=== PATIENT | female | born 1945 | race Caucasian/White ===

== ENCOUNTER 2019-04-29 14:04 | Outpatient (CLI) | payer MEDICARE, SELFPAY ==
--- NOTE | ~2019-04-29 | DEXA_ITS ---
Bone Density Report Name: Margaret Funez Age: 74 Sex: Female Ethnicity: White Date of : 1945 Indication: osteopenia; height loss; Referring Provider: Ne Perez Study: Bone densitometry was performed. Exam Date: April 29, 2019 Accession number: [id number] Bone Density: Region BMD T-score Z-score Classification AP Spine (L1, L2, L3) 0.832 -1.7 0.6 Osteopenia Femoral Neck (Left) 0.618 -2.1 -0.1 Osteopenia Total Hip (Left) 0.864 -0.6 1.0 Normal Total Hip Bilateral Avg 0.821 -1.0 0.7 Osteopenia Femoral Neck (Right) 0.673 -1.6 0.4 Osteopenia Total Hip (Right) 0.777 -1.4 0.3 Osteopenia World Health Organization criteria for BMD impression classify patients as: Normal (T-score at or above -1.0), Osteopenia (T-score between -1.0 and -2.5), or Osteoporosis (T-score at or below -2.5). 10-year Fracture Risk(1): Major Osteoporotic Fracture 13% Hip Fracture 2.9% Reported Risk Factors: [place] (), Neck BMD=0.618, BMI=28.6 (1) FRAX(R) Version 3.08. Fracture probability calculated for an untreated patient. Fracture probability may be lower if the patient has received treatment. Previous Exams: Region Exam Age BMD T-score BMD Change BMD Change Date g/cm2 vs Baseline vs Previous AP Spine(L1, L2, L3) 04/29/2019 74 0.832 -1.7 -0.162(-16.3%) -0.027(-3.1%)* 12/10/2015 70 0.859 -1.4 -0.135(-13.6%) -0.135(-13.6%) 10/12/2007 62 0.995 -0.2 Total Hip(Left) 04/29/2019 74 0.864 -0.6 -0.094(-9.8%)# -0.011(-1.2%) 12/10/2015 70 0.875 -0.5 -0.083(-8.6%)# -0.083(-8.6%)# 10/12/2007 62 0.958 0.1 Total Hip(Right) 04/29/2019 74 0.777 -1.4 -0.126(-14.0%) -0.057(-6.9%)* 12/10/2015 70 0.834 -0.9 -0.069(-7.6%)# -0.069(-7.6%)# 10/12/2007 62 0.903 -0.3 *Denotes significance at 95% confidence level, LSC for AP Spine = 0.022 g/cm2, LSC for Total Hip = 0.027 g/cm2 Clinical Information Provided by Patient: Patient maximum height was 62 Menopause Age: 51 No regular weight bearing exercise Drinks caffeinated beverages Onset of menses at age 11 Number of children 2 Impression: The patient has low bone mass, based on the Left Femoral Neck T-score. The patient has an estimated ten-year risk of hip fracture of 2.9% and an estimated ten-year risk of major fracture of 13%, based on the WHO FRAX algorithm. The BMD for the AP Spine(L1, L2, L3) decreased, changing by -3.1% since the last DXA exam. The BMD for the T
--- NOTE | ~2019-04-29 | MM_ITS ---
EXAMINATION: MM screening [facility] BI w thomas HISTORY: Screening mammogram TECHNIQUE: Craniocaudal and mediolateral oblique 3-D tomosynthesis images were obtained and synthetic 2-D images were generated. CAD analysis was submitted and interpreted. COMPARISON: 04/09/2018 diagnostic left digital mammogram and limited left breast ultrasound 03/15/2018 bilateral digital screening mammogram 02/17/2016 bilateral digital mammograms from [facility] Scattered bilateral benign calcifications. BREAST PARENCHYMAL COMPOSITION: The breasts are heterogeneously dense, which may obscure small masses . FINDINGS: Biopsy marker is noted on the left; history of prior benign left breast biopsy in 2019. The re is no evidence of suspicious mass, calcification, or architectural distortion to suggest malignanc y in either breast. There has been no suspicious interval change. IMPRESSION: 1. No mammographic evidence of malignancy. 2. Recommend routine screening mammography in one year. BI-RADS Category 2: Benign finding(s). Reviewed, dictated and finalized at location A. 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
== END 2019-04-29 14:05 | disposition home or self-care (01) ==
PROVIDERS: PCP Internal Medicine; Visit Provider Student in an Organized Health Care Education/Training Program
DX: Z12.31 Encounter for screening mammogram for malignant neoplasm of breast (principal); Z78.0 Asymptomatic menopausal state; M85.89 Other specified disorders of bone density and structure, multiple sites
CPT/HCPCS: 77063; 77067; 77080

== ENCOUNTER 2020-03-31 08:43 | Outpatient (CLI) | payer MEDICARE, SELFPAY ==
--- NOTE | 2020-03-31 08:57 | ECHO_ITS ---
Patient Info Name: Margaret Funez Age: 75 years : 1945 Gender: Female Ht: 61 in Wt: 147 lbs BSA: 1.71 m2 HR: 95 bpm BP: 144 / 87 mmHg Technical Quality: Fair Exam Date: 03/31/2020 9:19 AM Exam Location: [facility] Patient Status: Outpatient Admit Date: 03/31/2020 Staff Ordering Physician: Chuy High MD Warehouse General Laborer: Bea Nieves RDCS Attending Provider: Chuy High MD Referring Physician: Anila HANSON; Exam Type: CA echo doppler color flow Study Info Indications - abn ekg Complete two-dimentional, color flow and Doppler transthoracic echocardiogram is performed with agitated saline and with contrast to opacify the left ventricle and to improve the delineation of the left ventricle endocardial borders. Summary 1. Left ventricular chamber dimension is normal. 2. Left ventricular systolic function is normal, estimated at 60-65%. 3. The left ventricular diastolic function is grade I diastolic dysfunction. 4. E/e' 7 is not elevated. 5. No pulmonary hypertension, estimated pulmonary arterial systolic pressure is 26 mmHg. Left Ventricle E/e' 7 is not elevated. Left ventricular chamber dimension is normal. Left ventricular systolic function is normal, estimated at 60-65%. The left ventricular diastolic function is grade I diastolic dysfunction. Right Ventricle Right ventricular chamber dimension is normal. Right ventricular systolic function is normal. Left Atria Left atrial chamber dimension is normal. Right Atria Right atrial chamber dimension is normal. Aortic Valve The aortic valve is trileaflet. There is no aortic valve stenosis. There is no aortic valve regurgitation. Pulmonic Valve There is no pulmonic regurgitation. Mitral Valve There is no mitral valve stenosis. There is no mitral valve regurgitation. Tricuspid Valve There is no tricuspid valve regurgitation. No pulmonary hypertension, estimated pulmonary arterial systolic pressure is 26 mmHg. Pericardium/Pleural There is no pericardial effusion. Inferior Vena Cava Normal inferior vena cava with >50% collapse upon inspiration consistent with normal right atrial pressure, 5 mmHg. Aorta The aortic root size at the sinus of Valsalva is normal. Left Ventricular Outflow Tract Name Value Normal LVOT 2D LVOT Diameter 2.0 cm LVOT Doppler LVOT Peak Gradient 4 mmHg LVOT Mean Gradient 2 mmHg LVOT VTI 22 cm LVOT VTI/AV VTI Ratio 1.0 LVOT Stroke Volume 65 ml LVOT CO 12.1 l/min LVOT CI 7.0 l/min/m2 Pulmonic Valve Name Value Normal PV Doppler PV Peak Gradient 3 mmHg Mitral Valve
== END 2020-03-31 08:44 | disposition home or self-care (01) ==
PROVIDERS: PCP Internal Medicine; Visit Provider Internal Medicine
DX: R94.31 Abnormal electrocardiogram [ECG] [EKG] (principal)
CPT/HCPCS: 93306

== ENCOUNTER 2020-05-06 10:29 | Outpatient (CLI) | payer MEDICARE, SELFPAY ==
--- NOTE | ~2020-05-06 | MM_ITS ---
EXAMINATION: MM screening yung BI w thomas HISTORY: Screening mammogram TECHNIQUE: Craniocaudal and mediolateral oblique 3-D tomosynthesis images were obtained and synthetic 2-D images were generated. CAD analysis was submitted and interpreted. COMPARISON: 04/29/2019 bilateral digital screening mammogram 04/09/2018 diagnostic left digital mammogram and limited left breast ultrasound 03/15/2018 bilateral digital screening mammogram BREAST PARENCHYMAL COMPOSITION: The breasts are heterogeneously dense, which may obscure small masses . FINDINGS: There is a biopsy in the lower mid left breast. History of prior benign breast biopsy. Scattered bilateral benign calcifications. There is no evidence of suspicious mass, calcification, or architectural distortion to suggest malignancy in either breast. There has been no suspicious interv al change. IMPRESSION: 1. No mammographic evidence of malignancy. 2. Recommend routine screening mammography in one year. BI-RADS Category 2: Benign finding(s). Reviewed, dictated and finalized at location A. 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
== END 2020-05-06 10:30 | disposition home or self-care (01) ==
PROVIDERS: PCP Internal Medicine; Visit Provider Student in an Organized Health Care Education/Training Program
DX: Z12.31 Encounter for screening mammogram for malignant neoplasm of breast (principal)
CPT/HCPCS: 77063; 77067

== ENCOUNTER 2020-09-26 10:46 | Emergency (ER) | payer MEDICARE, SELFPAY ==
[2020-09-26 10:55] VITALS: BP 123/73; PULSE 84; RESP 18; TEMP 36.1; O2SAT 98
--- NOTE | 2020-09-26 11:39 | ED.GENADULT ---
HPI - General Adult General Chief complaint: Skin/Abscess/Foreign Body Stated complaint: INSECT BITE Source: patient Mode of arrival: ambulatory Limitations: no limitations History of Present Illness HPI narrative: 75 y/o female. PMHx includes HTN, HLD, DM II. Presents to [facility] clinic today with acute complaints of insect bite located to inner LT forearm. Pt reports to have been working outside, when she felt a sting to her forearm. She was able to visualize a wasp as the culprit. Incident had initially occurred 3 days ago, but she has had worsening redness, irritation, and pain to site. No fever, chills. No joint pain or myalgia. No dyspnea or wheezing. No additional areas of integumentary involvement. Pt is w/o additional acute c/o illness upon exam. Related Data Home Medications Medication Instructions Recorded Confirmed empagliflozin 10 mg tablet 10 mg PO DAILY 01/07/19 06/25/20 sitagliptin 100 mg tablet 100 mg PO DAILY 01/07/19 06/25/20 vitamin B complex 1 tablet PO DAILY 01/07/19 06/25/20 omega-3 fatty acids 1,000 mg 1,000 mg PO DAILY 04/04/19 06/25/20 capsule calcium carbonate 600 mg(1,500 1 tablet PO DAILY 05/07/19 06/25/20 mg)-vitamin D3 800 unit chewable tablet cholecalciferol (vitamin D3) 25 1,000 unit PO DAILY 05/07/19 06/25/20 mcg (1,000 unit) capsule ascorbate calcium (vitamin C) 500 500 mg PO DAILY 02/12/20 06/25/20 mg tablet Fiber-Caps (ca polycarbophil) 09/26/20 Immune Support Complex 09/26/20 Tri Ease Seasonal Soft Gels DAILY 09/26/20 biotin 09/26/20 Allergies Allergy/AdvReac Type Severity Reaction Status Date / Time pollen extracts Allergy Unknown Unknown Verified 04/20/20 10:37 Review of Systems Review of Systems: CONSTITUTIONAL: Denies fever, chills, sweats. EYES: Denies visual changes, redness, discharge. ENT: Denies rhinorrhea, congestion, sore throat, otalgia. CARDIOVASCULAR: Denies chest pain, palpitations, edema. RESPIRATORY: Denies dyspnea, wheezing, cough GASTROINTESTINAL: Denies abdominal pain, nausea, vomiting, diarrhea. GENITOURINARY: Denies dysuria, hematuria, abnormal discharge SKIN: Wasp sting LUE. No rash or itching. MUSCULOSKELETAL: Denies acute back pain, joint pain, or myalgia. NEUROLOGIC: Denies numbness, or focal weakness. PSYCHIATRIC: Denies anxiety or depression. 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 Vitamin D deficiency Surgical History Surgical History History of breast biopsy History of tonsillectomy Family History Family History Father Hypertension Family history of malignant neoplasm Mother Family history of cardiovascular disease Family history of heart disease in male family member before age 55 Other Diabetes mellitus Social History Social History Smoking status: Former smoker Second hand tobacco smoke exposure: No Smoking end date: 07/29/07 Alcohol intake: never Substance use type: marijuana Exam Narrative: GENERAL: This is a well-nourished, well-developed adult, in no apparent distress. HEAD: normocephalic, atraumatic. EYES: PERRL. Sclera clear/white. EARS: External ears normal, auditory canals clear and wit
== END 2020-09-26 11:14 | disposition home or self-care (01) ==
PROVIDERS: Emergency Provider Nurse Practitioner Adult Health; PCP Internal Medicine
DX: T63.461A Toxic effect of venom of wasps, accidental (unintentional), initial encounter (principal); E11.9 Type 2 diabetes mellitus without complications; E78.5 Hyperlipidemia, unspecified
CPT/HCPCS: 99213; G0463

== ENCOUNTER 2021-05-24 09:04 | Outpatient (CLI) | payer MEDICARE, SELFPAY ==
--- NOTE | ~2021-05-24 | MM_ITS ---
EXAMINATION: MM screening [facility] BI w thomas HISTORY: Screening mammogram TECHNIQUE: Craniocaudal and mediolateral oblique 3-D tomosynthesis images were obtained and synthetic 2-D images were generated. CAD analysis was submitted and interpreted. COMPARISON: 05/06/2020, 04/29/2019, 04/09/2018, 03/15/2018 BREAST PARENCHYMAL COMPOSITION: The breasts are heterogeneously dense, which may obscure small masses . FINDINGS: Scattered benign-appearing calcifications are present. There is no suspicious mass, calcifi cation, or architectural distortion to suggest malignancy in either breast. There has been no suspici ous interval change. IMPRESSION: 1. No mammographic evidence of malignancy. 2. Recommend routine screening mammography in one year. BI-RADS Category 2: Benign finding(s). Reviewed, dictated and finalized at location A.
== END 2021-05-24 09:05 | disposition home or self-care (01) ==
PROVIDERS: PCP Internal Medicine; Visit Provider Student in an Organized Health Care Education/Training Program
DX: Z12.31 Encounter for screening mammogram for malignant neoplasm of breast (principal)
CPT/HCPCS: 77063; 77067

== ENCOUNTER 2022-08-08 08:55 | Outpatient (CLI) | payer MEDICARE, SELFPAY ==
--- NOTE | ~2022-08-08 | US_ITS ---
US abdomen limited INDICATION: Abnormal liver function tests. PROCEDURE: Realtime right upper abdominal ultrasound. COMPARISON: No prior studies for comparison. FINDINGS: The pancreas is normal without focal mass or pancreatic ductal dilation. Pancreatic duct is mildly prominent, nonspecific. Liver echotexture is increased, consistent with fatty infiltration. There is normal directional flow in the portal vein. The gallbladder is normal without stones, gallbladder wall thickening or pericholecystic fluid. Comm on bile duct measures 4 mm. No sonographic Salguero's sign. IMPRESSION: 1: Hepatic steatosis. Reviewed, dictated and finalized at location L. IMPRESSION: 1: Hepatic steatosis.
== END 2022-08-08 08:56 | disposition home or self-care (01) ==
PROVIDERS: PCP Internal Medicine; Visit Provider Internal Medicine
DX: R79.89 Other specified abnormal findings of blood chemistry (principal); K76.0 Fatty (change of) liver, not elsewhere classified
CPT/HCPCS: 76705

== ENCOUNTER 2022-09-28 16:03 | Outpatient (CLI) | payer MEDICARE, SELFPAY ==
[2022-09-28 17:32] LABS: Basophils Absolute Auto 0.1 K/mm3 (0.0-0.1); Basophils Percent Auto 0.7 % (0.2-1.2); Eosinophils Absolute Auto 0.1 K/mm3 (0-0.3); Eosinophils Percent Auto 1.6 % (0-4.4); Hematocrit 43.6 % (37.0-47.0); Hemoglobin 14.2 g/dL (12.0-15.0); Immature Granulocyte Absolute 0.01 K/mm3 (0.00-0.031); Immature Granulocyte Percent A 0.1 % (0-0.5); Lymphocytes Absolute Auto 1.64 K/mm3 (0.9-3.2); Lymphocytes Percent Auto 21.4 % (18.3-44.2); Mean Corpuscular HGB Conc 32.6 g/dl (32-36); Mean Corpuscular Hemoglobin 29.5 pg (26-34); Mean Corpuscular Volume 90.6 fl (80-100); Mean Platelet Volume 10.4 fl (7.4-10.4); Monocytes Absolute Auto 0.8 K/mm3 (0.1-0.6); Monocytes Percent Auto 10.6 % (2.6-8.5); Neutrophils Percent Auto 65.6 % (45.5-73.1); Platelet Count Result 244 k/mm3 (150-375); Red Blood Count 4.81 M/mm3 (4.2-5.4); Red Cell Distribution Width 13.8 % (11.5-14.5); White Blood Count 7.7 K/mm3 (4.5-10.0)
== END 2022-09-28 16:04 | disposition home or self-care (01) ==
LOC: ANHLAB 16:04
PROVIDERS: PCP Internal Medicine; Visit Provider Internal Medicine
DX: R35.89 Other polyuria (principal); R50.9 Fever, unspecified
CPT/HCPCS: 36415; 81001; 85025; 87086

== ENCOUNTER 2022-09-29 08:12 | Outpatient (NON) | payer MEDICARE, SELFPAY ==
[2022-09-30 11:23] LABS: Appearance Urine Turbid (Clear); Bacteria Urine Rare /hpf; Bilirubin Urine Negative (Negative); Blood Urine 3+ (Negative); Budding Yeast Urine Present /hpf; Calcium Oxalate Crystals Urine Present /hpf; Color Urine Yellow (Yellow); Glucose Urine UA 2+ mg/dL (Negative); Ketones Urine Trace mg/dL (Negative); Leukocyte Esterase Ur 3+ LEU/UL (NEGATIVE); Nitrate Urine Negative (Negative); Non Pathogenic Casts 0-2; Protein Urine 2+ mg/dL (Negative); RBC Urine >100 /hpf (0-2); Specific Grav Ur 1.024 (1.001-1.035); Squamous Epithelial Cell Urine Few /hpf (Few); Urobilinogen Urine 0.2 mg/dL (<2.0); WBC Clumps Urine Present /HPF; WBC Urine >100 /hpf (0-3); pH Urine 5.5 (5.0-9.0)
[2022-09-30 11:37] LABS: Add Urine Microscopic? YES
== END 2022-09-29 08:13 | disposition home or self-care (01) ==
PROVIDERS: PCP Internal Medicine; Visit Provider Internal Medicine
DX: R50.9 Fever, unspecified (principal); R35.89 Other polyuria
CPT/HCPCS: 81001

== ENCOUNTER 2022-10-13 14:55 | Outpatient (CLI) | payer MEDICARE, SELFPAY ==
--- NOTE | ~2022-10-13 | DEXA_ITS ---
Bone Density Report Name: VIC GRACE Age: 77 Sex: Female Ethnicity: White Date of : 1945 Indication: osteopenia; height loss; postmenopausal Referring Provider: ZINA PATEL Study: Bone densitometry was performed. Exam Date: October 13, 2022 Accession number: [id number] Bone Density: Region BMD T-score Z-score Classification AP Spine(L1-L4) 0.861 -1.7 0.8 Osteopenia Femoral Neck (Left) 0.653 -1.8 0.4 Osteopenia Total Hip (Left) 0.819 -1.0 0.9 Normal Femoral Neck (Right) 0.639 -1.9 0.3 Osteopenia Total Hip (Right) 0.751 -1.6 0.3 Osteopenia Total Hip Mean 0.785 -1.3 0.6 Osteopenia World Health Organization criteria for BMD impression classify patients as: Normal (T-score at or above -1.0), Osteopenia (T-score between -1.0 and -2.5), or Osteoporosis (T-score at or below -2.5). 10-year Fracture Risk(1): Major Osteoporotic Fracture 13% Hip Fracture 3.3% Reported Risk Factors: [place] (), Neck BMD=0.639, BMI=26.8 (1) FRAX(R) Version 3.08. Fracture probability calculated for an untreated patient. Fracture probability may be lower if the patient has received treatment. Previous Exams: Region Exam Age BMD T-score BMD Change BMD Change Date g/cm2 vs Baseline vs Previous AP Spine (L1-L4) 10/13/2022 77 0.861 -1.7 -0.005 (-0.6%) -0.005 (-0.6%) 12/10/2015 70 0.866 -1.6 Total Hip(Left) 10/13/2022 77 0.819 -1.0 -0.056 (-6.4%) -0.045 (-5.2%) 04/29/2019 74 0.864 -0.6 -0.011 (-1.2%) -0.011 (-1.2%) 12/10/2015 70 0.875 -0.5 Total Hip(Right) 10/13/2022 77 0.751 -1.6 -0.083 (-9.9%) -0.026 (-3.3%) 04/29/2019 74 0.777 -1.4 -0.057 (-6.9%) -0.057 (-6.9%) 12/10/2015 70 0.834 -0.9 *Denotes significance at 95% confidence level, LSC for AP Spine = 0.022 g/cm2, LSC for Total Hip = 0.027 g/cm2 Clinical Information Provided by Patient: Has used the following medications: Vitamin D, Calcium Patient maximum height was 62 Menopause Age: 56 No regular weight bearing exercise Onset of menses at age 13 Number of children 2 Impression: The patient has low bone mass, based on the Right Femoral Neck T-score. The patient has an estimated ten-year risk of hip fracture of 3.3% and an estimated ten-year risk of major fracture of 13%, based on the WHO FRAX algorithm. The BMD for the Total Hip(Left) decreased, changing by -5.2% since the last DXA exam. Discussion: BONE DENSITY IS LOW AT ON
--- NOTE | ~2022-10-13 | MM_ITS ---
EXAMINATION: MM screening [facility] BI w thomas HISTORY: Screening TECHNIQUE: Craniocaudal and mediolateral oblique 3-D tomosynthesis images were obtained and synthetic 2-D images were generated. CAD analysis was submitted and interpreted. COMPARISON: Comparison to multiple prior studies sequentially, with oldest reviewed study dated 2018. BREAST PARENCHYMAL COMPOSITION: The breasts are heterogeneously dense, which may obscure small masses . FINDINGS: There is no evidence of suspicious mass, calcification, or architectural distortion to sugg est malignancy in either breast. There has been no suspicious interval change. IMPRESSION: 1. No mammographic evidence of malignancy. 2. Recommend routine screening mammography in one year. BI-RADS Category 1: Negative . Reviewed, dictated and finalized at location A.
== END 2022-10-13 14:56 | disposition home or self-care (01) ==
LOC: ANHIMG 14:56
PROVIDERS: PCP Internal Medicine; Visit Provider Obstetrics & Gynecology
DX: Z12.31 Encounter for screening mammogram for malignant neoplasm of breast (principal); Z78.0 Asymptomatic menopausal state; M85.88 Other specified disorders of bone density and structure, other site; M85.852 Other specified disorders of bone density and structure, left thigh; M85.851 Other specified disorders of bone density and structure, right thigh
CPT/HCPCS: 77063; 77067; 77080

== ENCOUNTER 2023-01-08 09:04 | Outpatient (CLI) | payer MEDICARE, SELFPAY ==
--- NOTE | 2023-01-08 10:14 | ECG_ITS ---
Measurements Intervals Pilger Rate: 78 P: 10 MI: 141 QRS: 71 QRSD: 92 T: 66 QT: 369 QTc: 423 Interpretive Statements SINUS RHYTHM RIGHT BUNDLE BRANCH BLOCK LOW QRS VOLTAGE IN PRECORDIAL LEADS BASELINE ARTIFACT- II, III, AVR, AVL, AVF, V3 ABNORMAL ECG NO PREVIOUS ECG AVAILABLE FOR COMPARISON Electronically Signed On 01-08-2023 11:37:41 GLOBAL PROGRAM MANAGER by Ricki Somers D.O.
[2023-01-08 10:58] LABS: Hematocrit 46.2 % (37.0-47.0); Hemoglobin 14.2 g/dL (12.0-15.0); Mean Corpuscular HGB Conc 30.7 g/dl (32-36); Mean Corpuscular Hemoglobin 27.7 pg (26-34); Mean Corpuscular Volume 90.2 fl (80-100); Mean Platelet Volume 10.4 fl (7.4-10.4); Platelet Count Result 280 k/mm3 (150-375); Red Blood Count 5.12 M/mm3 (4.2-5.4); Red Cell Distribution Width 14.5 % (11.5-14.5); White Blood Count 13.1 K/mm3 (4.5-10.0)
[2023-01-08 11:04] LABS: INR 0.9; Prothrombin Time 12.8 Seconds (11.1-14.7)
[2023-01-08 11:06] LABS: Partial Thromboplastin Time 52.2 SECONDS (22.3-36.8)
[2023-01-08 11:40] LABS: Total Cells Counted 100
[2023-01-08 11:41] LABS: Band Neutrophils Percent 8 % (0-6); Basophils Absolute Manual 0.13 K/mm3 (0.0-0.1); Basophils Percent Manual 1 % (0-1); Lymphocytes Absolute Manual 6.28 K/mm3 (1.1-4.5); Lymphocytes Percent Manual 48 % (18-44); Monocytes Absolute Manual 0.65 K/mm3 (0.1-0.90); Monocytes Percent Manual 5 % (3-9); Neutrophils Absolute Manual 6.02 K/mm3 (1.7-7.2); Neutrophils Percent Manual 38 % (46-73)
[2023-01-08 11:42] LABS: Anisocytosis 1+ (NORMAL); Burr Cells 1+ (NORMAL); Platelet Estimate Adequate (Adequate); Poikilocytosis 1+ (NORMAL); Schistocytes None Seen (NORMAL)
== END 2023-01-08 09:05 | disposition home or self-care (01) ==
LOC: ANHSURGERY 09:08
PROVIDERS: PCP Internal Medicine; Visit Provider Urology
DX: Z01.818 Encounter for other preprocedural examination (principal); I10 Essential (primary) hypertension; N18.2 Chronic kidney disease, stage 2 (mild); I45.10 Unspecified right bundle-branch block; R94.31 Abnormal electrocardiogram [ECG] [EKG]
CPT/HCPCS: 36415; 85025; 85610; 85730; 86850; 86900; 86901; 93005

== ENCOUNTER 2023-01-15 00:22 | Day surgery (SDC) | payer MEDICARE, SELFPAY ==
[2023-01-08 09:21] VITALS: BMI 26.4
--- NOTE | 2023-01-08 09:56 | PC.NURSE ---
Report to the Outpatient Waiting Room, entrance under the green pavilion located off [facility], at time _0930 on date _01/15/23 . Planned Procedure Time: __1130 . Time changes happen often and if your time is changed the preop area will call you the afternoon before. - You and your visitor will be asked to self-screen and do not enter if you have any COVID symptoms. - A mask is optional within the hospital at this time. Patients may have clear liquids (water, carbonated beverages, clear teas, apple juice) until 3 hours prior to surgery with a maximum of 20 ounces. - No food from midnight until time of surgery - Infants may have breast milk until 4 hours before surgery, formula 6 hours prior to surgery. - Children will be allowed to drink immediately following surgery. If applicable, please bring a bottle or sippy cup to assist with drinking. Juice, water, soda, and popsicles are readily available. For infants on formula, please bring formula the day of surgery. Pacifiers are allowed. Take the following medications with a SIP of water the morning of surgery: ____NONE DO NOT STOP ANY OF YOUR OTHER PRESCRIPTION MEDICATIONS PRIOR TO SURGERY ?EXCEPT THE FOLLOWING Medications to discontinue per physician ___ALL VITAMINS AND SUPPLEMENTS 3 DAYS PRE OP.LAST DOSE 01/11/23 Please no make-up, nail ugandan, hairspray, perfume, deodorant, or body powder the day of surgery. No jewelry (including any body piercings) or valuables the day of surgery, leave them at home. Please take a shower or bath the night before, or the morning of, surgery with an antibacterial soap. Wear comfortable, loose fitting clothing. Children are encouraged to wear pajamas. - Jewelry must be removed prior to entering the operating room. Rings and piercings that are not removed may be cut off. - The hospital will not accept responsibility for valuables. - Please leave all valuables, including medications, at home the day of surgery. If you are going home after surgery, a licensed trailer driver must drive you home. - NO public transportation without another adult if you receive anesthesia. - We recommend that an adult stay with you for 24 hours following discharge. - We also recommend that you do not drive, make important decision, drink alcoholic beverages, or take any drugs that were not prescribed by your health care provider for at least 24 hours after your discharge time. For Pediatric surgeries, we recommend two adults accompany the child home. Follow any additional instructions given to you from your surgeon. If you or anyone in your household have experienced Covid symptoms in the past week, please notify your surgeon or the nurse liaison at the phone number below for possible testing. VERBAL AND WRITTEN instructions given to __PATIENT and asked if any additional questions and then verbalized understanding. Patient advised to call surgeon office or pre surgery nurse liaison [phone] if any additional questions.
[2023-01-08 10:16] VITALS: BP 112/72; PULSE 83; RESP 18; TEMP 36.6; O2SAT 97
--- NOTE | 2023-01-13 10:46 | PM.IMHP ---
H&P: HPI History of Present Illness Date/Time: 01/13/23 10:46 Chief Complaint: pelvic organ prolapse Narrative: she has significant pelvic organ prolapse. Stress incontinence documented on urodynamics Review of Systems Review of Systems: All systems reviewed & are unremarkable except as noted in HPI and below PMFSH Past Medical History Medical History Abnormal EKG Benign essential hypertension BMI 26.0-26.9,adult BMI 27.0-27.9,adult BMI 28.0-28.9,adult BMI 29.0-29.9,adult Borderline abnormal TFTs Breast cyst Colon cancer screening Diastolic dysfunction DM type 2 (diabetes mellitus, type 2) Ear itching Eczema Elevated LFTs Encounter for Medicare annual wellness exam Encounter for routine adult health examination with abnormal findings Encounter for routine adult health examination without abnormal findings Encounter for screening mammogram for malignant neoplasm of breast Follow up Hair loss Hearing loss Hepatitis B core antibody positive Hot flashes Hx of seborrheic dermatitis Hypercalcemia Hyperlipidemia On alf drug therapy Unspecified ptosis of bilateral eyelids UTI (urinary tract infection) Vitamin D deficiency Surgical History Surgical History H/O eye surgery History of breast biopsy History of tonsillectomy Family History Family History Father Hypertension Family history of malignant neoplasm Mother Family history of cardiovascular disease Family history of heart disease in male family member before age 55 Other Diabetes mellitus Social History Social History Smoking packs per day: 1 Smoking cigarettes per day: 20.0 Years smoked: 62 Smoking pack-years: 62.00 Smoking status: Former smoker Tobacco type: cigarettes Second hand tobacco smoke exposure: No Smoking end date: 02/26/07 Alcohol intake: never Substance use: never Substance use type: does not use Lack of Transportation: No Lack of Food: Never True Current Housing: I Have Housing Concerned About Future Housing: No Difficulty Paying Gas/Electric Bills: No Difficulty Paying for Meds: No Currently Unemployed: No Education: High School Diploma/GED Living arrangements: with family Additional living arrangements comments: Occupation/Education: retired Gender identity (if verbalized by the patient): Female Sexual Orientation (if Verbalized by the Patient): Straight or Heterosexual Spiritual care concerns: No Meds Home Medications and Allergies Home Medications Medication Instructions Recorded Confirmed Type ascorbate calcium (vitamin C) 500 500 mg PO DAILY 02/12/20 01/08/23 History mg tablet Fiber-Caps (ca polycarbophil) 4 g PO BID 09/26/20 01/08/23 History Immune Support Complex 1 cap PO BID 09/26/20 01/08/23 History Tri Ease Seasonal Soft Gels 1 caplet PO DAILY 09/26/20 01/08/23 History biotin 1 cap PO DAILY 09/26/20 01/08/23 History omega-3 fatty acids 1,000 mg 2,000 mg PO BID 11/11/20 01/08/23 History capsule (Fish Oil Concentrate) triamcinolone acetonide 0.1 % 1 applic topical BID #60 grams 09/13/21 01/08/23 Rx topical cream lisinopril 20 mg tablet See Rx Instructions .Route 04/24/22 01/08/23 Rx .COMPLEX #90 tabs empagliflozin 10 mg tablet See Rx Instructions .Route 07/31/22 01/08/23 Rx (Jardiance) .COMPLEX #90 tabs sitagliptin phosphate 100 mg See Rx Instructions .Route 07/31/22 01/08/23 Rx tablet (Januvia) .COMPLEX #90 tabs atorvastatin 10 mg tablet See Rx Instructions .Route 11/21/22 01/08/23 Rx .COMPLEX #45 tabs metformin 1,000 mg tablet See Rx Instructions .Route 11/21/22 01/08/23 Rx .COMPLEX #180 tabs calcium carbonate 600 mg-vitamin 2 tablet PO DAILY 01/08/23 01/08/23 History D3 10 mcg (400 unit) tablet
--- NOTE | 2023-01-14 19:10 | PM.IMHP ---
H&P: HPI History of Present Illness Date/Time: 01/14/23 19:10 Chief Complaint: prolapse Narrative: Margaret is a 77yo postmenopausal P2002, who has known prolapse. She denies any PMB. No pelvic pain. She does have a known cystocele for the last 2 years and reports it seems to be worse; having urgency and needs to move around to fully empty-- now stage 3 and can easily be seen at the opening. Multiple pessaries were attempted but would not stay in place and she is ready to proceed with surgical intervention. Review of Systems Constitutional: Constitutional: Denies chills, Denies fever(s) and Denies headache(s) Eyes: Eyes: Denies change in vision ENT: Denies dizziness and Denies headache(s) Cardiovascular: Cardiovascular: Denies chest pain and Denies dyspnea Respiratory: Respiratory: Denies cough and Denies dyspnea Gastrointestinal: Gastrointestinal: Denies abdominal pain and Denies change in stool character Genitourinary: Genitourinary: Denies abnormal menses, Denies pelvic pain, Denies vaginal discharge, Denies vaginal odor and Denies vaginal pruritus Neurologic: Denies dizziness and Denies headache(s) Psychiatric: Psychiatric: Denies anxiety and Denies depression PMFSH Past Medical History Medical History Abnormal EKG Benign essential hypertension BMI 26.0-26.9,adult BMI 27.0-27.9,adult BMI 28.0-28.9,adult BMI 29.0-29.9,adult Borderline abnormal TFTs Breast cyst Colon cancer screening Diastolic dysfunction DM type 2 (diabetes mellitus, type 2) Ear itching Eczema Elevated LFTs Encounter for Medicare annual wellness exam Encounter for routine adult health examination with abnormal findings Encounter for routine adult health examination without abnormal findings Encounter for screening mammogram for malignant neoplasm of breast Follow up Hair loss Hearing loss Hepatitis B core antibody positive Hot flashes Hx of seborrheic dermatitis Hypercalcemia Hyperlipidemia On correction drug therapy Unspecified ptosis of bilateral eyelids UTI (urinary tract infection) Vitamin D deficiency Surgical History Surgical History H/O eye surgery History of breast biopsy History of tonsillectomy Family History Family History Father Hypertension Family history of malignant neoplasm Mother Family history of cardiovascular disease Family history of heart disease in male family member before age 55 Other Diabetes mellitus Social History Social History Smoking packs per day: 1 Smoking cigarettes per day: 20.0 Years smoked: 62 Smoking pack-years: 62.00 Smoking status: Former smoker Tobacco type: cigarettes Second hand tobacco smoke exposure: No Smoking end date: 02/26/07 Alcohol intake: never Substance use: never Substance use type: does not use Lack of Transportation: No Lack of Food: Never True Current Housing: I Have Housing Concerned About Future Housing: No Difficulty Paying Gas/Electric Bills: No Difficulty Paying for Meds: No Currently Unemployed: No Education: High School Diploma/GED Living arrangements: with family Additional living arrangements comments: Occupation/Education: retired Gender identity (if verbalized by the patient): Female Sexual Orientation (if Verbalized by the Patient): Straight or Heterosexual Spiritual care concerns: No Meds Home Medications and Allergies Home Medications Medication Instructions Recorded Confirmed Type ascorbate calcium (vitamin C) 500 500 mg PO DAILY 02/12/20 01/08/23 History mg tablet Fiber-Caps (ca polycarbophil) 4 g PO BID 09/26/20 01/08/23 History Immune Support Complex 1 cap PO BID 09/26/20 01/08/23 History Tri Ease Seasonal Soft Gels 1 caplet PO DAILY 09/26/20
[2023-01-15] VITALS (7 sets, daily range): BP systolic 110–147; BP diastolic 64–87; PULSE 80–96; RESP 8–18; TEMP 36.3–37; O2SAT 95–99
--- NOTE | 2023-01-15 07:16 | WPDHPUPDATE1 ---
History and Physical Update Update Date/Time: 01/15/23 07:16 History and Physical has been reviewed, including an updated exam of the patient. There are NO changes in the patient's condition. Risks, benefits, and alternatives have been discussed and questions answered. Patient agrees to proceed with procedure.
--- NOTE | 2023-01-15 08:30 | WPDANESEPPF ---
Anes - Initial Pre Proc Eval Procedure: Operation Date: 01/15/23 11:30 Proposed Procedures p Robotic Sacrocolpopexy, - Toni Le MD s Robotic Laparoscopic Supracervical Hysterectomy with Bilateral Salpingo-oophorectomy - Courtney Braxton MD Date/Time: 01/15/23 08:30 Surgeon: Toni Le MD Pre Op Diagnosis: incomp uterovag prolapse Patient Data Age: 77 Gender: F Height: 1.55 m Weight: 63.6 kg Last Vital Signs Temp 36.6 C 01/08/23 10:16 Pulse 83 01/08/23 10:16 Resp 18 01/08/23 10:16 BP 112/72 01/08/23 10:16 Pulse Ox 97 01/08/23 10:16 O2 Del Method Room Air 01/08/23 10:16 Allergies Allergy/AdvReac Type Severity Reaction Status Date / Time pollen extracts Allergy Unknown Swelling Verified 01/15/23 09:45 of the Eye Home Medications Medication Instructions Recorded Confirmed Type ascorbate calcium (vitamin C) 500 500 mg PO DAILY 02/12/20 01/15/23 History mg tablet Fiber-Caps (ca polycarbophil) 4 g PO BID 09/26/20 01/15/23 History Immune Support Complex 1 cap PO BID 09/26/20 01/15/23 History Tri Ease Seasonal Soft Gels 1 caplet PO DAILY 09/26/20 01/15/23 History biotin 1 cap PO DAILY 09/26/20 01/15/23 History omega-3 fatty acids 1,000 mg 2,000 mg PO BID 11/11/20 01/15/23 History capsule (Fish Oil Concentrate) triamcinolone acetonide 0.1 % 1 applic topical BID #60 grams 09/13/21 01/15/23 Rx topical cream lisinopril 20 mg tablet See Rx Instructions .Route 04/24/22 01/15/23 Rx .COMPLEX #90 tabs empagliflozin 10 mg tablet See Rx Instructions .Route 07/31/22 01/15/23 Rx (Jardiance) .COMPLEX #90 tabs sitagliptin phosphate 100 mg See Rx Instructions .Route 07/31/22 01/15/23 Rx tablet (Januvia) .COMPLEX #90 tabs atorvastatin 10 mg tablet See Rx Instructions .Route 11/21/22 01/15/23 Rx .COMPLEX #45 tabs metformin 1,000 mg tablet See Rx Instructions .Route 11/21/22 01/15/23 Rx .COMPLEX #180 tabs calcium carbonate 600 mg-vitamin 2 tablet PO DAILY 01/08/23 01/15/23 History D3 10 mcg (400 unit) tablet (Calcium 600 + D(3)) cholecalciferol (vitamin D3) 125 125 mcg PO DAILY 01/08/23 01/15/23 History mcg (5,000 unit) tablet alendronate 70 mg tablet (Fosamax) 70 mg PO WEEKLY #4 tabs 01/09/23 01/15/23 Rx Patient hx anesthesia problems: none Family hx anesthesia problems: none Results Review: All pre-operative results and documents have been reviewed as part of the pre-operative evaluation. [facility] Past Medical History Medical History (Updated 01/15/23 @ 08:31 by Elías Brown, ) Abnormal EKG Benign essential hypertension BMI 26.0-26.9,adult BMI 27.0-27.9,adult BMI 28.0-28.9,adult BMI 29.0-29.9,adult Borderline abnormal TFTs Breast cyst Colon cancer screening Diastolic dysfunction DM type 2 (diabetes mellitus, type 2) Ear itching Eczema Elevated LFTs Encounter for Medicare annual wellness exam Encounter for routine adult health examination with abnormal findings Encounter for routine adult health examination without abnormal findings Encounter for screening mammogram for malignant neoplasm of breast Follow up Hair loss Hearing loss Hepatitis B core antibody positive Hot flashes Hx of seborrheic dermatitis Hypercalcemia Hyperlipidemia Hypertension 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
[2023-01-15] MEDS: LACTATED RINGERS 1,000 ML 30 ML IV CONT ×3 (10:13→18:44)
[2023-01-15] MEDS: KETOROLAC 15 MG/ML VIAL (*BKC) IV PUSH (10:14)
[2023-01-15] MEDS: ACETAMINOPHEN 500 MG TABLET 1000 MG PO (10:14)
[2023-01-15 10:17] LABS: Glucose Point of Care 126 mg/dl (65-105)
[2023-01-15 10:21] LABS: White Blood Count 11.6 K/mm3 (4.5-10.0)
[2023-01-15 10:34] LABS: Partial Thromboplastin Time 48.7 SECONDS (22.3-36.8)
--- NOTE | 2023-01-15 10:44 | SUR.PREOP ---
1040 PT INFORMED OF SURGERY TIME DELAY, WARM BLANKET GIVEN.
--- NOTE | 2023-01-15 12:10 | WPDHPUPDATE1 ---
History and Physical Update Update Date/Time: 01/15/23 12:10 History and Physical has been reviewed, including an updated exam of the patient. There are NO changes in the patient's condition. Risks, benefits, and alternatives have been discussed and questions answered. Patient agrees to proceed with robotic assisted supracervical hysterectomy with bilateral salpingo-oophorectomy; combined case with Dr. Le .
--- NOTE | 2023-01-15 12:21 | SUR.PREOP ---
1150 INFORMED OF FURTHER TIME DELAY FOR SURGERY, PT UP TO RESTROOM.
[2023-01-15] MEDS: metroNIDAZOLE 500 MG/ISO 100ML 500 MG/100 ML BAG 100 MG IVPB ×2 (14:46→22:38)
[2023-01-15] MEDS: ceFAZolin 2 GM/D5W 50 ML 2 GM/50 ML BAG IVPB (14:46)
--- NOTE | 2023-01-15 15:43 | P.OP_ITS ---
Procedure Note - Detailed Date of Procedure 01/15/23 Pre-op Diagnosis incomp uterovag prolapse Post-op Diagnosis Same Procedure Performed robotic assisted total laparoscopic supracervical hysterectomy with bilateral salpingo-oophorectomy Surgeon Courtney Braxton MD Aviation Tactical Readiness Officer Marybeth Anesthesia General Findings Stage 4 pelvic organ prolapse; normal appearing uterus and bilateral fallopian tubes; history of tubal ligation. Good hemostasis at end of case. Description of Procedure Margaret was taken to the operating room where she was placed under general anesthesia without issues. She received 2 g Ancef and 500mg Metronidazole. She was then prepped and draped in the usual sterile fashion in the dorsal lithotomy position with her legs in low Regis stirrups, her arms tucked at her side, with a strap over her chest. A time-out was performed with both Dr. Le and I in the room. Dr. Le then scrubbed in and placed the 5 laparoscopic ports. The patient was then placed in steep Trendelenburg, with the legs slightly lowered. Dr. Le then docked the robot and placed the instruments intra-abdominally under direct visualization. A narvaez catheter was placed under aseptic technique. I then went to the robotic console. I then started my hysterectomy on the right side. The ureter was easily identified transperitoneally and well out of the surgical field. The IP ligament was identified and serially clamped, coagulated, and transected with good hemostasis. The broad ligament was then sequentially clamped, coagulated, and transected working in the direction of the round ligament. The round ligament was clamped, coagulated, and transected. The broad ligament was then further dissected anteriorly and posteriorly skeletonizing the uterine artery. The bladder flap was then developed on the right side and carried around the left, anteriorly. The uterine artery was then serially clamped and coagulated. Once the vessel was adequately coagulated, it was then transected with good hemostasis. The same procedure was then performed on the left side without complications. All pedicles were found to be hemostatic. The uterus was noted to be devascularized.The bladder flap was verified out of the surgical field and the uterus was transected from the cervix. Good hemostasis was noted. The uterus, bilateral fallopian tubes, and ovaries were placed within a bag. All pedicles were once again examined and found to be hemostatic. Dr. Le then took over the robot and continued his case to repair the prolapse. At the end of the case, my EBL was 20cc. Estimated Blood Loss 20 IV Fluids 1,200 Pathology Yes (uterus, bilateral fallopian tubes and ovaries) Complications No immediate complications Condition Stable Disposition No change [facility] Billing Surgery - Charge Forward: Surgery Billing
--- NOTE | 2023-01-15 17:35 | W.PM.PROC2 ---
Procedure Note - Detailed Date of Procedure 01/15/23 Pre-op Diagnosis incomp uterovag prolapse Stress Post-op Diagnosis Same Procedure Performed Robotic assisted laparoscopic sacral colpopexy Urethral sling Cystoscopy Surgeon Toni Le MD Anesthesia General Indications This is a woman with uterine prolapse as well as stress incontinence. She has overactive bladder urgency as well. She understands this may not be remedied by a prolapse or stress incontinence operation. She desires surgical correction. She is here for the above. She understands risks of bleeding, infection, diskitis, damage to surrounding organs, bowel injury, bowel obstruction, mesh related complications including exposure and extrusion, postoperative voiding dysfunction including incontinence and retention, need for ancillary procedures, dyspareunia, recurrence of prolapse, and other perioperative intraoperative postoperative complications. She agrees to proceed. Findings See below Description of Procedure She was correctly identified. Informed consent obtained. She from the operating room. She was given general anesthesia. She was given appropriate perioperative antibiotics. She was placed a low lithotomy position. Pressure points were padded. A time-out performed. I marked out the skin 3 fingerbreadths cephalad to the umbilicus. I anesthetized the skin. I incised the skin. I dissected down to the fascia. I grasped the fascia with Zena clamps. I entered the fascia sharply in a Fierro type technique. I placed sutures for later fascial closure. I placed a midline trocar. I examined the abdomen. There is no sign of any injury. Under direct vision I placed 2 additional trocars in the right upper quadrant and 2 additional trocars the left upper quadrant. She was placed in steep Trendelenburg. The robot was docked. Her shirt hemmer completed their portion of the procedure. Please see that operative report for details. I then sat at the console. The Sizer in the vagina created plane on the anterior and posterior vaginal wall. I took great care not to injure the vagina, bladder, or rectum. I introduced the mesh into the abdomen. I sewed the anterior leaflet of mesh on the anterior vaginal wall. I sewed the posterior leaflet of mesh on the posterior vaginal wall. This was done with several sutures of 2 0 Norton-Artie. I reflected the colon laterally. I opened the posterior peritoneum over the sacral promontory. I carried this into the cul-de-sac. I freed up the edges for later retroperitonealization. I located the anterior longitudinal ligament the sacrum. I cleaned off all fatty tissues. I then tensioned my mesh appropriately. I did a vaginal exam the bedside. I assured prolapse reduction without undue tension. I then sewed the proximal leaflet of mesh onto the anterior longitudinal ligament of the sacrum with 4 sutures of 2 0 Norton-Artie. I then used a 2 0 Monocryl to completely and meticulously retroperitonealized all mesh. I allowed the colon to go back to its normal anatomic location. There is no sign of any impingement. The specimen was then removed. All ports removed. Fascia was tied down. Skin was closed with Monocryl and surgical glue. She was repositioned and prepped for urethral sling. I marked out the inner thigh incisions. I anesthetized the skin and made the incisions. I then anesthetized the anterior vaginal wall at the mid urethra. I made a 1 cm incision. I dissected out laterally taking great care not to injure the refilled vaginal wall. I passed the helical trocars. I did this 1st on the left and then on the right. This was done from the thigh incision towards the vaginal incision. Sling was connected to the trocars and brought out the thigh incision. I tensioned the sling appropriately. I cut and the plastic sheaths. I closed the incision with 2 0 Vicryl. I then performed cystoscopy. There was no tumors or surgical artifact.
--- NOTE | 2023-01-15 17:50 | SUR.OPER ---
EBL:50ml, Urine:400 ml
[2023-01-15 17:58] LABS: Glucose Point of Care 147 mg/dl (65-105)
[2023-01-15] MEDS: fentaNYL CITRATE INJ (*CRX) 100 MCG/2 ML VIAL 25 MCG IV PUSH ×2 (18:35→18:40)
--- NOTE | 2023-01-15 19:18 | PC.NURSE ---
Patient transferred to post room #[id number] via ( Stretcher ). Support person present. Oriented to unit, room, information board, rooming in, admission packet and security measures. Patient verbalizes understanding.
[2023-01-15] MEDS: KCL 20 MEQ/0.45% NS 1,000 ML 100 ML IV CONT (20:18)
[2023-01-15] MEDS: CEPHALEXIN 500 MG CAPSULE PO (22:36)
[2023-01-16 01:06] VITALS: PULSE 93; RESP 16; O2SAT 98
--- NOTE | 2023-01-16 04:58 | PM.GYNPNOP ---
TURNER OFF - A/P Postoperative Procedures: Procedures Operation Date: 01/15/23 11:30 Actual Procedure Side Surgeon p Robotic Sacrocolpopexy, with urethral sling Not Applicable Toni Le MD s Robotic Laparoscopic Supracervical Hysterectomy with Bilateral Salpingo-oophorectomy Bilateral Courtney Braxton MD Postoperative day: 1 Postoperative status: doing well Postoperative plan: routine post-op care, ambulate, advance diet, voiding trials and discharge (later today) Time Spent With Patient Time: Total time spent is greater than 50% in coordination of care (as documented) at patient's floor/unit and/or counseling patient: Time with patient: less than 15 minutes TURNER OFF- PN:Subj Post-Op Subjective Date/time seen: 01/16/23 04:58 Interval history: POD#1 Margaret reports doing well today. No issues overnight, slept great. Her pain is controlled. She has tolerated regular diet (snacked overnight). She denies any vaginal bleeding. Kennedy catheter is still in place. She has passed flatus. She has not ambulated yet. Review of Systems Review of Systems: All systems reviewed & are unremarkable except as noted in HPI and below (HPI) Constitutional: Constitutional: Denies chills, Denies fever(s) and Denies headache(s) Eyes: Eyes: Denies change in vision ENT: Denies dizziness and Denies headache(s) Cardiovascular: Cardiovascular: Denies chest pain and Denies rapid heart rate Respiratory: Respiratory: Denies cough Genitourinary: Genitourinary: Denies abnormal vaginal bleeding Neurologic: Denies dizziness and Denies headache(s) Exam Const: General: cooperative, healthy appearing, comfortable and no acute distress Orientation/consciousness: patient oriented x3 Resp: Effort & Inspection: normal respiratory effort Auscultation: clear to auscultation bilaterally Cardio: Rate: regular rate GI: Inspection: normal to inspection and incision (5 LSC incisions ) GI Palp: Yes abdominal tenderness (appropriate) and Yes Soft to palpation Auscultation: normal bowel sounds : Other: normal bleeding on pad Skin: General skin exam: normal color Neuro: General: patient oriented x3 Psych: Appearance: grossly normal Affect: normal affect Attitude: cooperative TURNER OFF - PN: Obj Data Vital Signs Vital Signs: Vital Signs - 24 hr 01/15/23 09:36 01/15/23 17:48 01/15/23 18:05 Temperature 98.6 F 97.4 F L Pulse Rate 96 84 82 Respiratory Rate 18 8 L 10 L Blood Pressure 127/70 110/64 120/70 Pulse Oximetry 98 98 97 Oxygen Delivery Room Air Simple Face Mask Simple Face Mask Oxygen Flow Rate 8 8 01/15/23 18:20 01/15/23 18:35 01/15/23 18:50 Temperature Pulse Rate 90 85 80 Respiratory Rate 12 10 L 10 L Blood Pressure 140/84 147/82 H 138/87 Pulse Oximetry 99 98 98 Oxygen Delivery Simple Face Mask Simple Face Mask Nasal Cannula Oxygen Flow Rate 8 8 2 01/15/23 19:32 01/15/23 19:32 01/16/23 01:06 Temperature 97.7 F Pulse Rate 92 93 93 Respiratory Rate 18 18 16 Blood Pressure 137/86 Pulse Oximetry 95 95 98 Oxygen Delivery Nasal Cannula Nasal Cannula Oxygen Flow Rate 2 2 Intake/Output Intake/Output: Intake & Output 01/13/23 01/14/23 01/15/23 01/16/23 23:59 23:59 23:59 23:59 Intake Total 3050 Balance 3050 Meds/Results Medications: Active Medications Generic Name Dose Route Start Last Admin Trade Name Freq PRN Reason Stop Dose Admin Acetaminophen 650 mg 01/15/23 19:14 Acetaminophen 325 Mg Tablet PO Q4H PRN Mild Pain (1-3) or Fever Hydrocodone Bitart/Acetaminophen 1 tab 01/15/23 19:14 Hydrocodone/Acetaminophen (*Crx) 5-325 Mg Tablet PO Q4H PRN Pain Rated 4-5 Atorvastatin Calcium 5 mg 01/16/23 09:00 Atorvastatin 5 Mg Tablet BY MOUTH DAILY BUTCH Cephalexin HCl 500 mg 01/15/23 21:00 01/15/23 22:36 Cephalexin 500 Mg Capsule PO 500 mg QID BUTCH Administration Dextrose 12.5 gm 01/15/23 19:14 Dextrose 50% 25 Gm/50 Ml Sy
[2023-01-16] MEDS: metroNIDAZOLE 500 MG/ISO 100ML 500 MG/100 ML BAG 100 MG IVPB (06:37)
[2023-01-16 06:42] VITALS: BP 103/70; PULSE 86; RESP 16; TEMP 36.8; O2SAT 96
[2023-01-16 07:05] LABS: Glucose Point of Care 132 mg/dl (65-105)
[2023-01-16 07:06] LABS: Hematocrit 39.7 % (37.0-47.0); Hemoglobin 12.5 g/dL (12.0-15.0); Mean Corpuscular HGB Conc 31.5 g/dl (32-36); Mean Corpuscular Hemoglobin 28.3 pg (26-34); Mean Corpuscular Volume 89.8 fl (80-100); Mean Platelet Volume 9.6 fl (7.4-10.4); Platelet Count Result 224 k/mm3 (150-375); Red Blood Count 4.42 M/mm3 (4.2-5.4); Red Cell Distribution Width 14.4 % (11.5-14.5)
[2023-01-16 07:16] LABS: Anion Gap 9 mmol/L (8-16); Blood Urea Nitrogen 18 mg/dL (7-17); Calcium 8.2 mg/dL (8.4-10.2); Carbon Dioxide 22 mmol/L (22-30); Chloride 108 mmol/L (98-107); Estimated CRCL calculation 58 ml/min; Estimated Glomerular Filt Rate > 60; Glucose 136 mg/dL (65-110); Potassium 4.9 mmol/L (3.4-5.0); Sodium 139 mmol/L (137-145)
[2023-01-16] MEDS: ATORVASTATIN 5 MG TABLET BY MOUTH (08:20)
[2023-01-16] MEDS: ACETAMINOPHEN 325 MG TABLET 650 MG PO (08:20)
[2023-01-16] MEDS: lisinopriL 20 MG TABLET PO (08:20)
[2023-01-16] MEDS: ENOXAPARIN 30 MG/0.3 ML SYRINGE SUB-Q (08:23)
[2023-01-16 09:15] VITALS: BP 94/49; PULSE 102; RESP 16; TEMP 36.7; O2SAT 94
[2023-01-16] MEDS: CEPHALEXIN 500 MG CAPSULE PO (09:30)
[2023-01-16] MEDS: HYDROcodone/acetaminophen (*CRX) 5-325 MG TABLET 1 TAB PO (12:19)
--- NOTE | 2023-01-16 14:11 | WPDANESPN ---
Anes - Prog Note Post-Op Date/Time: 01/16/23 14:11 Cardiovascular status: normal Respiratory status: normal Airway patency: baseline Mental status: baseline Post-Op hydration status: normal Vital Signs: Last Vital Signs Temp 36.7 C 01/16/23 09:15 Pulse 102 H 01/16/23 09:15 Resp 16 01/16/23 09:15 BP 94/49 L 01/16/23 09:15 Pulse Ox 94 01/16/23 09:15 O2 Del Method Nasal Cannula 01/16/23 06:42 O2 Flow Rate 2 01/16/23 06:42 Pain Score (VAS): 04/07 I/O: Intake & Output 01/15/23 01/16/23 01/16/23 23:59 07:59 15:59 Intake Total 1800 700 Output Total 1440 300 Balance 1800 -740 -300 Laboratory Tests 01/16/23 07:00 01/16/23 07:00 01/15/23 01/16/23 01/16/23 17:55 06:48 07:00 WBC 15.0 H RBC 4.42 Hgb 12.5 Hct 39.7 MCV 89.8 MCH 28.3 MCHC 31.5 L RDW 14.4 Plt Count 224 MPV 9.6 Sodium 139 Potassium 4.9 Chloride 108 H Carbon Dioxide 22 Anion Gap 9 BUN 18 H Creatinine 0.60 L Estim Creat Clear Calc 58 Estimated GFR > 60 Glucose 136 H POC Capillary Glucose 147 H 132 H Calcium 8.2 L Post-procedural complaints: none Patient Feedback: Patient satisfied with anesthetic care.
== END 2023-01-16 14:08 | disposition home or self-care (01) ==
LOC: ANHSURGERY 15:33 → ANHOB2 19:18
PROVIDERS: Anesthesiology; Obstetrics & Gynecology; PCP Internal Medicine; Visit Provider Urology
PROC: (CPT 57425; principal; 2023-01-15 11:30)
PROC: 0UT94ZZ Resection of Uterus, Percutaneous Endoscopic Approach (ICD-10-PCS; CPT 57425; 2023-01-15 11:30)
DX: N81.4 Uterovaginal prolapse, unspecified (principal); N39.3 Stress incontinence (female) (male); Z87.891 Personal history of nicotine dependence; E11.9 Type 2 diabetes mellitus without complications; E78.5 Hyperlipidemia, unspecified; E55.9 Vitamin D deficiency, unspecified; I10 Essential (primary) hypertension
CPT/HCPCS: 57288; 58542; 57425; 36415; 80048; 82948; 85025; 85027; 85048; 85610; 85730; 86850; 86900; 86901; 88307; 93005; 99199; A9270; C1771; C1781; J0330; J0690; J1100; J1170; J1650; J1836; J1885; J2405; J2704; J3010; J7030; J7120

== ENCOUNTER 2023-02-13 04:54 | Inpatient (IN) | payer MEDICARE, SELFPAY ==
[2023-02-13] VITALS (67 sets, daily range): BP systolic 70–119; BP diastolic 47–97; PULSE 95–142; RESP 14–41; TEMP 36.4–37.9; O2SAT 90–100; BMI 26.6; BMI 24.7
--- NOTE | ~2023-02-13 | XR_ITS ---
EXAMINATION: XR stent kub - surgery DATE: 02/13/2023 12:43 INDICATION: Bilateral ureteral stones. TECHNIQUE: 4 intraoperative fluoroscopic views of the abdomen and pelvis were obtained. I was not pre sent. Fluoroscopy exposure time was 37 seconds. COMPARISON: CT abdomen and pelvis 02/13/2023 FINDINGS: There is contrast in the ureters from the recent CT. There is mild right hydronephrosis. Th ere is moderate left hydronephrosis and hydroureter. The final images demonstrate a left internal ure teral stent in expected position. IMPRESSION: 1. Mild right hydronephrosis and moderate left hydronephrosis and hydroureter. 2. Left internal ureteral stent in expected position. The right internal ureteral stent is not well v isualized. Reviewed, dictated and finalized at location E. ER IN IMPRESSION: 1. Mild right hydronephrosis and moderate left hydronephrosis and hydroureter. 2. Left internal ureteral stent in expected position. The right internal ureter al stent is not well visualized.
--- NOTE | ~2023-02-13 | XR_ITS ---
Portable chest x-ray Comparison: None Clinical History: Fever Findings: There is mild bibasilar haziness. No pleural effusion or pneumothorax. Cardiomediastinal silhouette is unremarkable. Bones and soft tissues are unremarkable. Impression: Mild bibasilar/perihilar haziness. Findings suggest mild pulmonary edema. Correlate clinically for in fection. Reviewed, dictated and finalized at [facility]. [employer] Impression: Mild bibasilar/perihilar haziness. Findings suggest mild pulmonary edema. Corre late clinically for infection.
--- NOTE | ~2023-02-13 | XR_ITS ---
EXAMINATION: XR chest port-a-cath/central INDICATION: Right internal jugular catheter insertion TECHNIQUE: Portable AP chest at 1323 hours COMPARISON: 0605 hours FINDINGS: A right internal jugular central venous catheter is been inserted which ends with this tip in the distal superior vena cava. There is a mild diffuse interstitial pattern. No pleural effusion o r pneumothorax. The cardiomediastinal silhouette is stable. IMPRESSION: 1. Right internal jugular central venous catheter insertion without pneumothorax. 2. Diffuse interstitial opacities, likely mild pulmonary edema. Reviewed, dictated and finalized at location L. HAND IMPRESSION: 1. Right internal jugular central venous catheter insertion without pneumothora x. 2. Diffuse interstitial opacities, likely mild pulmonary edema.
--- NOTE | ~2023-02-13 | CT_ITS ---
CT of the Abdomen and Pelvis: Indication: Abdominal pain Technique: 2.5 mm axial scans were obtained through the abdomen and pelvis following intravenous adm inistration of 100 cc of Omnipaque 350. Dose reduction technique was used on this scan by utilizing a utomated exposure control and iterative reconstruction technique. The dose-length product (DLP) was 4 93.98 mGy-cm. Findings: Scans through the lung bases demonstrate bibasilar atelectatic change and/or chronic inter stitial change.. There is a 3 mm left UVJ stone, with mild to moderate left hydroureteronephrosis. There is a 6 mm dis carlos alberto right ureteral stone, with mild right hydroureteronephrosis. There are additional punctate bilate ral obstructing renal stones. There is increased enhancement of the urothelium of the ureters diffuse ly bilaterally, suggestive of ascending urinary tract infection. The liver, spleen, pancreas, gallbladder, and adrenal glands are within normal limits. There are athe rosclerotic calcifications of the aorta. No lymphadenopathy. No bowel obstruction or bowel wall thickening. There is no evidence to suggest acute appendicitis. Images through the pelvis were performed. Diffuse urinary bladder wall thickening present with mild p erivesical inflammatory changes. No adnexal mass clearly evident. No ascites. Impression: 3 mm left UVJ stone with mild to moderate left hydroureteronephrosis. 6 mm distal right ureteral stone, with mild right hydroureteronephrosis. Findings compatible with both cystitis and ascending urinary tract infection with diffuse increased e nhancement of the urothelium of both ureters. Correlate clinically. Urinary bladder wall thickening is compatible with cystitis. Reviewed, dictated and finalized at [facility]. [employer] Impression: 3 mm left UVJ stone with mild to moderate left hydroureteronephrosis. 6 mm distal right ureteral stone, with mild right hydroureteronephrosis. Findings compatible with both cystitis and ascending urinary tract infection wi th diffuse increased enhancement of the urothelium of both ureters. Correlate c linically. Urinary bladder wall thickening is compatible with cystitis.
--- NOTE | ~2023-02-13 | XR_ITS ---
Portable chest x-ray Comparison: 02/13/2023 Clinical History: Pulmonary edema Findings: Right IJ line is unchanged. Extensive hazy pulmonary disease is similar to prior exam. Pro bable minimal pleural effusions. Cardiomediastinal silhouette is stable. Bones and soft tissues are unremarkable. Impression: [id number] pulmonary edema pattern with minimal pleural effusions. Correlate clinically for pne umonia. Stable support line. Reviewed, dictated and finalized at location . [employer] Impression: [id number] pulmonary edema pattern with minimal pleural effusions. Correl ate clinically for pneumonia. Stable support line.
--- NOTE | 2023-02-13 05:05 | ECG_ITS ---
Measurements Intervals [place] Rate: 129 P: 34 DC: 130 QRS: 12 QRSD: 131 T: -4 QT: 342 QTc: 503 Interpretive Statements SINUS TACHYCARDIA RIGHT BUNDLE BRANCH BLOCK [120+ ms QRS DURATION, UPRIGHT V1, 40+ ms S IN I/aVL/V4/V5/V6] COMPARED TO ECG 01/08/2023 10:40:35 SINUS TACHYCARDIA NOW PRESENT Electronically Signed On 02-13-2023 13:35:11 SUPPORT SERVICES SPECIALIST by Mirella Branch M.D.
--- NOTE | 2023-02-13 05:09 | PC.NURSE ---
1000mL bolus continued from EMS
[2023-02-13 05:12] LABS: Glucose Point of Care 172 mg/dl (65-105)
--- NOTE | 2023-02-13 05:14 | PC.NURSE ---
1000mL NS IV Bolus continued (started by EMS prior to pt arrival in ED) per [facility] EDP Frannie.
[2023-02-13 05:18] LABS: Basophils Absolute Auto 0.1 K/mm3 (0.0-0.1); Basophils Percent Auto 0.8 % (0.2-1.2); Hematocrit 43.1 % (37.0-47.0); Hemoglobin 14.3 g/dL (12.0-15.0); Immature Granulocyte Absolute 0.07 K/mm3 (0.00-0.031); Immature Granulocyte Percent A 0.6 % (0-0.5); Lymphocytes Absolute Auto 0.94 K/mm3 (0.9-3.2); Lymphocytes Percent Auto 7.5 % (18.3-44.2); Mean Corpuscular HGB Conc 33.2 g/dl (32-36); Mean Corpuscular Hemoglobin 27.7 pg (26-34); Mean Corpuscular Volume 83.5 fl (80-100); Mean Platelet Volume 10.6 fl (7.4-10.4); Monocytes Absolute Auto 0.2 K/mm3 (0.1-0.6); Monocytes Percent Auto 1.4 % (2.6-8.5); Neutrophils Absolute Auto 11.3 K/mm3 (1.3-6.7); Neutrophils Percent Auto 89.7 % (45.5-73.1); Platelet Count Result 147 k/mm3 (150-375); Red Blood Count 5.16 M/mm3 (4.2-5.4); Red Cell Distribution Width 13.7 % (11.5-14.5); White Blood Count 12.5 K/mm3 (4.5-10.0)
[2023-02-13] MEDS: ACETAMINOPHEN 500 MG TABLET 1000 MG PO (05:21)
[2023-02-13] MEDS: SODIUM CHLORIDE 0.9% IV 1,000 ML 999 ML IV CONT ×2 (05:21→07:29)
[2023-02-13 05:26] LABS: Lactic Acid Reflex 1.9 mmol/L (0.7-2.0)
[2023-02-13 05:27] LABS: Alanine Aminotransferase 48 U/L (6-35); Albumin Level 3.6 g/dL (3.5-5.1); Alkaline Phosphatase 137 U/L (38-126); Anion Gap 14 mmol/L (8-16); Aspartate Amino Transferase 65 U/L (14-36); Bilirubin,Total 1.2 mg/dL (0.2-1.3); Blood Urea Nitrogen 43 mg/dL (7-17); Calcium 9.6 mg/dL (8.4-10.2); Carbon Dioxide 16 mmol/L (22-30); Chloride 102 mmol/L (98-107); Estimated CRCL calculation 25 ml/min; Estimated Glomerular Filt Rate 34; Glucose 165 mg/dL (65-110); Potassium 3.4 mmol/L (3.4-5.0); Sodium 132 mmol/L (137-145)
--- NOTE | 2023-02-13 05:28 | ED.GENADULT ---
HPI - General Adult General Chief complaint: Fever Stated complaint: FEVER, TACHYCARDIC, SEPSIS Time Seen by Provider: 02/13/23 05:07 History of Present Illness HPI narrative: patient is 77-year-old female who presents emergency department with chief complaint of possible sepsis. Patient recently had a robotic hysterectomy performed at our facility patient doing good until about a week ago where she started having flu-like symptoms the patient states she had 1 episode of vomiting and then was starting to do better and then got worse this evening the patient had fever was tachycardic and was concerned that she may have a urinary tract infection. Related Data Home Medications Medication Instructions Recorded Confirmed ascorbate calcium (vitamin C) 500 500 mg PO DAILY 02/12/20 01/31/23 mg tablet Fiber-Caps (ca polycarbophil) 4 g PO BID 09/26/20 01/31/23 Immune Support Complex 1 cap PO BID 09/26/20 01/31/23 Tri Ease Seasonal Soft Gels 1 caplet PO DAILY 09/26/20 01/31/23 biotin 1 cap PO DAILY 09/26/20 01/31/23 omega-3 fatty acids 1,000 mg 2,000 mg PO BID 11/11/20 01/31/23 capsule (Fish Oil Concentrate) calcium carbonate 600 mg-vitamin 2 tablet PO DAILY 01/08/23 01/31/23 D3 10 mcg (400 unit) tablet (Calcium 600 + D(3)) cholecalciferol (vitamin D3) 125 125 mcg PO DAILY 01/08/23 01/31/23 mcg (5,000 unit) tablet Allergies Allergy/AdvReac Type Severity Reaction Status Date / Time pollen extracts Allergy Unknown Swelling Verified 02/13/23 05:03 of the Eye Review of Systems Review of Systems: A 10 system review of systems was completed on the patient and is negative except for what is stated in the HPI. Nursing and ancillary documentation was reviewed. [facility] Past Medical History Medical History Abnormal EKG Benign essential hypertension BMI 26.0-26.9,adult BMI 27.0-27.9,adult BMI 28.0-28.9,adult BMI 29.0-29.9,adult Borderline abnormal TFTs Breast cyst Colon cancer screening Diastolic dysfunction DM type 2 (diabetes mellitus, type 2) Ear itching Eczema Elevated LFTs Encounter for Medicare annual wellness exam Encounter for routine adult health examination with abnormal findings Encounter for routine adult health examination without abnormal findings Encounter for screening mammogram for malignant neoplasm of breast Follow up Hair loss Hearing loss Hepatitis B core antibody positive Hot flashes Hx of seborrheic dermatitis Hypercalcemia Hyperlipidemia Hypertension 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 Unspecified ptosis of bilateral eyelids UTI (urinary tract infection) Vitamin D deficiency Surgical History Surgical History H/O eye surgery History of breast biopsy History of gynecologic surgery 01/15/2023 Robotic Laparoscopic Supracervical Hysterectomy with Bilateral Salpingo-oophorectomy History of tonsillectomy Family History Family History Father Hypertension Family history of malignant neoplasm Mother Family history of cardiovascular disease Family history of heart disease in male family member before age 55 Other Diabetes mellitus Social History Social History Smoking packs per day: 1 Smoking cigarettes per day: 20.0 Years smoked: 62 Smoking pack-years: 62.00 Smoking status: Former smoker Tobacco type: cigarettes Second hand tobacco smoke exposure: No Smoking end date: 02/26/07 Alcohol intake: never Substance use: never Substance use type: does not use Lack of Transportation: No Lack of Food: Never True Current Housing: I Have Housing Concerned About Future Housing: No Difficulty Paying Gas/Electric Bills: No Difficulty Paying for Meds: No Currently Unemployed: No Education: High School Diploma/G
[2023-02-13 05:34] LABS: Prothrombin Time 13.8 Seconds (11.1-14.7)
[2023-02-13 05:35] LABS: Partial Thromboplastin Time 40.6 SECONDS (22.3-36.8)
[2023-02-13 05:53] LABS: Influenza A QL RT-PCR Negative (Negative); Influenza B QL RT-PCR Negative (Negative); RSV RNA, RT-PCR Negative (Negative); SARS-CoV-2 RNA PCR Negative (Negative)
[2023-02-13 06:06] LABS: Appearance Urine Turbid (Clear); Bacteria Urine 2+ /hpf; Bilirubin Urine Negative (Negative); Blood Urine 3+ (Negative); Color Urine Yellow (Yellow); Glucose Urine UA 2+ mg/dL (Negative); Ketones Urine 1+ mg/dL (Negative); Leukocyte Esterase Ur 3+ LEU/UL (Negative); Need Manual Microscopic Reviewed; Nitrate Urine Negative (Negative); Protein Urine 2+ mg/dL (Negative); RBC Urine >100 /hpf (0-2); Specific Grav Ur 1.016 (1.001-1.035); Squamous Epithelial Cell Urine Moderate /hpf (Few); Urobilinogen Urine 0.2 mg/dL (<2.0); WBC Urine >100 /hpf; pH Urine 5.5 (5.0-9.0)
[2023-02-13 06:08] LABS: Add Urine Microscopic? YES
[2023-02-13 06:13] LABS: Troponin I < 0.012 ng/mL (0.000-0.034)
--- NOTE | 2023-02-13 06:46 | WPDURCON ---
Assessment and Plan Assessment and plan (1) Bilateral ureteral calculi: Code(s): N20.1 - Calculus of ureter Status: Acute Assessment and Plan: bilateral partially obstructing small distal ureteral calculi. In the presence of a urinary tract infection are intervention may be limited but I will plan cystoscopy with possible by enteral ureteroscopy with stone extraction, possible retrograde pyelography and definite bilateral ureteral stent placement. Urology Consult Note HPI Date Seen: 02/13/23 Primary Care Provider: Chuy High MD Consult Narrative Narrative: Margaret Funez is a 77 year old female S/p recent couple sacral pexy by Dr. Le. She presents with generalized fatigue, mild right flank pain and fever. Urinalysis appears infected and CT imaging demonstrates bilateral partially obstructing distal ureteral calculi (3 mm in the left distal ureter and 6 mm in the right distal ureter). She denies difficulty voiding or hematuria Review of Systems Review of Systems: All systems reviewed & are unremarkable except as noted in HPI and below PMFSH Past Medical History Medical History Abnormal EKG Benign essential hypertension BMI 26.0-26.9,adult BMI 27.0-27.9,adult BMI 28.0-28.9,adult BMI 29.0-29.9,adult Borderline abnormal TFTs Breast cyst Colon cancer screening Diastolic dysfunction DM type 2 (diabetes mellitus, type 2) Ear itching Eczema Elevated LFTs Encounter for Medicare annual wellness exam Encounter for routine adult health examination with abnormal findings Encounter for routine adult health examination without abnormal findings Encounter for screening mammogram for malignant neoplasm of breast Follow up Hair loss Hearing loss Hepatitis B core antibody positive Hot flashes Hx of seborrheic dermatitis Hypercalcemia Hyperlipidemia Hypertension 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 Unspecified ptosis of bilateral eyelids UTI (urinary tract infection) Vitamin D deficiency Surgical History Surgical History H/O eye surgery History of breast biopsy History of gynecologic surgery 01/15/2023 Robotic Laparoscopic Supracervical Hysterectomy with Bilateral Salpingo-oophorectomy History of tonsillectomy Family History Family History Father Hypertension Family history of malignant neoplasm Mother Family history of cardiovascular disease Family history of heart disease in male family member before age 55 Other Diabetes mellitus Social History Social History Smoking packs per day: 1 Smoking cigarettes per day: 20.0 Years smoked: 62 Smoking pack-years: 62.00 Smoking status: Former smoker Tobacco type: cigarettes Second hand tobacco smoke exposure: No Smoking end date: 02/26/07 Alcohol intake: never Substance use: never Substance use type: does not use Lack of Transportation: No Lack of Food: Never True Current Housing: I Have Housing Concerned About Future Housing: No Difficulty Paying Gas/Electric Bills: No Difficulty Paying for Meds: No Currently Unemployed: No Education: High School Diploma/GED Living arrangements: with family Additional living arrangements comments: Occupation/Education: retired Gender identity (if verbalized by the patient): Female Sexual Orientation (if Verbalized by the Patient): Straight or Heterosexual Spiritual care concerns: No Meds Home Medications and Allergies Home Medications Medication Instructions Recorded Confirmed Type ascorbate calcium (vitamin C) 500 500 mg PO DAILY 02/12/20 01/31/23 History mg tablet Fiber-Caps (ca polycarbophil) 4 g PO BID 09/26/20 01/31/23 History Immune Support Complex 1 cap PO BID 09/26/20 01/31/23 History
--- NOTE | 2023-02-13 06:49 | WPDHPUPDATE1 ---
History and Physical Update Update Date/Time: 02/13/23 06:49 History and Physical has been reviewed, including an updated exam of the patient. There are NO changes in the patient's condition. Risks, benefits, and alternatives have been discussed and questions answered. Patient agrees to proceed with procedure.
[2023-02-13] MEDS: SODIUM CHLORIDE 0.9% IV 1,000 ML 125 ML IV CONT ×2 (07:30→13:52)
--- NOTE | 2023-02-13 07:36 | PM.IMHP ---
H&P: HPI History of Present Illness Date/Time: 02/13/23 07:36 Chief Complaint: Right flank pain, fever, Narrative: Margaret Funez is a 77 year old female with history of hypertension, hyperlipidemia, diabetes, recent robotic hysterectomy performed at our facility present ED with a chief complaint of of general weakness, rifampin, fever. Presents with generalized fatigue, mild right flank pain and fever.? Patient has been general weakness, flu-like syndrome in past 1 week, vomited once. Patient started to have fever since yesterday, also has right flank pain associated with urinary urgency frequency. Patient came to ED for evaluation. In the ED, patient found have fever 100.3, hypotension, tachycardia tachypnea, leukocytosis 12,500, hyponatremia 132, hypokalemia 3.4, elevated BUN creatinine 43/1.5, urinalysis shows pyuria and hematuria, patient has cloudy urine. CT scans shows a 3 mm left UVJ stone, moderate left hydroureteronephrosis, 6 mL distal right urethral stone, mild right hydroureteronephrosis. ER provider consulted urologist patient has been feeling weak in past 1 week, patient received 2.5 L normal saline bolus, map still low than 65 PMFSH Past Medical History Medical History Abnormal EKG Benign essential hypertension BMI 26.0-26.9,adult BMI 27.0-27.9,adult BMI 28.0-28.9,adult BMI 29.0-29.9,adult Borderline abnormal TFTs Breast cyst Colon cancer screening Diastolic dysfunction DM type 2 (diabetes mellitus, type 2) Ear itching Eczema Elevated LFTs Encounter for Medicare annual wellness exam Encounter for routine adult health examination with abnormal findings Encounter for routine adult health examination without abnormal findings Encounter for screening mammogram for malignant neoplasm of breast Follow up Hair loss Hearing loss Hepatitis B core antibody positive Hot flashes Hx of seborrheic dermatitis Hypercalcemia Hyperlipidemia Hypertension 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 Unspecified ptosis of bilateral eyelids UTI (urinary tract infection) Vitamin D deficiency Surgical History Surgical History H/O eye surgery History of breast biopsy History of gynecologic surgery 01/15/2023 Robotic Laparoscopic Supracervical Hysterectomy with Bilateral Salpingo-oophorectomy History of tonsillectomy Family History Family History (Updated 02/13/23 @ 09:13 by Divina Salazar RN) Father Family history of malignant neoplasm Hypertension Mother Family history of heart disease in male family member before age 55 Family history of cardiovascular disease Sibling Cerebral palsy Sibling Epilepsy Social History Social History Smoking packs per day: 1 Smoking cigarettes per day: 20.0 Years smoked: 62 Smoking pack-years: 62.00 Smoking status: Former smoker Second hand tobacco smoke exposure: No Alcohol intake: never Substance use: never Substance use type: does not use Do You Feel Safe in your Home?: Yes Lack of Transportation: No Lack of Food: Never True Current Housing: I Have Housing Concerned About Future Housing: No Difficulty Paying Gas/Electric Bills: No Difficulty Paying for Meds: No Currently Unemployed: No Education: High School Diploma/GED Difficulty w/ Childcare or Family Care: No Living arrangements: with family Additional living arrangements comments: Occupation/Education: retired Gender identity (if verbalized by the patient): Female Sexual Orientation (if Verbalized by the Patient): Straight or Heterosexual Spiritual care concerns: No Meds Home Medications and Allergies Home Medications Medication Instructions Recorded Confirmed Type ascorbate calcium (vitamin C) 500 500 mg PO DAILY 02/12/20 01/31/23 History mg tablet Fiber-Caps (ca polycarbo
--- NOTE | 2023-02-13 08:05 | ECHO_ITS ---
Patient Info Name: Margaret Funez Age: 78 years : 1945 Gender: Female Ht: 61 in Wt: 140 lbs BSA: 1.67 m2 HR: 112 bpm BP: 97 / 67 mmHg Technical Quality: Fair Exam Date: 02/13/2023 4:16 PM Exam Location: Echo Lab Patient Status: Inpatient Admit Date: 02/13/2023 Staff Ordering Physician: Manisha Nuno MD Attending Provider: Luther Rodriguez MD Exam Type: CA echo dop color flow w con Study Info Indications R42 - Dizziness and giddiness Complete two-dimensional, color flow and Doppler transthoracic echocardiogram is performed with contrast to opacify the left ventricle and to improve the deliniation of the left ventricle endocardial borders. Contrast/Agitated Saline Contrast/Ag. Saline: Definity Amount: 1.00 ml Existing IV Access: Yes Summary 1. Definity contrast administered improved wall motion interpretation. 2. Left ventricular chamber dimension is normal. 3. Left ventricular systolic function is normal, estimated at 60-65%. 4. The left ventricular diastolic function is grade I diastolic dysfunction. 5. E/e' 7 is not elevated. 6. Right ventricular systolic function is at least moderately reduced. 7. Right ventricular chamber dimension is moderately enlarged. 8. There is mild aortic valve sclerosis. 9. There is trace tricuspid valve regurgitation. 10. Dilated inferior vena cava with >50% collapse upon inspiration consistent with normal right atrial pressure, 10 mmHg. Left Ventricle E/e' 7 is not elevated. Definity contrast administered improved wall motion interpretation. Left ventricular chamber dimension is normal. Left ventricular systolic function is normal, estimated at 60-65%. The left ventricular diastolic function is grade I diastolic dysfunction. Right Ventricle Right ventricular systolic function is at least moderately reduced. Right ventricular chamber dimension is moderately enlarged. Left Atria Left atrial chamber dimension is normal. Right Atria Right atrial chamber dimension is normal. Aortic Valve The aortic valve is trileaflet. There is mild aortic valve sclerosis. There is no aortic valve stenosis. There is no aortic valve regurgitation. Pulmonic Valve There is no pulmonic regurgitation. Mitral Valve There is no mitral valve stenosis. There is no mitral valve regurgitation. Tricuspid Valve RVSP is not calculated due to an inadequate TR jet. There is trace tricuspid valve regurgitation. Pericardium/Pleural There is no pericardial effusion. Inferior Vena Cava Dilated inferior vena cava with >50% collapse upon inspiration consistent with normal right atrial pressure, 10 mmHg. Aorta The aortic root size at the sinus of Valsalva is normal. Left Ventricular Outflow Tract Name Value Normal LVOT 2D LVOT Diameter 1.96 cm LVOT Doppler LVOT Peak Gradient 2 mmHg LVOT Mean Gradient 1 mmHg LVOT VTI 16.57 cm LVOT VTI/AV VTI Ratio 0.85 LVOT Stroke Volume 50.09 ml LVOT CO 4.79 l/min LVOT CI 2.87 L/min/m2
[2023-02-13] MEDS: metroNIDAZOLE 500 MG/ISO 100ML 500 MG/100 ML BAG 100 MG IVPB ×3 (08:26→21:49)
[2023-02-13] MEDS: NOREPINEPHRINE 8 MG/D5W 250 ML 8 MG/250 ML BAG 9.38 MG IV CONT (11:22)
--- NOTE | 2023-02-13 11:42 | PC.NURSE ---
Normal BM per bedpan. Pt offers no c/o.
--- NOTE | 2023-02-13 12:42 | W.PM.PROC2 ---
Procedure Note - Detailed Date of Procedure 02/13/23 Pre-op Diagnosis Pyelonephritis/Bilateral Obstructing Stones Post-op Diagnosis Same Procedure Performed Cystoscopy, bilateral ureteral stent placement Surgeon Filiberto Joshi MD Anesthesia MAC Indications Cystoscopy, bilateral ureteral stent placement Description of Procedure Patient brought to the operative suite where she is prepped and draped in routine sterile fashion while in dorsal lithotomy position. 2% xylocaine jelly was introduced intraurethrally and systemic sedation is administered per the anesthesia department. Given her recent picture of septic shock he opted to simply place bilateral ureteral stents without additional intervention. She still had contrast in each collecting system from recent contrast-enhanced CT scan. A 0.035 in glidewire has been advanced into each renal pelvis under fluoroscopy and a 4.8 F variable length stent was placed on each side with proximal coil in renal pelvis and distal coil in the bladder. Scopes and wires removed. The patient was taken to the intensive care unit in stable condition. Drains Yes Packing No Pathology None sent
--- NOTE | 2023-02-13 12:44 | SUR.OPER ---
Called report to MOTHER REPAIRER Judi. Patient assigned to ICU bed 1. Dr. Gibbs starting central line in right jugular at the time of calling report. Levophed currently running at 10 mcg/min
--- NOTE | 2023-02-13 13:05 | WPDANESCVCPN ---
Anes - Cent Venous Cath Note Consent: I have discussed with the patient/family/POA, the non-emergent placement of a central venous catheter, including its clinical necessity/indication and associated potential risks and complications. The patient/family/POA understand(s) and acknowledge(s) the need to proceed with central venous catheter insertion as an important element of the patient's clinical management given emergent patient conditions, temporal constraints may have precluded informed consent. Time-Out: A pre-procedural Time-Out was completed immediately before starting the procedure and confirmed: Patient Identification, Site, Procedure, Patient Position and the Availability of Requisite Equipment. Procedure Note Central venous catheter insertion site: right internal jugular CVC method of insertion: surface landmarks Hand hygiene/Aseptic technique: Hand hygiene procedures were performed. Aseptic technique was maintained throughout the procedure. Sterile barrier precautions: Maximal sterile barrier precautions, including use of a cap, mask, sterile gown, sterile gloves and a sterile full body drape. Site prep: chlorhexidine Skin anesthesia: placed under general anesthesia Citizen Of [place]: 7 Lumen: 3 Length (cm): 20 cm Depth of insertion (cm): 15 Closure/Dressing: suture, biopatch and tegaderm Complications: None immediately noted/suspected. Chest X Ray: Ordered/review to follow. Procedure comments: informed Dr. Brandon in ICU will follow-up xray.
--- NOTE | 2023-02-13 13:08 | WPDANESEPPF ---
Anes - Initial Pre Proc Eval Procedure: Operation Date: 02/13/23 14:45 Proposed Procedures p Cystoscopy, Bilateral Ureteroscopy, Possible Bilateral Retrograde Pyelogram, Possible Bilateral Stone Extraction, Possible Bilateral Stent Placement, Possible Holmium Laser - Filiberto Joshi MD Date/Time: 02/13/23 13:08 Surgeon: Luther Rodriguez MD Pre Op Diagnosis: Pyelonephritis/Bilateral Obstructing Stones Patient Data Age: 77 Gender: F Height: 1.55 m Weight: 63.8 kg Last Vital Signs Temp 36.7 C 02/13/23 06:38 Pulse 110 H 02/13/23 12:00 Resp 20 02/13/23 12:00 BP 97/65 L 02/13/23 12:00 Pulse Ox 94 02/13/23 12:00 O2 Del Method Nasal Cannula 02/13/23 10:36 O2 Flow Rate 2 02/13/23 10:36 Allergies Allergy/AdvReac Type Severity Reaction Status Date / Time pollen extracts Allergy Unknown Swelling Verified 02/13/23 08:56 of the Eye Home Medications Medication Instructions Recorded Confirmed Type ascorbate calcium (vitamin C) 500 500 mg PO DAILY 02/12/20 01/31/23 History mg tablet Fiber-Caps (ca polycarbophil) 4 g PO BID 09/26/20 01/31/23 History Immune Support Complex 1 cap PO BID 09/26/20 01/31/23 History Tri Ease Seasonal Soft Gels 1 caplet PO DAILY 09/26/20 01/31/23 History biotin 1 cap PO DAILY 09/26/20 01/31/23 History omega-3 fatty acids 1,000 mg 2,000 mg PO BID 11/11/20 01/31/23 History capsule (Fish Oil Concentrate) triamcinolone acetonide 0.1 % 1 applic topical BID #60 grams 09/13/21 01/31/23 Rx topical cream lisinopril 20 mg tablet See Rx Instructions .Route 04/24/22 01/31/23 Rx .COMPLEX #90 tabs empagliflozin 10 mg tablet See Rx Instructions .Route 07/31/22 01/31/23 Rx (Jardiance) .COMPLEX #90 tabs sitagliptin phosphate 100 mg See Rx Instructions .Route 07/31/22 01/31/23 Rx tablet (Januvia) .COMPLEX #90 tabs atorvastatin 10 mg tablet See Rx Instructions .Route 11/21/22 01/31/23 Rx .COMPLEX #45 tabs metformin 1,000 mg tablet See Rx Instructions .Route 11/21/22 01/31/23 Rx .COMPLEX #180 tabs calcium carbonate 600 mg-vitamin 2 tablet PO DAILY 01/08/23 01/31/23 History D3 10 mcg (400 unit) tablet (Calcium 600 + D(3)) cholecalciferol (vitamin D3) 125 125 mcg PO DAILY 01/08/23 01/31/23 History mcg (5,000 unit) tablet alendronate 70 mg tablet (Fosamax) 70 mg PO WEEKLY #4 tabs 01/09/23 01/31/23 Rx docusate sodium 100 mg capsule 100 mg PO BID #40 caps 01/15/23 01/31/23 Rx (Colace) levofloxacin 500 mg tablet 500 mg PO DAILY #5 tabs 01/15/23 01/31/23 Rx Laboratory Tests 02/13/23 02/13/23 02/13/23 05:05 05:10 05:35 WBC 12.5 H K/mm3 (4.5-10.0) RBC 5.16 M/mm3 (4.2-5.4) Hgb 14.3 g/dL (12.0-15.0) Hct 43.1 % (37.0-47.0) MCV 83.5 fl (80-100) MCH 27.7 pg (26-34) MCHC 33.2 g/dl (32-36) RDW 13.7 % (11.5-14.5) Plt Count 147 L k/mm3 (150-375) MPV 10.6 H fl (7.4-10.4) Immature Gran % (Auto) 0.6 H % (0-0.5) Neut % (Auto) 89.7 H % (45.5-73.1) Lymph % (Auto) 7.5 L % (18.3-44.2) [place] % (Auto) 1.4 L % (2.6-8.5) Eos % (Auto) 0.0 % (0-4.4) Baso % (Auto) 0.8 % (0.2-1.2) Lymph # (Auto) 0.94 K/mm3 (0.9-3.2) Gonzales # (Auto) 0.2 K/mm3 (0.1-0.6) Eos # (Auto) 0.0 K/mm3 (0-0.3) Baso # (Auto) 0.1 K/mm3 (0.0-0.1) Abs Immat Gran (auto) 0.07 H K/mm3 (0.00-0.031) Absolute Neuts (auto) 11.3 H K/mm3 (1.3-6.7) Absolute Nucleated RBC 0.0 K/mm3 (0.0-0.012) Nucleated RBC % 0.0 % (0.0-0.2) PT 13.8 Seconds (11.1-14.7) INR 1.0 APTT 40.6 H SECONDS (22.3-36.8) Sodium 132 L mmol/L (137-145) Potassium 3.4 mmol/L (3.4-5.0) Chloride 102 mmol/L (98-107) Carbon Dioxide 16 L mmol/L (22-30) Anion Gap 14 mmol/L
--- NOTE | 2023-02-13 13:10 | ADMGEN ---
This patient, Margaret Funez, was admitted to Intensive Care Unit-5. Patient/family oriented to hospital policies and general routines including ID bracelet, bed and alarms, visiting hours, pain management, procedures, bathroom and other care routines, personal items, smoking policy, room service/diet, and visiting hours. Information on how to activate the Rapid Response Team has been discussed. Patient/Family are encouraged to report perceived risks to care and to ask questions if they do not understand what they are told or what they should do.
--- NOTE | 2023-02-13 13:19 | P.PNAN_ITS ---
Anes - Eval Pre Procedure Procedure: Operation Date: 02/13/23 14:45 Proposed Procedures p Cystoscopy, Bilateral Ureteroscopy, Possible Bilateral Retrograde Pyelogram, Possible Bilateral Stone Extraction, Possible Bilateral Stent Placement, Possible Holmium Laser - Filiberto Joshi MD Date/Time: 02/13/23 13:19 Pre Op Diagnosis: Pyelonephritis/Bilateral Obstructing Stones Patient Data Age: 77 Gender: F Height: 1.55 m Weight: 63.8 kg Last Vital Signs Temp 36.7 C 02/13/23 06:38 Pulse 110 H 02/13/23 12:00 Resp 20 02/13/23 12:00 BP 97/65 L 02/13/23 12:00 Pulse Ox 94 02/13/23 12:00 O2 Del Method Nasal Cannula 02/13/23 10:36 O2 Flow Rate 2 02/13/23 10:36 Allergies Allergy/AdvReac Type Severity Reaction Status Date / Time pollen extracts Allergy Unknown Swelling Verified 02/13/23 08:56 of the Eye Home Medications Medication Instructions Recorded Confirmed Type ascorbate calcium (vitamin C) 500 500 mg PO DAILY 02/12/20 01/31/23 History mg tablet Fiber-Caps (ca polycarbophil) 4 g PO BID 09/26/20 01/31/23 History Immune Support Complex 1 cap PO BID 09/26/20 01/31/23 History Tri Ease Seasonal Soft Gels 1 caplet PO DAILY 09/26/20 01/31/23 History biotin 1 cap PO DAILY 09/26/20 01/31/23 History omega-3 fatty acids 1,000 mg 2,000 mg PO BID 11/11/20 01/31/23 History capsule (Fish Oil Concentrate) triamcinolone acetonide 0.1 % 1 applic topical BID #60 grams 09/13/21 01/31/23 Rx topical cream lisinopril 20 mg tablet See Rx Instructions .Route 04/24/22 01/31/23 Rx .COMPLEX #90 tabs empagliflozin 10 mg tablet See Rx Instructions .Route 07/31/22 01/31/23 Rx (Jardiance) .COMPLEX #90 tabs sitagliptin phosphate 100 mg See Rx Instructions .Route 07/31/22 01/31/23 Rx tablet (Januvia) .COMPLEX #90 tabs atorvastatin 10 mg tablet See Rx Instructions .Route 11/21/22 01/31/23 Rx .COMPLEX #45 tabs metformin 1,000 mg tablet See Rx Instructions .Route 11/21/22 01/31/23 Rx .COMPLEX #180 tabs calcium carbonate 600 mg-vitamin 2 tablet PO DAILY 01/08/23 01/31/23 History D3 10 mcg (400 unit) tablet (Calcium 600 + D(3)) cholecalciferol (vitamin D3) 125 125 mcg PO DAILY 01/08/23 01/31/23 History mcg (5,000 unit) tablet alendronate 70 mg tablet (Fosamax) 70 mg PO WEEKLY #4 tabs 01/09/23 01/31/23 Rx docusate sodium 100 mg capsule 100 mg PO BID #40 caps 01/15/23 01/31/23 Rx (Colace) levofloxacin 500 mg tablet 500 mg PO DAILY #5 tabs 01/15/23 01/31/23 Rx Laboratory Tests 02/13/23 02/13/23 02/13/23 05:05 05:10 05:35 WBC 12.5 H K/mm3 (4.5-10.0) RBC 5.16 M/mm3 (4.2-5.4) Hgb 14.3 g/dL (12.0-15.0) Hct 43.1 % (37.0-47.0) MCV 83.5 fl (80-100) MCH 27.7 pg (26-34) MCHC 33.2 g/dl (32-36) RDW 13.7 % (11.5-14.5) Plt Count 147 L k/mm3 (150-375) MPV 10.6 H fl (7.4-10.4) Immature Gran % (Auto) 0.6 H % (0-0.
--- NOTE | 2023-02-13 13:43 | WPDCNINT ---
Assessment and Plan Assessment and plan (1) Septic shock: Code(s): A41.9 - Sepsis, unspecified organism; R65.21 - Severe sepsis with septic shock Status: Acute Assessment and Plan: Patient presented the flank pain, fevers, generalized weakness/fatigue -found to have pyelonephritis with bilateral ureteral stents hydronephrosis -status post bilateral ureteral stent placements by Urology on 02/13/2023 -patient was hypotensive in the ER, received 2 L IV fluids and was started on normal saline at 125 mL/hr despite which her SBP remained in the 70s, patient was started on peripheral Levophed and was transferred to the OR for the procedure, postprocedure I right IJ central line was inserted by Anesthesia -patient remains on Levophed, will maintain MAP > 65-70 mmHg for adequate end organ perfusion -02/13: Blood cultures and urine cultures have been obtained and pending -: Started on cefepime, Flagyl and vancomycin, patient did receive ceftriaxone in the ER -1st set of lactic acid is 1.9 -mild elevation in LFTs -elevated creatinine and renal dysfunction (2) Pyelonephritis: Code(s): N12 - Tubulo-interstitial nephritis, not specified as acute or chronic Status: Acute Assessment and Plan: Continue antibiotics as above (3) Bilateral hydronephrosis: Code(s): N13.30 - Unspecified hydronephrosis Status: Acute Assessment and Plan: Status post cystoscopy and stent placement bilateral ureters (4) DM type 2 (diabetes mellitus, type 2): Qualifiers: Diabetes mellitus senior living insulin use: without termite helper use Diabetes mellitus complication status: without complication Qualified Code(s): E11.9 - Type 2 diabetes mellitus without complications Code(s): E11.9 - Type 2 diabetes mellitus without complications Status: Acute Assessment and Plan: Sliding scale insulin and Accu-Cheks (5) UTI (urinary tract infection): Qualifiers: Urinary tract infection type: site unspecified Hematuria presence: without hematuria Qualified Code(s): N39.0 - Urinary tract infection, site not specified Code(s): N39.0 - Urinary tract infection, site not specified Status: Acute Assessment and Plan: Continue antibiotics as above -urine cultures have been obtained and pending (6) Acute kidney injury: Code(s): N17.9 - Acute kidney failure, unspecified Status: Acute Assessment and Plan: Patient presented with acute kidney injury likely related to hypotension, hypovolemia, infection, pyelonephritis -received adequate amount of IV fluids in the ER (30 mL/kg) -Kennedy catheter in place -chest x-ray shows pulmonary edema, will decrease IV fluids to 75 mL/hour -will use albumin for volume expansion -will continue to monitor urine output, renal function electrolytes Plan DVT prophylaxis: Lovenox Stress ulcer prophylaxis: Not indicated Nutrition: NPO for now Code Status: Full code Critical Care Time Spent: 47 minutes Discussed with patient and her son updated them with for condition and plan of care. They are aware that patient has severe urine urine infection and kidney infection. Discussed with them that the patient is on blood pressure support medications, antibiotics and IV fluids. Due to a high probability of clinically significant, life threatening deterioration, the patient required my highest level of preparedness to intervene emergently and I personally spent this critical care time directly and personally managing the patient. This critical care time included obtaining a history; examining the patient; pulse oximetry; ordering and review of studies; arranging urgent treatment with development of a management plan; evaluation of patient's response to treatment; frequent reassessment; and discussions with other providers. It was exclusive of separately billable procedures and treating other patients and teaching time. Please see Assessme
[2023-02-13] MEDS: ALBUMIN HUMAN 25% 25 GM/100 ML 100 ML IVPB ×3 (13:53→23:36)
[2023-02-13 13:55] LABS: Hematocrit 38.2 % (37.0-47.0); Hemoglobin 12.4 g/dL (12.0-15.0); Mean Corpuscular HGB Conc 32.5 g/dl (32-36); Mean Corpuscular Hemoglobin 28.1 pg (26-34); Mean Corpuscular Volume 86.4 fl (80-100); Mean Platelet Volume 10.3 fl (7.4-10.4); Platelet Count Result 120 k/mm3 (150-375); Red Blood Count 4.42 M/mm3 (4.2-5.4); Red Cell Distribution Width 14.2 % (11.5-14.5); White Blood Count 23.9 K/mm3 (4.5-10.0)
[2023-02-13] MEDS: VANCOMYCIN 1,500 MG/NS 500 ML 1,500 MG/500 ML BAG 250 MG IVPB (14:13)
[2023-02-13 14:21] LABS: Band Neutrophils Percent 16 % (0-6); Monocytes Absolute Manual 0.23 K/mm3 (0.1-0.90); Monocytes Percent Manual 1 % (3-9); Neutrophils Absolute Manual 23.66 K/mm3 (1.7-7.2); Neutrophils Percent Manual 83 % (46-73); Platelet Estimate Decreased (Adequate); Schistocytes None Seen (NORMAL); Total Cells Counted 100
[2023-02-13 14:22] LABS: Crenated RBC 2+ (NORMAL)
[2023-02-13 14:25] LABS: Lactic Acid Reflex 2.9 mmol/L (0.7-2.0)
[2023-02-13 14:32] LABS: Alanine Aminotransferase 36 U/L (6-35); Albumin Level 2.7 g/dL (3.5-5.1); Alkaline Phosphatase 94 U/L (38-126); Anion Gap 11 mmol/L (8-16); Aspartate Amino Transferase 48 U/L (14-36); Bilirubin,Total 1.1 mg/dL (0.2-1.3); Blood Urea Nitrogen 39 mg/dL (7-17); Calcium 7.7 mg/dL (8.4-10.2); Carbon Dioxide 13 mmol/L (22-30); Chloride 111 mmol/L (98-107); Estimated CRCL calculation 26 ml/min; Estimated Glomerular Filt Rate 37; Glucose 129 mg/dL (65-110); INR 1.2; Magnesium 1.5 mg/dL (1.6-2.3); Phosphorus 2.6 mg/dL (2.5-4.5); Potassium 3.5 mmol/L (3.4-5.0); Prothrombin Time 15.8 Seconds (11.1-14.7); Sodium 135 mmol/L (137-145)
[2023-02-13 14:33] LABS: Partial Thromboplastin Time 40.5 SECONDS (22.3-36.8)
[2023-02-13 14:44] LABS: CRP 15.3 mg/dL (<1.0)
[2023-02-13] MEDS: ENOXAPARIN 40 MG/0.4 ML SYRINGE SUB-Q (14:48)
[2023-02-13] MEDS: SODIUM BICARBONATE 8.4% 150 MEQ in WATER, STERILE FOR INJECTION 950 ML 75 MEQ IV CONT (15:53)
[2023-02-13] MEDS: MAGNESIUM SULF 2 GM/WATER 50ML 2 GM/50 ML BAG IVPB (15:56)
[2023-02-13] MEDS: PERFLUTREN LIPID MICROSPHERES 1.5 ML VIAL DILUTED TO 10 ML TOTAL VOLUME IV PUSH (16:45)
[2023-02-13 17:06] LABS: Reflex Lactic Acid Yes or No Add Lactic
[2023-02-13 17:45] LABS: Lactic Acid 2.1 mmol/L (0.7-2.0)
[2023-02-13 17:57] LABS: Glucose Point of Care 133 mg/dl (65-105)
[2023-02-13] MEDS: CEFEPIME 1 GM/NS 50 ML 1 GM/50 ML BAG IVPB (18:00)
[2023-02-13 23:49] LABS: Glucose Point of Care 136 mg/dl (65-105)
[2023-02-14] VITALS (13 sets, daily range): BP systolic 94–127; BP diastolic 58–80; PULSE 93–117; RESP 18–31; TEMP 36.4–36.8; O2SAT 90–100
[2023-02-14 04:52] LABS: Hematocrit 30.2 % (37.0-47.0); Immature Platelet Fraction Pct 4.5 % (0.9-11.2); Mean Corpuscular HGB Conc 33.1 g/dl (32-36); Mean Corpuscular Hemoglobin 27.8 pg (26-34); Mean Corpuscular Volume 83.9 fl (80-100); Mean Platelet Volume 10.7 fl (7.4-10.4); Platelet Count Result 84 k/mm3 (150-375); Red Cell Distribution Width 14.2 % (11.5-14.5); White Blood Count 15.2 K/mm3 (4.5-10.0)
[2023-02-14 04:58] LABS: Lactic Acid Reflex 1.2 mmol/L (0.7-2.0)
[2023-02-14] MEDS: CEFEPIME 1 GM/NS 50 ML 1 GM/50 ML BAG IVPB (05:21)
[2023-02-14] MEDS: ALBUMIN HUMAN 25% 25 GM/100 ML 100 ML IVPB (05:21)
[2023-02-14] MEDS: metroNIDAZOLE 500 MG/ISO 100ML 500 MG/100 ML BAG 100 MG IVPB (05:22)
[2023-02-14 05:26] LABS: Alanine Aminotransferase 26 U/L (6-35); Albumin Level 3.3 g/dL (3.5-5.1); Alkaline Phosphatase 66 U/L (38-126); Anion Gap 12 mmol/L (8-16); Aspartate Amino Transferase 34 U/L (14-36); Bilirubin,Total 1.1 mg/dL (0.2-1.3); Blood Urea Nitrogen 28 mg/dL (7-17); Calcium 7.4 mg/dL (8.4-10.2); Carbon Dioxide 18 mmol/L (22-30); Chloride 109 mmol/L (98-107); Estimated CRCL calculation 41 ml/min; Estimated Glomerular Filt Rate > 60; Glucose 95 mg/dL (65-110); Magnesium 2.1 mg/dL (1.6-2.3); Sodium 139 mmol/L (137-145)
[2023-02-14 06:04] LABS: Glucose Point of Care 93 mg/dl (65-105)
[2023-02-14 06:11] LABS: Band Neutrophils Percent 36 % (0-6); Lymphocytes Absolute Manual 1.36 K/mm3 (1.1-4.5); Lymphocytes Percent Manual 9 % (18-44); Monocytes Absolute Manual 0.15 K/mm3 (0.1-0.90); Monocytes Percent Manual 1 % (3-9); Neutrophils Absolute Manual 13.68 K/mm3 (1.7-7.2); Neutrophils Percent Manual 54 % (46-73); Platelet Estimate Decreased (Adequate); Smudge Cells PRESENT; Total Cells Counted 100
[2023-02-14 06:12] LABS: Anisocytosis 1+ (NORMAL); Burr Cells 1+ (NORMAL); Schistocytes None Seen (NORMAL)
--- NOTE | 2023-02-14 06:52 | WPDUROPN2 ---
Progress Note: A&P Assessment and Plan (1) Acute kidney injury: Code(s): N17.9 - Acute kidney failure, unspecified Status: Acute (2) Septic shock: Code(s): A41.9 - Sepsis, unspecified organism; R65.21 - Severe sepsis with septic shock Status: Acute (3) Pyelonephritis: Code(s): N12 - Tubulo-interstitial nephritis, not specified as acute or chronic Status: Acute (4) Ureterolithiasis: Code(s): N20.1 - Calculus of ureter Status: Acute (5) Bilateral hydronephrosis: Code(s): N13.30 - Unspecified hydronephrosis Status: Acute Assessment and Plan: Progressing nicely following stent placement with drainage very infected-looking upper tract urine. Eventually, will need definitive bilat. ureteroscopy with stone extraction. Subjective Subjective Date/Time Seen: 02/14/23 06:52 Interval history: Resting, hemodynamically stable off pressors Review of Systems Review of Systems: ROS unobtainable: Yes unobtainable due to mental status Exam Const: General: no acute distress Resp: Effort & Inspection: normal respiratory effort GI: Inspection: non-distended GI Palp: No abdominal tenderness and No Guarding due to palpation present (GI) Auscultation: normal bowel sounds Objective Data Vital Signs Vital Signs: Vital Signs - 24 hr 02/13/23 07:11 02/13/23 07:15 02/13/23 07:30 Temperature Pulse Rate 114 H 115 H 111 H Respiratory Rate 21 H 25 H 23 H Blood Pressure Pulse Oximetry 95 98 Oxygen Delivery Oxygen Flow Rate 02/13/23 07:32 02/13/23 07:45 02/13/23 08:00 Temperature Pulse Rate 111 H 110 H 113 H Respiratory Rate 19 24 H 22 H Blood Pressure 88/51 L Pulse Oximetry 95 96 95 Oxygen Delivery Oxygen Flow Rate 02/13/23 08:15 02/13/23 08:30 02/13/23 08:45 Temperature Pulse Rate 110 H 106 H 105 H Respiratory Rate 31 H 22 H 19 Blood Pressure Pulse Oximetry 98 96 92 Oxygen Delivery Oxygen Flow Rate 02/13/23 09:01 02/13/23 09:03 02/13/23 09:19 Temperature Pulse Rate 111 H 109 H 110 H Respiratory Rate 26 H 30 H 23 H Blood Pressure 80/48 L Pulse Oximetry 96 97 95 Oxygen Delivery Oxygen Flow Rate 02/13/23 09:36 02/13/23 10:36 02/13/23 10:43 Temperature Pulse Rate 109 H 104 H Respiratory Rate 19 21 H Blood Pressure 86/52 L 70/47 L Pulse Oximetry 94 94 91 Oxygen Delivery Nasal Cannula Oxygen Flow Rate 2 02/13/23 09:45 02/13/23 10:00 02/13/23 10:31 Temperature Pulse Rate 107 H 107 H 104 H Respiratory Rate 27 H 29 H 23 H Blood Pressure 70/47 L Pulse Oximetry 94 96 93 Oxygen Delivery Oxygen Flow Rate 02/13/23 10:58 02/13/23 11:00 02/13/23 11:01 Temperature Pulse Rate 107 H 106 H 108 H Respiratory Rate 27 H 25 H 26 H Blood Pressure 77/53 L Pulse Oximetry 91 91 90 Oxygen Delivery Oxygen Flow Rate 02/13/23 11:22 02/13/23 11:02 02/13/23 11:19 Temperature Pulse Rate 100 106 H 105 H Respiratory Rate 25 H 30 H Blood Pressure 77/53 L Pulse Oximetry 90 91 Oxygen Delivery Oxygen Flow Rate 02/13/23 11:32 02/13/23 11:46 02/13/23 11:48 Temperature Pulse Rate 111 H 108 H 106 H Respiratory Rate 16 21 H 31 H Blood Pressure 85/58 L Pulse Oximetry 93 94 93 Oxygen Delivery Oxygen Flow Rate 02/13/23 11:55 02/13/23 12:00 02/13/23 13:31 Temperature Pulse Rate 110 H 110 H 105 H Respiratory Rate 20 Blood Pressure 85/58 L 97/65 L Pulse Oximetry 94 Oxygen Delivery Oxygen Flow Rate 02/13/23 13:10 02/13/23 13:36 02/13/23 14:47 Temperature 97.6 F Pulse Rate 105 H 108 H 112 H Respiratory Rate 23 H 26 H Blood Pressure 92/66 L Pulse Oximetry 95 95 Oxygen Delivery Non-Rebreather Mask Oxygen Flow Rate 15 02/13/23 14:47 02/13/23 16:00 02/13/23 16:00 Temperature 97.9 F Pulse Rate 112 H 101 H 101 H Respiratory Rate 19 18 Blood Pressure 97/67 L Pulse Oximetry 97 97 Oxygen
--- NOTE | 2023-02-14 08:24 | WPDANESPN ---
Anes - Prog Note Post-Op Date/Time: 02/14/23 08:24 Cardiovascular status: normal Respiratory status: normal Airway patency: baseline Mental status: baseline Post-Op hydration status: normal Vital Signs: Last Vital Signs Temp 36.6 C 02/14/23 08:00 Pulse 113 H 02/14/23 08:00 Resp 24 H 02/14/23 08:00 BP 119/67 02/14/23 08:00 Pulse Ox 92 02/14/23 08:00 O2 Del Method Nasal Cannula 02/14/23 04:00 O2 Flow Rate 3 02/14/23 04:00 Pain Score (VAS): 0 I/O: Intake & Output 02/13/23 02/14/23 02/14/23 23:59 07:59 15:59 Intake Total 1950 2190 Output Total 625 1100 Balance 1325 1090 Laboratory Tests 02/14/23 04:31 02/14/23 04:31 02/13/23 02/13/23 02/13/23 13:49 14:04 17:13 WBC 23.9 H RBC 4.42 Hgb 12.4 Hct 38.2 MCV 86.4 MCH 28.1 MCHC 32.5 RDW 14.2 Plt Count 120 L MPV 10.3 Immature Gran % (Auto) Not Reportable Neut % (Auto) Not Reportable Lymph % (Auto) Not Reportable [place] % (Auto) Not Reportable Eos % (Auto) Not Reportable Baso % (Auto) Not Reportable Lymph # (Auto) Not Reportable [place] # (Auto) Not Reportable Eos # (Auto) Not Reportable Baso # (Auto) Not Reportable Abs Immat Gran (auto) Not Reportable Absolute Neuts (auto) Not Reportable Absolute Nucleated RBC Not Reportable Total Counted 100 Neutrophils % (Manual) 83 H Band Neutrophils % 16 H Lymphocytes % (Manual) Monocytes % (Manual) 1 L Nucleated RBC % Not Reportable Abs Neuts (Manual) 23.66 H Abs Lymphs (Manual) Abs Monocytes (Manual) 0.23 Smudge Cells Platelet Estimate Decreased % Immature Plt Fraction Anisocytosis Merino Cells Crenated Cell 2+ Schistocytes None seen PT 15.8 H INR 1.2 APTT 40.5 H Sodium 135 L Potassium 3.5 Chloride 111 H Carbon Dioxide 13 L Anion Gap 11 BUN 39 H Creatinine 1.40 H Estim Creat Clear Calc 26 Estimated GFR 37 L Glucose 129 H POC Capillary Glucose Lactic Acid 2.9 H 2.1 H Calcium 7.7 L Phosphorus 2.6 Magnesium 1.5 L Total Bilirubin 1.1 AST 48 H ALT 36 H Alkaline Phosphatase 94 C-Reactive Protein 15.3 H Total Protein 6.0 L Albumin 2.7 L 02/13/23 02/13/23 02/14/23 17:55 23:35 04:31 WBC 15.2 H RBC 3.60 L Hgb 10.0 L Hct 30.2 L MCV 83.9 MCH 27.8 MCHC 33.1 RDW 14.2 Plt Count 84 L MPV 10.7 H Immature Gran % (Auto) Not Reportable Neut % (Auto) Not Reportable Lymph % (Auto) Not Reportable [place] % (Auto) Not Reportable Eos % (Auto) Not Reportable Baso % (Auto) Not Reportable Lymph # (Auto) Not Reportable [place] # (Auto) Not Reportable Eos # (Auto) Not Reportable Baso # (Auto) Not Reportable Abs Immat Gran (auto) Not Reportable Absolute Neuts (auto) Not Reportable Absolute Nucleated RBC Not Reportable Total Counted 100 Neutrophils % (Manual) 54 Band Neutrophils % 36 H Lymphocytes % (Manual) 9 L Monocytes % (Manual) 1 L Nucleated RBC % Not Reportable Abs Neuts (Manual) 13.68 H Abs Lymphs (Manual) 1.36 Abs Monocytes (Manual) 0.15 Smudge Cells Present Platelet Estimate Decreased % Immature Plt Fraction 4.5 Anisocytosis 1+ [place] Cells 1+ Crenated Cell Schistocytes None seen PT INR APTT Sodium 139 Potassium 3.0 L Chloride 109 H Carbon Dioxide 18 L Anion Gap 12 BUN 28 H D Creatinine 0.90 Estim Creat Clear Calc 41 Estimated GFR > 60 Glucose 95 POC Capillary Glucose 133 H 136 H Lactic Acid 1.2 Calcium 7.4 L Phosphorus 2.0 L Magnesium 2.1 Total Bilirubin 1.1 AST 34 ALT 26 Alkaline Phosphatase 66 C-Reactive Protein Total Protein 6.0 L Albumin 3.3 L 02/14/23 05:57 WBC RBC Hgb Hct MCV MCH MCHC RDW Plt Count MPV Immature Gran % (Auto) Neut % (Auto) Lymph % (Au
[2023-02-14] MEDS: POTASSIUM CHLORIDE 20 MEQ ER TABLET 40 MEQ PO (08:29)
[2023-02-14] MEDS: KCL 40 MEQ/WATER 100 ML 100 ML 25 ML IVPB (08:29)
[2023-02-14] MEDS: MICAFUNGIN SODIUM 100 MG in SODIUM CHLORIDE 0.9% IV 100 ML IVPB (10:32)
--- NOTE | 2023-02-14 11:01 | PCFNICU ---
ICU Rounding Note: Pt current nutrition is Diabetic consistent carbs. Intakes 50%. Nutrition recommendation: Continue current diet. Per RN, pt eating fine and does not need a supplement at this time Last recorded weight is 69.2 kg. Bowel Motility: Last BM +1 02/13/23 Labs Reviewed: Hgb 10, Hct 30.2, K+ 3.0, BUN 28 Meds Noted: Levophed, lovenox, reglan Skin: WNL Additional Notes: Discussed in rounds. Appetite is good. Downgraded to IMU status. Following daily in ICU rounds. Monitor status, plan of care, diet orders, wt, labs. Follow daily in ICU rounds if moved to ICU, follow up in 3 days. .
[2023-02-14 11:51] LABS: MRSA (PCR) NOT DETECTED (NOT DETECTE)
[2023-02-14 12:05] LABS: Glucose Point of Care 143 mg/dl (65-105)
[2023-02-14] MEDS: CEFEPIME 2 GM/NS 50 ML 2 GM/50 ML BAG IVPB ×2 (12:44→23:58)
[2023-02-14] MEDS: VANCOMYCIN 1,250 MG/NS 250 ML 1,250 MG/250 ML BAG 166.67 MG IVPB (13:20)
[2023-02-14] MEDS: SODIUM BICARBONATE 8.4% 150 MEQ in WATER, STERILE FOR INJECTION 950 ML 50 MEQ IV CONT (13:21)
--- NOTE | 2023-02-14 13:33 | PM.IMPN ---
Progress Note: A&P Assessment and Plan (1) Acute kidney injury: Code(s): N17.9 - Acute kidney failure, unspecified Status: Acute (2) Septic shock: Code(s): A41.9 - Sepsis, unspecified organism; R65.21 - Severe sepsis with septic shock Status: Acute (3) Uncontrolled type 2 diabetes mellitus: Status: Acute (4) Pyelonephritis: Code(s): N12 - Tubulo-interstitial nephritis, not specified as acute or chronic Status: Acute (5) Ureterolithiasis: Code(s): N20.1 - Calculus of ureter Status: Acute (6) Acute UTI: Code(s): N39.0 - Urinary tract infection, site not specified Status: Acute (7) Bilateral ureteral calculi: Code(s): N20.1 - Calculus of ureter Status: Acute Plan bilateral hydronephrosis, bilateral obstructing kidney stones Keep patient p.o. Optimize pain managements, Dilaudid 0.5 mg q.4 hours as needed during p.o. Antiemetic medication:? Zofran, Reglan as needed Appreciate urologist consultation, management per urologist s/p ?stent placement with drainage very infected-looking upper tract urine 02/13 she needs definitive bilat. ureteroscopy with stone extraction per urologist evaluation septic shock, hypotension, bilateral pyelonephritis Patient has fever, hypotension, leukocytosis, tachycardia tachypnea, hypotension, likely resulting from bilateral hydronephrosis due to obstructing kidney stone Received fluid resuscitation 2.5 L NS Bolus and MAP<65 when I saw pt in ED Continue normal saline 150 mL/hour Start ceftriaxone 2 g IV daily Follow-up blood culture urine culture Consult rod filler for evaluation and management, pt was admitted to ICU for vasopressors per sepsis protocol. Changed to cefepime, Flagyl and vancomycin in ICU Now patient is off vasopressors Acute renal failure Elevated BUN creatinine Likely secondary to sepsis, urinary obstruction, and pyelonephritis, resulting to tubal interstitial nephritis Avoid nephrotoxic medication Follow-up BMP improving today Multifocal pneumonia Chest x-ray shows bilateral basilar haziness Possible possible early stage of aspiration pneumonia resulting from vomiting, Aspiration precaution Antibiotics see above And metronidazole 500 mg q.8 hours IV Order echo f/u CXR 02/14: [id number] pulmonary edema pattern with minimal pleural effusions. Correlate clinically for pneumonia. Hypertension Hold hypertension medication because of hypotension type 2 diabetes Hold metformin Jardiance, Start insulin sliding scale q.6 hour during p.o. Hypoglycemic protocol also initiated DVT prophylaxis Lovenox 40 mg daily, Subjective Date/time seen: 02/14/23 13:33 Interval history: I saw exam patient today, patient feels better today, abdomen pain is tolerable, denies nausea vomiting diarrhea, also denies chest pain, shortness of breath. Labs reviewed, leukocytosis persists, improving, BUN creatinine is trending down. patient is afebrile, blood pressure stable off vasopressors Exam Narrative: GENERAL:?in no acute distress. Well-nourished. - EYES: EOMI. Anicteric. - HENT: Moist mucous membranes. - LUNGS: Clear to auscultation bilaterally, no wheezing, rhonchi, or rales.? - CARDIOVASCULAR: Regular rate and rhythm. No murmur. No JVD. - ABDOMEN: Soft, right flank tender and non-distended. No palpable masses. - EXTREMITIES: No edema. Peripheral pulses 2+. Non-tender. - NEUROLOGIC: No focal neurological deficits. CN II-XII grossly intact. - PSYCHIATRIC: Awake, Alert and oriented x 3. Appropriate mood and affect. - SKIN: No rashes or lesions. Warm. - LYMPH: No cervical lymphadenopathy. Objective Data Vital Signs Vital Signs: Vital Signs - 24 hr 02/13/23 13:36 02/13/23 14:47 02/13/23 14:47 Temperature 97.9 F Pulse Rate 108 H 112 H 112 H Respiratory Rate 26 H 19 Blood Pressure 97/67 L Pulse Oximetry 95 97 Oxygen Delivery Non-Rebreather Mask Oxygen Flow Rate 15 12
--- NOTE | 2023-02-14 13:45 | WPDINTPN ---
Progress Note: A&P Assessment and Plan (1) Septic shock: Code(s): A41.9 - Sepsis, unspecified organism; R65.21 - Severe sepsis with septic shock Status: Acute Assessment and Plan: Patient presented the flank pain, fevers, generalized weakness/fatigue -found to have pyelonephritis with bilateral ureteral stents hydronephrosis -status post bilateral ureteral stent placements by Urology on 02/13/2023 -patient was hypotensive in the ER, received 2 L IV fluids and was started on normal saline at 125 mL/hr despite which her SBP remained in the 70s, patient was started on peripheral Levophed and was transferred to the OR for the procedure, postprocedure I right IJ central line was inserted by Anesthesia -OFF Levophed -02/13: Blood cultures and urine cultures growing yeast -continue cefepime and vancomycin, will discontinue Flagyl -add micafungin (02/14) -lactic acids on room -LFTs normalized -BUN and creatinine have normalized (2) Pyelonephritis: Code(s): N12 - Tubulo-interstitial nephritis, not specified as acute or chronic Status: Acute Assessment and Plan: Continue antibiotics as above (3) Bilateral hydronephrosis: Code(s): N13.30 - Unspecified hydronephrosis Status: Acute Assessment and Plan: Status post cystoscopy and stent placement bilateral ureters (4) DM type 2 (diabetes mellitus, type 2): Qualifiers: Diabetes mellitus fci insulin use: without fci use Diabetes mellitus complication status: without complication Qualified Code(s): E11.9 - Type 2 diabetes mellitus without complications Code(s): E11.9 - Type 2 diabetes mellitus without complications Status: Acute Assessment and Plan: Sliding scale insulin and Accu-Cheks (5) UTI (urinary tract infection): Qualifiers: Urinary tract infection type: site unspecified Hematuria presence: without hematuria Qualified Code(s): N39.0 - Urinary tract infection, site not specified Code(s): N39.0 - Urinary tract infection, site not specified Status: Acute Assessment and Plan: Continue antibiotics and antifungals as above -urine cultures growing yeast (6) Acute kidney injury: Code(s): N17.9 - Acute kidney failure, unspecified Status: Acute Assessment and Plan: RESOLVED Patient presented with acute kidney injury likely related to hypotension, hypovolemia, infection, pyelonephritis -received adequate amount of IV fluids in the ER (30 mL/kg) -Kennedy catheter in place -chest x-ray shows pulmonary edema, will decrease sodium bicarb to 50 mL/hour for 1000 mL. -BUN and creatinine have improved and resolved Plan DVT prophylaxis: SCDs, Lovenox on hold due to thrombocytopenia secondary to sepsis Stress ulcer prophylaxis: Not indicated Nutrition: Diabetic diet Code Status: Full code Critical Care Time Spent: 32 minutes Discussed with patient and her knees updated them with for condition and plan of care. I updated them with her improved kidney function, liver function. They aware that she is off the vasopressors. Patient may transfer out of the ICU Due to a high probability of clinically significant, life threatening deterioration, the patient required my highest level of preparedness to intervene emergently and I personally spent this critical care time directly and personally managing the patient. This critical care time included obtaining a history; examining the patient; pulse oximetry; ordering and review of studies; arranging urgent treatment with development of a management plan; evaluation of patient's response to treatment; frequent reassessment; and discussions with other providers. It was exclusive of separately billable procedures and treating other patients and teaching time. Please see Assessment and Plan section and the rest of the note for further information on patient assessment and treatment This dictation may have been done
[2023-02-14 17:09] LABS: Glucose Point of Care 174 mg/dl (65-105)
[2023-02-14] MEDS: CENTRAL LINE FLUSH 10 ML IV PUSH (19:49)
--- NOTE | 2023-02-14 20:31 | PC.NURSE ---
This patient, Margaret Funez, was received from ICU 5 on 02/14/23 at 2015. Patient/family oriented to unit policies and routines
--- NOTE | 2023-02-14 20:35 | PC.NURSE ---
pt transfered to rm 200 in floor bed o2 at 2 l by nate
[2023-02-14 21:09] LABS: Glucose Point of Care 161 mg/dl (65-105)
[2023-02-14] MEDS: ACETAMINOPHEN 325 MG TABLET 650 MG PO (23:58)
[2023-02-15] VITALS (10 sets, daily range): BP systolic 109–141; BP diastolic 64–81; PULSE 85–112; RESP 16–28; TEMP 36.4–37.6; O2SAT 91–96
[2023-02-15] MEDS: CENTRAL LINE FLUSH 10 ML IV PUSH ×3 (05:16→20:39)
[2023-02-15 06:19] LABS: Basophils Absolute Auto 0.1 K/mm3 (0.0-0.1); Basophils Percent Auto 0.4 % (0.2-1.2); Eosinophils Absolute Auto 0.1 K/mm3 (0-0.3); Eosinophils Percent Auto 0.9 % (0-4.4); Hematocrit 30.3 % (37.0-47.0); Hemoglobin 9.8 g/dL (12.0-15.0); Immature Granulocyte Absolute 0.29 K/mm3 (0.00-0.031); Immature Granulocyte Percent A 2.2 % (0-0.5); Immature Platelet Fraction Pct 6.6 % (0.9-11.2); Lymphocytes Absolute Auto 3.26 K/mm3 (0.9-3.2); Lymphocytes Percent Auto 24.3 % (18.3-44.2); Mean Corpuscular HGB Conc 32.3 g/dl (32-36); Mean Corpuscular Hemoglobin 27.4 pg (26-34); Mean Corpuscular Volume 84.6 fl (80-100); Monocytes Absolute Auto 0.5 K/mm3 (0.1-0.6); Monocytes Percent Auto 3.4 % (2.6-8.5); Neutrophils Absolute Auto 9.2 K/mm3 (1.3-6.7); Neutrophils Percent Auto 68.8 % (45.5-73.1); Platelet Count Result 90 k/mm3 (150-375); Red Blood Count 3.58 M/mm3 (4.2-5.4); Red Cell Distribution Width 14.4 % (11.5-14.5); White Blood Count 13.4 K/mm3 (4.5-10.0)
[2023-02-15 06:35] LABS: Alanine Aminotransferase 26 U/L (6-35); Albumin Level 3.2 g/dL (3.5-5.1); Alkaline Phosphatase 89 U/L (38-126); Anion Gap 7 mmol/L (8-16); Aspartate Amino Transferase 36 U/L (14-36); Bilirubin,Total 1.2 mg/dL (0.2-1.3); Blood Urea Nitrogen 19 mg/dL (7-17); Calcium 7.7 mg/dL (8.4-10.2); Carbon Dioxide 24 mmol/L (22-30); Chloride 106 mmol/L (98-107); Estimated CRCL calculation 51 ml/min; Estimated Glomerular Filt Rate > 60; Glucose 106 mg/dL (65-110); Phosphorus 1.4 mg/dL (2.5-4.5); Potassium 3.1 mmol/L (3.4-5.0); Sodium 137 mmol/L (137-145)
--- NOTE | 2023-02-15 07:11 | WPDUROPN2 ---
Progress Note: A&P Assessment and Plan (1) Acute kidney injury: Code(s): N17.9 - Acute kidney failure, unspecified Status: Acute (2) Septic shock: Code(s): A41.9 - Sepsis, unspecified organism; R65.21 - Severe sepsis with septic shock Status: Acute (3) Bilateral ureteral calculi: Code(s): N20.1 - Calculus of ureter Status: Acute Assessment and Plan: Tolerating bilateral stents Responding very nicely to abx. and supportive care. Home anytime from our standpoint. Will arrange outpatient cysto./bilat. ureteroscopy with stone extraction as outpatient. Subjective Subjective Date/Time Seen: 02/15/23 07:11 Interval history: Comfortable, tolerating stents Review of Systems Cardiovascular: Cardiovascular: Denies chest pain, Denies lightheadedness, Denies palpitations and Denies dyspnea Respiratory: Respiratory: Denies dyspnea Gastrointestinal: Gastrointestinal: Denies diarrhea, Denies nausea and Denies vomiting Genitourinary: Genitourinary: Denies hematuria and Denies dysuria Endocrine: Endocrine: Denies palpitations Exam Const: General: no acute distress Resp: Effort & Inspection: normal respiratory effort GI: Inspection: non-distended GI Palp: No abdominal tenderness and No Guarding due to palpation present (GI) Auscultation: normal bowel sounds Objective Data Vital Signs Vital Signs: Vital Signs - 24 hr 02/14/23 08:00 02/14/23 08:00 02/14/23 08:00 Temperature 98 F Pulse Rate 113 H 106 H Respiratory Rate 24 H Blood Pressure 119/67 Pulse Oximetry 92 92 Oxygen Delivery Nasal Cannula Oxygen Flow Rate 2 02/14/23 10:00 02/14/23 10:00 02/14/23 12:00 Temperature 98.1 F Pulse Rate 112 H 113 H 110 H Respiratory Rate 24 H 26 H Blood Pressure 110/60 126/76 Pulse Oximetry 93 93 Oxygen Delivery Oxygen Flow Rate 02/14/23 12:00 02/14/23 12:00 02/14/23 14:00 Temperature Pulse Rate 117 H 108 H Respiratory Rate Blood Pressure Pulse Oximetry 92 Oxygen Delivery Nasal Cannula Oxygen Flow Rate 2 02/14/23 14:00 02/14/23 16:00 02/14/23 16:00 Temperature Pulse Rate 108 H 102 H Respiratory Rate 26 H Blood Pressure 118/69 Pulse Oximetry 92 93 Oxygen Delivery Nasal Cannula Oxygen Flow Rate 2 02/14/23 16:00 02/14/23 18:00 02/14/23 20:00 Temperature 98.3 F Pulse Rate 107 H 107 H 101 H Respiratory Rate 24 H Blood Pressure 127/67 Pulse Oximetry 100 Oxygen Delivery Oxygen Flow Rate 02/14/23 20:00 02/14/23 20:00 02/14/23 20:30 Temperature 98.3 F 97.5 F L Pulse Rate 101 H 102 H 105 H Respiratory Rate 24 H 18 18 Blood Pressure 122/62 123/62 Pulse Oximetry 100 94 93 Oxygen Delivery Nasal Cannula Oxygen Flow Rate 2 02/14/23 23:58 02/15/23 00:00 02/15/23 00:00 Temperature 97.5 F L Pulse Rate 104 H 109 H Respiratory Rate 20 Blood Pressure 111/80 Pulse Oximetry 91 91 Oxygen Delivery Nasal Cannula Oxygen Flow Rate 2 02/15/23 03:32 02/15/23 03:58 02/15/23 04:00 Temperature 97.5 F L Pulse Rate 85 85 Respiratory Rate 18 Blood Pressure 109/64 Pulse Oximetry 91 91 Oxygen Delivery Nasal Cannula Oxygen Flow Rate 2 Intake/Output Intake/Output: Intake & Output 02/12/23 02/13/23 02/14/23 02/15/23 23:59 23:59 23:59 23:59 Intake Total 4650 4655 550 Output Total 625 2900 1125 Balance 4022 0022 -523 Meds/Results Medications: Active Medications Generic Name Dose Route Start Last Admin Trade Name Freq PRN Reason Stop Dose Admin Acetaminophen 650 mg 02/13/23 07:06 02/14/23 23:58 Acetaminophen 325 Mg Tablet PO 650 mg Q4H PRN Administration Mild Pain (1-3) or Fever Dextrose 12.5 gm 02/13/23 07:51 Dextrose 50% 25 Gm/50 Ml Syringe IV PUSH PRN PRN Hypoglycemia Protocol Enoxaparin Sodium 40 mg 02/13/23 13:50 02/13/23 14:48 Enoxaparin 40 Mg/0.4 Ml Syringe SUB-Q 40 mg DAILY BUTCH Ad
[2023-02-15 08:26] LABS: Glucose Point of Care 115 mg/dl (65-105)
[2023-02-15] MEDS: MICAFUNGIN SODIUM 100 MG in SODIUM CHLORIDE 0.9% IV 100 ML IVPB (09:55)
--- NOTE | 2023-02-15 10:18 | PM.IMPN ---
Progress Note: A&P Assessment and Plan (1) Acute kidney injury: Code(s): N17.9 - Acute kidney failure, unspecified Status: Acute (2) Septic shock: Code(s): A41.9 - Sepsis, unspecified organism; R65.21 - Severe sepsis with septic shock Status: Acute (3) Uncontrolled type 2 diabetes mellitus: Status: Acute (4) Pyelonephritis: Code(s): N12 - Tubulo-interstitial nephritis, not specified as acute or chronic Status: Acute (5) Ureterolithiasis: Code(s): N20.1 - Calculus of ureter Status: Acute (6) Acute UTI: Code(s): N39.0 - Urinary tract infection, site not specified Status: Acute (7) Bilateral ureteral calculi: Code(s): N20.1 - Calculus of ureter Status: Acute Plan bilateral hydronephrosis, bilateral obstructing kidney stones Keep patient p.o. Optimize pain managements, Dilaudid 0.5 mg q.4 hours as needed during p.o. Antiemetic medication:? Zofran, Reglan as needed Appreciate urologist consultation, management per urologist s/p ?stent placement with drainage very infected-looking upper tract urine 02/13 she needs definitive bilat. ureteroscopy with stone extraction per urologist urologist recommends to arrange outpatient cysto./bilat. ureteroscopy with stone extraction as outpatient. septic shock, hypotension, bilateral pyelonephritis Patient has fever, hypotension, leukocytosis, tachycardia tachypnea, hypotension, likely resulting from bilateral hydronephrosis due to obstructing kidney stone Received fluid resuscitation 2.5 L NS Bolus and MAP<65 when I saw pt in ED Continue normal saline 150 mL/hour Start ceftriaxone 2 g IV daily Consult check and transfer beader for evaluation and management, pt was admitted to ICU for vasopressors per sepsis protocol. Changed to cefepime, Flagyl and vancomycin in ICU Now patient is off vasopressors Follow-up blood culture urine culture Bettye glabrata started micafungin 02/14, patient may need 14 days antifungal medications. Change to Augmentin p.o., discontinue cefepime vancomycin. 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 40 mg daily p.o., provide K-Phos x1 Multifocal pneumonia Chest x-ray shows bilateral basilar haziness Possible possible early stage of aspiration pneumonia resulting from vomiting, Aspiration precaution Antibiotics see above And metronidazole 500 mg q.8 hours IV Order echo f/u CXR 02/14: [id number] pulmonary edema pattern with minimal pleural effusions. Correlate clinically for pneumonia. Hypertension Hold hypertension medication because of hypotension type 2 diabetes Hold metformin Jardiance, Start insulin sliding scale q.6 hour during p.o. Hypoglycemic protocol also initiated DVT prophylaxis Lovenox 40 mg daily, Patient has general weakness, consult PT OT reproductive healthcare assistant for evaluation and assisting placement Subjective Date/time seen: 02/15/23 10:18 Interval history: I saw exam patient, patient feels better, still has general weakness, abdomen pain is tolerable, denies nausea vomiting diarrhea chest pain shortness of breath. I reviewed labs, images Exam Narrative: General: Pleasant female in no acute distress HEENT:? Pupils equal and reactive, sclera is clear, moist oral mucosa Neck:? Supple Respiratory:? Coarse breath sounds bilaterally, decreased at bases, adequate air entry, no wheezing Cardiac:? S1-S2 is normal, sinus tachycardia Abdomen:? Soft, nontender nondistended, normoactive bowel sounds, laparoscopic scars noted Extremities:? Palpable pedal pulses, no edema or cyanosis Neuro:? Patient is awake, alert, oriented, answers questions appropriately and follows simp
[2023-02-15 11:40] LABS: Glucose Point of Care 143 mg/dl (65-105)
[2023-02-15] MEDS: POTASSIUM PHOS/SODIUM PHOS 250 MG TABLET PO (11:51)
[2023-02-15] MEDS: POTASSIUM CHLORIDE 20 MEQ PACKET (FOR LIQUID) 40 MEQ PO (11:51)
[2023-02-15] MEDS: CEFEPIME 2 GM/NS 50 ML 2 GM/50 ML BAG IVPB (11:57)
[2023-02-15 13:40] LABS: Vancomycin Trough 7.3 ug/mL (10.0-20.0)
--- NOTE | 2023-02-15 16:20 | PC.NURSE ---
This patient, Margaret Funez, was transferred to [facility] on 02/15/23 at 1621. Personal belongings sent with patient. Report given to HARRIET Singh. Appropriate documentation sent with patient.
[2023-02-15 17:44] LABS: Glucose Point of Care 127 mg/dl (65-105)
[2023-02-15] MEDS: AMOXICILLIN/CLAVULANATE K 875-125 MG TAB 1 TABLET PO (20:39)
[2023-02-15 20:51] LABS: Glucose Point of Care 156 mg/dl (65-105)
[2023-02-16] MEDS: CENTRAL LINE FLUSH 10 ML IV PUSH ×2 (05:21→17:24)
[2023-02-16 08:00] VITALS: PULSE 90; RESP 18; O2SAT 95
[2023-02-16 08:40] LABS: Glucose Point of Care 121 mg/dl (65-105)
[2023-02-16] MEDS: AMOXICILLIN/CLAVULANATE K 875-125 MG TAB 1 TABLET PO (08:58)
[2023-02-16] MEDS: POTASSIUM CHLORIDE 20 MEQ PACKET (FOR LIQUID) 40 MEQ PO (08:59)
[2023-02-16] MEDS: MICAFUNGIN SODIUM 100 MG in SODIUM CHLORIDE 0.9% IV 100 ML IVPB (09:11)
--- NOTE | 2023-02-16 09:34 | PM.IMPN ---
Progress Note: A&P Assessment and Plan (1) Acute kidney injury: Code(s): N17.9 - Acute kidney failure, unspecified Status: Acute (2) Septic shock: Code(s): A41.9 - Sepsis, unspecified organism; R65.21 - Severe sepsis with septic shock Status: Acute (3) Uncontrolled type 2 diabetes mellitus: Status: Acute (4) Pyelonephritis: Code(s): N12 - Tubulo-interstitial nephritis, not specified as acute or chronic Status: Acute (5) Ureterolithiasis: Code(s): N20.1 - Calculus of ureter Status: Acute (6) Acute UTI: Code(s): N39.0 - Urinary tract infection, site not specified Status: Acute (7) Bilateral ureteral calculi: Code(s): N20.1 - Calculus of ureter Status: Acute Plan bilateral hydronephrosis, bilateral obstructing kidney stones Keep patient p.o. Optimize pain managements, Dilaudid 0.5 mg q.4 hours as needed during p.o. Antiemetic medication:? Zofran, Reglan as needed Appreciate urologist consultation, management per urologist s/p ?stent placement with drainage very infected-looking upper tract urine 02/13 she needs definitive bilat. ureteroscopy with stone extraction per urologist urologist recommends to arrange outpatient cysto./bilat. ureteroscopy with stone extraction as outpatient. septic shock, hypotension, bilateral pyelonephritis, candidemia Patient has fever, hypotension, leukocytosis, tachycardia tachypnea, hypotension, likely resulting from bilateral hydronephrosis due to obstructing kidney stone Received fluid resuscitation 2.5 L NS Bolus and MAP<65 when I saw pt in ED Continue normal saline 150 mL/hour Start ceftriaxone 2 g IV daily Consult manager security for evaluation and management, pt was admitted to ICU for vasopressors per sepsis protocol. Changed to cefepime, Flagyl and vancomycin in ICU Now patient is off vasopressors Follow-up blood culture urine culture Bettye glabrata started micafungin 02/14, patient may need 14 days antifungal medications. Change to Augmentin p.o., discontinue cefepime vancomycin. 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 40 mg daily p.o., provide K-Phos x1 Multifocal pneumonia Chest x-ray shows bilateral basilar haziness Possible possible early stage of aspiration pneumonia resulting from vomiting, Aspiration precaution Antibiotics see above And metronidazole 500 mg q.8 hours IV Order echo f/u CXR 02/14: [id number] pulmonary edema pattern with minimal pleural effusions. Correlate clinically for pneumonia. Hypertension Hold hypertension medication because of hypotension type 2 diabetes Hold metformin Jardiance, Start insulin sliding scale q.6 hour during p.o. Hypoglycemic protocol also initiated DVT prophylaxis Lovenox 40 mg daily, Patient has general weakness, consult PT OT career coach for evaluation and assisting placement Subjective Date/time seen: 02/16/23 09:34 Interval history: I saw exam patient, patient feels better, still has general weakness, but condition is improving. Abdomen pain is tolerable, denies nausea vomiting diarrhea chest pain shortness of breath. I reviewed labs, images Exam Narrative: General: Pleasant female in no acute distress HEENT:? Pupils equal and reactive, sclera is clear, moist oral mucosa Neck:? Supple Respiratory:? Clear s bilaterally, decreased at bases, adequate air entry, no wheezing Cardiac:? S1-S2 is normal, sinus tachycardia Abdomen:? Soft, nontender nondistended, normoactive bowel sounds, laparoscopic scars noted Extremities:? Palpable pedal pulses, no edema or cyanosis Neuro:? Patient is awake, alert, oriented, answers questions ap
[2023-02-16 11:11] LABS: Basophils Absolute Auto 0.1 K/mm3 (0.0-0.1); Basophils Percent Auto 0.5 % (0.2-1.2); Eosinophils Absolute Auto 0.1 K/mm3 (0-0.3); Eosinophils Percent Auto 1.2 % (0-4.4); Hematocrit 32.8 % (37.0-47.0); Hemoglobin 10.6 g/dL (12.0-15.0); Immature Granulocyte Absolute 0.21 K/mm3 (0.00-0.031); Lymphocytes Absolute Auto 3.59 K/mm3 (0.9-3.2); Mean Corpuscular HGB Conc 32.3 g/dl (32-36); Mean Corpuscular Hemoglobin 27.3 pg (26-34); Mean Corpuscular Volume 84.5 fl (80-100); Mean Platelet Volume 10.7 fl (7.4-10.4); Monocytes Absolute Auto 0.5 K/mm3 (0.1-0.6); Monocytes Percent Auto 5.1 % (2.6-8.5); Neutrophils Absolute Auto 5.8 K/mm3 (1.3-6.7); Neutrophils Percent Auto 56.2 % (45.5-73.1); Platelet Count Result 118 k/mm3 (150-375); Red Blood Count 3.88 M/mm3 (4.2-5.4); Red Cell Distribution Width 14.7 % (11.5-14.5); White Blood Count 10.3 K/mm3 (4.5-10.0)
[2023-02-16 11:22] LABS: Anion Gap 10 mmol/L (8-16); Blood Urea Nitrogen 15 mg/dL (7-17); Carbon Dioxide 24 mmol/L (22-30); Chloride 106 mmol/L (98-107); Estimated CRCL calculation 58 ml/min; Estimated Glomerular Filt Rate > 60; Glucose 202 mg/dL (65-110); Potassium 4.2 mmol/L (3.4-5.0); Sodium 140 mmol/L (137-145)
[2023-02-16 11:23] LABS: Phosphorus 1.7 mg/dL (2.5-4.5)
[2023-02-16 12:44] LABS: Glucose Point of Care 121 mg/dl (65-105)
--- NOTE | 2023-02-16 15:31 | PM.DS ---
DS: Admitting Diagnosis Discharge Date 02/16/23 Admitting Diagnosis (1) Acute kidney injury: ?Code(s): N17.9 - Acute kidney failure, unspecified ?Status:?Acute (2) Septic shock: ?Code(s): A41.9 - Sepsis, unspecified organism; R65.21 - Severe sepsis with septic shock ?Status:?Acute (3) Uncontrolled type 2 diabetes mellitus: ?Status:?Acute (4) Pyelonephritis: ?Code(s): N12 - Tubulo-interstitial nephritis, not specified as acute or chronic ?Status:?Acute (5) Ureterolithiasis: ?Code(s): N20.1 - Calculus of ureter ?Status:?Acute (6) Acute UTI: ?Code(s): N39.0 - Urinary tract infection, site not specified ?Status:?Acute (7) Bilateral ureteral calculi: ?Code(s): N20.1 - Calculus of ureter ?Status:?Acute DS: Discharge Diagnosis Discharge Diagnosis (1) Acute kidney injury: Code(s): N17.9 - Acute kidney failure, unspecified Status: Acute (2) Septic shock: Code(s): A41.9 - Sepsis, unspecified organism; R65.21 - Severe sepsis with septic shock Status: Acute (3) Uncontrolled type 2 diabetes mellitus: Status: Acute (4) Pyelonephritis: Code(s): N12 - Tubulo-interstitial nephritis, not specified as acute or chronic Status: Acute (5) Ureterolithiasis: Code(s): N20.1 - Calculus of ureter Status: Acute (6) Acute UTI: Code(s): N39.0 - Urinary tract infection, site not specified Status: Acute (7) Bilateral ureteral calculi: Code(s): N20.1 - Calculus of ureter Status: Acute DS: Summary Hospital Course Hospital Course: Margaret Henriquez is a 77 year old female with history of hypertension, hyperlipidemia, diabetes, recent robotic hysterectomy performed at our facility present ED with a chief complaint of of general weakness, rifampin, fever.? Presents with generalized fatigue, mild right flank pain and fever.? Patient has been general weakness, flu-like syndrome in past 1 week, vomited once.? Patient started to have fever since yesterday, also has right flank pain associated with urinary urgency frequency.? Patient came to ED for evaluation.? In the ED, patient found have fever 100.3, hypotension, tachycardia tachypnea, leukocytosis 12,500, hyponatremia 132, hypokalemia 3.4, elevated BUN creatinine 43/1.5, urinalysis shows pyuria and hematuria, patient has cloudy urine.? CT scans shows a 3 mm left UVJ stone, moderate left hydroureteronephrosis, 6 mL distal right urethral stone, mild right hydroureteronephrosis.? ER provider consulted urologist patient has been feeling weak in past 1 week, patient received 2.5 L normal saline bolus, map still low than 65 The following medical issues have been addressed during hospitalization bilateral hydronephrosis, bilateral obstructing kidney stones Keep patient p.o. Optimize pain managements, Dilaudid 0.5 mg q.4 hours as needed during p.o. Antiemetic medication:? Zofran, Reglan as needed Appreciate urologist consultation, management per urologist s/p ?stent placement with drainage very infected-looking upper tract urine 02/13 she needs definitive bilat. ureteroscopy with stone extraction per urologist urologist recommends to arrange outpatient cysto./bilat. ureteroscopy with stone extraction as outpatient. septic shock, hypotension, bilateral pyelonephritis, candidemia Patient has fever, hypotension, leukocytosis, tachycardia tachypnea, hypotension, likely resulting from bilateral hydronephrosis due to obstructing kidney stone Received fluid resuscitation 2.5 L NS Bolus and MAP<65 when I saw pt in ED Continue normal saline 150 mL/hour Start ceftriaxone 2 g IV daily Consult interactive art director for evaluation and management, pt was admitted to ICU for vasopressors per sepsis protocol. Changed to cefepime, Flagyl and vancomycin in ICU Now patient is off vasopressors Follow-up blood culture urine culture Bettye glabrata started micafungin 02/14, patient may ne
[2023-02-16] MEDS: NEOMYCIN/POLYMYXIN/BACITRACIN OINTMENT PACKET 1 PACKET (17:24)
--- NOTE | 2023-03-06 11:24 | IVDEFINITY ---
Prior to administration of IV Definity the patient was educated on the risks and benefits of the imaging enhancing agent including potential adverse side effects. The patient verbalized understanding. Allergies were verified. No exclusion criteria were identified and at least one of the following inclusion criteria were met: 1) physician request, 2) patient technically difficult to image (per the [place] [employer] guidelines of two or more segments not discernable within the apical view), or 3) questionable left ventricular function. ?
== END 2023-02-16 16:33 | disposition home health service (06) | DRG 853 ==
LOC: ANHED 07:14 → ANHIMU 08:01 → ANHICU 13:33 → ANHIMU 02-14 20:35 → ANH3MED 02-15 16:15
PROVIDERS: Internal Medicine; Urology; Admitting Provider Internal Medicine; Emergency Provider Emergency Medicine; PCP Internal Medicine; Visit Provider Hospitalist
PROC: 0T788DZ Dilation of Bilateral Ureters with Intraluminal Device, Via Natural or Artificial Opening Endoscopic (ICD-10-PCS; CPT 52352; principal; 2023-02-13 14:45)
DX: B37.7 Candidal sepsis (principal); J18.8 Other pneumonia, unspecified organism; J69.0 Pneumonitis due to inhalation of food and vomit; R65.21 Severe sepsis with septic shock; N13.6 Pyonephrosis; N17.9 Acute kidney failure, unspecified; E87.1 Hypo-osmolality and hyponatremia; B37.49 Other urogenital candidiasis; E87.6 Hypokalemia; I10 Essential (primary) hypertension; E78.5 Hyperlipidemia, unspecified; E11.9 Type 2 diabetes mellitus without complications; E83.39 Other disorders of phosphorus metabolism; L30.9 Dermatitis, unspecified; Z20.822 Contact with and (suspected) exposure to COVID-19; Z87.891 Personal history of nicotine dependence; Z90.710 Acquired absence of both cervix and uterus
CPT/HCPCS: 36415; 36569; 71045; 74177; 80048; 80053; 80202; 81001; 82948; 83605; 83735; 84100; 84145; 84484; 85025; 85055; 85610; 85730; 86140; 87040; 87086; 87106; 87186; 87637; 87641; 93005; 96365; 97110; 97116; 97161; 97165; 97530; 97535; 99285; A9270; C1751; C1769; C2617; C8929; G0378; J0692; J0696; J1650; J1836; J2248; J2704; J3370; J3475; J3480; J7030; P9047; Q9957; Q9967

== ENCOUNTER 2023-02-20 11:11 | Outpatient (RCR) | payer MEDICARE, SELFPAY ==
[2023-02-20 14:01] LABS: Basophils Absolute Auto 0.1 K/mm3 (0.0-0.1); Basophils Percent Auto 0.6 % (0.2-1.2); Eosinophils Absolute Auto 0.2 K/mm3 (0-0.3); Eosinophils Percent Auto 1.3 % (0-4.4); Hematocrit 35.4 % (37.0-47.0); Hemoglobin 11.2 g/dL (12.0-15.0); Immature Granulocyte Absolute 0.48 K/mm3 (0.00-0.031); Lymphocytes Absolute Auto 5.28 K/mm3 (0.9-3.2); Lymphocytes Percent Auto 33.3 % (18.3-44.2); Mean Corpuscular HGB Conc 31.6 g/dl (32-36); Mean Corpuscular Hemoglobin 27.7 pg (26-34); Mean Corpuscular Volume 87.4 fl (80-100); Mean Platelet Volume 10.6 fl (7.4-10.4); Monocytes Absolute Auto 1.2 K/mm3 (0.1-0.6); Monocytes Percent Auto 7.3 % (2.6-8.5); Neutrophils Absolute Auto 8.6 K/mm3 (1.3-6.7); Neutrophils Percent Auto 54.5 % (45.5-73.1); Platelet Count Result 317 k/mm3 (150-375); Red Blood Count 4.05 M/mm3 (4.2-5.4); Red Cell Distribution Width 16.2 % (11.5-14.5); White Blood Count 15.9 K/mm3 (4.5-10.0)
[2023-02-20 14:06] LABS: Alanine Aminotransferase 21 U/L (6-35); Albumin Level 3.7 g/dL (3.5-5.1); Alkaline Phosphatase 119 U/L (38-126); Anion Gap 11 mmol/L (8-16); Aspartate Amino Transferase 44 U/L (14-36); Bilirubin,Total 0.8 mg/dL (0.2-1.3); Blood Urea Nitrogen 9 mg/dL (7-17); Carbon Dioxide 25 mmol/L (22-30); Chloride 103 mmol/L (98-107); Estimated Glomerular Filt Rate > 60; Glucose 94 mg/dL (65-110); Potassium 3.5 mmol/L (3.4-5.0); Sodium 139 mmol/L (137-145)
== END 2023-05-21 23:59 | disposition home or self-care (01) ==
LOC: HOME HLTH 11:11
PROVIDERS: PCP Internal Medicine; Visit Provider Internal Medicine
DX: A41.9 Sepsis, unspecified organism (principal); R65.20 Severe sepsis without septic shock
CPT/HCPCS: 80053; 85025

== ENCOUNTER 2023-02-27 12:57 | Inpatient (IN) | payer MEDICARE, SELFPAY ==
[2023-02-27] VITALS (10 sets, daily range): BP systolic 101–165; BP diastolic 60–75; PULSE 102–143; RESP 19–25; TEMP 36.4–37.1; O2SAT 89–97
--- NOTE | ~2023-02-27 | XR_ITS ---
EXAMINATION: XR stent kub - surgery DATE: 03/08/2023 10:12 INDICATION: Right stent replacement. TECHNIQUE: 2 intraoperative fluoroscopic views of the abdomen and pelvis were obtained. I was not pre sent. Fluoroscopy exposure time was 17 seconds. COMPARISON: CT abdomen and pelvis 02/27/23 FINDINGS: There is a right internal ureteral stent in expected position. IMPRESSION: 1. Right internal ureteral stent in expected position. Reviewed, dictated and finalized at location A. PPER AND PRINTER
--- NOTE | ~2023-02-27 | CT_ITS ---
EXAMINATION: CT abdomen pelvis w con DATE: 02/27/2023 19:21 INDICATION: concern for pyelo TECHNIQUE: Computed tomography (CT) of the abdomen and pelvis was performed with 100 mL Omnipaque-350 intravenous contrast. Automated exposure control and iterative reconstruction technique were employe d. The dose-length product was 617.49 mGy-cm. COMPARISON: 02/13/2023, 02/13/2023. FINDINGS: Lower thorax: Senescent changes in the lung bases. Bibasilar scar/atelectasis. Small right pleural ef fusion. Coronary artery calcifications. Liver: Nodular liver border. 5 mm right lower lobe hypodensity, stable since 2018, likely cyst or hem angioma. Biliary/Gallbladder: Dilated gallbladder. No inflammatory change or cholelithiasis. No bile duct dila tion. Pancreas: No mass or duct dilation. Spleen: Normal. Adrenals:No mass. Kidneys: 2 mm right lower pole nonobstructing calcification. Mild bilateral perinephric stranding. Bi lateral ureteral stents in good position. No suspicious mass. Subtle patchy right renal parenchymal e nhancement. GI tract: Moderate distal esophageal and gastric wall edema. No small or large bowel dilation. Normal appendix. Mesentery/Peritoneum: No ascites, mass, or free air. Retroperitoneum: No mass. Atherosclerotic abdominal aortic and/or arterial calcifications. Pelvis: The urinary bladder is decompressed by a Kennedy catheter. Stable 3 mm left UVJ stone. Stable 6 mm right distal ureteral stones. Urinary bladder wall edema with inflammatory change. Soft Tissues: Soft tissues and body wall unremarkable. Bones: No acute osseous finding. IMPRESSION: Small right pleural effusion. Moderate esophagitis/gastritis. Nodular liver border as can be seen with cirrhosis. Gallbladder hydrops, without inflammatory change, cholelithiasis, or biliary duct dilation. Findings suspicious for right pyelonephritis. Cystitis. Bilateral ureteral stents with stable left UVJ and right distal ureteral stones. Reviewed, dictated and finalized at location K. ADVISOR IMPRESSION: Small right pleural effusion. Moderate esophagitis/gastritis. Nodular liver border as can be seen with cirrhosis. Gallbladder hydrops, without inflammatory change, cholelithiasis, or biliary du ct dilation. Findings suspicious for right pyelonephritis. Cystitis. Bilateral ureteral stents with stable left UVJ and right distal ureteral stones .
--- NOTE | ~2023-02-27 | CT_ITS ---
Clinical Indication: Hypoxia CT Scan of the Chest with Contrast: Technique: Contiguous sections were acquired throughout the chest after intravenous administration of 100 cc of Omnipaque 350. Dose reduction technique was used on this scan by utilizing automated expos ure control and iterative reconstruction technique. The dose-length product (DLP) was 352.26 mGy-cm. Findings: There is no evidence of any significant mediastinal, hilar or axillary lymphadenopathy. There is no f illing defect in the pulmonary arterial tree to suggest pulmonary embolus. There is no evidence of ao rtic dissection or aneurysm. No pericardial effusion. There are minimal bilateral pleural effusions with mild bibasilar atelectatic change. There is modera te to severe emphysema, especially the upper lobes. There is extensive groundglass opacity throughout most of the left lung. There is mild interlobular septal thickening at the lung bases and in the lef t upper lobe. Images through the upper abdomen reveal no abnormalities. Impression: No evidence of pulmonary embolus, aortic dissection, or aortic aneurysm. Diffuse groundglass opacity at the left lung, with interlobular septal thickening bilaterally, left w orse than right. Findings suggest asymmetric pulmonary edema. Correlate clinically for pneumonia. Minimal pleural effusions and minimal bibasilar atelectasis. Moderate to advanced underlying emphysema. Reviewed, dictated and finalized at [facility]. PEDIATRIC Impression: No evidence of pulmonary embolus, aortic dissection, or aortic aneurysm. Diffuse groundglass opacity at the left lung, with interlobular septal thickeni ng bilaterally, left worse than right. Findings suggest asymmetric pulmonary ed steven. Correlate clinically for pneumonia. Minimal pleural effusions and minimal bibasilar atelectasis. Moderate to advanced underlying emphysema.
--- NOTE | ~2023-02-27 | XR_ITS ---
Portable chest x-ray Comparison: 02/27/2023 Clinical History: Shortness of breath Findings: There is diffuse groundglass and interstitial disease. Probable minimal right pleural effu [place]. Cardiomediastinal silhouette is stable. Bones and soft tissues are unremarkable. Impression: Diffuse groundglass and interstitial disease. Correlate for pulmonary edema and/or chronic interstiti al disease. Infection not excluded. Probable small right pleural effusion. Reviewed, dictated and finalized at location . KE OPERATIONS OFFICER Impression: Diffuse groundglass and interstitial disease. Correlate for pulmonary edema and /or chronic interstitial disease. Infection not excluded. Probable small right pleural effusion.
--- NOTE | ~2023-02-27 | XR_ITS ---
XR chest 2V DATE: 02/27/2023 17:56 INDICATION: Cough TECHNIQUE: PA and lateral views COMPARISON: 02/14/2023 portable AP chest FINDINGS: Heart size is borderline. Is aortic calcification and tortuosity. There is blunting of the right costophrenic angle suggesting small right pleural effusion. There is mild atelectasis and/or infiltrate at the right lower lung, particularly right lung base. Th e lungs otherwise appear essentially clear of infiltrate or consolidation. Diffuse osteopenia. Mild dextroscoliosis of the thoracic spine. Degenerative spurring of the thoracic and lumbar spine. IMPRESSION: Mild infiltrate and/or atelectasis at the right lower lung, particularly right lung base Small right pleural effusion Reviewed, dictated and finalized at location L. A DECORATOR IMPRESSION: Mild infiltrate and/or atelectasis at the right lower lung, particu larly right lung base Small right pleural effusion
--- NOTE | 2023-02-27 13:01 | ECG_ITS ---
Measurements Intervals Remer Rate: 135 P: 36 [place]: 126 QRS: -24 QRSD: 118 T: 9 QT: 339 QTc: 508 Interpretive Statements SINUS TACHYCARDIA RIGHT BUNDLE BRANCH BLOCK BASELINE WANDER- II, III, AVF, V4 ABNORMAL ECG COMPARED TO ECG 02/13/2023 05:09:19 NO SIGNIFICANT CHANGES Electronically Signed On 02-27-2023 14:25:27 WEED CONTROL INSPECTOR by Ricki Somers D.O.
[2023-02-27 16:40] LABS: Basophils Percent Auto 0.3 % (0.2-1.2); Hematocrit 37.1 % (37.0-47.0); Hemoglobin 11.6 g/dL (12.0-15.0); Immature Granulocyte Absolute 0.02 K/mm3 (0.00-0.031); Immature Granulocyte Percent A 0.2 % (0-0.5); Lymphocytes Absolute Auto 0.83 K/mm3 (0.9-3.2); Lymphocytes Percent Auto 8.2 % (18.3-44.2); Mean Corpuscular HGB Conc 31.3 g/dl (32-36); Mean Corpuscular Hemoglobin 27.8 pg (26-34); Mean Platelet Volume 9.4 fl (7.4-10.4); Monocytes Absolute Auto 0.4 K/mm3 (0.1-0.6); Monocytes Percent Auto 3.8 % (2.6-8.5); Neutrophils Absolute Auto 8.9 K/mm3 (1.3-6.7); Neutrophils Percent Auto 87.5 % (45.5-73.1); Platelet Count Result 475 k/mm3 (150-375); Red Blood Count 4.17 M/mm3 (4.2-5.4); Red Cell Distribution Width 16.9 % (11.5-14.5); White Blood Count 10.2 K/mm3 (4.5-10.0)
[2023-02-27 16:50] LABS: Alanine Aminotransferase 21 U/L (6-35); Albumin Level 4.2 g/dL (3.5-5.1); Alkaline Phosphatase 115 U/L (38-126); Anion Gap 12 mmol/L (8-16); Aspartate Amino Transferase 45 U/L (14-36); Blood Urea Nitrogen 18 mg/dL (7-17); Calcium 9.5 mg/dL (8.4-10.2); Carbon Dioxide 22 mmol/L (22-30); Chloride 104 mmol/L (98-107); Estimated CRCL calculation 50 ml/min; Estimated Glomerular Filt Rate > 60; Glucose 119 mg/dL (65-110); Lipase 90 U/L (23-300); Potassium 3.4 mmol/L (3.4-5.0); Sodium 138 mmol/L (137-145)
[2023-02-27 17:12] LABS: Appearance Urine Turbid (Clear); Bacteria Urine 4+ /hpf; Bilirubin Urine Negative (Negative); Blood Urine 3+ (Negative); Color Urine Yellow (Yellow); Glucose Urine UA 3+ mg/dL (Negative); Ketones Urine Trace mg/dL (Negative); Leukocyte Esterase Ur 1+ LEU/UL (Negative); Need Manual Microscopic Reviewed; Nitrate Urine Positive (Negative); Protein Urine 3+ mg/dL (Negative); RBC Urine >100 /hpf (0-2); Specific Grav Ur 1.024 (1.001-1.035); Squamous Epithelial Cell Urine None seen /hpf (Few); Urobilinogen Urine 0.2 mg/dL (<2.0); WBC Urine >100 /hpf; pH Urine 5.5 (5.0-9.0)
[2023-02-27 17:13] LABS: Add Urine Microscopic? YES
--- NOTE | 2023-02-27 17:27 | ED_ITS ---
HPI - Nausea/Vomiting/Diarrhea General Chief complaint: Nausea/Vomiting/Diarrhea <Hoa Chappell PA-C - Last Filed: 02/28/23 04:14> Stated complaint: chills/vomiting <Hoa Chappell PA-C - Last Filed: 02/28/23 04:14> Time Seen by Provider: 02/27/23 17:02 <Hoa Chappell PA-C - Last Filed: 02/28/23 04:14> History of Present Illness HPI Narrative: Nursing reports for evaluation for chills, generalized weakness, nausea and vomiting that started today. Patient underwent a partial hysterectomy by Dr. Braxton and a robotic assisted laparoscopic sacral colpopexy, urethral sling and cystoscopy by Dr. Le on 01/15/2023. Patient was then evaluated in our emergency department on 02/13/2023 with flu-like symptoms. She was diagnosed with sepsis and was not responding to 30 mL/kg of IV fluids, she was admitted to the ICU with a central line a broad-spectrum antibiotics for septic shock. In the ED, she was found have bilateral ureteral stones with concurrent pyelonephritis and GIOVANI. She underwent bilateral ureteral stent placement with Dr. Joshi on 02/13. upon admission, patient was also found to have evidence of multifocal pneumonia /possible aspiration pneumonia on chest x-ray. Her urine cultures grew Bettye glabrata. blood cultures had no growth. He she was discharged home on 02/16/2023 with a midline in her left upper extremity for daily infusions of micafungin, as well as p.o. Augmentin, Reglan and oxycodone. The patient states she finished her full course of Augmentin 4 days ago and has been administering her daily antifungal medications as prescribed. She states she has been doing well until this morning she developed her symptoms. She presents with a Kennedy catheter in place and states that has been draining fine. She denies abdominal pain, chest pain or shortness of breath, fever, diarrhea, dysuria or hematuria , neck pain, Rash. she does report intermittent lower back tightness which she attributes to laying in bed. she does not believe she has passed the stone is. She is scheduled to have his stents removed by Dr. Joshi on March 08. <Hoa Chappell PA-C - Last Filed: 02/28/23 04:14> Related Data Home medications: Home Medications Medication Instructions Recorded Confirmed Tri Ease Seasonal Soft Gels 1 caplet PO DAILY 09/26/20 02/22/23 atorvastatin 10 mg tablet 5 mg PO DAILY 02/13/23 02/22/23 empagliflozin 10 mg tablet 10 mg PO DAILY 02/13/23 02/22/23 lisinopril 20 mg tablet 20 mg PO DAILY 02/13/23 02/22/23 metformin 1,000 mg tablet 1,000 mg PO BID 02/13/23 02/22/23 sitagliptin phosphate 100 mg 100 mg PO DAILY 02/13/23 02/22/23 tablet (Januvia) triamcinolone acetonide 0.1 % 1 applic topical BID 02/21/23 02/22/23 topical cream <Hoa Chappell PA-C - Last Filed: 02/28/23 04:14> Allergies/Adverse reactions: Allergies Allergy/AdvReac Type Severity Reaction Status Date / Time pollen extracts Allergy Unknown Swelling Verified 02/13/23 08:56 of the Eye <Hoa Chappell PA-C - Last Filed: 02/28/23 04:14> Review of Systems Review of Systems: CONSTITUTIONAL: see HPI EYES: Denies visual changes, redness, or discharge. ENT: Denies rhinorrhea, congestion, sore throat, or otalgia. CARDIOVASCULAR: Denies chest pain, palpitations, or edema. RESPIRATORY: Denies cough or dyspnea. GASTROINTESTINAL: see HPI GENITOURINARY: see HPI SKIN: Denies rash or itching. MUSCULOSKELETAL: see HPI NEUROLOGIC: Denies headache, numbness, or weakness. PSYCHIATRIC: Denies anxiety or depression. <Hoa Chappell PA-C - Last Filed: 02/28/23 04:14> [facility] Past Medical History Medical History: Medical History Abnormal EKG Benign essential hypertension BMI 26.0-26.9,adult BMI 27.0-27.9,adult BMI 28.0-28.9,adult BMI 29.0-29.9,adult Borderline abnormal TFTs Breast cyst Colon cancer screening Diastolic dysfunction DM type 2 (diabetes mellitus, type 2) Ear itching Eczema Elevated LFTs Encounter for Medicare annual wellness exam Encounter for routine adult health examination with abnormal findings Encounter for routine adult health examination without abnormal findings Encounter for screening mammogram for malignant neoplasm of breast Follow up Hair loss Hearing loss Hepatitis B core antibody positive Hot flashes Hx of seborrheic dermatitis Hypercalcemia Hyperlipidemia Hypertension On [facility] drug therapy Unspecified ptosis of bilateral eyelids UTI (urinary tract infection) Vitamin D deficiency <Hoa Chappell PA-C - Last Filed: 02/28/23 04:14> Surgical History Surgical History: Surgical History H/O eye surgery History of breast biopsy History of gynecologic surgery 01/15/2023 Robotic Laparoscopic Supracervical Hysterectomy with Bilateral Salpingo-oophorectomy History of tonsillectomy <Hoa Chappell PA-C - Last Filed: 02/28/23 04:14> Family History Family History: Family History Father Family history of malignant neoplasm Hypertension Mother Family history of heart disease in male family member before age 55 Family history of cardiovascular disease Sibling Cerebral palsy Sibling Epilepsy <Hoa Chappell PA-C - Last Filed: 02/28/23 04:14> Social History Social History: Social History Smoking packs per day: 1 Smoking cigarettes per day: 20.0 Years smoked: 62 Smoking pack-years: 62.00 Smoking status: Never smoker Second hand tobacco smoke exposure: No Alcohol intake: never Substance use: never Substance use type: does not use Do You Feel Safe in your Home?: Yes Lack of Transportation: No Lack of Food: Never True Current Housing: I Have Housing Concerned About Future Housing: No Difficulty Paying Gas/Electric Bills: No Difficulty Paying for Meds: No Currently Unemployed: No Education: Decline to Answer Difficulty w/ Childcare or Family Care: No Living arrangements: with family Additional living arrangements comments: Occupation/Education: retired Gender identity (if verbalized by the patient): Female Sexual Orientation (if Verbalized by the Patient): Straight or Heterosexual Spiritual care concerns: No <Hoa Chappell PA-C - Last Filed: 02/28/23 04:14> Exam Narrative: GENERAL: Well-appearing, well-nourished, and in no acute distress. patient resting comfortably in exam bed. She is pleasant and conversational. HEAD: Normocephalic, atraumatic. EYES: PERRLA and EOMI. ENT: Nares clear, no rhinorrhea or epistaxis. Mucous membranes moist. Right TM is bass nonbulging. Left TM not visualized due to hearing aid in place. NECK: Supple. No nuchal rigidity. CHEST: Rhonchi in the right upper lobe, rales in the right lower lobe. Left lung clear. No respiratory distress. HEART: Tachycardic with regular rhythm. No murmur heard. Normal peripheral pulses. ABDOMEN: Soft, nontender, nondistended, normal active bowel sounds. No rebound, guarding or rigidity. No CVA tenderness. Kennedy catheter in place draining clear, dark urine. EXTREMITIES: Normal range of motion. No edema. Left midline in place without overlying erythema, edema or fluctuation. Central line site healing well without evidence of infection. SKIN: Warm, dry, no rash. NEURO: No focal deficits. Alert and oriented x3 <Hoa Chappell PA-C - Last Filed: 02/28/23 04:14> Course Course Emergency Course: After the patient was admitted boarded in the ER, she became acutely hypoxic and tachycardic. She was placed on 15 L non-rebreather then moved to high and low-flow nasal cannula. EKG shows sinus tachycardia with rate of 135, right bundle-branch block, no prior for comparison. patient was not complaining of chest pain or shortness of breath her stay, however will broaden workup and obtain troponin, BNP and CTA chest PE. Trop is 0.286. Pt reevaluated and is denying chest pain. Her heart rate has improved but is still tachycardic at 116. O2 remains stable at 97% on high flow. Elevated troponin possibly secondary to hypoxia versus demand ischemia versus NSTEMI. Will trend troponins and provided 324 mg of aspirin. Repeat EKG shows sinus tachycardia with a rate of 146 with RBBB. There is possible ST depr essions in lead V3, otherwise no ST elevations. Pending CTA chest at time if signout to Dr. Hall who has been updated on patient's case and plan of care. <Hoa Chappell PA-C - Last Filed: 02/28/23 04:14> PACKAGE PICK UP/PA Physician Supervision This visit was performed by both a physician and an APC. I performed all aspects of the MDM as documented. <Maria Luz Whitlock MD - Last Filed: 02/27/23 22:06> This visit was performed by both a physician and an APC. I performed all aspects of the MDM as documented. For this patient encounter, I reviewed the PACKAGE PICK UP or PA documentation, treatment plan, and medical decision making and I had [id number] time with this patient. I performed all aspects of the MDM as documented. <Sean Hall DO - Last Filed: 02/28/23 06:36> Vital Signs Vital signs: Vital Signs Temperature 98.8 F 02/27/23 13:00 Pulse Rate 143 H 02/27/23 13:00 Respiratory Rate 20 02/27/23 13:00 Blood Pressure 165/74 H 02/27/23 13:00 Pulse Oximetry 91 02/27/23 13:00 Oxygen Delivery Room Air 02/27/23 13:00 Temperature 98.1 F 02/27/23 23:24 Pulse Rate 87 02/28/23 06:19 Respiratory Rate 16 02/28/23 06:19 Blood Pressure 100/66 02/28/23 06:19 Pulse Oximetry 98 02/28/23 06:25 Oxygen Delivery High Flow Nasal Cannula 02/28/23 06:25 Oxygen Flow Rate 8 02/28/23 06:25 <Hoa Chappell PA-C - Last Filed: 02/28/23 04:14> Vital Signs Temperature 98.8 F 02/27/23 13:00 Pulse Rate 143 H 02/27/23 13:00 Respiratory Rate 20 02/27/23 13:00 Blood Pressure 165/74 H 02/27/23 13:00 Pulse Oximetry 91 02/27/23 13:00 Oxygen Delivery Room Air 02/27/23 13:00 Temperature 98.1 F 02/27/23 23:24 Pulse Rate 87 02/28/23 06:19 Respiratory Rate 16 02/28/23 06:19 Blood Pressure 100/66 02/28/23 06:19 Pulse Oximetry 98 02/28/23 06:25 Oxygen Delivery High Flow Nasal Cannula 02/28/23 06:25 Oxygen Flow Rate 8 02/28/23 06:25 <Maria Luz Whitlock MD - Last Filed: 02/27/23 22:06> Vital Signs Temperature 98.8 F 02/27/23 13:00 Pulse Rate 143 H 02/27/23 13:00 Respiratory Rate 20 02/27/23 13:00 Blood Pressure 165/74 H 02/27/23 13:00 Pulse Oximetry 91 02/27/23 13:00 Oxygen Delivery Room Air 02/27/23 13:00 Temperature 98.1 F 02/27/23 23:24 Pulse Rate 87 02/28/23 06:19 Respiratory Rate 16 02/28/23 06:19 Blood Pressure 100/66 02/28/23 06:19 Pulse Oximetry 98 02/28/23 06:25 Oxygen Delivery High Flow Nasal Cannula 02/28/23 06:25 Oxygen Flow Rate 8 02/28/23 06:25 <Sean Hall DO - Last Filed: 02/28/23 06:36> MDM - Nausea/Vomiting/Diarrhea MDM Narrative Medical decision making narrative: 78-year-old female reports for evaluation for chills, nausea and vomiting started today. She has an extensive recent history, see HPI. Triage vital significant for elevated blood pressure 165/74 tachycardia 143. She is afebrile. She is satting 91% on room air without labored breathing. Chart review shows that patient's oxygen saturation ranges anywhere from 90-94%. Upon my evaluation, her weight has improved to 115 and she remains afebrile. Blood pressure is now 121/60. concern for return of developing sepsis secondary to pneumonia, intra-abdominal infection, pyelonephritis, other. Sepsis protocol and fluids ordered. She currently does not meet SIRS criteria so will wait to start IV antibiotics until source of potential infection identified, but will monitor closely. EKG shows sinus tachycardia with a rate of 135 and a right bundle-branch block, no ischemic changes, no significant changes when compared to prior. CBC significant for leukocytosis of 10.2, no bandemia. Hemoglobin is 11.6 with a normal MCV which is similar to baseline. Chemistry show a creatinine of 0.6 and BUN of 18. Her AST is mildly elevated to 45 which is similar to her baseline. Remainder of LFTs are unremarkable. Lipase normal. CRP elevated 1.4. Urinalysis concerning for UTI with pyuria, bacteriuria, nitrates and hematuria. urine culture ordered and pending. COVID, flu RSV are negative. Lactic acid normal at 1.5. Chest x-ray shows mild infiltrate or atelectasis at the right lower lung, particular right lung base. There is a small right pleural effusion. CT abdomen pelvis.... labs and imaging discussed with patient and family at bedside. Her oxygen saturations dropped to 87-88% with good pleth. 2 L nasal cannula Started. her blood pressure remained stable at 130 1/65 in tachycardia has improved to 107. Upon re-evaluation patient is resting comfortably in exam bed And in no distress. Case is discussed with urologist, Dr. Love, agrees to consult on admission and does not feel the patient is to be taken to the or given stents are in place. Case discussed with hospitalist who agrees to the plan for Admission and advises to continue micofungin and start cefepime azithromycin and pyelonep hritis. <Hoa Chappell PA-C - Last Filed: 02/28/23 04:14> Lab Data Result diagrams: 02/27/23 16:32 02/27/23 16:32 <Hoa Chappell PA-C - Last Filed: 02/28/23 04:14> Labs: Lab Results 02/27/23 02/27/23 02/27/23 Range/Units 16:31 16:32 18:05 WBC 10.2 H (4.5-10.0) K/mm3 RBC 4.17 L (4.2-5.4) M/mm3 Hgb 11.6 L (12.0-15.0) g/dL Hct 37.1 (37.0-47.0) % MCV 89.0 (80-100) fl MCH 27.8 (26-34) pg MCHC 31.3 L (32-36) g/dl RDW 16.9 H (11.5-14.5) % Plt Count 475 H (150-375) k/mm3 MPV 9.4 (7.4-10.4) fl Immature Gran % (Auto) 0.2 (0-0.5) % Neut % (Auto) 87.5 H (45.5-73.1) % Lymph % (Auto) 8.2 L (18.3-44.2) % Schley % (Auto) 3.8 (2.6-8.5) % Eos % (Auto) 0.0 (0-4.4) % Baso % (Auto) 0.3 (0.2-1.2) % Lymph # (Auto) 0.83 L (0.9-3.2) K/mm3 Schley # (Auto) 0.4 (0.1-0.6) K/mm3 Eos # (Auto) 0.0 (0-0.3) K/mm3 Baso # (Auto) 0.0 (0.0-0.1) K/mm3 Abs Immat Gran (auto) 0.02 (0.00-0.031) K/mm3 Absolute Neuts (auto) 8.9 H (1.3-6.7) K/mm3 Absolute Nucleated RBC 0.0 (0.0-0.012) K/mm3 Nucleated RBC % 0.0 (0.0-0.2) % PT 13.5 (11.1-14.7) Seconds INR 1.0 APTT 32.7 (22.3-36.8) SECONDS Sodium 138 (137-145) mmol/L Potassium 3.4 (3.4-5.0) mmol/L Chloride 104 (98-107) mmol/L Carbon Dioxide 22 (22-30) mmol/L Anion Gap 12 (8-16) mmol/L BUN 18 H (7-17) mg/dL Creatinine 0.60 L (0.7-1.0) mg/dL Estim Creat Clear Calc 50 ml/min Estimated GFR > 60 (59 - ) Glucose 119 H (65-110) mg/dL Lactic Acid 1.5 (0.7-2.0) mmol/L Calcium 9.5 (8.4-10.2) mg/dL Total Bilirubin 1.0 (0.2-1.3) mg/dL AST 45 H (14-36) U/L ALT 21 (6-35) U/L Alkaline Phosphatase 115 (38-126) U/L C-Reactive Protein 1.4 H (<1.0) mg/dL Total Protein 8.0 (6.3-8.2) g/dL Albumin 4.2 (3.5-5.1) g/dL Lipase 90 (23-300) U/L Urine Color Yellow (Yellow) Urine Appearance Turbid H (Clear) Urine pH 5.5 (5.0-9.0) Ur Specific [place] 1.024 (1.001-1.035) Urine Protein 3+ H (Negative) mg/dL Urine Glucose (UA) 3+ H (Negative) mg/dL Urine Ketones Trace H (Negative) mg/dL Ur Blood (Man) 3+ H (Negative) Urine Nitrate Positive H (Negative) Urine Bilirubin Negative (Negative) Urine Urobilinogen 0.2 (<2.0) mg/dL Add Ur Microanalysis Reviewed Leukocyte Esterase Rfl 1+ H (Negative) ZEYAD/UL Urine RBC >100 H (0-2) /hpf Urine WBC >100 H /hpf Ur Squamous Epith Cells None seen (Few) /hpf Urine Bacteria 4+ H /hpf Urine Casts 6-10 Influenza A (RT-PCR) (Negative) Influenza B (RT-PCR) (Negative) RSV (RT-PCR) (Negative) SARS-CoV-2 RNA (RT-PCR) (Negative) 02/27/23 Range/Units 18:46 WBC (4.5-10.0) K/mm3 RBC (4.2-5.4) M/mm3 Hgb (12.0-15.0) g/dL Hct (37.0-47.0) % MCV (80-100) fl MCH (26-34) pg MCHC (32-36) g/dl RDW (11.5-14.5) % Plt Count (150-375) k/mm3 MPV (7.4-10.4) fl Immature Gran % (Auto) (0-0.5) % Neut % (Auto) (45.5-73.1) % Lymph % (Auto) (18.3-44.2) % Schley % (Auto) (2.6-8.5) % Eos % (Auto) (0-4.4) % Baso % (Auto) (0.2-1.2) % Lymph # (Auto) (0.9-3.2) K/mm3 Schley # (Auto) (0.1-0.6) K/mm3 Eos # (Auto) (0-0.3) K/mm3 Baso # (Auto) (0.0-0.1) K/mm3 Abs Immat Gran (auto) (0.00-0.031) K/mm3 Absolute Neuts (auto) (1.3-6.7) K/mm3 Absolute Nucleated RBC (0.0-0.012) K/mm3 Nucleated RBC % (0.0-0.2) % PT (11.1-14.7) Seconds INR APTT (22.3-36.8) SECONDS Sodium (137-145) mmol/L Potassium (3.4-5.0) mmol/L Chloride (98-107) mmol/L Carbon Dioxide (22-30) mmol/L Anion Gap (8-16) mmol/L BUN (7-17) mg/dL Creatinine (0.7-1.0) mg/dL Estim Creat Clear Calc ml/min Estimated GFR (59 - ) Glucose (65-110) mg/dL Lactic Acid (0.7-2.0) mmol/L Calcium (8.4-10.2) mg/dL Total Bilirubin (0.2-1.3) mg/dL AST (14-36) U/L ALT (6-35) U/L Alkaline Phosphatase (38-126) U/L C-Reactive Protein (<1.0) mg/dL Total Protein (6.3-8.2) g/dL Albumin (3.5-5.1) g/dL Lipase (23-300) U/L Urine Color (Yellow) Urine Appearance (Clear) Urine pH (5.0-9.0) Ur Specific [place] (1.001-1.035) Urine Protein (Negative) mg/dL Urine Glucose (UA) (Negative) mg/dL Urine Ketones (Negative) mg/dL Ur Blood (Man) (Negative) Urine Nitrate (Negative) Urine Bilirubin (Negative) Urine Urobilinogen (<2.0) mg/dL Add Ur Microanalysis Leukocyte Esterase Rfl (Negative) ZEYAD/UL Urine RBC (0-2) /hpf Urine WBC /hpf Ur Squamous Epith Cells (Few) /hpf Urine Bacteria /hpf Urine Casts Influenza A (RT-PCR) Negative (Negative) Influenza B (RT-PCR) Negative (Negative) RSV (RT-PCR) Negative (Negative) SARS-CoV-2 RNA (RT-PCR) Negative (Negative) <Hoa Chappell PA-C - Last Filed: 02/28/23 04:14> Lab Results 02/27/23 02/27/23 02/27/23 Range/Units 16:31 16:32 18:05 WBC 10.2 H (4.5-10.0) K/mm3 RBC 4.17 L (4.2-5.4) M/mm3 Hgb 11.6 L (12.0-15.0) g/dL Hct 37.1 (37.0-47.0) % MCV 89.0 (80-100) fl MCH 27.8 (26-34) pg MCHC 31.3 L (32-36) g/dl RDW 16.9 H (11.5-14.5) % Plt Count 475 H (150-375) k/mm3 MPV 9.4 (7.4-10.4) fl Immature Gran % (Auto) 0.2 (0-0.5) % Neut % (Auto) 87.5 H (45.5-73.1) % Lymph % (Auto) 8.2 L (18.3-44.2) % Schley % (Auto) 3.8 (2.6-8.5) % Eos % (Auto) 0.0 (0-4.4) % Baso % (Auto) 0.3 (0.2-1.2) % Lymph # (Auto) 0.83 L (0.9-3.2) K/mm3 Schley # (Auto) 0.4 (0.1-0.6) K/mm3 Eos # (Auto) 0.0 (0-0.3) K/mm3 Baso # (Auto) 0.0 (0.0-0.1) K/mm3 Abs Immat Gran (auto) 0.02 (0.00-0.031) K/mm3 Absolute Neuts (auto) 8.9 H (1.3-6.7) K/mm3 Absolute Nucleated RBC 0.0 (0.0-0.012) K/mm3 Nucleated RBC % 0.0 (0.0-0.2) % PT 13.5 (11.1-14.7) Seconds INR 1.0 APTT 32.7 (22.3-36.8) SECONDS Sodium 138 (137-145) mmol/L Potassium 3.4 (3.4-5.0) mmol/L Chloride 104 (98-107) mmol/L Carbon Dioxide 22 (22-30) mmol/L Anion Gap 12 (8-16) mmol/L BUN 18 H (7-17) mg/dL Creatinine 0.60 L (0.7-1.0) mg/dL Estim Creat Clear Calc 50 ml/min Estimated GFR > 60 (59 - ) Glucose 119 H (65-110) mg/dL Lactic Acid 1.5 (0.7-2.0) mmol/L Calcium 9.5 (8.4-10.2) mg/dL Total Bilirubin 1.0 (0.2-1.3) mg/dL AST 45 H (14-36) U/L ALT 21 (6-35) U/L Alkaline Phosphatase 115 (38-126) U/L C-Reactive Protein 1.4 H (<1.0) mg/dL Total Protein 8.0 (6.3-8.2) g/dL Albumin 4.2 (3.5-5.1) g/dL Lipase 90 (23-300) U/L Urine Color Yellow (Yellow) Urine Appearance Turbid H (Clear) Urine pH 5.5 (5.0-9.0) Ur Specific [place] 1.024 (1.001-1.035) Urine Protein 3+ H (Negative) mg/dL Urine Glucose (UA) 3+ H (Negative) mg/dL Urine Ketones Trace H (Negative) mg/dL Ur Blood (Man) 3+ H (Negative) Urine Nitrate Positive H (Negative) Urine Bilirubin Negative (Negative) Urine Urobilinogen 0.2 (<2.0) mg/dL Add Ur Microanalysis Reviewed Leukocyte Esterase Rfl 1+ H (Negative) ZEYAD/UL Urine RBC >100 H (0-2) /hpf Urine WBC >100 H /hpf Ur Squamous Epith Cells None seen (Few) /hpf Urine Bacteria 4+ H /hpf Urine Casts 6-10 Influenza A (RT-PCR) (Negative) Influenza B (RT-PCR) (Negative) RSV (RT-PCR) (Negative) SARS-CoV-2 RNA (RT-PCR) (Negative) 01/02/24 Range/Units 18:46 WBC (4.5-10.0) K/mm3 RBC (4.2-5.4) M/mm3 Hgb (12.0-15.0) g/dL Hct (37.0-47.0) % MCV (80-100) fl MCH (26-34) pg MCHC (32-36) g/dl RDW (11.5-14.5) % Plt Count (150-375) k/mm3 MPV (7.4-10.4) fl Immature Gran % (Auto) (0-0.5) % Neut % (Auto) (45.5-73.1) % Lymph % (Auto) (18.3-44.2) % Schley % (Auto) (2.6-8.5) % Eos % (Auto) (0-4.4) % Baso % (Auto) (0.2-1.2) % Lymph # (Auto) (0.9-3.2) K/mm3 Schley # (Auto) (0.1-0.6) K/mm3 Eos # (Auto) (0-0.3) K/mm3 Baso # (Auto) (0.0-0.1) K/mm3 Abs Immat Gran (auto) (0.00-0.031) K/mm3 Absolute Neuts (auto) (1.3-6.7) K/mm3 Absolute Nucleated RBC (0.0-0.012) K/mm3 Nucleated RBC % (0.0-0.2) % PT (11.1-14.7) Seconds INR APTT (22.3-36.8) SECONDS Sodium (137-145) mmol/L Potassium (3.4-5.0) mmol/L Chloride (98-107) mmol/L Carbon Dioxide (22-30) mmol/L Anion Gap (8-16) mmol/L BUN (7-17) mg/dL Creatinine (0.7-1.0) mg/dL Estim Creat Clear Calc ml/min Estimated GFR (59 - ) Glucose (65-110) mg/dL Lactic Acid (0.7-2.0) mmol/L Calcium (8.4-10.2) mg/dL Total Bilirubin (0.2-1.3) mg/dL AST (14-36) U/L ALT (6-35) U/L Alkaline Phosphatase (38-126) U/L C-Reactive Protein (<1.0) mg/dL Total Protein (6.3-8.2) g/dL Albumin (3.5-5.1) g/dL Lipase (23-300) U/L Urine Color (Yellow) Urine Appearance (Clear) Urine pH (5.0-9.0) Ur Specific [place] (1.001-1.035) Urine Protein (Negative) mg/dL Urine Glucose (UA) (Negative) mg/dL Urine Ketones (Negative) mg/dL Ur Blood (Man) (Negative) Urine Nitrate (Negative) Urine Bilirubin (Negative) Urine Urobilinogen (<2.0) mg/dL Add Ur Microanalysis Leukocyte Esterase Rfl (Negative) ZEYAD/UL Urine RBC (0-2) /hpf Urine WBC /hpf Ur Squamous Epith Cells (Few) /hpf Urine Bacteria /hpf Urine Casts Influenza A (RT-PCR) Negative (Negative) Influenza B (RT-PCR) Negative (Negative) RSV (RT-PCR) Negative (Negative) SARS-CoV-2 RNA (RT-PCR) Negative (Negative) <Maria Luz Whitlock MD - Last Filed: 02/27/23 22:06> Lab Results 02/27/23 02/27/23 02/27/23 Range/Units 16:31 16:32 18:05 WBC 10.2 H (4.5-10.0) K/mm3 RBC 4.17 L (4.2-5.4) M/mm3 Hgb 11.6 L (12.0-15.0) g/dL Hct 37.1 (37.0-47.0) % MCV 89.0 (80-100) fl MCH 27.8 (26-34) pg MCHC 31.3 L (32-36) g/dl RDW 16.9 H (11.5-14.5) % Plt Count 475 H (150-375) k/mm3 MPV 9.4 (7.4-10.4) fl Immature Gran % (Auto) 0.2 (0-0.5) % Neut % (Auto) 87.5 H (45.5-73.1) % Lymph % (Auto) 8.2 L (18.3-44.2) % Schley % (Auto) 3.8 (2.6-8.5) % Eos % (Auto) 0.0 (0-4.4) % Baso % (Auto) 0.3 (0.2-1.2) % Lymph # (Auto) 0.83 L (0.9-3.2) K/mm3 Schley # (Auto) 0.4 (0.1-0.6) K/mm3 Eos # (Auto) 0.0 (0-0.3) K/mm3 Baso # (Auto) 0.0 (0.0-0.1) K/mm3 Abs Immat Gran (auto) 0.02 (0.00-0.031) K/mm3 Absolute Neuts (auto) 8.9 H (1.3-6.7) K/mm3 Absolute Nucleated RBC 0.0 (0.0-0.012) K/mm3 Nucleated RBC % 0.0 (0.0-0.2) % PT 13.5 (11.1-14.7) Seconds INR 1.0 APTT 32.7 (22.3-36.8) SECONDS Sodium 138 (137-145) mmol/L Potassium 3.4 (3.4-5.0) mmol/L Chloride 104 (98-107) mmol/L Carbon Dioxide 22 (22-30) mmol/L Anion Gap 12 (8-16) mmol/L BUN 18 H (7-17) mg/dL Creatinine 0.60 L (0.7-1.0) mg/dL Estim Creat Clear Calc 50 ml/min Estimated GFR > 60 (59 - ) Glucose 119 H (65-110) mg/dL Lactic Acid 1.5 (0.7-2.0) mmol/L Calcium 9.5 (8.4-10.2) mg/dL Total Bilirubin 1.0 (0.2-1.3) mg/dL AST 45 H (14-36) U/L ALT 21 (6-35) U/L Alkaline Phosphatase 115 (38-126) U/L C-Reactive Protein 1.4 H (<1.0) mg/dL Total Protein 8.0 (6.3-8.2) g/dL Albumin 4.2 (3.5-5.1) g/dL Lipase 90 (23-300) U/L Urine Color Yellow (Yellow) Urine Appearance Turbid H (Clear) Urine pH 5.5 (5.0-9.0) Ur Specific [place] 1.024 (1.001-1.035) Urine Protein 3+ H (Negative) mg/dL Urine Glucose (UA) 3+ H (Negative) mg/dL Urine Ketones Trace H (Negative) mg/dL Ur Blood (Man) 3+ H (Negative) Urine Nitrate Positive H (Negative) Urine Bilirubin Negative (Negative) Urine Urobilinogen 0.2 (<2.0) mg/dL Add Ur Microanalysis Reviewed Leukocyte Esterase Rfl 1+ H (Negative) ZEYAD/UL Urine RBC >100 H (0-2) /hpf Urine WBC >100 H /hpf Ur Squamous Epith Cells None seen (Few) /hpf Urine Bacteria 4+ H /hpf Urine Casts 6-10 Influenza A (RT-PCR) (Negative) Influenza B (RT-PCR) (Negative) RSV (RT-PCR) (Negative) SARS-CoV-2 RNA (RT-PCR) (Negative) 02/27/23 Range/Units 18:46 WBC (4.5-10.0) K/mm3 RBC (4.2-5.4) M/mm3 Hgb (12.0-15.0) g/dL Hct (37.0-47.0) % MCV (80-100) fl MCH (26-34) pg MCHC (32-36) g/dl RDW (11.5-14.5) % Plt Count (150-375) k/mm3 MPV (7.4-10.4) fl Immature Gran % (Auto) (0-0.5) % Neut % (Auto) (45.5-73.1) % Lymph % (Auto) (18.3-44.2) % Schley % (Auto) (2.6-8.5) % Eos % (Auto) (0-4.4) % Baso % (Auto) (0.2-1.2) % Lymph # (Auto) (0.9-3.2) K/mm3 Schley # (Auto) (0.1-0.6) K/mm3 Eos # (Auto) (0-0.3) K/mm3 Baso # (Auto) (0.0-0.1) K/mm3 Abs Immat Gran (auto) (0.00-0.031) K/mm3 Absolute Neuts (auto) (1.3-6.7) K/mm3 Absolute Nucleated RBC (0.0-0.012) K/mm3 Nucleated RBC % (0.0-0.2) % PT (11.1-14.7) Seconds INR APTT (22.3-36.8) SECONDS Sodium (137-145) mmol/L Potassium (3.4-5.0) mmol/L Chloride (98-107) mmol/L Carbon Dioxide (22-30) mmol/L Anion Gap (8-16) mmol/L BUN (7-17) mg/dL Creatinine (0.7-1.0) mg/dL Estim Creat Clear Calc ml/min Estimated GFR (59 - ) Glucose (65-110) mg/dL Lactic Acid (0.7-2.0) mmol/L Calcium (8.4-10.2) mg/dL Total Bilirubin (0.2-1.3) mg/dL AST (14-36) U/L ALT (6-35) U/L Alkaline Phosphatase (38-126) U/L C-Reactive Protein (<1.0) mg/dL Total Protein (6.3-8.2) g/dL Albumin (3.5-5.1) g/dL Lipase (23-300) U/L Urine Color (Yellow) Urine Appearance (Clear) Urine pH (5.0-9.0) Ur Specific [place] (1.001-1.035) Urine Protein (Negative) mg/dL Urine Glucose (UA) (Negative) mg/dL Urine Ketones (Negative) mg/dL Ur Blood (Man) (Negative) Urine Nitrate (Negative) Urine Bilirubin (Negative) Urine Urobilinogen (<2.0) mg/dL Add Ur Microanalysis Leukocyte Esterase Rfl (Negative) ZEYAD/UL Urine RBC (0-2) /hpf Urine WBC /hpf Ur Squamous Epith Cells (Few) /hpf Urine Bacteria /hpf Urine Casts Influenza A (RT-PCR) Negative (Negative) Influenza B (RT-PCR) Negative (Negative) RSV (RT-PCR) Negative (Negative) SARS-CoV-2 RNA (RT-PCR) Negative (Negative) <Sean Hall, DO - Last Filed: 02/28/23 06:36> ABG Data ABG results: 02/27/23 20:00 Puncture Site Right brachial ABG pH 7.419 ABG pCO2 34.3 L ABG pO2 80.9 ABG PO2/FiO2 Ratio 2.89 ABG HCO3 21.7 L ABG O2 Saturation 96.2 ABG O2 Content 15.4 L ABG Base Excess -2.2 A-a Gradient 78.3 Oxyhemoglobin 94.5 Total Hemoglobin 11.5 L O2 Delivery Device Nasal cannula O2 Liters/Min 2.0 FiO2 28 <Hoa Chappell PA-C - Last Filed: 02/28/23 04:14> 02/27/23 20:00 Puncture Site Right brachial ABG pH 7.419 ABG pCO2 34.3 L ABG pO2 80.9 ABG PO2/FiO2 Ratio 2.89 ABG HCO3 21.7 L ABG O2 Saturation 96.2 ABG O2 Content 15.4 L ABG Base Excess -2.2 A-a Gradient 78.3 Oxyhemoglobin 94.5 Total Hemoglobin 11.5 L O2 Delivery Device Nasal cannula O2 Liters/Min 2.0 FiO2 28 <Maria Luz Whitlock MD - Last Filed: 02/27/23 22:06> 02/27/23 20:00 Puncture Site Right brachial ABG pH 7.419 ABG pCO2 34.3 L ABG pO2 80.9 ABG PO2/FiO2 Ratio 2.89 ABG HCO3 21.7 L ABG O2 Saturation 96.2 ABG O2 Content 15.4 L ABG Base Excess -2.2 A-a Gradient 78.3 Oxyhemoglobin 94.5 Total Hemoglobin 11.5 L O2 Delivery Device Nasal cannula O2 Liters/Min 2.0 FiO2 28 <Sena Hall DO - Last Filed: 02/28/23 06:36> Discharge Plan Discharge Clinical Impression: Acute hypoxemic respiratory failure, Ureterolithiasis, Pyelonephritis, Non-ST elevation MS (NSTEMI) Pneumonia Qualifiers: Pneumonia type: due to unspecified organism Laterality: right Lung location: lower lobe of lung Qualified Code(s): J18.9 - Pneumonia, unspecified organism <Hoa Chappell PA-C - Last Filed: 02/28/23 04:14> Patient Disposition: Still a Patient <Hoa Chappell PA-C - Last Filed: 02/28/23 04:14> Time of Disposition: 06:34 <Hoa Chappell PA-C - Last Filed: 02/28/23 04:14> 06:34 <Maria Luz Whitlock MD - Last Filed: 02/27/23 22:06> 06:34 <Sean Hall DO - Last Filed: 02/28/23 06:36> Sign Out Sign Out Data: Patient Sign Out occurred on 02/28/23 at 05:20. Patient's care was discussed, and care was transferred from Hoa Chappell PA-C to Sean Hall DO. Post-Handoff Eval: CTA of the chest reveals no evidence of pulmonary embolism, aortic dissection, or aortic aneurysm. There is diffuse ground-glass opacity at the left lung with interlobular septal thickening bilaterally, left worse than right. Findings suggest asymmetric pulmonary edema correlate clinically for pneumonia. Minimal pleural effusions and minimal bibasilar atelectasis. Moderate to advanced underlying emphysema. Patient has already been ordered antibiotics for pneumonia. Patient's troponins are rising, patient remains without any chest pain. I spoke with the hospitalist on-call who has accepted the patient for admission. <Hoa lazaro PA-C - Last Filed: 02/28/23 04:14>
[2023-02-27] MEDS: ONDANSETRON INJ 4 MG/2 ML VIAL IV PUSH (17:39)
[2023-02-27 18:06] LABS: Prothrombin Time 13.5 Seconds (11.1-14.7)
[2023-02-27 18:07] LABS: Partial Thromboplastin Time 32.7 SECONDS (22.3-36.8)
[2023-02-27 18:19] LABS: CRP 1.4 mg/dL (<1.0)
[2023-02-27 18:24] LABS: Lactic Acid Reflex 1.5 mmol/L (0.7-2.0)
[2023-02-27 19:28] LABS: Influenza A QL RT-PCR Negative (Negative); Influenza B QL RT-PCR Negative (Negative); RSV RNA, RT-PCR Negative (Negative); SARS-CoV-2 RNA PCR Negative (Negative)
--- NOTE | 2023-02-27 19:41 | PC.NURSE ---
patient room air o2 sat was 89%. Started on o2 at 2lpm/nc
[2023-02-27 20:13] LABS: Alveolar/Arterial O2 Gradient 78.3 mmHg; Base Excess ABG -2.2 mEq/l (+/-2.0); Device NASAL CANNULA; Fractional Inspired Oxygen 28 %; HCO3 ABG 21.7 mEq/l (22.0-26.0); Oxygen Content ABG 15.4 %vol (16.0-22.0); Oxygen Saturation ABG 96.2 % (95.0-100.0); Oxyhemoglobin 94.5 % THb (90.0-100.0); PCO2 ABG 34.3 mmHg (35.0-45.0); PO2 ABG 80.9 mmHg (80.0-100.0); PO2 FiO2 Ratio Arterial Blood 2.89 %; Site Drawn RIGHT BRACHIAL; Total Hemoglobin 11.5 g/dL (12.0-18.0); pH ABG 7.419 (7.350-7.450)
[2023-02-27] MEDS: AZITHROMYCIN 500 MG/NS 250 ML 500 MG/250 ML BAG 250 MG IVPB (22:03)
--- NOTE | 2023-02-27 22:20 | P.HP_ITS ---
H&P: HPI History of Present Illness Date/Time: 02/27/23 22:20 [facility] Past Medical History Medical History Abnormal EKG Benign essential hypertension BMI 26.0-26.9,adult BMI 27.0-27.9,adult BMI 28.0-28.9,adult BMI 29.0-29.9,adult Borderline abnormal TFTs Breast cyst Colon cancer screening Diastolic dysfunction DM type 2 (diabetes mellitus, type 2) Ear itching Eczema Elevated LFTs Encounter for Medicare annual wellness exam Encounter for routine adult health examination with abnormal findings Encounter for routine adult health examination without abnormal findings Encounter for screening mammogram for malignant neoplasm of breast Follow up Hair loss Hearing loss Hepatitis B core antibody positive Hot flashes Hx of seborrheic dermatitis Hypercalcemia Hyperlipidemia Hypertension On oil heaterman drug therapy Unspecified ptosis of bilateral eyelids UTI (urinary tract infection) Vitamin D deficiency Surgical History Surgical History H/O eye surgery History of breast biopsy History of gynecologic surgery 01/15/2023 Robotic Laparoscopic Supracervical Hysterectomy with Bilateral Salpingo-oophorectomy History of tonsillectomy Family History Family History Father Family history of malignant neoplasm Hypertension Mother Family history of heart disease in male family member before age 55 Family history of cardiovascular disease Sibling Cerebral palsy Sibling Epilepsy Social History Social History Smoking packs per day: 1 Smoking cigarettes per day: 20.0 Years smoked: 62 Smoking pack-years: 62.00 Smoking status: Never smoker Second hand tobacco smoke exposure: No Alcohol intake: never Substance use: never Substance use type: does not use Do You Feel Safe in your Home?: Yes Lack of Transportation: No Lack of Food: Never True Current Housing: I Have Housing Concerned About Future Housing: No Difficulty Paying Gas/Electric Bills: No Difficulty Paying for Meds: No Currently Unemployed: No Education: Decline to Answer Difficulty w/ Childcare or Family Care: No Living arrangements: with family Additional living arrangements comments: Occupation/Education: retired Gender identity (if verbalized by the patient): Female Sexual Orientation (if Verbalized by the Patient): Straight or Heterosexual Spiritual care concerns: No Meds Home Medications and Allergies Home Medications Medication Instructions Recorded Confirmed Type Tri Ease Seasonal Soft Gels 1 caplet PO DAILY 09/26/20 02/22/23 History alendronate 70 mg tablet (Fosamax) 70 mg PO WEEKLY #4 tabs 01/09/23 02/22/23 Rx atorvastatin 10 mg tablet 5 mg PO DAILY 02/13/23 02/22/23 History empagliflozin 10 mg tablet 10 mg PO DAILY 02/13/23 02/22/23 History lisinopril 20 mg tablet 20 mg PO DAILY 02/13/23 02/22/23 History metformin 1,000 mg tablet 1,000 mg PO BID 02/13/23 02/22/23 History sitagliptin phosphate 100 mg 100 mg PO DAILY 02/13/23 02/22/23 History tablet (Januvia) amoxicillin 875 mg-potassium 1 tablet PO Q12H #14 tabs 02/16/23 02/22/23 Rx clavulanate 125 mg tablet metoclopramide HCl 10 mg tablet 10 mg PO Q6H PRN nausea and 02/16/23 02/22/23 Rx (Reglan) vomiting #30 tabs micafungin 100 mg intravenous 100 mg IV DAILY #11 ea 02/16/23 02/22/23 Rx solution (Mycamine) oxycodone-acetaminophen 5 mg-300 1 tablet PO Q8H PRN pain #14 tabs 02/16/23 02/22/23 Rx mg tablet triamcinolone acetonide 0.1 % 1 applic topical BID 02/21/23 02/22/23 History topical cream Allergies Allergy/AdvReac Type Severity Reaction Status Date / Time pollen extracts Allergy Unknown Swelling Verified 02/13/23 08:56 of the Eye Vital Signs Vital Signs - 24 hr 02/27/23 13:00 02/27/23 15:38 02/27/23 16:30 Temperature 37.1 C 36.4 C Pulse Rate 143 H 115 H 113 H Respiratory Rate 20 20 20 Blood Pressure 165/74 H 121/60 105/60 Pulse Oximetry 91 91 91 Oxygen Delivery Room Air Oxygen Flow Rate 02/27/23 17:00 02/27/23 17:30 02/27/23 18:00 Temperature Pulse Rate 110 H 106 H 109 H Respiratory Rate 20 24 H 25 H Blood Pressure 101/60 101/61 128/75 Pulse Oximetry 90 93 94 Oxygen Delivery Oxygen Flow Rate 02/27/23 18:32 02/27/23 19:40 02/27/23 21:17 Temperature Pulse Rate 103 H 103 H Respiratory Rate 24 H 20 Blood Pressure 124/72 123/73 Pulse Oximetry 90 89 L 96 Oxygen Delivery Nasal Cannula Oxygen Flow Rate 2 H&P: Results Labs Labs: Short CBC 02/27/23 Range/Units 16:32 WBC 10.2 H (4.5-10.0) K/mm3 Hgb 11.6 L (12.0-15.0) g/dL Hct 37.1 (37.0-47.0) % Plt Count 475 H (150-375) k/mm3 BMP 02/27/23 16:32 Sodium 138 Potassium 3.4 Chloride 104 Carbon Dioxide 22 BUN 18 H Creatinine 0.60 L Glucose 119 H Calcium 9.5 Liver Function 02/27/23 Range/Units 16:32 Total Bilirubin 1.0 (0.2-1.3) mg/dL AST 45 H (14-36) U/L ALT 21 (6-35) U/L Alkaline Phosphatase 115 (38-126) U/L Albumin 4.2 (3.5-5.1) g/dL Urine 02/27/23 Range/Units 16:32 Urine Color Yellow (Yellow) Urine Appearance Turbid H (Clear) Urine pH 5.5 (5.0-9.0) Ur Specific [place] 1.024 (1.001-1.035) Urine Protein 3+ H (Negative) mg/dL Urine Glucose (UA) 3+ H (Negative) mg/dL
[2023-02-27] MEDS: CEFEPIME 2 GM/NS 50 ML 2 GM/50 ML BAG IVPB (23:18)
[2023-02-28] VITALS (18 sets, daily range): BP systolic 98–184; BP diastolic 51–99; PULSE 84–136; RESP 16–44; TEMP 35.9–37.1; O2SAT 91–100; BMI 27.3
[2023-02-28] MEDS: SODIUM CHLORIDE 0.9% IV 1,000 ML 999 ML (00:57)
--- NOTE | 2023-02-28 01:05 | PC.NURSE ---
0020 upon entering pt room pt was noticeably sob and shivering uncontrollably. Pt's O2 desatted to 76% on 2 L NC. Pt was then placed on a non rebreather at 15 L by this RN. Hoa LONDONO and Dr. Hall were notified and came to bedside. 1 L IV bolus of normal saline was administered by this RN via Hoa LONDONO verbal order. Pt was then placed on high flow NC at 10 L. Pt's O2 now 94%.
[2023-02-28] MEDS: MICAFUNGIN SODIUM 100 MG in SODIUM CHLORIDE 0.9% IV 100 ML IVPB (03:07)
[2023-02-28 03:14] LABS: NT Pro B Type Natriuretic Pept 6610 pg/mL (19.9-100); Troponin I 0.286 ng/mL (0.000-0.034)
--- NOTE | 2023-02-28 03:38 | ECG_ITS ---
Measurements Intervals [place] Rate: 146 P: 59 DC: 130 QRS: -66 QRSD: 115 T: 32 QT: 315 QTc: 491 Interpretive Statements SINUS TACHYCARDIA, POSSIBLE ATRIAL FLUTTER RIGHT BUNDLE BRANCH BLOCK LEFT ANTERIOR FASCICULAR BLOCK BASELINE WANDER- II, III, AVF, V2, V5-V6 ABNORMAL ECG COMPARED TO ECG 02/27/2023 13:10:37 NO SIGNIFICANT CHANGES Electronically Signed On 02-28-2023 7:52:22 CASING FINISHER AND STUFFER by Ricki Somers D.O.
--- NOTE | 2023-02-28 03:48 | ECG_ITS ---
Measurements Intervals [place] Rate: 116 P: 45 [place]: 136 QRS: 11 QRSD: 125 T: -4 QT: 343 QTc: 478 Interpretive Statements SINUS TACHYCARDIA POSSIBLE LEFT ATRIAL ENLARGEMENT RIGHT BUNDLE BRANCH BLOCK BASELINE WANDER- I, II, III, AVF ABNORMAL ECG COMPARED TO ECG 02/28/2023 00:21:59 HEART RATE HAS DECREASED Electronically Signed On 02-28-2023 9:53:12 FURNITURE TECHNICIAN by Ricki Somers D.O.
[2023-02-28] MEDS: ASPIRIN 81 MG CHEWABLE TABLET 324 MG PO (03:52)
[2023-02-28 06:05] LABS: Magnesium 1.5 mg/dL (1.6-2.3)
[2023-02-28 06:26] LABS: Troponin I 0.341 ng/mL (0.000-0.034)
[2023-02-28] MEDS: MAGNESIUM SULF 2 GM/WATER 50ML 2 GM/50 ML BAG IVPB (07:06)
--- NOTE | 2023-02-28 09:09 | ADMGEN ---
This patient, Margaret Funez, was admitted to IMU Room 205-01. Patient/family oriented to hospital policies and general routines including ID bracelet, bed and alarms, visiting hours, pain management, procedures, bathroom and other care routines, personal items, smoking policy, room service/diet, and visiting hours. Information on how to activate the Rapid Response Team has been discussed. Patient/Family are encouraged to report perceived risks to care and to ask questions if they do not understand what they are told or what they should do.
[2023-02-28] MEDS: CEFEPIME 2 GM/NS 50 ML 2 GM/50 ML BAG IVPB (09:15)
[2023-02-28 09:49] LABS: Troponin I 0.286 ng/mL (0.000-0.034)
[2023-02-28] MEDS: FUROSEMIDE INJ 40 MG/4 ML VIAL 60 MG IV PUSH (10:47)
--- NOTE | 2023-02-28 11:03 | PM.IMHP ---
H&P: HPI History of Present Illness Date/Time: 02/28/23 11:03 Chief Complaint: Chills, subjective fever, nausea vomiting Narrative: 78 years old gentleman with history of diabetes, hypertension, recently admitted hospital because of sepsis, pyelonephritis, bilateral kidney stones. Patient was found to have candidemia, stent was placed by urologist. Patient will discharge home with micafungin. Patient started to have chills, subjective fever, nausea vomiting yesterday. Patient denies abdomen pain, diarrhea, headache, photophobia. Patient also denies chest pain, palpitation, dysuria. Patient came back to ED for evaluation, in the ED, patient was found have pyuria, hematuria. CT scan suggest right pyelonephritis, bilateral kidney stone and stent. Patient received cefepime in the ED, patient was admitted to hospital for further evaluation and management. Upon arrival on the floor of IMU, patient developed respiratory distress, patient was on 15 L oxygen. Repeated chest x-ray showed pulmonary congestion, patient was found to have tachycardia tachypnea. ABG shows hypoxemic respiratory failure. Patient was placed on BiPAP. Patient also received Lasix 60 mg IV push. Respiratory distress resolved. Patient also found have elevated troponin x3, EKG showed sinus rhythm, right bundle block, nonspecific ST T-wave changes. Urine culture grows Gram-negative bacilli. CT scan of shows moderate to advanced underlying emphysema. Review of Systems Review of Systems: ROS negative except above PMFSH Past Medical History Medical History Abnormal EKG Benign essential hypertension BMI 26.0-26.9,adult BMI 27.0-27.9,adult BMI 28.0-28.9,adult BMI 29.0-29.9,adult Borderline abnormal TFTs Breast cyst Colon cancer screening Diastolic dysfunction DM type 2 (diabetes mellitus, type 2) Ear itching Eczema Elevated LFTs Encounter for Medicare annual wellness exam Encounter for routine adult health examination with abnormal findings Encounter for routine adult health examination without abnormal findings Encounter for screening mammogram for malignant neoplasm of breast Follow up Hair loss Hearing loss Hepatitis B core antibody positive Hot flashes Hx of seborrheic dermatitis Hypercalcemia Hyperlipidemia Hypertension 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 Unspecified ptosis of bilateral eyelids UTI (urinary tract infection) Vitamin D deficiency Surgical History Surgical History H/O eye surgery History of breast biopsy History of gynecologic surgery 01/15/2023 Robotic Laparoscopic Supracervical Hysterectomy with Bilateral Salpingo-oophorectomy History of tonsillectomy Family History Family History Father Family history of malignant neoplasm Hypertension Mother Family history of heart disease in male family member before age 55 Family history of cardiovascular disease Sibling Cerebral palsy Sibling Epilepsy Social History Social History Smoking packs per day: 1 Smoking cigarettes per day: 20.0 Years smoked: 40 Smoking pack-years: 40.00 Smoking status: Former smoker Tobacco type: cigarettes Second hand tobacco smoke exposure: No Alcohol intake: never Substance use: never Substance use type: does not use Do You Feel Safe in your Home?: Yes Lack of Transportation: No Lack of Food: Never True Current Housing: I Have Housing Concerned About Future Housing: No Difficulty Paying Gas/Electric Bills: No Difficulty Paying for Meds: No Currently Unemployed: No Education: High School Diploma/GED Difficulty w/ Childcare or Family Care: No Living arrangements: with family Additional living arrangements comments: Occupation/Education: retired Gender identity (if verbalized by the patient): Female Sexual Orientation (if Verbalized by the Patient): Straight or Heterosexual Spiritual care concerns: Yes Meds Home Medications and Allergies Home Medications Medication Instructions Recorded Confirmed Type Tri Ease Seasonal Soft Gels 1 caplet PO DAILY PRN allergies 09/26/20 02/28/23 History alendronate 70 mg tablet (Fosamax) 70 mg PO WEEKLY #4 tabs 01/09/23 02/28/23 Rx atorvastatin 10 mg tablet 5 mg PO DAILY 02/13/23 02/28/23 History empagliflozin 10 mg tablet 10 mg PO DAILY 02/13/23 02/28/23 History lisinopril 20 mg tablet 20 mg PO DAILY 02/13/23 02/28/23 History metformin 1,000 mg tablet 1,000 mg PO BID 02/13/23 02/28/23 History sitagliptin phosphate 100 mg 100 mg PO DAILY 02/13/23 02/28/23 History tablet (Januvia) metoclopramide HCl 10 mg tablet 10 mg PO Q6H PRN nausea and 02/16/23 02/28/23 Rx (Reglan) vomiting #30 tabs micafungin 100 mg intravenous 100 mg IV DAILY #11 ea 02/16/23 02/28/23 Rx solution (Mycamine) oxycodone-acetaminophen 5 mg-300 1 tablet PO Q8H PRN pain #14 tabs 02/16/23 02/28/23 Rx mg tablet Allergies Allergy/AdvReac Type Severity Reaction Status Date / Time pollen extracts Allergy Unknown Swelling Verified 02/13/23 08:56 of the Eye Vital Signs Vital Signs - 24 hr 02/27/23 13:00 02/27/23 15:38 02/27/23 16:30 Temperature 98.8 F 97.6 F Pulse Rate 143 H 115 H 113 H Respiratory Rate 20 20 20 Blood Pressure 165/74 H 121/60 105/60 Pulse Oximetry 91 91 91 Oxygen Delivery Room Air Oxygen Flow Rate 02/27/23 17:00 02/27/23 17:30 02/27/23 18:00 Temperature Pulse Rate 110 H 106 H 109 H Respiratory Rate 20 24 H 25 H Blood Pressure 101/60 101/61 128/75 Pulse Oximetry 90 93 94 Oxygen Delivery Oxygen Flow Rate 02/27/23 18:32 02/27/23 19:40 02/27/23 21:17 Temperature Pulse Rate 103 H 103 H Respiratory Rate 24 H 20 Blood Pressure 124/72 123/73 Pulse Oximetry 90 89 L 96 Oxygen Delivery Nasal Cannula Oxygen Flow Rate 2 02/27/23 23:24 02/28/23 00:31 02/28/23 00:31 Temperature 98.1 F Pulse Rate 102 H 136 H Respiratory Rate 19 44 H Blood Pressure 125/73 145/70 H Pulse Oximetry 97 97 97 Oxygen Delivery Non-Rebreather Mask Oxygen Flow Rate 15 02/28/23 03:30 02/28/23 06:19 02/28/23 01:00 Temperature Pulse Rate 111 H 87 Respiratory Rate 22 H 16 Blood Pressure 151/68 H 100/66 Pulse Oximetry 96 100 94 Oxygen Delivery High Flow Nasal Cannula Oxygen Flow Rate 10 02/28/23 06:25 02/28/23 07:23 02/28/23 09:02 Temperature 96.7 F L Pulse Rate 84 94 Respiratory Rate 18 18 Blood Pressure 104/63 117/66 Pulse Oximetry 98 99 95 Oxygen Delivery High Flow Nasal Cannula Oxygen Flow Rate 8 Exam Narrative: GENERAL: Ill-appearing, acute respiratory distress. Well-nourished. - EYES: EOMI. Anicteric. - HENT: Moist mucous membranes. - LUNGS: Crackles bilateral base no wheezing, tachypnea - CARDIOVASCULAR: Regular rate and rhythm. No murmur. No JVD. Tachycardia - ABDOMEN: Soft, non-tender and non-distended. No palpable masses. - EXTREMITIES: No edema. Peripheral pulses 2+. Right flank tender - NEUROLOGIC: No focal neurological deficits. CN II-XII grossly intact. - PSYCHIATRIC: Awake, Alert and oriented x 3. Appropriate mood and affect. - SKIN: No rashes or lesions. Warm. - LYMPH: No cervical lymphadenopathy. H&P: Results Labs Labs: Short CBC 02/27/23 Range/Units 16:32 WBC 10.2 H (4.5-10.0) K/mm3 Hgb 11.6 L (12.0-15.0) g/dL Hct 37.1 (37.0-47.0) % Plt Count 475 H (150-375) k/mm3 BMP 02/27/23 16:32 Sodium 138 Potassium 3.4 Chloride 104 Carbon Dioxide 22 BUN 18 H Creatinine 0.60 L Glucose 119 H Calcium 9.5 Cardiac Enzymes 02/28/23 02/28/23 02/28/23 Range/Units 02:32 05:45 09:11 Troponin I 0.286 H* 0.341 H* 0.286 H* (0.000-0.034) ng/mL Liver Function 02/27/23 Range/Units 16:32 Total Bilirubin 1.0 (0.2-1.3) mg/dL AST 45 H (14-36) U/L ALT 21 (6-35) U/L Alkaline Phosphatase 115 (38-126) U/L Albumin 4.2 (3.5-5.1) g/dL Urine 02/27/23 Range/Units 16:32 Urine Color Yellow (Yellow) Urine Appearance Turbid H (Clear) Urine pH 5.5 (5.0-9.0) Ur Specific [place] 1.024 (1.001-1.035) Urine Protein 3+ H (Negative) mg/dL Urine Glucose (UA) 3+ H (Negative) mg/dL Assessment and Plan Assessment and plan (1) Elevated troponin: Code(s): R79.89 - Other specified abnormal findings of blood chemistry Status: Acute (2) Severe sepsis: Code(s): A41.9 - Sepsis, unspecified organism; R65.20 - Severe sepsis without septic shock Status: Acute (3) Acute hypoxic respiratory failure: Code(s): J96.01 - Acute respiratory failure with hypoxia Status: Acute (4) Pyelonephritis: Code(s): N12 - Tubulo-interstitial nephritis, not specified as acute or chronic Status: Acute (5) Ureterolithiasis: Code(s): N20.1 - Calculus of ureter Status: Acute (6) DM type 2 (diabetes mellitus, type 2): Qualifiers: Diabetes mellitus skilled nursing insulin use: without skilled nursing use Diabetes mellitus complication status: without complication Qualified Code(s): E11.9 - Type 2 diabetes mellitus without complications Code(s): E11.9 - Type 2 diabetes mellitus without complications Status: Acute (7) Benign essential hypertension: Code(s): I10 - Essential (primary) hypertension Status: Acute Plan Sepsis, right pyelonephritis, Likely secondary to kidney stone, stent was placed bilaterally Patient has a tachycardia tachypnea, UA shows pyuria hematuria Blood culture grows Gram-negative bacilli Switched from cefepime to Zosyn IV Previous culture grows Bettye glabrata, candidemia patient on micafungin Patient finished 14 days micafungin yesterday blood culture February 22 has no grows, continue micafungin today, follow-up blood culture. Will discontinue micafungin if negative blood culture of Bettye Switch from cefepime to Zosyn IV Consult urologist for evaluation treatment Multifocal pneumonia, acute respiratory failure, COPD exacerbation Patient has on diagnosed COPD, CT shows moderate to advanced emphysema Possible aspiration pneumonia Start Zosyn IV Patient is off BiPAP Start DuoNeb scheduled albuterol nebulizer as needed Now patient on nasal cannular oxygen Refer patient to pulmonology follow-up patient diagnosis Fluid overload Patient had sudden onset respiratory distress, Repeat x-ray today suggests pulmonary congestion Patient is placed on BiPAP and received Lasix 60 mg IV push once Elevated troponin Patient denies history of CAD, denies chest pain, EKG shows sinus rhythm and right bundle block Possible demand ischemia due to sepsis, fluid overload and respiratory failure Discussed the case with Dr. Branch, legal office administrator Telemetry monitoring Management per legal office administrator Type 2 diabetes Hold metformin Start insulin sliding scale a.c. q.h.s. He spent 80 minutes for patient care, including reviewed chart, labs, images studies, repeated assessment plans, discussed the case with legal office administrator, consult urologist
[2023-02-28 11:13] LABS: Alveolar/Arterial O2 Gradient 258.2 mmHg; Base Excess ABG -4.1 mEq/l (+/-2.0); Fractional Inspired Oxygen 52 %; HCO3 ABG 19.5 mEq/l (22.0-26.0); Oxygen Content ABG 17.1 %vol (16.0-22.0); Oxygen Saturation ABG 95.8 % (95.0-100.0); Oxyhemoglobin 94.7 % THb (90.0-100.0); PCO2 ABG 31.3 mmHg (35.0-45.0); PO2 ABG 77.5 mmHg (80.0-100.0); PO2 FiO2 Ratio Arterial Blood 1.49 %; Total Hemoglobin 12.8 g/dL (12.0-18.0); pH ABG 7.412 (7.350-7.450)
[2023-02-28 11:14] LABS: Device HIGH FLOW NASAL CANN; Modified Allen's Test Pass; Site Drawn RIGHT RADIAL
--- NOTE | 2023-02-28 11:36 | PC.NURSE ---
Pt seen having chills and severe shivering. Pt started to desat to the 80's on 3L HF NC and became tachy into the 160's. Stated back pain 7/10 and arms were mottled. Increased O2 up to 12L HF NC. Nurse assessed pt vitals. Notified Dr. Nuno of the change in condition. Yaakov gave verbal order for 60 mg IV lasix ABG and CXR. Yaakov and hair rooting machine operator at bedside. Pt chills and shivering resolved after 10 mintues. Pt sat up to 97% on 8L HF NC.
--- NOTE | 2023-02-28 11:52 | P.CONCA_ITS ---
Assessment and Plan Assessment and plan (1) Elevated troponin: Code(s): R79.89 - Other specified abnormal findings of blood chemistry Status: Acute Assessment and Plan: Troponins of 0.286, 0.341, 0.286. EKG with sinus tachycardia with RBBB (which is not new). No chest pain or other anginal symptoms. In the setting of sepsis, pyelonephritis, bacteremia, acute hypoxemic respiratory failure. Had a recent echocardiogram done on 02/13 that showed LVEF 60-65%, grade 1 diastolic dysfunction, moderately reduced RVSF, no significant valvular disease. This troponin elevation does not appear to be consistent with an acute coronary syndrome. Most likely demand ischemia from underlying acute issues. Do not recommend additional cardiac workup at this time. Cardiology will sign off, please call us back if needed. Recommendations and plan discussed with Hospitalist. History of Present Illness History of Present Illness Consult date/time: 02/28/23 11:52 Requesting physician: Sean Hall DO Consult reason: Other (Elevated troponin) Reason For Visit: Pneumonia, Pyelonephritis, Ureterolithiasis Narrative: We are consulted for elevated troponin. This is a 78 year old female with hypertension, hyperlipidemia, diabetes who was recently discharged from [facility] on 02/16 after being admitted with septic shock, bilateral pyelonephritis, candidemia, acute renal failure, multifocal pneumonia. Patient presented to ER on 02/27 for chills, weakness, nausea and vomiting. No chest pain. In the ER, she became acutely hypoxic and tachycardic. EKG showed sinus tachycardia with RBBB. Chest CTA negative for PE. Troponin found to be elevated at 0.286, 0.341. Third troponin came back at 0.286. She is now being admitted and treated for sepsis. Has CT findings suspicious for right pyelonephritis. Blood culture is positive for Gram negative bacilli. Review of Systems Review of Systems: All systems reviewed & are unremarkable except as noted in HPI and below (HPI) [facility] Past Medical History Medical History Abnormal EKG Benign essential hypertension BMI 26.0-26.9,adult BMI 27.0-27.9,adult BMI 28.0-28.9,adult BMI 29.0-29.9,adult Borderline abnormal TFTs Breast cyst Colon cancer screening Diastolic dysfunction DM type 2 (diabetes mellitus, type 2) Ear itching Eczema Elevated LFTs Encounter for Medicare annual wellness exam Encounter for routine adult health examination with abnormal findings Encounter for routine adult health examination without abnormal findings Encounter for screening mammogram for malignant neoplasm of breast Follow up Hair loss Hearing loss Hepatitis B core antibody positive Hot flashes Hx of seborrheic dermatitis Hypercalcemia Hyperlipidemia Hypertension 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 Unspecified ptosis of bilateral eyelids UTI (urinary tract infection) Vitamin D deficiency Surgical History Surgical History H/O eye surgery History of breast biopsy History of gynecologic surgery 01/15/2023 Robotic Laparoscopic Supracervical Hysterectomy with Bilateral Salpingo-oophorectomy History of tonsillectomy Family History Family History Father Family history of malignant neoplasm Hypertension Mother Family history of heart disease in male family member before age 55 Family history of cardiovascular disease Sibling Cerebral palsy Sibling Epilepsy Social History Social History Smoking packs per day: 1 Smoking cigarettes per day: 20.0 Years smoked: 40 Smoking pack-years: 40.00 Smoking status: Former smoker Tobacco type: cigarettes Second hand tobacco smoke exposure: No Alcohol intake: never Substance use: never Substance use type: does not use Do You Feel Safe in your Home?: Yes Lack of Transportation: No Lack of Food: Never True Current Housing: I Have Housing Concerned About Future Housing: No Difficulty Paying Gas/Electric Bills: No Difficulty Paying for Meds: No Currently Unemployed: No Education: High School Diploma/GED Difficulty w/ Childcare or Family Care: No Living arrangements: with family Additional living arrangements comments: Occupation/Education: retired Gender identity (if verbalized by the patient): Female Sexual Orientation (if Verbalized by the Patient): Straight or Heterosexual Spiritual care concerns: Yes Meds Home Medications and Allergies Home Medications Medication Instructions Recorded Confirmed Type Tri Ease Seasonal Soft Gels 1 caplet PO DAILY 09/26/20 02/22/23 History alendronate 70 mg tablet (Fosamax) 70 mg PO WEEKLY #4 tabs 01/09/23 02/22/23 Rx atorvastatin 10 mg tablet 5 mg PO DAILY 02/13/23 02/22/23 History empagliflozin 10 mg tablet 10 mg PO DAILY 02/13/23 02/22/23 History lisinopril 20 mg tablet 20 mg PO DAILY 02/13/23 02/22/23 History metformin 1,000 mg tablet 1,000 mg PO BID 02/13/23 02/22/23 History sitagliptin phosphate 100 mg 100 mg PO DAILY 02/13/23 02/22/23 History tablet (Januvia) amoxicillin 875 mg-potassium 1 tablet PO Q12H #14 tabs 02/16/23 02/22/23 Rx clavulanate 125 mg tablet metoclopramide HCl 10 mg tablet 10 mg PO Q6H PRN nausea and 02/16/23 02/22/23 Rx (Reglan) vomiting #30 tabs micafungin 100 mg intravenous 100 mg IV DAILY #11 ea 02/16/23 02/22/23 Rx solution (Mycamine) oxycodone-acetaminophen 5 mg-300 1 tablet PO Q8H PRN pain #14 tabs 02/16/23 02/22/23 Rx mg tablet triamcinolone acetonide 0.1 % 1 applic topical BID 02/21/23 02/22/23 History topical cream Allergies Allergy/AdvReac Type Severity Reaction Status Date / Time pollen extracts Allergy Unknown Swelling Verified 02/13/23 08:56 of the Eye Vital Signs Vital Signs - 24 hr 02/27/23 13:00 02/27/23 15:38 02/27/23 16:30 Temperature 37.1 C 36.4 C Pulse Rate 143 H 115 H 113 H Respiratory Rate 20 20 20 Blood Pressure 165/74 H 121/60 105/60 Pulse Oximetry 91 91 91 Oxygen Delivery Room Air Oxygen Flow Rate 02/27/23 17:00 02/27/23 17:30 02/27/23 18:00 Temperature Pulse Rate 110 H 106 H 109 H Respiratory Rate 20 24 H 25 H Blood Pressure 101/60 101/61 128/75 Pulse Oximetry 90 93 94 Oxygen Delivery Oxygen Flow Rate 02/27/23 18:32 02/27/23 19:40 02/27/23 21:17 Temperature Pulse Rate 103 H 103 H Respiratory Rate 24 H 20 Blood Pressure 124/72 123/73 Pulse Oximetry 90 89 L 96 Oxygen Delivery Nasal Cannula Oxygen Flow Rate 2 02/27/23 23:24 02/28/23 00:31 02/28/23 00:31 Temperature 36.7 C Pulse Rate 102 H 136 H Respiratory Rate 19 44 H Blood Pressure 125/73 145/70 H Pulse Oximetry 97 97 97 Oxygen Delivery Non-Rebreather Mask Oxygen Flow Rate 15 02/28/23 03:30 02/28/23 06:19 02/28/23 01:00 Temperature Pulse Rate 111 H 87 Respiratory Rate 22 H 16 Blood Pressure 151/68 H 100/66 Pulse Oximetry 96 100 94 Oxygen Delivery High Flow Nasal Cannula Oxygen Flow Rate 10 02/28/23 06:25 02/28/23 07:23 02/28/23 09:02 Temperature 35.9 C L Pulse Rate 84 94 Respiratory Rate 18 18 Blood Pressure 104/63 117/66 Pulse Oximetry 98 99 95 Oxygen Delivery High Flow Nasal Cannula Oxygen Flow Rate 8 Exam Const: General: comfortable and no acute distress HENMT: Mouth: Yes dry mucous membranes Eyes: General: appearance normal, both eyes and all related structures Sclera: sclerae normal Neck: Neck: supple Resp: Effort & Inspection: normal respiratory effort Auscultation: diminished lung sounds Cardio: Rate: tachycardic Rhythm: regular rhythm Heart sounds: no murmurs Skin: General skin exam: normal color Neuro: Speech: normal speech Psych: Mental Status: mental status grossly normal Affect: normal affect Results Labs and Meds 02/27/23 16:32 02/27/23 16:32 Lab results: Cardiac Enzymes 02/27/23 02/28/23 02/28/23 Range/Units 16:32 02:32 05:45 AST 45 H (14-36) U/L Troponin I 0.286 H* 0.341 H* (0.000-0.034) ng/mL 02/28/23 Range/Units 09:11 AST (14-36) U/L Troponin I 0.286 H* (0.000-0.034) ng/mL Coagulation 02/27/23 Range/Units 16:32 PT 13.5 (11.1-14.7) Seconds APTT 32.7 (22.3-36.8) SECONDS CBC 02/27/23 Range/Units 16:32 WBC 10.2 H (4.5-10.0) K/mm3 RBC 4.17 L (4.2-5.4) M/mm3 Hgb 11.6 L (12.0-15.0) g/dL Hct 37.1 (37.0-47.0) % Plt Count 475 H (150-375) k/mm3 Lymph # (Auto) 0.83 L (0.9-3.2) K/mm3 [place] # (Auto) 0.4 (0.1-0.6) K/mm3 Eos # (Auto) 0.0 (0-0.3) K/mm3 Baso # (Auto) 0.0 (0.0-0.1) K/mm3 Comprehensive Metabolic Panel 02/27/23 Range/Units 16:32 Sodium 138 (137-145) mmol/L Potassium 3.4 (3.4-5.0) mmol/L Chloride 104 (98-107) mmol/L Carbon Dioxide 22 (22-30) mmol/L BUN 18 H (7-17) mg/dL Creatinine 0.60 L (0.7-1.0) mg/dL Glucose 119 H (65-110) mg/dL Calcium 9.5 (8.4-10.2) mg/dL AST 45 H (14-36) U/L ALT 21 (6-35) U/L Alkaline Phosphatase 115 (38-126) U/L Total Protein 8.0 (6.3-8.2) g/dL Albumin 4.2 (3.5-5.1) g/dL Intake and Output 02/27/23 02/28/23 02/28/23 23:59 07:59 15:59 Intake Total 2150 1150 50 Balance 2150 1150 50 Intake: IV 2150 1150 50 Sodium Chloride 0.9% IV 1,000 1000 ml @ 0 mls/hr .ROUTE .STK-MED ONE Rx#:[id number] Sodium Chloride 0.9% IV 1,900 1900 ml In 1,000 ml @ 999 mls/hr IV CONT .Q1H1M [facility] Rx#:[id number] Azithromycin 500 mg/Ns 250 ml 250 500 mg In 250 ml @ 250 mls/hr IVPB ONCE STA Rx#:[id number] Cefepime 2 gm/Ns 50 ml 2 gm In 50 50 ml @ 100 mls/hr IVPB ONCE ONE Rx#:[id number] Magnesium Sulf 2 gm/Water 50Ml 50 2 gm In 50 ml @ 50 mls/hr IVPB ONCE STA Rx#:[id number] Micafungin Sodium 100 mg In 100 Sodium Chloride 0.9% IV 100 ml @ 100 mls/hr IVPB Q24H [facility] Rx#: [id number] Patient Weight 02/28/23 23:59 Weight 65.6 kg
[2023-02-28 12:02] LABS: Basophils Percent Auto 0.6 % (0.2-1.2); Eosinophils Percent Auto 0.2 % (0-4.4); Hematocrit 34.7 % (37.0-47.0); Hemoglobin 10.5 g/dL (12.0-15.0); Immature Granulocyte Absolute 0.01 K/mm3 (0.00-0.031); Immature Granulocyte Percent A 0.2 % (0-0.5); Lymphocytes Absolute Auto 0.79 K/mm3 (0.9-3.2); Lymphocytes Percent Auto 16.3 % (18.3-44.2); Mean Corpuscular HGB Conc 30.3 g/dl (32-36); Mean Corpuscular Hemoglobin 27.6 pg (26-34); Mean Corpuscular Volume 91.1 fl (80-100); Mean Platelet Volume 9.5 fl (7.4-10.4); Monocytes Absolute Auto 0.1 K/mm3 (0.1-0.6); Monocytes Percent Auto 1.2 % (2.6-8.5); Neutrophils Percent Auto 81.5 % (45.5-73.1); Platelet Count Result 356 k/mm3 (150-375); Red Blood Count 3.81 M/mm3 (4.2-5.4); Red Cell Distribution Width 17.2 % (11.5-14.5); White Blood Count 4.9 K/mm3 (4.5-10.0)
[2023-02-28 12:23] LABS: Lactic Acid Reflex 1.6 mmol/L (0.7-2.0)
[2023-02-28 12:24] LABS: Anion Gap 11 mmol/L (8-16); Blood Urea Nitrogen 16 mg/dL (7-17); Carbon Dioxide 23 mmol/L (22-30); Chloride 103 mmol/L (98-107); Estimated CRCL calculation 58 ml/min; Potassium 3.6 mmol/L (3.4-5.0); Sodium 137 mmol/L (137-145)
[2023-02-28 12:25] LABS: Alanine Aminotransferase 21 U/L (6-35); Alkaline Phosphatase 108 U/L (38-126); Aspartate Amino Transferase 41 U/L (14-36); Bilirubin,Total 1.2 mg/dL (0.2-1.3); Calcium 8.5 mg/dL (8.4-10.2); Estimated Glomerular Filt Rate > 60; Glucose 132 mg/dL (65-110)
--- NOTE | 2023-02-28 12:47 | P.CONUR_ITS ---
Assessment and Plan Assessment and plan (1) Ureterolithiasis: Code(s): N20.1 - Calculus of ureter Status: Acute Plan -continue broad-spectrum antibiotics. Await urine and blood culture results. -ureteral stents in place with bilateral ureteral stones adjacent to stent. No additional intervention needed at this time. Plan stone extraction procedure as scheduled next week, however adjustment may need to be made based on her clinical course during this hospitalization Urology Consult Note HPI Date Seen: 02/28/23 Requesting Physician: Fran Rebolledo MD Primary Care Provider: Chuy High MD Consult Narrative Narrative: Margaret Funez is a 78 year old female who presented to the emergency department on 02/13/2023 with flu-like symptoms in septic shock with bilateral obstructing ureteral stones. She had bilateral ureteral stent placement with Dr. Joshi on 02/13. Patient was discharged home after brief ICU stay with culture appropriate antibiotics. Patient states she had been feeling well until yesterday where she developed lethargy. She presented to the emergency department last night where CT scan shows bilateral stents placed. She does have a blood culture showing crack negative bacilli. She is admitted to the hospitalist service for workup. Patient is currently scheduled for ureteroscopy and stone extraction with Dr. Joshi on March 08. [facility] Past Medical History Medical History Abnormal EKG Benign essential hypertension BMI 26.0-26.9,adult BMI 27.0-27.9,adult BMI 28.0-28.9,adult BMI 29.0-29.9,adult Borderline abnormal TFTs Breast cyst Colon cancer screening Diastolic dysfunction DM type 2 (diabetes mellitus, type 2) Ear itching Eczema Elevated LFTs Encounter for Medicare annual wellness exam Encounter for routine adult health examination with abnormal findings Encounter for routine adult health examination without abnormal findings Encounter for screening mammogram for malignant neoplasm of breast Follow up Hair loss Hearing loss Hepatitis B core antibody positive Hot flashes Hx of seborrheic dermatitis Hypercalcemia Hyperlipidemia Hypertension On snf drug therapy Unspecified ptosis of bilateral eyelids UTI (urinary tract infection) Vitamin D deficiency Surgical History Surgical History H/O eye surgery History of breast biopsy History of gynecologic surgery 01/15/2023 Robotic Laparoscopic Supracervical Hysterectomy with Bilateral Salpingo-oophorectomy History of tonsillectomy Family History Family History Father Family history of malignant neoplasm Hypertension Mother Family history of heart disease in male family member before age 55 Family history of cardiovascular disease Sibling Cerebral palsy Sibling Epilepsy Social History Social History Smoking packs per day: 1 Smoking cigarettes per day: 20.0 Years smoked: 40 Smoking pack-years: 40.00 Smoking status: Former smoker Tobacco type: cigarettes Second hand tobacco smoke exposure: No Alcohol intake: never Substance use: never Substance use type: does not use Do You Feel Safe in your Home?: Yes Lack of Transportation: No Lack of Food: Never True Current Housing: I Have Housing Concerned About Future Housing: No Difficulty Paying Gas/Electric Bills: No Difficulty Paying for Meds: No Currently Unemployed: No Education: High School Diploma/GED Difficulty w/ Childcare or Family Care: No Living arrangements: with family Additional living arrangements comments: Occupation/Education: retired Gender identity (if verbalized by the patient): Female Sexual Orientation (if Verbalized by the Patient): Straight or Heterosexual Spiritual care concerns: Yes Meds Home Medications and Allergies Home Medications Medication Instructions Recorded Confirmed Type Tri Ease Seasonal Soft Gels 1 caplet PO DAILY PRN allergies 09/26/20 02/28/23 History alendronate 70 mg tablet (Fosamax) 70 mg PO WEEKLY #4 tabs 01/09/23 02/28/23 Rx atorvastatin 10 mg tablet 5 mg PO DAILY 02/13/23 02/28/23 History empagliflozin 10 mg tablet 10 mg PO DAILY 02/13/23 02/28/23 History lisinopril 20 mg tablet 20 mg PO DAILY 02/13/23 02/28/23 History metformin 1,000 mg tablet 1,000 mg PO BID 02/13/23 02/28/23 History sitagliptin phosphate 100 mg 100 mg PO DAILY 02/13/23 02/28/23 History tablet (Januvia) metoclopramide HCl 10 mg tablet 10 mg PO Q6H PRN nausea and 02/16/23 02/28/23 Rx (Reglan) vomiting #30 tabs micafungin 100 mg intravenous 100 mg IV DAILY #11 ea 02/16/23 02/28/23 Rx solution (Mycamine) oxycodone-acetaminophen 5 mg-300 1 tablet PO Q8H PRN pain #14 tabs 02/16/23 02/28/23 Rx mg tablet Allergies Allergy/AdvReac Type Severity Reaction Status Date / Time pollen extracts Allergy Unknown Swelling Verified 02/13/23 08:56 of the Eye Vital Signs Vital Signs - 24 hr 02/27/23 13:00 02/27/23 15:38 02/27/23 16:30 Temperature 37.1 C 36.4 C Pulse Rate 143 H 115 H 113 H Respiratory Rate 20 20 20 Blood Pressure 165/74 H 121/60 105/60 Pulse Oximetry 91 91 91 Oxygen Delivery Room Air Oxygen Flow Rate 02/27/23 17:00 02/27/23 17:30 02/27/23 18:00 Temperature Pulse Rate 110 H 106 H 109 H Respiratory Rate 20 24 H 25 H Blood Pressure 101/60 101/61 128/75 Pulse Oximetry 90 93 94 Oxygen Delivery Oxygen Flow Rate 02/27/23 18:32 02/27/23 19:40 02/27/23 21:17 Temperature Pulse Rate 103 H 103 H Respiratory Rate 24 H 20 Blood Pressure 124/72 123/73 Pulse Oximetry 90 89 L 96 Oxygen Delivery Nasal Cannula Oxygen Flow Rate 2 02/27/23 23:24 02/28/23 00:31 02/28/23 00:31 Temperature 36.7 C Pulse Rate 102 H 136 H Respiratory Rate 19 44 H Blood Pressure 125/73 145/70 H Pulse Oximetry 97 97 97 Oxygen Delivery Non-Rebreather Mask Oxygen Flow Rate 15 02/28/23 03:30 02/28/23 06:19 02/28/23 01:00 Temperature Pulse Rate 111 H 87 Respiratory Rate 22 H 16 Blood Pressure 151/68 H 100/66 Pulse Oximetry 96 100 94 Oxygen Delivery High Flow Nasal Cannula Oxygen Flow Rate 10 02/28/23 06:25 02/28/23 07:23 02/28/23 09:02 Temperature 35.9 C L Pulse Rate 84 94 Respiratory Rate 18 18 Blood Pressure 104/63 117/66 Pulse Oximetry 98 99 95 Oxygen Delivery High Flow Nasal Cannula Oxygen Flow Rate 8 02/28/23 11:12 02/28/23 11:25 Temperature 36.7 C 36.6 C Pulse Rate Respiratory Rate Blood Pressure 184/99 H Pulse Oximetry Oxygen Delivery Oxygen Flow Rate Exam Narrative: Patient is awake alert. She is in no acute distress. Her breathing is unlabored with nasal cannula oxygen. Her abdomen is soft nontender Results Labs 02/28/23 11:49 02/28/23 11:49 Labs: Short CBC 02/27/23 02/28/23 Range/Units 16:32 11:49 WBC 10.2 H 4.9 (4.5-10.0) K/mm3 Hgb 11.6 L 10.5 L (12.0-15.0) g/dL Hct 37.1 34.7 L (37.0-47.0) % Plt Count 475 H 356 (150-375) k/mm3 BMP 02/27/23 02/28/23 16:32 11:49 Sodium 138 137 Potassium 3.4 3.6 Chloride 104 103 Carbon Dioxide 22 23 BUN 18 H 16 Creatinine 0.60 L 0.60 L Glucose 119 H 132 H Calcium 9.5 8.5 Cardiac Enzymes 02/28/23 02/28/23 02/28/23 Range/Units 02:32 05:45 09:11 Troponin I 0.286 H* 0.341 H* 0.286 H* (0.000-0.034) ng/mL Liver Function 02/27/23 02/28/23 Range/Units 16:32 11:49 Total Bilirubin 1.0 1.2 (0.2-1.3) mg/dL AST 45 H 41 H (14-36) U/L ALT 21 21 (6-35) U/L Alkaline Phosphatase 115 108 (38-126) U/L Albumin 4.2 4.0 (3.5-5.1) g/dL Urine 02/27/23 Range/Units 16:32 Urine Color Yellow (Yellow) Urine Appearance Turbid H (Clear) Urine pH 5.5 (5.0-9.0) Ur Specific [place] 1.024 (1.001-1.035) Urine Protein 3+ H (Negative) mg/dL Urine Glucose (UA) 3+ H (Negative) mg/dL blood cultures x2 positive for Gram-negative bacilli Imaging Radiologist's impression: Ordering Physician: Hoa Chappell PA-C Date of Service: 02/27/23 Procedure(s): CT abdomen pelvis w con Accession Number(s): [id number] cc: Chuy High MD; Hoa Chappell PA-C~ EXAMINATION: CT abdomen pelvis w con DATE: 02/27/2023 19:21 INDICATION: concern for pyelo TECHNIQUE: Computed tomography (CT) of the abdomen and pelvis was performed with 100 mL Omnipaque-350 intravenous contrast. Automated exposure control and iterat otto reconstruction technique were employed. The dose-length product was 617.49 mGy-cm. COMPARISON: 02/13/2023, 02/13/2023. FINDINGS: Lower thorax: Senescent changes in the lung bases. Bibasilar scar/atelectasis. Small right pleural effusion. Coronary artery calcifications. Liver: Nodular liver border. 5 mm right lower lobe hypodensity, stable since 2018, likely cyst or hemangioma.? Biliary/Gallbladder: Dilated gallbladder. No inflammatory change or cholelithiasis. No bile duct dilation. Pancreas: No mass or duct dilation. Spleen: Normal. Adrenals:No mass. Kidneys: 2 mm right lower pole nonobstructing calcification. Mild bilateral perinephric stranding. Bilateral ureteral stents in good position. No suspicious mass. Subtle patchy right renal parenchymal enhancement. GI tract: Moderate distal esophageal and gastric wall edema. No small or large bowel dilation. Normal appendix. Mesentery/Peritoneum: No ascites, mass, or free air. Retroperitoneum: No mass. Atherosclerotic abdominal aortic and/or arterial calcifications. Pelvis: The urinary bladder is decompressed by a Kennedy catheter. Stable 3 mm left UVJ stone. Stable 6 mm right distal ureteral stones. Urinary bladder wall edema with inflammatory change. Soft Tissues: Soft tissues and body wall unremarkable. Bones:? No acute osseous finding. IMPRESSION: Small right pleural effusion. Moderate esophagitis/gastritis. Nodular liver border as can be seen with cirrhosis. Gallbladder hydrops, without inflammatory change, cholelithiasis, or biliary duct dilation. Findings suspicious for right pyelonephritis. Cystitis. Bilateral ureteral stents with stable left UVJ and right distal ureteral stones. Reviewed, dictated and finalized at location K. [facility] [employer]
[2023-02-28] MEDS: IPRATROPIUM BR 0.02% INH SOLN 0.5 MG/2.5 ML VIAL INHALATION ×2 (12:58→21:40)
[2023-02-28] MEDS: PIPERACILLN/TAZ 3.375GM/NS50ML 3.375 GM/50 ML BAG IVPB ×2 (12:58→17:31)
[2023-02-28] MEDS: ALBUTEROL SULFATE NEB 2.5 MG/3 ML INH INHALATION ×2 (12:59→21:40)
--- NOTE | 2023-02-28 13:37 | PCSTNOTE ---
Please refer to the Bedside Swallow Evaluation in the EMR. Please note, silent aspiration cannot be ruled out at bedside.
[2023-02-28] MEDS: SALINE LOCK FLUSH 10 ML IV PUSH ×2 (15:38→20:50)
[2023-02-28 16:47] LABS: Glucose Point of Care 162 mg/dl (65-105)
[2023-02-28] MEDS: AZITHROMYCIN 500 MG/NS 250 ML 500 MG/250 ML BAG 250 MG IVPB (20:49)
[2023-03-01] VITALS (17 sets, daily range): BP systolic 106–142; BP diastolic 51–80; PULSE 78–101; RESP 16–20; TEMP 36.2–36.7; O2SAT 92–97
[2023-03-01] MEDS: PIPERACILLN/TAZ 3.375GM/NS50ML 3.375 GM/50 ML BAG IVPB ×3 (00:10→12:05)
[2023-03-01 00:23] LABS: Glucose Point of Care 106 mg/dl (65-105)
[2023-03-01 05:43] LABS: Basophils Absolute Auto 0.1 K/mm3 (0.0-0.1); Basophils Percent Auto 0.5 % (0.2-1.2); Eosinophils Absolute Auto 0.2 K/mm3 (0-0.3); Eosinophils Percent Auto 1.5 % (0-4.4); Hematocrit 31.5 % (37.0-47.0); Hemoglobin 9.6 g/dL (12.0-15.0); Immature Granulocyte Absolute 0.04 K/mm3 (0.00-0.031); Immature Granulocyte Percent A 0.4 % (0-0.5); Lymphocytes Absolute Auto 3.73 K/mm3 (0.9-3.2); Lymphocytes Percent Auto 38.2 % (18.3-44.2); Mean Corpuscular HGB Conc 30.5 g/dl (32-36); Mean Corpuscular Hemoglobin 27.7 pg (26-34); Mean Corpuscular Volume 90.8 fl (80-100); Mean Platelet Volume 10.4 fl (7.4-10.4); Monocytes Absolute Auto 1.4 K/mm3 (0.1-0.6); Neutrophils Absolute Auto 4.4 K/mm3 (1.3-6.7); Neutrophils Percent Auto 45.4 % (45.5-73.1); Platelet Count Result 289 k/mm3 (150-375); Red Blood Count 3.47 M/mm3 (4.2-5.4); White Blood Count 9.8 K/mm3 (4.5-10.0)
[2023-03-01 05:57] LABS: Anion Gap 9 mmol/L (8-16); Blood Urea Nitrogen 17 mg/dL (7-17); Calcium 8.2 mg/dL (8.4-10.2); Carbon Dioxide 25 mmol/L (22-30); Chloride 104 mmol/L (98-107); Estimated CRCL calculation 44 ml/min; Estimated Glomerular Filt Rate > 60; Glucose 112 mg/dL (65-110); Potassium 3.6 mmol/L (3.4-5.0); Sodium 138 mmol/L (137-145)
[2023-03-01] MEDS: SALINE LOCK FLUSH 10 ML IV PUSH ×3 (06:24→20:26)
[2023-03-01] MEDS: MICAFUNGIN SODIUM 100 MG in SODIUM CHLORIDE 0.9% IV 100 ML IVPB (06:45)
[2023-03-01 07:51] LABS: Glucose Point of Care 109 mg/dl (65-105)
[2023-03-01] MEDS: ATORVASTATIN 5 MG TABLET PO (08:14)
[2023-03-01] MEDS: IPRATROPIUM BR 0.02% INH SOLN 0.5 MG/2.5 ML VIAL INHALATION ×3 (09:06→20:38)
[2023-03-01] MEDS: ALBUTEROL SULFATE NEB 2.5 MG/3 ML INH INHALATION ×3 (09:06→20:41)
--- NOTE | 2023-03-01 09:54 | P.PNIM_ITS ---
Progress Note: A&P Assessment and Plan (1) Elevated troponin: Code(s): R79.89 - Other specified abnormal findings of blood chemistry Status: Acute (2) Severe sepsis: Code(s): A41.9 - Sepsis, unspecified organism; R65.20 - Severe sepsis without septic shock Status: Acute (3) Acute hypoxic respiratory failure: Code(s): J96.01 - Acute respiratory failure with hypoxia Status: Acute (4) Pyelonephritis: Code(s): N12 - Tubulo-interstitial nephritis, not specified as acute or chronic Status: Acute (5) Ureterolithiasis: Code(s): N20.1 - Calculus of ureter Status: Acute (6) DM type 2 (diabetes mellitus, type 2): Qualifiers: Diabetes mellitus complication status: without complication Diabetes mellitus nursing home insulin use: without buttermilk drier operator use Qualified Code(s): E11.9 - Type 2 diabetes mellitus without complications Code(s): E11.9 - Type 2 diabetes mellitus without complications Status: Acute (7) Benign essential hypertension: Code(s): I10 - Essential (primary) hypertension Status: Acute Plan Sepsis, right pyelonephritis, Likely secondary to kidney stone, stent was placed bilaterally Patient has a tachycardia tachypnea, UA shows pyuria hematuria Blood culture grows Gram-negative bacilli Switched from cefepime to Zosyn IV Previous culture grows Bettye glabrata, candidemia patient on micafungin Patient finished 14 days micafungin yesterday blood culture February 22 has no grows, continue micafungin today, follow-up blood culture. Will discontinue micafungin if negative blood culture of Bettye Switch from cefepime to Zosyn IV Consult urologist for evaluation treatment Multifocal pneumonia, acute respiratory failure, COPD exacerbation Patient has on diagnosed COPD, CT shows moderate to advanced emphysema Possible aspiration pneumonia Start Zosyn IV Patient is off BiPAP Start DuoNeb scheduled albuterol nebulizer as needed Now patient on nasal cannular oxygen Refer patient to pulmonology follow-up patient diagnosis Fluid overload Patient had sudden onset respiratory distress, Repeat x-ray today suggests pulmonary congestion Patient is placed on BiPAP and received Lasix 60 mg IV push once off bipap no sign of overlaod now Elevated troponin Patient denies history of CAD, denies chest pain, EKG shows sinus rhythm and right bundle block Possible demand ischemia due to sepsis, fluid overload and respiratory failure Discussed the case with Dr. Branch, substation operator helper generation Telemetry monitoring Management per substation operator helper generation Type 2 diabetes Hold metformin Start insulin sliding scale a.c. q.h.s. He spent 80 minutes for patient care, including reviewed chart, labs, images studies, repeated assessment plans, discussed the case with substation operator helper generation, consult urologist Subjective Date/time seen: 03/01/23 09:54 Interval history: Patient feels better today, denies abdomen pain, nausea vomiting. Patient afebrile overnight Exam Narrative: GENERAL: Ill-appearing, acute respiratory distress. Well-nourished. - EYES: EOMI. Anicteric. - HENT: Moist mucous membranes. - LUNGS: Crackles bilateral base no whe ezing, tachypnea - CARDIOVASCULAR: Regular rate and rhyth m. No murmur. No JVD. Tachycardia - ABDOMEN: Soft, non-tender and non-dist ended. No palpable masses. - EXTREMITIES: No edema. Peripheral puls es 2+. Right flank tender - NEUROLOGIC: No focal neurological defi cits. CN II-XII grossly intact. - PSYCHIATRIC: Awake, Alert and oriented x 3. Appropriate mood and affect. - SKIN: No rashes or lesions. Warm. - LYMPH: No cervical lymphadenopathy. Objective Data Vital Signs Vital Signs: Vital Signs - 24 hr 02/28/23 11:12 02/28/23 11:25 02/28/23 12:00 Temperature 98.1 F 97.8 F Pulse Rate 125 H Respiratory Rate Blood Pressure 184/99 H Pulse Oximetry Oxygen Delivery Oxygen Flow Rate 02/28/23 12:00 02/28/23 12:00 02/28/23 13:00 Temperature 98.8 F Pulse Rate 125 H 119 H Respiratory Rate 20 18 Blood Pressure 119/60 Pulse Oximetry 96 95 97 Oxygen Delivery High Flow Nasal Cannula High Flow Nasal Cannula Oxygen Flow Rate 8 8 02/28/23 13:00 02/28/23 13:10 02/28/23 16:00 Temperature 96.8 F L Pulse Rate 119 H 116 H 103 H Respiratory Rate 18 18 20 Blood Pressure 98/51 L Pulse Oximetry 96 Oxygen Delivery Oxygen Flow Rate 02/28/23 16:00 02/28/23 16:00 02/28/23 20:34 Temperature 97.8 F Pulse Rate 99 91 Respiratory Rate 20 Blood Pressure 102/54 L Pulse Oximetry 91 92 Oxygen Delivery High Flow Nasal Cannula Oxygen Flow Rate 2 02/28/23 21:40 02/28/23 21:48 02/28/23 22:00 Temperature Pulse Rate 94 94 91 Respiratory Rate 18 18 Blood Pressure Pulse Oximetry 97 Oxygen Delivery High Flow Nasal Cannula Oxygen Flow Rate 3 03/01/23 00:00 02/28/23 20:00 03/01/23 00:00 Temperature 97.1 F L Pulse Rate 93 90 91 Respiratory Rate 20 Blood Pressure 106/51 L Pulse Oximetry 94 Oxygen Delivery Oxygen Flow Rate 03/01/23 02:00 03/01/23 04:00 03/01/23 04:00 Temperature 97.4 F L Pulse Rate 100 80 78 Respiratory Rate 20 Blood Pressure 122/52 L Pulse Oximetry 95 Oxygen Delivery Oxygen Flow Rate 03/01/23 06:00 03/01/23 07:45 03/01/23 09:00 Temperature 97.4 F L Pulse Rate 82 89 93 Respiratory Rate 16 18 Blood Pressure 110/51 L Pulse Oximetry 94 Oxygen Delivery Oxygen Flow Rate 03/01/23 09:00 03/01/23 09:12 Temperature Pulse Rate Respiratory Rate Blood Pressure Pulse Oximetry 97 95 Oxygen Delivery High Flow Nasal Cannula High Flow Nasal Cannula Oxygen Flow Rate 2 1 Intake/Output Intake/Output: Intake & Output 02/26/23 02/27/23 02/28/23 03/01/23 23:59 23:59 23:59 23:59 Intake Total 2150 2300 640 Output Total 5400 1450 Balance 2150 -3100 -810 Meds/Results Medications: Active Medications Generic Name Dose Route Start Last Admin Trade Name Freq PRN Reason Stop Dose Admin Albuterol 2.5 mg 02/28/23 14:00 03/01/23 09:06 Albuterol Sulfate Neb 2.5 Mg/3 Ml Inh INHALATION 2.5 mg Q6HRT BUTCH Administration Albuterol 2.5 mg 02/28/23 11:10 Albuterol Sulfate Neb 2.5 Mg/3 Ml Inh INHALATION Q4HRT PRN Shortness Of Breath Or Wheezing Atorvastatin Calcium 5 mg 03/01/23 09:00 03/01/23 08:14 Atorvastatin 5 Mg Tablet PO 5 mg DAILY BUTCH Administration Dextrose 12.5 gm 02/28/23 13:54 Dextrose 50% 25 Gm/50 Ml Syringe IV PUSH PRN PRN Hypoglycemia Protocol Glucagon 1 mg 02/28/23 13:54 Glucagon For Inj 1 Mg Vial IM PRN PRN Hypoglycemia Protocol Glucose 15 gm 02/28/23 13:54 Glucose Oral Gel 15 Gm Of Glucse In 37.5 Gm Tube PO PRN PRN Hypoglycemia Protocol Azithromycin 500 mg in 250 mls @ 250 mls/hr 02/28/23 22:00 02/28/23 21:50 Zithromax IVPB Infused Q24H BUTCH Infusion Micafungin Sodium 100 mg/ 100 mls @ 100 mls/hr 02/28/23 01:00 03/01/23 06:45 Sodium Chloride IVPB 100 mls/hr Q24H BUTCH Administration Piperacillin/Tazobactam/Dextrose 3.375 gm in 50 mls @ 100 mls/hr 02/28/23 12:00 03/01/23 06:23 Zosyn 3.375 Gm/Ns 50 Ml IVPB 100 mls/hr Q6H BUTCH Administration Dextrose 1,000 mls @ 100 mls/hr 02/28/23 13:54 Dextrose 5% 1,000 Ml IVPB PRN PRN Hypoglycemia Protocol Insulin Aspart 4 - 8 units 02/28/23 17:00 03/01/23 07:59 Insulin Aspart (*Bkc) 100 Units/Ml SUB-Q Not Given TIDWM BUTCH Protocol Ipratropium Boyd 0.5 mg 02/28/23 14:00 03/01/23 09:06 Ipratropium Br 0.02% Inh Soln 0.5 Mg/2.5 Ml Vial INHALATION 0.5 mg Q6HRT BUTCH Administration Perflutren Lipid Microsphere 0 ml 02/28/23 11:10 Perflutren Lipid Microspheres 1.5 Ml Vial Diluted To 10 Ml Total Volume IV PUSH 03/03/23 11:12 ONCE PRN adequate visualization Protocol Sodium Chloride 10 ml 02/28/23 14:00 03/01/23 06:24 Saline Lock Flush IV PUSH 10 ml Q8HR BUTCH Administration Sodium Chloride 10 ml 02/28/23 09:22 Saline Lock Flush IV PUSH PRN PRN Flush Sodium Chloride 20 ml 02/28/23 09:22 Saline Lock Flush IV PUSH PRN PRN after blood draws Radiology Results: ITS Impressions Abdomen/Pelvis CT 02/27/23 19:40 IMPRESSION: Small right pleural effusion. Moderate esophagitis/gastritis. Nodular liver border as can be seen with cirrhosis. Gallbladder hydrops, without inflammatory change, cholelithiasis, or biliary duct dilation. Findings suspicious for right pyelonephritis. Cystitis. Bilateral ureteral stents with stable left UVJ and right distal ureteral stones. Chest CTA 02/28/23 05:46 Impression: No evidence of pulmonary embolus, aortic dissection, or aortic aneurysm. Diffuse groundglass opacity at the left lung, with interlobular septal thickening bilaterally, left worse than right. Findings suggest asymmetric pulmonary edema. Correlate clinically for pneumonia. Minimal pleural effusions and minimal bibasilar atelectasis. Moderate to advanced underlying emphysema. Chest X-Ray 02/28/23 11:12 Impression: Diffuse groundglass and interstitial disease. Correlate for pulmonary edema and/or chronic interstitial disease. Infection not excluded. Probable small right pleural effusion. Labs Labs: Laboratory Results - last 24 hr 02/28/23 02/28/23 02/28/23 11:10 11:49 16:39 WBC 4.9 RBC 3.81 L Hgb 10.5 L Hct 34.7 L MCV 91.1 MCH 27.6 MCHC 30.3 L RDW 17.2 H Plt Count 356 MPV 9.5 Immature Gran % (Auto) 0.2 Neut % (Auto) 81.5 H Lymph % (Auto) 16.3 L Benzie % (Auto) 1.2 L Eos % (Auto) 0.2 Baso % (Auto) 0.6 Lymph # (Auto) 0.79 L Benzie # (Auto) 0.1 Eos # (Auto) 0.0 Baso # (Auto) 0.0 Abs Immat Gran (auto) 0.01 Absolute Neuts (auto) 4.0 Absolute Nucleated RBC 0.0 Nucleated RBC % 0.0 Puncture Site Right radial ABG pH 7.412 ABG pCO2 31.3 L ABG pO2 77.5 L ABG PO2/FiO2 Ratio 1.49 ABG HCO3 19.5 L ABG O2 Saturation 95.8 ABG O2 Content 17.1 ABG Base Excess -4.1 A-a Gradient 258.2 Oxyhemoglobin 94.7 Total Hemoglobin 12.8 O2 Delivery Device High flow nasal raoul O2 Liters/Min 8.0 FiO2 52 Sodium 137 Potassium 3.6 Chloride 103 Carbon Dioxide 23 Anion Gap 11 BUN 16 Creatinine 0.60 L Estim Creat Clear Calc 58 Estimated GFR > 60 Glucose 132 H POC Capillary Glucose 162 H Lactic Acid 1.6 Calcium 8.5 Total Bilirubin 1.2 AST 41 H ALT 21 Alkaline Phosphatase 108 Total Protein 8.0 Albumin 4.0 03/01/23 03/01/23 03/01/23 00:21 04:30 07:48 WBC 9.8 RBC 3.47 L Hgb 9.6 L Hct 31.5 L MCV 90.8 MCH 27.7 MCHC 30.5 L RDW 17.0 H Plt Count 289 MPV 10.4 Immature Gran % (Auto) 0.4 Neut % (Auto) 45.4 L Lymph % (Auto) 38.2 Benzie % (Auto) 14.0 H Eos % (Auto) 1.5 Baso % (Auto) 0.5 Lymph # (Auto) 3.73 H Benzie # (Auto) 1.4 H Eos # (Auto) 0.2 Baso # (Auto) 0.1 Abs Immat Gran (auto) 0.04 H Absolute Neuts (auto) 4.4 Absolute Nucleated RBC 0.0 Nucleated RBC % 0.0 Puncture Site ABG pH ABG pCO2 ABG pO2 ABG PO2/FiO2 Ratio ABG HCO3 ABG O2 Saturation ABG O2 Content ABG Base Excess A-a Gradient Oxyhemoglobin Total Hemoglobin O2 Delivery Device O2 Liters/Min FiO2 Sodium 138 Potassium 3.6 Chloride 104 Carbon Dioxide 25 Anion Gap 9 BUN 17 Creatinine 0.80 Estim Creat Clear Calc 44 Estimated GFR > 60 Glucose 112 H POC Capillary Glucose 106 H 109 H Lactic Acid Calcium 8.2 L Total Bilirubin AST ALT Alkaline Phosphatase Total Protein Albumin
[2023-03-01 12:40] LABS: Glucose Point of Care 199 mg/dl (65-105)
[2023-03-01] MEDS: CEFEPIME 2 GM/NS 50 ML 2 GM/50 ML BAG IVPB (16:22)
[2023-03-01 16:32] LABS: Glucose Point of Care 98 mg/dl (65-105)
[2023-03-01 20:00] LABS: Glucose Point of Care 138 mg/dl (65-105)
[2023-03-01] MEDS: AZITHROMYCIN 250 MG TABLET 500 MG PO (20:26)
--- NOTE | 2023-03-01 22:38 | PC.NURSE ---
This patient, Margaret Funez, was transferred to [facility] on 03/01/23 at 2215. Personal belongings sent with patient. Report given to Radha LARIOS. Appropriate documentation sent with patient.
[2023-03-02] VITALS (12 sets, daily range): BP systolic 141; BP diastolic 70–75; PULSE 18–97; RESP 16–22; TEMP 36–36.8; O2SAT 93–96
[2023-03-02] MEDS: ALBUTEROL SULFATE NEB 2.5 MG/3 ML INH INHALATION ×4 (03:20→19:47)
[2023-03-02] MEDS: IPRATROPIUM BR 0.02% INH SOLN 0.5 MG/2.5 ML VIAL INHALATION ×4 (03:20→19:47)
[2023-03-02] MEDS: CEFEPIME 2 GM/NS 50 ML 2 GM/50 ML BAG IVPB ×2 (04:57→15:21)
[2023-03-02] MEDS: SALINE LOCK FLUSH 10 ML IV PUSH ×3 (05:00→21:40)
[2023-03-02] MEDS: ATORVASTATIN 5 MG TABLET PO (08:35)
[2023-03-02 08:37] LABS: Glucose Point of Care 114 mg/dl (65-105)
--- NOTE | 2023-03-02 08:53 | P.PNIM_ITS ---
Progress Note: A&P Assessment and Plan (1) Elevated troponin: Code(s): R79.89 - Other specified abnormal findings of blood chemistry Status: Acute (2) Severe sepsis: Code(s): A41.9 - Sepsis, unspecified organism; R65.20 - Severe sepsis without septic shock Status: Acute (3) Acute hypoxic respiratory failure: Code(s): J96.01 - Acute respiratory failure with hypoxia Status: Acute (4) Pyelonephritis: Code(s): N12 - Tubulo-interstitial nephritis, not specified as acute or chronic Status: Acute (5) Ureterolithiasis: Code(s): N20.1 - Calculus of ureter Status: Acute (6) DM type 2 (diabetes mellitus, type 2): Qualifiers: Diabetes mellitus complication status: without complication Diabetes mellitus senior living insulin use: without senior living use Qualified Code(s): E11.9 - Type 2 diabetes mellitus without complications Code(s): E11.9 - Type 2 diabetes mellitus without complications Status: Acute (7) Benign essential hypertension: Code(s): I10 - Essential (primary) hypertension Status: Acute Plan Sepsis, right pyelonephritis, Likely secondary to kidney stone, stent was placed bilaterally Patient has a tachycardia tachypnea, UA shows pyuria hematuria Blood culture grows Gram-negative bacilli Switched from cefepime to Zosyn IV Previous culture grows Bettye glabrata, candidemia patient on micafungin Patient finished 14 days micafungin yesterday blood culture February 22 has no grows, continue micafungin today, follow-up blood culture. Will discontinued micafungin, negative blood culture of Bettye 03/01/23 Switch back to cefepime from Zosyn IV per ID pharmacist recommendation, blood culture grows Enterobacter, pending susceptibility, urine culture susceptible to cefepime, resistant to Zosyn Consult urologist for evaluation treatment. Urologist plans stone extraction procedure as scheduled next week Multifocal pneumonia, acute respiratory failure, COPD exacerbation Patient has on diagnosed COPD, CT shows moderate to advanced emphysema Possible aspiration pneumonia Start Zosyn IV Patient is off BiPAP Start DuoNeb scheduled albuterol nebulizer as needed Now patient on nasal cannular oxygen Refer patient to pulmonology follow-up outpatient diagnosis Fluid overload Patient had sudden onset respiratory distress, Repeat x-ray today suggests pulmonary congestion Patient is placed on BiPAP and received Lasix 60 mg IV push once off bipap no sign of overlaod now No sign of fluid overload now Elevated troponin Patient denies history of CAD, denies chest pain, EKG shows sinus rhythm and right bundle block Possible demanding ischemia due to sepsis, fluid overload and respiratory failure Discussed the case with Dr. Branch, fruit farmworker Telemetry monitoring No further cardiac workup per fruit farmworker recommendation Type 2 diabetes Hold metformin Start insulin sliding scale a.c. q.h.s. Subjective Date/time seen: 03/02/23 08:53 Interval history: Patient feels better today, denies abdomen pain, nausea vomiting. Patient denies chest pain, shortness of breath, headache., patient afebrile overnight, patient is hemodynamically stable Exam Narrative: GENERAL: Ill-appearing, acute respiratory distress. Well-nourished. - EYES: EOMI. Anicteric. - HENT: Moist mucous membranes. - LUNGS: Clear bilaterally no wheezing, tachypnea - CARDIOVASCULAR: Regular rate and rhyth m. No murmur. No JVD. Tachycardia - ABDOMEN: Soft, non-tender and non-dist ended. No palpable masses. - EXTREMITIES: No edema. Peripheral puls es 2+. Right flank tender - NEUROLOGIC: No focal neurological defi cits. CN II-XII grossly intact. - PSYCHIATRIC: Awake, Alert and oriented x 3. Appropriate mood and affect. - SKIN: No rashes or lesions. Warm. - LYMPH: No cervical lymphadenopathy. Objective Data Vital Signs Vital Signs: Vital Signs - 24 hr 03/01/23 09:00 03/01/23 09:00 03/01/23 09:12 Temperature Pulse Rate 93 Respiratory Rate 18 Blood Pressure Pulse Oximetry 97 95 Oxygen Delivery High Flow Nasal Cannula High Flow Nasal Cannula Oxygen Flow Rate 2 1 03/01/23 10:00 03/01/23 13:58 03/01/23 14:12 Temperature Pulse Rate 100 87 80 Respiratory Rate 18 18 Blood Pressure Pulse Oximetry Oxygen Delivery Oxygen Flow Rate 03/01/23 16:00 03/01/23 19:50 03/01/23 20:00 Temperature 98.1 F 98.1 F Pulse Rate 97 101 H Respiratory Rate 18 18 Blood Pressure 142/75 H 136/80 Pulse Oximetry 92 95 94 Oxygen Delivery Nasal Cannula Oxygen Flow Rate 0.5 03/01/23 20:42 03/01/23 20:43 03/01/23 20:56 Temperature Pulse Rate 84 86 Respiratory Rate 18 18 Blood Pressure Pulse Oximetry 96 Oxygen Delivery High Flow Nasal Cannula Oxygen Flow Rate 0.5 03/02/23 03:20 03/02/23 03:32 03/02/23 07:25 Temperature Pulse Rate 82 18 L 93 Respiratory Rate 18 18 Blood Pressure Pulse Oximetry 93 Oxygen Delivery Nasal Cannula Oxygen Flow Rate 1 03/02/23 07:25 03/02/23 07:35 03/02/23 08:00 Temperature Pulse Rate 92 94 Respiratory Rate 18 18 Blood Pressure Pulse Oximetry 93 Oxygen Delivery Nasal Cannula Oxygen Flow Rate 0.5 Intake/Output Intake/Output: Intake & Output 02/27/23 02/28/23 03/01/23 03/02/23 23:59 23:59 23:59 23:59 Intake Total 2150 2300 1220 300 Output Total 5400 3850 900 Balance 2150 -3100 -2630 -600 Meds/Results Medications: Active Medications Generic Name Dose Route Start Last Admin Trade Name Freq PRN Reason Stop Dose Admin Albuterol 2.5 mg 02/28/23 14:00 03/02/23 07:26 Albuterol Sulfate Neb 2.5 Mg/3 Ml Inh INHALATION 2.5 mg Q6HRT BUTCH Administration Albuterol 2.5 mg 02/28/23 11:10 Albuterol Sulfate Neb 2.5 Mg/3 Ml Inh INHALATION Q4HRT PRN Shortness Of Breath Or Wheezing Atorvastatin Calcium 5 mg 03/01/23 09:00 03/02/23 08:35 Atorvastatin 5 Mg Tablet PO 5 mg DAILY BUTCH Administration Azithromycin 500 mg 03/01/23 21:00 03/01/23 20:26 Azithromycin 250 Mg Tablet PO 03/03/23 21:01 500 mg DAILY@2100 BUTCH Administration Dextrose 12.5 gm 02/28/23 13:54 Dextrose 50% 25 Gm/50 Ml Syringe IV PUSH PRN PRN Hypoglycemia Protocol Glucagon 1 mg 02/28/23 13:54 Glucagon For Inj 1 Mg Vial IM PRN PRN Hypoglycemia Protocol Glucose 15 gm 02/28/23 13:54 Glucose Oral Gel 15 Gm Of Glucse In 37.5 Gm Tube PO PRN PRN Hypoglycemia Protocol Dextrose 1,000 mls @ 100 mls/hr 02/28/23 13:54 Dextrose 5% 1,000 Ml IVPB PRN PRN Hypoglycemia Protocol Cefepime HCl 2 gm in 50 mls @ 100 mls/hr 03/01/23 16:00 03/02/23 04:57 Maxipime 2 Gm/Ns 50 Ml IVPB 100 mls/hr Q12H BUTCH Administration Insulin Aspart 4 - 8 units 02/28/23 17:00 03/02/23 08:35 Insulin Aspart (*Bkc) 100 Units/Ml SUB-Q Not Given TIDWM BUTCH Protocol Ipratropium [place] 0.5 mg 02/28/23 14:00 03/02/23 07:26 Ipratropium Br 0.02% Inh Soln 0.5 Mg/2.5 Ml Vial INHALATION 0.5 mg Q6HRT BUTCH Administration Perflutren Lipid Microsphere 0 ml 02/28/23 11:10 Perflutren Lipid Microspheres 1.5 Ml Vial Diluted To 10 Ml Total Volume IV PUSH 03/03/23 11:12 ONCE PRN adequate visualization Protocol Sodium Chloride 10 ml 02/28/23 14:00 03/02/23 05:00 Saline Lock Flush IV PUSH 10 ml Q8HR BUTCH Administration Sodium Chloride 10 ml 02/28/23 09:22 Saline Lock Flush IV PUSH PRN PRN Flush Sodium Chloride 20 ml 02/28/23 09:22 Saline Lock Flush IV PUSH PRN PRN after blood draws Radiology Results: ITS Impressions Abdomen/Pelvis CT 02/27/23 19:40 IMPRESSION: Small right pleural effusion. Moderate esophagitis/gastritis. Nodular liver border as can be seen with cirrhosis. Gallbladder hydrops, without inflammatory change, cholelithiasis, or biliary duct dilation. Findings suspicious for right pyelonephritis. Cystitis. Bilateral ureteral stents with stable left UVJ and right distal ureteral stones. Chest CTA 02/28/23 05:46 Impression: No evidence of pulmonary embolus, aortic dissection, or aortic aneurysm. Diffuse groundglass opacity at the left lung, with interlobular septal thickening bilaterally, left worse than right. Findings suggest asymmetric pulmonary edema. Correlate clinically for pneumonia. Minimal pleural effusions and minimal bibasilar atelectasis. Moderate to advanced underlying emphysema. Chest X-Ray 02/28/23 11:12 Impression: Diffuse groundglass and interstitial disease. Correlate for pulmonary edema and/or chronic interstitial disease. Infection not excluded. Probable small right pleural effusion. Labs Labs: Laboratory Results - last 24 hr 03/01/23 03/01/23 03/01/23 12:34 16:23 19:55 POC Capillary Glucose 199 H 98 138 H 03/02/23 08:34 POC Capillary Glucose 114 H
[2023-03-02 09:14] LABS: Basophils Absolute Auto 0.1 K/mm3 (0.0-0.1); Basophils Percent Auto 0.7 % (0.2-1.2); Eosinophils Absolute Auto 0.1 K/mm3 (0-0.3); Eosinophils Percent Auto 1.6 % (0-4.4); Hematocrit 33.2 % (37.0-47.0); Hemoglobin 10.1 g/dL (12.0-15.0); Immature Granulocyte Absolute 0.03 K/mm3 (0.00-0.031); Immature Granulocyte Percent A 0.4 % (0-0.5); Lymphocytes Absolute Auto 3.23 K/mm3 (0.9-3.2); Lymphocytes Percent Auto 42.8 % (18.3-44.2); Mean Corpuscular HGB Conc 30.4 g/dl (32-36); Mean Platelet Volume 9.6 fl (7.4-10.4); Monocytes Absolute Auto 0.9 K/mm3 (0.1-0.6); Monocytes Percent Auto 12.1 % (2.6-8.5); Neutrophils Absolute Auto 3.2 K/mm3 (1.3-6.7); Neutrophils Percent Auto 42.4 % (45.5-73.1); Platelet Count Result 312 k/mm3 (150-375); Red Blood Count 3.61 M/mm3 (4.2-5.4); Red Cell Distribution Width 16.6 % (11.5-14.5); White Blood Count 7.6 K/mm3 (4.5-10.0)
[2023-03-02 09:23] LABS: Anion Gap 8 mmol/L (8-16); Blood Urea Nitrogen 14 mg/dL (7-17); Calcium 8.6 mg/dL (8.4-10.2); Carbon Dioxide 25 mmol/L (22-30); Chloride 107 mmol/L (98-107); Estimated CRCL calculation 68 ml/min; Estimated Glomerular Filt Rate > 60; Glucose 123 mg/dL (65-110); Potassium 3.8 mmol/L (3.4-5.0); Sodium 140 mmol/L (137-145)
[2023-03-02 11:54] LABS: Glucose Point of Care 126 mg/dl (65-105)
[2023-03-02 17:17] LABS: Glucose Point of Care 101 mg/dl (65-105)
[2023-03-02] MEDS: AZITHROMYCIN 250 MG TABLET 500 MG PO (20:06)
[2023-03-02 20:31] LABS: Glucose Point of Care 155 mg/dl (65-105)
[2023-03-03] VITALS (14 sets, daily range): BP systolic 125–160; BP diastolic 57–78; PULSE 83–103; RESP 16–20; TEMP 36.9–37.2; O2SAT 91–95
[2023-03-03] MEDS: IPRATROPIUM BR 0.02% INH SOLN 0.5 MG/2.5 ML VIAL INHALATION ×4 (01:54→20:22)
[2023-03-03] MEDS: ALBUTEROL SULFATE NEB 2.5 MG/3 ML INH INHALATION ×4 (01:54→20:22)
[2023-03-03] MEDS: CEFEPIME 2 GM/NS 50 ML 2 GM/50 ML BAG IVPB ×2 (05:29→16:26)
[2023-03-03] MEDS: SALINE LOCK FLUSH 10 ML IV PUSH ×3 (05:36→22:01)
[2023-03-03 05:59] LABS: Anion Gap 9 mmol/L (8-16); Basophils Absolute Auto 0.1 K/mm3 (0.0-0.1); Basophils Percent Auto 0.7 % (0.2-1.2); Blood Urea Nitrogen 10 mg/dL (7-17); Calcium 8.7 mg/dL (8.4-10.2); Carbon Dioxide 23 mmol/L (22-30); Chloride 109 mmol/L (98-107); Eosinophils Absolute Auto 0.1 K/mm3 (0-0.3); Eosinophils Percent Auto 1.5 % (0-4.4); Estimated CRCL calculation 68 ml/min; Estimated Glomerular Filt Rate > 60; Glucose 123 mg/dL (65-110); Hematocrit 32.3 % (37.0-47.0); Immature Granulocyte Absolute 0.02 K/mm3 (0.00-0.031); Immature Granulocyte Percent A 0.2 % (0-0.5); Lymphocytes Absolute Auto 4.64 K/mm3 (0.9-3.2); Lymphocytes Percent Auto 52.6 % (18.3-44.2); Mean Corpuscular Hemoglobin 27.2 pg (26-34); Mean Platelet Volume 9.7 fl (7.4-10.4); Monocytes Percent Auto 11.7 % (2.6-8.5); Neutrophils Absolute Auto 2.9 K/mm3 (1.3-6.7); Neutrophils Percent Auto 33.3 % (45.5-73.1); Platelet Count Result 354 k/mm3 (150-375); Potassium 3.5 mmol/L (3.4-5.0); Red Blood Count 3.67 M/mm3 (4.2-5.4); Red Cell Distribution Width 16.2 % (11.5-14.5); Sodium 141 mmol/L (137-145); White Blood Count 8.8 K/mm3 (4.5-10.0)
[2023-03-03] MEDS: ATORVASTATIN 5 MG TABLET PO (08:19)
[2023-03-03 08:26] LABS: Glucose Point of Care 124 mg/dl (65-105)
[2023-03-03] MEDS: ACETAMINOPHEN 325 MG TABLET PO (08:36)
[2023-03-03 11:35] LABS: Glucose Point of Care 159 mg/dl (65-105)
--- NOTE | 2023-03-03 14:11 | P.PNIM_ITS ---
Progress Note: A&P Assessment and Plan (1) Severe sepsis: Code(s): A41.9 - Sepsis, unspecified organism; R65.20 - Severe sepsis without septic shock Status: Acute Assessment and Plan: * Sepsis, Likely secondary to kidney stone, stent was placed bilaterally * Patient VS stable * UA shows pyuria hematuria * Blood culture grows Gram-negative bacilli * Previous culture grows Bettye glabrata, candidemia patient on micafungin * blood culture grows Enterobacter * Continue cefepime (2) Acute hypoxic respiratory failure: Code(s): J96.01 - Acute respiratory failure with hypoxia Status: Acute Assessment and Plan: * CT shows moderate to advanced emphysema * Possible aspiration pneumonia * Continue cefepime * Patient is off BiPAP * DuoNeb scheduled albuterol nebulizer as needed * Refer patient to pulmonology follow-up outpatient diagnosis (3) Pyelonephritis: Code(s): N12 - Tubulo-interstitial nephritis, not specified as acute or chronic Status: Acute Assessment and Plan: * urology following * continue cefepime * repeat UA clear * bilateral stent in place from 02/13 (4) Ureterolithiasis: Code(s): N20.1 - Calculus of ureter Status: Acute Assessment and Plan: * urology following * plan for stone extraction next week (5) DM type 2 (diabetes mellitus, type 2): Qualifiers: Diabetes mellitus parts counterman insulin use: without parts counterman use Diabetes mellitus complication status: without complication Qualified Code(s): E11.9 - Type 2 diabetes mellitus without complications Code(s): E11.9 - Type 2 diabetes mellitus without complications Status: Chronic Assessment and Plan: * Hold metformin * insulin sliding scale, a.c. q.h.s, hypoglycemic protocol (6) Benign essential hypertension: Code(s): I10 - Essential (primary) hypertension Status: Chronic Assessment and Plan: * continue home meds Plan Elevated troponin Patient denies history of CAD EKG shows sinus rhythm and right bundle block Possible demanding ischemia due to sepsis, fluid overload and respiratory failure Discussed the case with Dr. Branch, manager demand - No further cardiac workup per manager demand recommendation Subjective Date/time seen: 03/03/23 14:11 Interval history: Patient feels better today, denies abdomen pain, nausea or vomiting. She reports having a headache this morning, but is now resolved. VS have remained stable. Urology following, plan for stone extraction next week. Will continue to monitor. Second set of BC still pending. Review of Systems Review of Systems: All systems reviewed & are unremarkable except as noted in HPI and below Exam Narrative: GENERAL: well-appearing, acute respiratory distress. Well-nourished. - EYES: EOMI. PERRLA. - HENT: Moist mucous membranes. - LUNGS: Clear to auscultation bilateral ly, no wheezing - CARDIOVASCULAR: RRR. No murmur. No JVD . - ABDOMEN: Soft, non-tender and non-dist ended. No palpable masses. Mild right flank tenderness. - EXTREMITIES: No edema. Pedal pulses. - NEUROLOGIC: A&O x 3. No focal neurolog ical deficits. CN II-XII grossly intact. - PSYCHIATRIC: Appropriate mood and affe ct. - SKIN: No rashes or lesions. Warm. Objective Data Vital Signs Vital Signs: Vital Signs - 24 hr 03/02/23 15:57 03/02/23 19:48 03/02/23 20:00 Temperature 97.7 F Pulse Rate 88 84 Respiratory Rate 22 H 18 Blood Pressure 141/75 H Pulse Oximetry 94 Oxygen Delivery Room Air 03/02/23 23:52 03/03/23 01:55 03/03/23 02:03 Temperature 98.2 F Pulse Rate 97 83 85 Respiratory Rate 16 18 18 Blood Pressure 141/70 H Pulse Oximetry 93 Oxygen Delivery 03/02/23 20:15 03/03/23 03:05 03/03/23 08:35 Temperature 98.4 F Pulse Rate 84 99 Respiratory Rate 18 17 Blood Pressure 125/57 L Pulse Oximetry 91 Oxygen Delivery Room Air 03/03/23 09:33 03/03/23 09:35 03/03/23 09:51 Temperature Pulse Rate 84 103 H Respiratory Rate 20 20 Blood Pressure Pulse Oximetry 92 Oxygen Delivery Room Air 03/03/23 10:53 03/03/23 11:00 03/03/23 11:19 Temperature 98.9 F Pulse Rate 97 Respiratory Rate 16 Blood Pressure 143/78 H Pulse Oximetry 94 Oxygen Delivery Room Air Room Air Intake/Output Intake/Output: Intake & Output 02/28/23 03/01/23 03/02/23 03/03/23 23:59 23:59 23:59 23:59 Intake Total 2300 1220 1840 710 Output Total 5400 3850 2200 1850 Balance 3100 -2630 -360 -1140 Meds/Results Medications: Active Medications Generic Name Dose Route Start Last Admin Trade Name Freq PRN Reason Stop Dose Admin Acetaminophen 325 mg 03/03/23 08:23 03/03/23 08:36 Acetaminophen 325 Mg Tablet PO 325 mg Q6H PRN Administration Mild Pain (1-3) or Fever Albuterol 2.5 mg 02/28/23 14:00 03/03/23 09:33 Albuterol Sulfate Neb 2.5 Mg/3 Ml Inh INHALATION 2.5 mg Q6HRT BUTCH Administration Albuterol 2.5 mg 02/28/23 11:10 Albuterol Sulfate Neb 2.5 Mg/3 Ml Inh INHALATION Q4HRT PRN Shortness Of Breath Or Wheezing Atorvastatin Calcium 5 mg 03/01/23 09:00 03/03/23 08:19 Atorvastatin 5 Mg Tablet PO 5 mg DAILY BUTCH Administration Azithromycin 500 mg 03/01/23 21:00 03/02/23 20:06 Azithromycin 250 Mg Tablet PO 03/03/23 21:01 500 mg DAILY@2100 BUTCH Administration Dextrose 12.5 gm 02/28/23 13:54 Dextrose 50% 25 Gm/50 Ml Syringe IV PUSH PRN PRN Hypoglycemia Protocol Glucagon 1 mg 02/28/23 13:54 Glucagon For Inj 1 Mg Vial IM PRN PRN Hypoglycemia Protocol Glucose 15 gm 02/28/23 13:54 Glucose Oral Gel 15 Gm Of Glucse In 37.5 Gm Tube PO PRN PRN Hypoglycemia Protocol Dextrose 1,000 mls @ 100 mls/hr 02/28/23 13:54 Dextrose 5% 1,000 Ml IVPB PRN PRN Hypoglycemia Protocol Cefepime HCl 2 gm in 50 mls @ 100 mls/hr 03/01/23 16:00 03/03/23 05:29 Maxipime 2 Gm/Ns 50 Ml IVPB 100 mls/hr Q12H BUTCH Administration Insulin Aspart 4 - 8 units 02/28/23 17:00 03/03/23 11:44 Insulin Aspart (*Bkc) 100 Units/Ml SUB-Q Not Given TIDWM BUTCH Protocol Ipratropium [place] 0.5 mg 02/28/23 14:00 03/03/23 09:33 Ipratropium Br 0.02% Inh Soln 0.5 Mg/2.5 Ml Vial INHALATION 0.5 mg Q6HRT BUTCH Administration Sodium Chloride 10 ml 02/28/23 14:00 03/03/23 05:36 Saline Lock Flush IV PUSH 10 ml Q8HR BUTCH Administration Sodium Chloride 10 ml 02/28/23 09:22 Saline Lock Flush IV PUSH PRN PRN Flush Sodium Chloride 20 ml 02/28/23 09:22 Saline Lock Flush IV PUSH PRN PRN after blood draws Radiology Results: ITS Impressions Abdomen/Pelvis CT 02/27/23 19:40 IMPRESSION: Small right pleural effusion. Moderate esophagitis/gastritis. Nodular liver border as can be seen with cirrhosis. Gallbladder hydrops, without inflammatory change, cholelithiasis, or biliary duct dilation. Findings suspicious for right pyelonephritis. Cystitis. Bilateral ureteral stents with stable left UVJ and right distal ureteral stones. Chest CTA 02/28/23 05:46 Impression: No evidence of pulmonary embolus, aortic dissection, or aortic aneurysm. Diffuse groundglass opacity at the left lung, with interlobular septal thickening bilaterally, left worse than right. Findings suggest asymmetric pulmonary edema. Correlate clinically for pneumonia. Minimal pleural effusions and minimal bibasilar atelectasis. Moderate to advanced underlying emphysema. Chest X-Ray 02/28/23 11:12 Impression: Diffuse groundglass and interstitial disease. Correlate for pulmonary edema and/or chronic interstitial disease. Infection not excluded. Probable small right pleural effusion. Labs Labs: Laboratory Results - last 24 hr 03/02/23 03/02/23 03/03/23 17:05 20:28 05:38 WBC 8.8 RBC 3.67 L Hgb 10.0 L Hct 32.3 L MCV 88.0 MCH 27.2 MCHC 31.0 L RDW 16.2 H Plt Count 354 MPV 9.7 Immature Gran % (Auto) 0.2 Neut % (Auto) 33.3 L Lymph % (Auto) 52.6 H [place] % (Auto) 11.7 H Eos % (Auto) 1.5 Baso % (Auto) 0.7 Lymph # (Auto) 4.64 H [place] # (Auto) 1.0 H Eos # (Auto) 0.1 Baso # (Auto) 0.1 Abs Immat Gran (auto) 0.02 Absolute Neuts (auto) 2.9 Absolute Nucleated RBC 0.0 Nucleated RBC % 0.0 Sodium 141 Potassium 3.5 Chloride 109 H Carbon Dioxide 23 Anion Gap 9 BUN 10 Creatinine 0.50 L Estim Creat Clear Calc 68 Estimated GFR > 60 Glucose 123 H POC Capillary Glucose 101 155 H Calcium 8.7 03/03/23 03/03/23 08:21 11:21 WBC RBC Hgb Hct MCV MCH MCHC RDW Plt Count MPV Immature Gran % (Auto) Neut % (Auto) Lymph % (Auto) [place] % (Auto) Eos % (Auto) Baso % (Auto) Lymph # (Auto) [place] # (Auto) Eos # (Auto) Baso # (Auto) Abs Immat Gran (auto) Absolute Neuts (auto) Absolute Nucleated RBC Nucleated RBC % Sodium Potassium Chloride Carbon Dioxide Anion Gap BUN Creatinine Estim Creat Clear Calc Estimated GFR Glucose POC Capillary Glucose 124 H 159 H Calcium Quality VTE Prophylaxis VTE prophylaxis: mechanical ordered
[2023-03-03 16:58] LABS: Glucose Point of Care 111 mg/dl (65-105)
[2023-03-03 20:16] LABS: Glucose Point of Care 142 mg/dl (65-105)
[2023-03-03] MEDS: AZITHROMYCIN 250 MG TABLET 500 MG PO (22:01)
[2023-03-04] VITALS (13 sets, daily range): BP systolic 128–162; BP diastolic 68–89; PULSE 93–108; RESP 15–18; TEMP 36.4–36.9; O2SAT 92–97
[2023-03-04] MEDS: ALBUTEROL SULFATE NEB 2.5 MG/3 ML INH INHALATION ×4 (02:16→19:44)
[2023-03-04] MEDS: IPRATROPIUM BR 0.02% INH SOLN 0.5 MG/2.5 ML VIAL INHALATION ×4 (02:16→19:44)
[2023-03-04] MEDS: CEFEPIME 2 GM/NS 50 ML 2 GM/50 ML BAG IVPB ×2 (04:50→16:09)
[2023-03-04 05:42] LABS: Basophils Absolute Auto 0.1 K/mm3 (0.0-0.1); Basophils Percent Auto 0.9 % (0.2-1.2); Eosinophils Absolute Auto 0.2 K/mm3 (0-0.3); Eosinophils Percent Auto 2.4 % (0-4.4); Hematocrit 33.5 % (37.0-47.0); Hemoglobin 10.4 g/dL (12.0-15.0); Immature Granulocyte Absolute 0.06 K/mm3 (0.00-0.031); Immature Granulocyte Percent A 0.6 % (0-0.5); Lymphocytes Absolute Auto 5.32 K/mm3 (0.9-3.2); Lymphocytes Percent Auto 55.9 % (18.3-44.2); Mean Corpuscular Hemoglobin 27.4 pg (26-34); Mean Corpuscular Volume 88.2 fl (80-100); Mean Platelet Volume 9.6 fl (7.4-10.4); Monocytes Absolute Auto 1.1 K/mm3 (0.1-0.6); Monocytes Percent Auto 11.3 % (2.6-8.5); Neutrophils Absolute Auto 2.7 K/mm3 (1.3-6.7); Neutrophils Percent Auto 28.9 % (45.5-73.1); Platelet Count Result 396 k/mm3 (150-375); Red Cell Distribution Width 16.2 % (11.5-14.5); White Blood Count 9.5 K/mm3 (4.5-10.0)
[2023-03-04 05:55] LABS: Anion Gap 9 mmol/L (8-16); Blood Urea Nitrogen 8 mg/dL (7-17); Calcium 8.9 mg/dL (8.4-10.2); Carbon Dioxide 24 mmol/L (22-30); Chloride 108 mmol/L (98-107); Estimated CRCL calculation 68 ml/min; Estimated Glomerular Filt Rate > 60; Glucose 130 mg/dL (65-110); Potassium 3.7 mmol/L (3.4-5.0); Sodium 141 mmol/L (137-145)
[2023-03-04] MEDS: SALINE LOCK FLUSH 10 ML IV PUSH ×3 (06:28→20:41)
[2023-03-04] MEDS: ATORVASTATIN 5 MG TABLET PO (08:09)
[2023-03-04 08:13] LABS: Glucose Point of Care 112 mg/dl (65-105)
[2023-03-04 11:52] LABS: Glucose Point of Care 120 mg/dl (65-105)
--- NOTE | 2023-03-04 14:01 | P.PNIM_ITS ---
Progress Note: A&P Assessment and Plan (1) Severe sepsis: Code(s): A41.9 - Sepsis, unspecified organism; R65.20 - Severe sepsis without septic shock Status: Acute Assessment and Plan: * Sepsis, Likely secondary to kidney stone, stent was placed bilaterally * Patient VS stable * UA shows pyuria hematuria, UA culture 02/28 negative * blood culture grows Enterobacter cloacae on 02/27, repeat on 02/28 still pending with no growth * Continue cefepime (2) Acute hypoxic respiratory failure: Code(s): J96.01 - Acute respiratory failure with hypoxia Status: Acute Assessment and Plan: * CT shows moderate to advanced emphysema * Possible aspiration pneumonia * Continue cefepime * Patient is off BiPAP * DuoNeb scheduled albuterol nebulizer as needed * Refer patient to pulmonology follow-up outpatient diagnosis (3) Pyelonephritis: Code(s): N12 - Tubulo-interstitial nephritis, not specified as acute or chronic Status: Acute Assessment and Plan: * urology following * continue cefepime * repeat UA clear * bilateral stent in place from 02/13 (4) Ureterolithiasis: Code(s): N20.1 - Calculus of ureter Status: Acute Assessment and Plan: * urology following * plan for stone extraction next week (5) DM type 2 (diabetes mellitus, type 2): Qualifiers: Diabetes mellitus snf insulin use: without joint terminal attack controller use Diabetes mellitus complication status: without complication Qualified Code(s): E11.9 - Type 2 diabetes mellitus without complications Code(s): E11.9 - Type 2 diabetes mellitus without complications Status: Chronic Assessment and Plan: * Hold metformin * insulin sliding scale, a.c. q.h.s, hypoglycemic protocol (6) Benign essential hypertension: Code(s): I10 - Essential (primary) hypertension Status: Chronic Assessment and Plan: * continue home meds Plan Elevated troponin Patient denies history of CAD EKG shows sinus rhythm and right bundle block Possible demanding ischemia due to sepsis, fluid overload and respiratory failure Discussed the case with Dr. Branch, fiberglass grinder - No further cardiac workup per fiberglass grinder recommendation Subjective Date/time seen: 03/04/23 14:01 Interval history: Patient has no complaints today, denies abdominal pain, nausea or vomiting. VS have remained stable. Urology following, plan for stone extraction next week. Will continue to monitor. Second set of BC still pending with no growth to date. Review of Systems Review of Systems: All systems reviewed & are unremarkable except as noted in HPI and below Exam Narrative: GENERAL: well-appearing, no acute distress. Well-nourished. - EYES: EOMI. PERRLA. - HENT: Moist mucous membranes. - LUNGS: Clear to auscultation bilateral ly, no wheezing. - CARDIOVASCULAR: RRR. No murmur. No JVD . - ABDOMEN: Soft, non-tender and non-dist ended. No palpable masses. BS present and active. - EXTREMITIES: No edema. Pedal pulses. - NEUROLOGIC: A&O x 3. No focal neurolog ical deficits. CN II-XII grossly intact. - PSYCHIATRIC: Appropriate mood and affe ct. - SKIN: No rashes or lesions. Warm. Objective Data Vital Signs Vital Signs: Vital Signs - 24 hr 03/03/23 14:40 03/03/23 14:43 03/03/23 14:52 Temperature Pulse Rate 92 100 Respiratory Rate 18 18 Blood Pressure Pulse Oximetry 94 Oxygen Delivery Room Air 03/03/23 19:25 03/03/23 20:23 03/03/23 20:24 Temperature Pulse Rate 96 Respiratory Rate 18 Blood Pressure Pulse Oximetry 95 Oxygen Delivery Room Air Room Air 03/03/23 23:41 03/04/23 02:16 03/04/23 02:23 Temperature 98.9 F Pulse Rate 94 99 100 Respiratory Rate 18 18 18 Blood Pressure 160/77 H Pulse Oximetry 95 Oxygen Delivery 03/03/23 20:45 03/04/23 04:21 03/04/23 08:00 Temperature 97.9 F Pulse Rate 96 100 Respiratory Rate 18 15 Blood Pressure 128/68 Pulse Oximetry 95 Oxygen Delivery Room Air 03/04/23 10:17 03/04/23 10:15 03/04/23 10:34 Temperature Pulse Rate 96 99 Respiratory Rate 18 18 Blood Pressure Pulse Oximetry 96 Oxygen Delivery Room Air Intake/Output Intake/Output: Intake & Output 03/01/23 03/02/23 03/03/23 03/04/23 23:59 23:59 23:59 23:59 Intake Total 1220 1840 1840 980 Output Total 3850 2200 4200 1200 Balance -8080 -360 -2360 -220 Meds/Results Medications: Active Medications Generic Name Dose Route Start Last Admin Trade Name Freq PRN Reason Stop Dose Admin Acetaminophen 325 mg 03/03/23 08:23 03/03/23 08:36 Acetaminophen 325 Mg Tablet PO 325 mg Q6H PRN Administration Mild Pain (1-3) or Fever Albuterol 2.5 mg 02/28/23 14:00 03/04/23 10:15 Albuterol Sulfate Neb 2.5 Mg/3 Ml Inh INHALATION 2.5 mg Q6HRT BUTCH Administration Albuterol 2.5 mg 02/28/23 11:10 Albuterol Sulfate Neb 2.5 Mg/3 Ml Inh INHALATION Q4HRT PRN Shortness Of Breath Or Wheezing Atorvastatin Calcium 5 mg 03/01/23 09:00 03/04/23 08:09 Atorvastatin 5 Mg Tablet PO 5 mg DAILY BUTCH Administration Dextrose 12.5 gm 02/28/23 13:54 Dextrose 50% 25 Gm/50 Ml Syringe IV PUSH PRN PRN Hypoglycemia Protocol Glucagon 1 mg 02/28/23 13:54 Glucagon For Inj 1 Mg Vial IM PRN PRN Hypoglycemia Protocol Glucose 15 gm 02/28/23 13:54 Glucose Oral Gel 15 Gm Of Glucse In 37.5 Gm Tube PO PRN PRN Hypoglycemia Protocol Dextrose 1,000 mls @ 100 mls/hr 02/28/23 13:54 Dextrose 5% 1,000 Ml IVPB PRN PRN Hypoglycemia Protocol Cefepime HCl 2 gm in 50 mls @ 100 mls/hr 03/01/23 16:00 03/04/23 05:20 Maxipime 2 Gm/Ns 50 Ml IVPB Infused Q12H BUTCH Infusion Insulin Aspart 4 - 8 units 02/28/23 17:00 03/04/23 11:51 Insulin Aspart (*Bkc) 100 Units/Ml SUB-Q Not Given TIDWM [facility] Protocol Ipratropium [place] 0.5 mg 02/28/23 14:00 03/04/23 10:15 Ipratropium Br 0.02% Inh Soln 0.5 Mg/2.5 Ml Vial INHALATION 0.5 mg Q6HRT BUTCH Administration Sodium Chloride 10 ml 02/28/23 14:00 03/04/23 13:53 Saline Lock Flush IV PUSH 10 ml Q8HR BUTCH Administration Sodium Chloride 10 ml 02/28/23 09:22 Saline Lock Flush IV PUSH PRN PRN Flush Sodium Chloride 20 ml 02/28/23 09:22 Saline Lock Flush IV PUSH PRN PRN after blood draws Radiology Results: ITS Impressions Abdomen/Pelvis CT 02/27/23 19:40 IMPRESSION: Small right pleural effusion. Moderate esophagitis/gastritis. Nodular liver border as can be seen with cirrhosis. Gallbladder hydrops, without inflammatory change, cholelithiasis, or biliary duct dilation. Findings suspicious for right pyelonephritis. Cystitis. Bilateral ureteral stents with stable left UVJ and right distal ureteral stones. Chest CTA 02/28/23 05:46 Impression: No evidence of pulmonary embolus, aortic dissection, or aortic aneurysm. Diffuse groundglass opacity at the left lung, with interlobular septal thickening bilaterally, left worse than right. Findings suggest asymmetric pulmonary edema. Correlate clinically for pneumonia. Minimal pleural effusions and minimal bibasilar atelectasis. Moderate to advanced underlying emphysema. Chest X-Ray 02/28/23 11:12 Impression: Diffuse groundglass and interstitial disease. Correlate for pulmonary edema and/or chronic interstitial disease. Infection not excluded. Probable small right pleural effusion. Labs Labs: Laboratory Results - last 24 hr 03/03/23 03/03/23 03/04/23 16:54 20:13 05:03 WBC 9.5 RBC 3.80 L Hgb 10.4 L Hct 33.5 L MCV 88.2 MCH 27.4 MCHC 31.0 L RDW 16.2 H Plt Count 396 H MPV 9.6 Immature Gran % (Auto) 0.6 H Neut % (Auto) 28.9 L Lymph % (Auto) 55.9 H [place] % (Auto) 11.3 H Eos % (Auto) 2.4 Baso % (Auto) 0.9 Lymph # (Auto) 5.32 H [place] # (Auto) 1.1 H Eos # (Auto) 0.2 Baso # (Auto) 0.1 Abs Immat Gran (auto) 0.06 H Absolute Neuts (auto) 2.7 Absolute Nucleated RBC 0.0 Nucleated RBC % 0.0 Sodium 141 Potassium 3.7 Chloride 108 H Carbon Dioxide 24 Anion Gap 9 BUN 8 Creatinine 0.50 L Estim Creat Clear Calc 68 Estimated GFR > 60 Glucose 130 H POC Capillary Glucose 111 H 142 H Calcium 8.9 03/04/23 03/04/23 08:07 11:49 WBC RBC Hgb Hct MCV MCH MCHC RDW Plt Count MPV Immature Gran % (Auto) Neut % (Auto) Lymph % (Auto) [place] % (Auto) Eos % (Auto) Baso % (Auto) Lymph # (Auto) [place] # (Auto) Eos # (Auto) Baso # (Auto) Abs Immat Gran (auto) Absolute Neuts (auto) Absolute Nucleated RBC Nucleated RBC % Sodium Potassium Chloride Carbon Dioxide Anion Gap BUN Creatinine Estim Creat Clear Calc Estimated GFR Glucose POC Capillary Glucose 112 H 120 H Calcium Quality VTE Prophylaxis VTE prophylaxis: mechanical ordered
[2023-03-04 17:08] LABS: Glucose Point of Care 119 mg/dl (65-105)
[2023-03-04 23:17] LABS: Glucose Point of Care 129 mg/dl (65-105)
[2023-03-05] VITALS (11 sets, daily range): BP systolic 129–159; BP diastolic 68–89; PULSE 64–100; RESP 18–22; TEMP 36.3–36.6; O2SAT 92–96
[2023-03-05] MEDS: CEFEPIME 2 GM/NS 50 ML 2 GM/50 ML BAG IVPB (04:24)
[2023-03-05] MEDS: ALBUTEROL SULFATE NEB 2.5 MG/3 ML INH INHALATION ×4 (04:30→21:43)
[2023-03-05] MEDS: IPRATROPIUM BR 0.02% INH SOLN 0.5 MG/2.5 ML VIAL INHALATION ×4 (04:30→21:43)
[2023-03-05] MEDS: SALINE LOCK FLUSH 10 ML IV PUSH ×2 (04:53→21:58)
[2023-03-05 06:18] LABS: Basophils Absolute Auto 0.1 K/mm3 (0.0-0.1); Basophils Percent Auto 0.9 % (0.2-1.2); Eosinophils Absolute Auto 0.4 K/mm3 (0-0.3); Eosinophils Percent Auto 3.9 % (0-4.4); Hematocrit 35.3 % (37.0-47.0); Hemoglobin 11.1 g/dL (12.0-15.0); Immature Granulocyte Absolute 0.11 K/mm3 (0.00-0.031); Immature Granulocyte Percent A 1.1 % (0-0.5); Lymphocytes Absolute Auto 5.28 K/mm3 (0.9-3.2); Lymphocytes Percent Auto 52.2 % (18.3-44.2); Mean Corpuscular HGB Conc 31.4 g/dl (32-36); Mean Corpuscular Hemoglobin 27.7 pg (26-34); Mean Platelet Volume 9.1 fl (7.4-10.4); Monocytes Absolute Auto 1.2 K/mm3 (0.1-0.6); Monocytes Percent Auto 11.4 % (2.6-8.5); Neutrophils Absolute Auto 3.1 K/mm3 (1.3-6.7); Neutrophils Percent Auto 30.5 % (45.5-73.1); Platelet Count Result 389 k/mm3 (150-375); Red Blood Count 4.01 M/mm3 (4.2-5.4); Red Cell Distribution Width 16.2 % (11.5-14.5); White Blood Count 10.1 K/mm3 (4.5-10.0)
[2023-03-05 06:45] LABS: Albumin Level 3.9 g/dL (3.5-5.1); Anion Gap 10 mmol/L (8-16); Blood Urea Nitrogen 10 mg/dL (7-17); Carbon Dioxide 23 mmol/L (22-30); Chloride 107 mmol/L (98-107); Estimated CRCL calculation 67 ml/min; Estimated Glomerular Filt Rate > 60; Glucose 137 mg/dL (65-110); Phosphorus 2.9 mg/dL (2.5-4.5); Potassium 3.6 mmol/L (3.4-5.0); Sodium 140 mmol/L (137-145)
[2023-03-05 08:05] LABS: Platelet Estimate Adequate (Adequate); Smudge Cells PRESENT
[2023-03-05 08:06] LABS: Anisocytosis 1+ (NORMAL); Schistocytes Rare (NORMAL)
[2023-03-05 08:36] LABS: Glucose Point of Care 134 mg/dl (65-105)
[2023-03-05] MEDS: ATORVASTATIN 5 MG TABLET PO (09:35)
[2023-03-05 11:59] LABS: Glucose Point of Care 120 mg/dl (65-105)
--- NOTE | 2023-03-05 14:26 | P.PNIM_ITS ---
Progress Note: A&P Assessment and Plan (1) Severe sepsis: Code(s): A41.9 - Sepsis, unspecified organism; R65.20 - Severe sepsis without septic shock Status: Acute Assessment and Plan: * Sepsis, Likely secondary to kidney stone, stent was placed bilaterally * Patient VS stable * UA shows pyuria hematuria, UA culture 02/28 negative * blood culture grows Enterobacter cloacae on 02/27, repeat on 02/28 still pending with no growth * Switch to Levaquin from cefepime (2) Acute hypoxic respiratory failure: Code(s): J96.01 - Acute respiratory failure with hypoxia Status: Acute Assessment and Plan: * CT shows moderate to advanced emphysema * Possible aspiration pneumonia * Switch to PO Levaquin today * Patient is off BiPAP * DuoNeb scheduled albuterol nebulizer as needed * Refer patient to pulmonology follow-up outpatient diagnosis (3) Pyelonephritis: Code(s): N12 - Tubulo-interstitial nephritis, not specified as acute or chronic Status: Acute Assessment and Plan: * urology following * PO Levaquin * repeat UA clear * bilateral stent in place from 02/13 (4) Ureterolithiasis: Code(s): N20.1 - Calculus of ureter Status: Acute Assessment and Plan: * urology following - confirmed plan for stone extraction 03/08 (5) DM type 2 (diabetes mellitus, type 2): Qualifiers: Diabetes mellitus half-way insulin use: without predatory animal exterminator use Diabetes mellitus complication status: without complication Qualified Code(s): E11.9 - Type 2 diabetes mellitus without complications Code(s): E11.9 - Type 2 diabetes mellitus without complications Status: Chronic Assessment and Plan: * Hold metformin * insulin sliding scale, a.c. q.h.s, hypoglycemic protocol (6) Benign essential hypertension: Code(s): I10 - Essential (primary) hypertension Status: Chronic Assessment and Plan: * continue home meds Plan Elevated troponin Patient denies history of CAD EKG shows sinus rhythm and right bundle block Possible demanding ischemia due to sepsis, fluid overload and respiratory failure Discussed the case with Dr. Branch, railcar mechanic - No further cardiac workup per railcar mechanic recommendation Subjective Date/time seen: 03/05/23 14:26 Interval history: Patient has no complaints today, denies abdominal pain, nausea or vomiting. VS have remained stable. Urology following, confirmed plan for stone extraction 03/08. Will continue to monitor. Second set of BC still pending with no growth to date. Review of Systems Review of Systems: All systems reviewed & are unremarkable except as noted in HPI and below Exam Narrative: GENERAL: well-appearing, no acute distress. Well-nourished. - EYES: EOMI. PERRLA. - HENT: Moist mucous membranes. - LUNGS: Clear to auscultation bilateral ly, no wheezing. - CARDIOVASCULAR: RRR. No murmur. No JVD . - ABDOMEN: Soft, non-tender and non-dist ended. No palpable masses. BS present and active. - EXTREMITIES: No edema. Pedal pulses. - NEUROLOGIC: A&O x 3. No focal neurolog ical deficits. CN II-XII grossly intact. - PSYCHIATRIC: Appropriate mood and affe ct. - SKIN: No rashes or lesions. Warm. Objective Data Vital Signs Vital Signs: Vital Signs - 24 hr 03/04/23 15:38 03/04/23 15:53 03/04/23 16:11 Temperature 97.6 F Pulse Rate 96 104 H 93 Respiratory Rate 18 18 16 Blood Pressure 162/79 H Pulse Oximetry 97 Oxygen Delivery 03/04/23 19:46 03/04/23 19:47 03/04/23 19:58 Temperature Pulse Rate 94 107 H Respiratory Rate 18 18 Blood Pressure Pulse Oximetry 92 Oxygen Delivery Room Air 03/04/23 20:39 03/04/23 20:00 03/05/23 03:57 Temperature 98.5 F 97.4 F L Pulse Rate 108 H 90 Respiratory Rate 18 18 Blood Pressure 152/89 H 129/68 Pulse Oximetry 96 93 Oxygen Delivery Room Air 03/05/23 07:05 03/05/23 07:05 03/05/23 07:15 Temperature Pulse Rate 86 86 88 Respiratory Rate 18 18 18 Blood Pressure Pulse Oximetry 95 Oxygen Delivery Room Air 03/05/23 08:19 03/05/23 09:35 03/05/23 13:05 Temperature 97.6 F Pulse Rate 100 64 Respiratory Rate 20 18 Blood Pressure 138/74 Pulse Oximetry 96 Oxygen Delivery Room Air 03/05/23 13:15 Temperature Pulse Rate 70 Respiratory Rate 18 Blood Pressure Pulse Oximetry Oxygen Delivery Intake/Output Intake/Output: Intake & Output 01/05/24 03/03/23 03/04/23 03/05/23 23:59 23:59 23:59 23:59 Intake Total 1840 1840 2620 900 Output Total 2206 4209 5193 1327 Balance -877 -2360 -530 -425 Meds/Results Medications: Active Medications Generic Name Dose Route Start Last Admin Trade Name Freq PRN Reason Stop Dose Admin Acetaminophen 325 mg 03/03/23 08:23 03/03/23 08:36 Acetaminophen 325 Mg Tablet PO 325 mg Q6H PRN Administration Mild Pain (1-3) or Fever Albuterol 2.5 mg 02/28/23 14:00 03/05/23 13:05 Albuterol Sulfate Neb 2.5 Mg/3 Ml Inh INHALATION 2.5 mg Q6HRT BUTCH Administration Albuterol 2.5 mg 02/28/23 11:10 Albuterol Sulfate Neb 2.5 Mg/3 Ml Inh INHALATION Q4HRT PRN Shortness Of Breath Or Wheezing Atorvastatin Calcium 5 mg 03/01/23 09:00 03/05/23 09:35 Atorvastatin 5 Mg Tablet PO 5 mg DAILY BUTCH Administration Dextrose 12.5 gm 02/28/23 13:54 Dextrose 50% 25 Gm/50 Ml Syringe IV PUSH PRN PRN Hypoglycemia Protocol Glucagon 1 mg 02/28/23 13:54 Glucagon For Inj 1 Mg Vial IM PRN PRN Hypoglycemia Protocol Glucose 15 gm 02/28/23 13:54 Glucose Oral Gel 15 Gm Of Glucse In 37.5 Gm Tube PO PRN PRN Hypoglycemia Protocol Dextrose 1,000 mls @ 100 mls/hr 02/28/23 13:54 Dextrose 5% 1,000 Ml IVPB PRN PRN Hypoglycemia Protocol Insulin Aspart 4 - 8 units 02/28/23 17:00 03/05/23 12:04 Insulin Aspart (*Bkc) 100 Units/Ml SUB-Q Not Given [facility] Protocol Ipratropium [place] 0.5 mg 02/28/23 14:00 03/05/23 13:05 Ipratropium Br 0.02% Inh Soln 0.5 Mg/2.5 Ml Vial INHALATION 0.5 mg Q6HRT BUTCH Administration Levofloxacin 750 mg 03/05/23 16:00 Levofloxacin 750 Mg Tablet PO 03/10/23 23:59 DAILY@1600 [facility] Sodium Chloride 10 ml 02/28/23 14:00 03/05/23 04:53 Saline Lock Flush IV PUSH 10 ml Q8HR BUTCH Administration Sodium Chloride 10 ml 02/28/23 09:22 Saline Lock Flush IV PUSH PRN PRN Flush Sodium Chloride 20 ml 02/28/23 09:22 Saline Lock Flush IV PUSH PRN PRN after blood draws Radiology Results: ITS Impressions Abdomen/Pelvis CT 02/27/23 19:40 IMPRESSION: Small right pleural effusion. Moderate esophagitis/gastritis. Nodular liver border as can be seen with cirrhosis. Gallbladder hydrops, without inflammatory change, cholelithiasis, or biliary duct dilation. Findings suspicious for right pyelonephritis. Cystitis. Bilateral ureteral stents with stable left UVJ and right distal ureteral stones. Chest CTA 02/28/23 05:46 Impression: No evidence of pulmonary embolus, aortic dissection, or aortic aneurysm. Diffuse groundglass opacity at the left lung, with interlobular septal thickening bilaterally, left worse than right. Findings suggest asymmetric pulmonary edema. Correlate clinically for pneumonia. Minimal pleural effusions and minimal bibasilar atelectasis. Moderate to advanced underlying emphysema. Chest X-Ray 02/28/23 11:12 Impression: Diffuse groundglass and interstitial disease. Correlate for pulmonary edema and/or chronic interstitial disease. Infection not excluded. Probable small right pleural effusion. Labs Labs: Laboratory Results - last 24 hr 03/04/23 03/04/23 03/05/23 17:05 20:42 06:10 WBC 10.1 H RBC 4.01 L Hgb 11.1 L Hct 35.3 L MCV 88.0 MCH 27.7 MCHC 31.4 L RDW 16.2 H Plt Count 389 H MPV 9.1 Immature Gran % (Auto) 1.1 H Neut % (Auto) 30.5 L Lymph % (Auto) 52.2 H [place] % (Auto) 11.4 H Eos % (Auto) 3.9 Baso % (Auto) 0.9 Lymph # (Auto) 5.28 H [place] # (Auto) 1.2 H Eos # (Auto) 0.4 H Baso # (Auto) 0.1 Abs Immat Gran (auto) 0.11 H Absolute Neuts (auto) 3.1 Absolute Nucleated RBC 0.0 Nucleated RBC % 0.0 Smudge Cells Present Platelet Estimate Adequate Anisocytosis 1+ Schistocytes Rare Sodium 140 Potassium 3.6 Chloride 107 Carbon Dioxide 23 Anion Gap 10 BUN 10 Creatinine 0.50 L Estim Creat Clear Calc 67 Estimated GFR > 60 Glucose 137 H POC Capillary Glucose 119 H 129 H Calcium 9.0 Phosphorus 2.9 Albumin 3.9 03/05/23 03/05/23 08:27 11:45 WBC RBC Hgb Hct MCV MCH MCHC RDW Plt Count MPV Immature Gran % (Auto) Neut % (Auto) Lymph % (Auto) [place] % (Auto) Eos % (Auto) Baso % (Auto) Lymph # (Auto) [place] # (Auto) Eos # (Auto) Baso # (Auto) Abs Immat Gran (auto) Absolute Neuts (auto) Absolute Nucleated RBC Nucleated RBC % Smudge Cells Platelet Estimate Anisocytosis Schistocytes Sodium Potassium Chloride Carbon Dioxide Anion Gap BUN Creatinine Estim Creat Clear Calc Estimated GFR Glucose POC Capillary Glucose 134 H 120 H Calcium Phosphorus Albumin Quality VTE Prophylaxis VTE prophylaxis: mechanical ordered
[2023-03-05] MEDS: levoFLOXacin 750 MG TABLET PO (16:02)
[2023-03-05 17:18] LABS: Glucose Point of Care 105 mg/dl (65-105)
[2023-03-06] VITALS (10 sets, daily range): BP systolic 126–147; BP diastolic 72–76; PULSE 82–104; RESP 16–20; TEMP 36.1–36.8; O2SAT 93–98
[2023-03-06 03:36] LABS: Glucose Point of Care 114 mg/dl (65-105)
[2023-03-06 06:10] LABS: Basophils Absolute Auto 0.1 K/mm3 (0.0-0.1); Basophils Percent Auto 0.7 % (0.2-1.2); Eosinophils Absolute Auto 0.4 K/mm3 (0-0.3); Eosinophils Percent Auto 4.1 % (0-4.4); Hematocrit 36.6 % (37.0-47.0); Immature Granulocyte Absolute 0.11 K/mm3 (0.00-0.031); Immature Granulocyte Percent A 1.2 % (0-0.5); Lymphocytes Absolute Auto 4.85 K/mm3 (0.9-3.2); Lymphocytes Percent Auto 50.7 % (18.3-44.2); Mean Corpuscular HGB Conc 30.1 g/dl (32-36); Mean Corpuscular Hemoglobin 27.1 pg (26-34); Mean Corpuscular Volume 90.1 fl (80-100); Mean Platelet Volume 9.8 fl (7.4-10.4); Monocytes Percent Auto 10.4 % (2.6-8.5); Neutrophils Absolute Auto 3.2 K/mm3 (1.3-6.7); Neutrophils Percent Auto 32.9 % (45.5-73.1); Platelet Count Result 436 k/mm3 (150-375); Red Blood Count 4.06 M/mm3 (4.2-5.4); Red Cell Distribution Width 16.5 % (11.5-14.5); White Blood Count 9.6 K/mm3 (4.5-10.0)
[2023-03-06 06:16] LABS: Anion Gap 7 mmol/L (8-16); Blood Urea Nitrogen 11 mg/dL (7-17); Calcium 8.9 mg/dL (8.4-10.2); Carbon Dioxide 25 mmol/L (22-30); Chloride 108 mmol/L (98-107); Estimated CRCL calculation 67 ml/min; Estimated Glomerular Filt Rate > 60; Glucose 137 mg/dL (65-110); Potassium 3.8 mmol/L (3.4-5.0); Sodium 140 mmol/L (137-145)
[2023-03-06] MEDS: ATORVASTATIN 5 MG TABLET PO (08:15)
[2023-03-06 08:56] LABS: Glucose Point of Care 129 mg/dl (65-105)
[2023-03-06] MEDS: IPRATROPIUM BR 0.02% INH SOLN 0.5 MG/2.5 ML VIAL INHALATION ×3 (09:09→20:28)
[2023-03-06] MEDS: ALBUTEROL SULFATE NEB 2.5 MG/3 ML INH INHALATION ×3 (09:09→20:28)
--- NOTE | 2023-03-06 10:42 | PCNWS ---
Weekly nutritional screen. Patient is tolerating current diet with adequate intake. No weight loss reported. No nutritional needs at this time.
--- NOTE | 2023-03-06 11:05 | P.PNIM_ITS ---
Progress Note: A&P Assessment and Plan (1) Severe sepsis: Code(s): A41.9 - Sepsis, unspecified organism; R65.20 - Severe sepsis without septic shock Status: Acute Assessment and Plan: * Sepsis, Likely secondary to kidney stone, stent was placed bilaterally * Patient VS stable * UA shows pyuria hematuria, UA culture 02/28 negative * blood culture grows Enterobacter cloacae on 02/27, repeat on 02/28 negative for growth * Continue PO Levaquin (2) Acute hypoxic respiratory failure: Code(s): J96.01 - Acute respiratory failure with hypoxia Status: Acute Assessment and Plan: * CT shows moderate to advanced emphysema * Possible aspiration pneumonia * Continue PO Levaquin * Patient is off BiPAP * DuoNeb scheduled albuterol nebulizer as needed * Refer patient to pulmonology follow-up outpatient diagnosis (3) Pyelonephritis: Code(s): N12 - Tubulo-interstitial nephritis, not specified as acute or chronic Status: Acute Assessment and Plan: * urology following * PO Levaquin * repeat UA clear * bilateral stent in place from 02/13 (4) Ureterolithiasis: Code(s): N20.1 - Calculus of ureter Status: Acute Assessment and Plan: * urology following - confirmed plan for stone extraction 03/08 (5) DM type 2 (diabetes mellitus, type 2): Qualifiers: Diabetes mellitus extermination inspector insulin use: without extermination inspector use Diabetes mellitus complication status: without complication Qualified Code(s): E11.9 - Type 2 diabetes mellitus without complications Code(s): E11.9 - Type 2 diabetes mellitus without complications Status: Chronic Assessment and Plan: * Hold metformin * insulin sliding scale, a.c. q.h.s, hypoglycemic protocol (6) Benign essential hypertension: Code(s): I10 - Essential (primary) hypertension Status: Chronic Assessment and Plan: * continue home meds Plan Elevated troponin Patient denies history of CAD EKG shows sinus rhythm and right bundle block Possible demanding ischemia due to sepsis, fluid overload and respiratory failure Discussed the case with Dr. Branch, plaque maker - No further cardiac workup per plaque maker recommendation Subjective Date/time seen: 03/06/23 11:05 Interval history: Patient has no complaints today, denies abdominal pain, nausea or vomiting. VS have remained stable. Urology following, confirmed plan for stone extraction 03/08. Second set of BC negative for bacterial growth. Plan to stay inpatient until surgery with urology on 03/08. Review of Systems Review of Systems: All systems reviewed & are unremarkable except as noted in HPI and below Exam Narrative: GENERAL: well-appearing, no acute distress. Well-nourished. - EYES: EOMI. PERRLA. - HENT: Moist mucous membranes. - LUNGS: Clear to auscultation bilateral ly, no wheezing. - CARDIOVASCULAR: RRR. No murmur. No JVD . - ABDOMEN: Soft, non-tender and non-dist ended. No palpable masses. BS present and active. - EXTREMITIES: No edema. Pedal pulses. - NEUROLOGIC: A&O x 3. No focal neurolog ical deficits. CN II-XII grossly intact. - PSYCHIATRIC: Appropriate mood and affe ct. - SKIN: No rashes or lesions. Warm. Objective Data Vital Signs Vital Signs: Vital Signs - 24 hr 03/05/23 13:05 03/05/23 13:15 03/05/23 16:35 Temperature 98 F Pulse Rate 64 70 98 Respiratory Rate 18 18 22 H Blood Pressure 157/89 H Pulse Oximetry 96 Oxygen Delivery 03/05/23 21:04 03/05/23 20:35 03/05/23 21:44 Temperature 97.7 F Pulse Rate 88 88 Respiratory Rate 18 18 Blood Pressure 159/81 H Pulse Oximetry 94 Oxygen Delivery Room Air 03/05/23 21:46 03/05/23 22:00 03/06/23 05:12 Temperature 97.0 F L Pulse Rate 88 82 86 Respiratory Rate 18 20 Blood Pressure 126/72 Pulse Oximetry 92 98 Oxygen Delivery Room Air 03/06/23 09:05 03/06/23 09:18 03/06/23 09:18 Temperature Pulse Rate 93 88 Respiratory Rate 16 16 Blood Pressure Pulse Oximetry 94 Oxygen Delivery Room Air 03/06/23 08:15 Temperature Pulse Rate Respiratory Rate Blood Pressure Pulse Oximetry Oxygen Delivery Room Air Intake/Output Intake/Output: Intake & Output 03/03/23 03/04/23 03/05/23 03/06/23 23:59 23:59 23:59 23:59 Intake Total 1840 2620 1730 360 Output Total 4200 6540 2061 1400 Balance -0790 -530 -1045 -1040 Meds/Results Medications: Active Medications Generic Name Dose Route Start Last Admin Trade Name Freq PRN Reason Stop Dose Admin Acetaminophen 325 mg 03/03/23 08:23 03/03/23 08:36 Acetaminophen 325 Mg Tablet PO 325 mg Q6H PRN Administration Mild Pain (1-3) or Fever Albuterol 2.5 mg 02/28/23 14:00 03/06/23 09:09 Albuterol Sulfate Neb 2.5 Mg/3 Ml Inh INHALATION 2.5 mg Q6HRT BUTCH Administration Albuterol 2.5 mg 02/28/23 11:10 Albuterol Sulfate Neb 2.5 Mg/3 Ml Inh INHALATION Q4HRT PRN Shortness Of Breath Or Wheezing Atorvastatin Calcium 5 mg 03/01/23 09:00 03/06/23 08:15 Atorvastatin 5 Mg Tablet PO 5 mg DAILY BUTCH Administration Dextrose 12.5 gm 02/28/23 13:54 Dextrose 50% 25 Gm/50 Ml Syringe IV PUSH PRN PRN Hypoglycemia Protocol Glucagon 1 mg 02/28/23 13:54 Glucagon For Inj 1 Mg Vial IM PRN PRN Hypoglycemia Protocol Glucose 15 gm 02/28/23 13:54 Glucose Oral Gel 15 Gm Of Glucse In 37.5 Gm Tube PO PRN PRN Hypoglycemia Protocol Dextrose 1,000 mls @ 100 mls/hr 02/28/23 13:54 Dextrose 5% 1,000 Ml IVPB PRN PRN Hypoglycemia Protocol Insulin Aspart 4 - 8 units 02/28/23 17:00 03/06/23 09:02 Insulin Aspart (*Bkc) 100 Units/Ml SUB-Q Not Given TIDWM BUTCH Protocol Ipratropium [place] 0.5 mg 02/28/23 14:00 03/06/23 09:09 Ipratropium Br 0.02% Inh Soln 0.5 Mg/2.5 Ml Vial INHALATION 0.5 mg Q6HRT BUTCH Administration Levofloxacin 750 mg 03/05/23 16:00 03/05/23 16:02 Levofloxacin 750 Mg Tablet PO 03/10/23 23:59 750 mg DAILY@1600 BUTCH Administration Sodium Chloride 10 ml 02/28/23 14:00 03/06/23 05:01 Saline Lock Flush IV PUSH Not Given Q8HR BUTCH Sodium Chloride 10 ml 02/28/23 09:22 Saline Lock Flush IV PUSH PRN PRN Flush Sodium Chloride 20 ml 02/28/23 09:22 Saline Lock Flush IV PUSH PRN PRN after blood draws Radiology Results: ITS Impressions Abdomen/Pelvis CT 02/27/23 19:40 IMPRESSION: Small right pleural effusion. Moderate esophagitis/gastritis. Nodular liver border as can be seen with cirrhosis. Gallbladder hydrops, without inflammatory change, cholelithiasis, or biliary duct dilation. Findings suspicious for right pyelonephritis. Cystitis. Bilateral ureteral stents with stable left UVJ and right distal ureteral stones. Chest CTA 02/28/23 05:46 Impression: No evidence of pulmonary embolus, aortic dissection, or aortic aneurysm. Diffuse groundglass opacity at the left lung, with interlobular septal thickening bilaterally, left worse than right. Findings suggest asymmetric pulmonary edema. Correlate clinically for pneumonia. Minimal pleural effusions and minimal bibasilar atelectasis. Moderate to advanced underlying emphysema. Chest X-Ray 02/28/23 11:12 Impression: Diffuse groundglass and interstitial disease. Correlate for pulmonary edema and/or chronic interstitial disease. Infection not excluded. Probable small right pleural effusion. Labs Labs: Laboratory Results - last 24 hr 03/05/23 03/05/23 03/05/23 11:45 16:52 21:07 WBC RBC Hgb Hct MCV MCH MCHC RDW Plt Count MPV Immature Gran % (Auto) Neut % (Auto) Lymph % (Auto) [place] % (Auto) Eos % (Auto) Baso % (Auto) Lymph # (Auto) [place] # (Auto) Eos # (Auto) Baso # (Auto) Abs Immat Gran (auto) Absolute Neuts (auto) Absolute Nucleated RBC Nucleated RBC % Sodium Potassium Chloride Carbon Dioxide Anion Gap BUN Creatinine Estim Creat Clear Calc Estimated GFR Glucose POC Capillary Glucose 120 H 105 114 H Calcium 03/06/23 03/06/23 05:25 08:46 WBC 9.6 RBC 4.06 L Hgb 11.0 L Hct 36.6 L MCV 90.1 MCH 27.1 MCHC 30.1 L RDW 16.5 H Plt Count 436 H MPV 9.8 Immature Gran % (Auto) 1.2 H Neut % (Auto) 32.9 L Lymph % (Auto) 50.7 H [place] % (Auto) 10.4 H Eos % (Auto) 4.1 Baso % (Auto) 0.7 Lymph # (Auto) 4.85 H [place] # (Auto) 1.0 H Eos # (Auto) 0.4 H Baso # (Auto) 0.1 Abs Immat Gran (auto) 0.11 H Absolute Neuts (auto) 3.2 Absolute Nucleated RBC 0.0 Nucleated RBC % 0.0 Sodium 140 Potassium 3.8 Chloride 108 H Carbon Dioxide 25 Anion Gap 7 L BUN 11 Creatinine 0.50 L Estim Creat Clear Calc 67 Estimated GFR > 60 Glucose 137 H POC Capillary Glucose 129 H Calcium 8.9 Quality VTE Prophylaxis VTE prophylaxis: mechanical ordered
[2023-03-06 11:52] LABS: Glucose Point of Care 120 mg/dl (65-105)
--- NOTE | 2023-03-06 15:33 | P.PNUR_ITS ---
Progress Note: A&P Assessment and Plan (1) Acute hypoxic respiratory failure: Code(s): J96.01 - Acute respiratory failure with hypoxia Status: Acute (2) Ureterolithiasis: Code(s): N20.1 - Calculus of ureter Status: Acute Assessment and Plan: * Respiratory improvement noted. * Plans for bilateral ureteroscopy with stone extraction (6 mm right distal ureteral stone and 3 mm left distal ureteral stone ) planned for . Plans to keep the patient until the time of that procedure. * I would anticipate may be keeping her over 1 night following our urologic procedure. Thereafter, from our standpoint, she should be able to go home. Subjective Subjective Date/Time Seen: 03/06/23 15:33 Interval history: Progress noted Comfortable, no complaints Review of Systems Cardiovascular: Cardiovascular: Denies chest pain, Denies lightheadedness, Denies palpitations and Denies dyspnea Respiratory: Respiratory: Denies dyspnea Gastrointestinal: Gastrointestinal: Denies diarrhea, Denies nausea and Denies vomiting Genitourinary: Genitourinary: Denies hematuria and Denies dysuria Endocrine: Endocrine: Denies palpitations Exam Const: General: no acute distress Resp: Effort & Inspection: normal respiratory effort GI: Inspection: non-distended GI Palp: No abdominal tenderness and No Guarding due to palpation present (GI) Auscultation: normal bowel sounds Objective Data Vital Signs Vital Signs: Vital Signs - 24 hr 03/05/23 16:35 03/05/23 21:04 03/05/23 20:35 Temperature 98 F 97.7 F Pulse Rate 98 88 Respiratory Rate 22 H 18 Blood Pressure 157/89 H 159/81 H Pulse Oximetry 96 94 Oxygen Delivery Room Air 03/05/23 21:44 03/05/23 21:46 03/05/23 22:00 Temperature Pulse Rate 88 88 82 Respiratory Rate 18 18 Blood Pressure Pulse Oximetry 92 Oxygen Delivery Room Air 03/06/23 05:12 03/06/23 09:05 03/06/23 09:18 Temperature 97.0 F L Pulse Rate 86 93 Respiratory Rate 20 16 Blood Pressure 126/72 Pulse Oximetry 98 94 Oxygen Delivery Room Air 03/06/23 09:18 03/06/23 08:15 03/06/23 12:47 Temperature Pulse Rate 88 89 Respiratory Rate 16 16 Blood Pressure Pulse Oximetry Oxygen Delivery Room Air 03/06/23 13:00 03/06/23 14:38 Temperature 97.6 F Pulse Rate 82 104 H Respiratory Rate 16 18 Blood Pressure 147/73 H Pulse Oximetry 95 Oxygen Delivery Intake/Output Intake/Output: Intake & Output 03/03/23 03/04/23 03/05/23 03/06/23 23:59 23:59 23:59 23:59 Intake Total 1840 2620 1730 360 Output Total 4200 2530 2725 0093 [facility] -2360 -530 -1045 -1040 Meds/Results Medications: Active Medications Generic Name Dose Route Start Last Admin Trade Name Freq PRN Reason Stop Dose Admin Acetaminophen 325 mg 03/03/23 08:23 03/03/23 08:36 Acetaminophen 325 Mg Tablet PO 325 mg Q6H PRN Administration Mild Pain (1-3) or Fever Albuterol 2.5 mg 02/28/23 14:00 03/06/23 12:51 Albuterol Sulfate Neb 2.5 Mg/3 Ml Inh INHALATION 2.5 mg Q6HRT BUTCH Administration Albuterol 2.5 mg 02/28/23 11:10 Albuterol Sulfate Neb 2.5 Mg/3 Ml Inh INHALATION Q4HRT PRN Shortness Of Breath Or Wheezing Atorvastatin Calcium 5 mg 03/01/23 09:00 03/06/23 08:15 Atorvastatin 5 Mg Tablet PO 5 mg DAILY BUTCH Administration Dextrose 12.5 gm 02/28/23 13:54 Dextrose 50% 25 Gm/50 Ml Syringe IV PUSH PRN PRN Hypoglycemia Protocol Glucagon 1 mg 02/28/23 13:54 Glucagon For Inj 1 Mg Vial IM PRN PRN Hypoglycemia Protocol Glucose 15 gm 02/28/23 13:54 Glucose Oral Gel 15 Gm Of Glucse In 37.5 Gm Tube PO PRN PRN Hypoglycemia Protocol Dextrose 1,000 mls @ 100 mls/hr 02/28/23 13:54 Dextrose 5% 1,000 Ml IVPB PRN PRN Hypoglycemia Protocol Insulin Aspart 4 - 8 units 02/28/23 17:00 03/06/23 11:52 Insulin Aspart (*Bkc) 100 Units/Ml SUB-Q Not Given TIDWM BUTCH Protocol Ipratropium [place] 0.5 mg 02/28/23 14:00 03/06/23 12:52 Ipratropium Br 0.02% Inh Soln 0.5 Mg/2.5 Ml Vial INHALATION 0.5 mg Q6HRT BUTCH Administration Levofloxacin 750 mg 03/05/23 16:00 03/05/23 16:02 Levofloxacin 750 Mg Tablet PO 03/10/23 23:59 750 mg DAILY@1600 BUTCH Administration Sodium Chloride 10 ml 02/28/23 14:00 03/06/23 05:01 Saline Lock Flush IV PUSH Not Given Q8HR BUTCH Sodium Chloride 10 ml 02/28/23 09:22 Saline Lock Flush IV PUSH PRN PRN Flush Sodium Chloride 20 ml 02/28/23 09:22 Saline Lock Flush IV PUSH PRN PRN after blood draws Radiology Results: ITS Impressions Abdomen/Pelvis CT 02/27/23 19:40 IMPRESSION: Small right pleural effusion. Moderate esophagitis/gastritis. Nodular liver border as can be seen with cirrhosis. Gallbladder hydrops, without inflammatory change, cholelithiasis, or biliary duct dilation. Findings suspicious for right pyelonephritis. Cystitis. Bilateral ureteral stents with stable left UVJ and right distal ureteral stones. Chest CTA 02/28/23 05:46 Impression: No evidence of pulmonary embolus, aortic dissection, or aortic aneurysm. Diffuse groundglass opacity at the left lung, with interlobular septal thickening bilaterally, left worse than right. Findings suggest asymmetric pulmonary edema. Correlate clinically for pneumonia. Minimal pleural effusions and minimal bibasilar atelectasis. Moderate to advanced underlying emphysema. Chest X-Ray 02/28/23 11:12 Impression: Diffuse groundglass and interstitial disease. Correlate for pulmonary edema and/or chronic interstitial disease. Infection not excluded. Probable small right pleural effusion. Labs Labs: Laboratory Results - last 24 hr 03/05/23 03/05/23 03/06/23 16:52 21:07 05:25 WBC 9.6 RBC 4.06 L Hgb 11.0 L Hct 36.6 L MCV 90.1 MCH 27.1 MCHC 30.1 L RDW 16.5 H Plt Count 436 H MPV 9.8 Immature Gran % (Auto) 1.2 H Neut % (Auto) 32.9 L Lymph % (Auto) 50.7 H [place] % (Auto) 10.4 H Eos % (Auto) 4.1 Baso % (Auto) 0.7 Lymph # (Auto) 4.85 H [place] # (Auto) 1.0 H Eos # (Auto) 0.4 H Baso # (Auto) 0.1 Abs Immat Gran (auto) 0.11 H Absolute Neuts (auto) 3.2 Absolute Nucleated RBC 0.0 Nucleated RBC % 0.0 Sodium 140 Potassium 3.8 Chloride 108 H Carbon Dioxide 25 Anion Gap 7 L BUN 11 Creatinine 0.50 L Estim Creat Clear Calc 67 Estimated GFR > 60 Glucose 137 H POC Capillary Glucose 105 114 H Calcium 8.9 03/06/23 03/06/23 08:46 11:29 WBC RBC Hgb Hct MCV MCH MCHC RDW Plt Count MPV Immature Gran % (Auto) Neut % (Auto) Lymph % (Auto) [place] % (Auto) Eos % (Auto) Baso % (Auto) Lymph # (Auto) [place] # (Auto) Eos # (Auto) Baso # (Auto) Abs Immat Gran (auto) Absolute Neuts (auto) Absolute Nucleated RBC Nucleated RBC % Sodium Potassium Chloride Carbon Dioxide Anion Gap BUN Creatinine Estim Creat Clear Calc Estimated GFR Glucose POC Capillary Glucose 129 H 120 H Calcium
[2023-03-06] MEDS: levoFLOXacin 750 MG TABLET PO (17:11)
[2023-03-06 17:30] LABS: Glucose Point of Care 94 mg/dl (65-105)
[2023-03-06 21:00] LABS: Glucose Point of Care 152 mg/dl (65-105)
[2023-03-07] VITALS (9 sets, daily range): BP systolic 127–148; BP diastolic 65–89; PULSE 92–103; RESP 16–18; TEMP 36.2–36.6; O2SAT 93–98
[2023-03-07] MEDS: IPRATROPIUM BR 0.02% INH SOLN 0.5 MG/2.5 ML VIAL INHALATION ×4 (02:42→20:19)
[2023-03-07] MEDS: ALBUTEROL SULFATE NEB 2.5 MG/3 ML INH INHALATION ×4 (02:42→20:20)
[2023-03-07 05:56] LABS: Hematocrit 35.6 % (37.0-47.0); Hemoglobin 11.1 g/dL (12.0-15.0); Mean Corpuscular HGB Conc 31.2 g/dl (32-36); Mean Corpuscular Hemoglobin 27.5 pg (26-34); Mean Corpuscular Volume 88.3 fl (80-100); Mean Platelet Volume 9.5 fl (7.4-10.4); Platelet Count Result 409 k/mm3 (150-375); Red Blood Count 4.03 M/mm3 (4.2-5.4); Red Cell Distribution Width 16.5 % (11.5-14.5); White Blood Count 8.7 K/mm3 (4.5-10.0)
[2023-03-07 06:07] LABS: Anion Gap 8 mmol/L (8-16); Blood Urea Nitrogen 13 mg/dL (7-17); Carbon Dioxide 23 mmol/L (22-30); Chloride 109 mmol/L (98-107); Estimated CRCL calculation 58 ml/min; Estimated Glomerular Filt Rate > 60; Glucose 139 mg/dL (65-110); Potassium 3.8 mmol/L (3.4-5.0); Sodium 140 mmol/L (137-145)
[2023-03-07] MEDS: ATORVASTATIN 5 MG TABLET PO (08:29)
[2023-03-07 08:33] LABS: Glucose Point of Care 120 mg/dl (65-105)
[2023-03-07 11:59] LABS: Glucose Point of Care 111 mg/dl (65-105)
--- NOTE | 2023-03-07 14:16 | P.PNIM_ITS ---
Progress Note: A&P Assessment and Plan (1) Severe sepsis: Code(s): A41.9 - Sepsis, unspecified organism; R65.20 - Severe sepsis without septic shock Status: Resolved Assessment and Plan: * Sepsis, Likely secondary to kidney stone, stent was placed bilaterally * Patient VS stable * UA shows pyuria hematuria, UA culture 02/28 negative * blood culture grows Enterobacter cloacae on 02/27, repeat on 02/28 negative for gr owth * Continue PO Levaquin * Resolved (2) Acute hypoxic respiratory failure: Code(s): J96.01 - Acute respiratory failure with hypoxia Status: Acute Assessment and Plan: * CT shows moderate to advanced emphysema * Possible aspiration pneumonia * Continue PO Levaquin * Patient is off BiPAP, now on Room Air. * DuoNeb scheduled albuterol nebulizer as needed * Refer patient to pulmonology follow-up outpatient diagnosis (3) Pyelonephritis: Code(s): N12 - Tubulo-interstitial nephritis, not specified as acute or chronic Status: Acute Assessment and Plan: * urology following * PO Levaquin * repeat UA clear * bilateral stent in place from 02/13 * Pt to have bilateral ureteroscopy tomorrow with Urology, and possible stents. (4) Ureterolithiasis: Code(s): N20.1 - Calculus of ureter Status: Acute Assessment and Plan: * urology following - confirmed plan for stone extraction 03/08 (5) DM type 2 (diabetes mellitus, type 2): Qualifiers: Diabetes mellitus salvage determiner insulin use: without salvage determiner use Diabetes mellitus complication status: without complication Qualified Code(s): E11.9 - Type 2 diabetes mellitus without complications Code(s): E11.9 - Type 2 diabetes mellitus without complications Status: Chronic Assessment and Plan: * Hold metformin * insulin sliding scale, a.c. q.h.s, hypoglycemic protocol (6) Benign essential hypertension: Code(s): I10 - Essential (primary) hypertension Status: Chronic Assessment and Plan: * continue home meds Plan Elevated troponin Patient denies history of CAD EKG shows sinus rhythm and right bundle block Possible demanding ischemia due to sepsis, fluid overload and respiratory failure Discussed the case with Dr. Branch, marble supervisor - No further cardiac workup per marble supervisor recommendation Time Spent With Patient Time with patient: 15 - 25 minutes Subjective Date/time seen: 03/07/23 1000 Interval history: This pt was examined at the bedside in interval assessment. She was admitted 02/28/23 after having previously been diagnosed with sepsis, pyelonephritis and bilateral kidney stones. She was found to have candidemia and a stent was placed by Urology. She was then discharged on Micafungin and returned to the ER after she started having chills, fever and N/V again. CT was performed and suggested right sided Pyelonephritis. She was placed on Cefepime and admitted to the hospital. She has been covered by Urology but after being admitted she developed respiratory distress requiring 15L supplemental oxygen. Repeat CXR was found to have interval development of pulmonary congestion, tachycardia, and tachypnea. Pt. ultimately ended up on BiPap, had three positive trops and required diuresis. She diuresed without incident and her respiratory distress resolved. She is now on po Levaquin and has been tolerating therapies well. She is to be taken to the OR tomorrow by Urology for a bilateral Ureteroscopy. Today the pt is awake, sitting up in bed in no acute distress and without any complaints of dyspnea, CP, N/V/D/headache/urinary complaints. Review of Systems Review of Systems: All systems reviewed & are unremarkable except as noted in HPI and below Exam Narrative: GENERAL: well-appearing, no acute distress. Well-nourished. - EYES: EOMI. PERRLA. - HENT: Moist mucous membranes. - LUNGS: Clear to auscultation bilateral ly, no wheezing. - CARDIOVASCULAR: RRR. No murmur. No JVD . - ABDOMEN: Soft, non-tender and non-dist ended. No palpable masses. BS present and active. - EXTREMITIES: No edema. Pedal pulses. - NEUROLOGIC: A&O x 3. No focal neurolog ical deficits. CN II-XII grossly intact. - PSYCHIATRIC: Appropriate mood and affe ct. - SKIN: No rashes or lesions. Warm. Objective Data Vital Signs Vital Signs: Vital Signs - 24 hr 03/06/23 14:38 03/06/23 20:00 03/06/23 20:30 Temperature 97.6 F Pulse Rate 104 H 104 H 92 Respiratory Rate 18 18 16 Blood Pressure 147/73 H Pulse Oximetry 95 95 96 Oxygen Delivery Room Air Room Air 03/06/23 20:30 03/06/23 20:39 03/06/23 21:01 Temperature 98.3 F Pulse Rate 92 101 H 100 Respiratory Rate 16 16 18 Blood Pressure 144/76 H Pulse Oximetry 93 Oxygen Delivery 03/07/23 02:43 03/07/23 02:53 03/07/23 05:27 Temperature 97.7 F Pulse Rate 98 96 94 Respiratory Rate 18 Blood Pressure 127/65 Pulse Oximetry 93 Oxygen Delivery 03/07/23 09:06 03/07/23 08:30 03/07/23 13:15 Temperature 97.8 F Pulse Rate 94 99 Respiratory Rate 16 Blood Pressure 141/76 H Pulse Oximetry 98 Oxygen Delivery Room Air 03/07/23 13:47 Temperature Pulse Rate 92 Respiratory Rate Blood Pressure Pulse Oximetry Oxygen Delivery Intake/Output Intake/Output: Intake & Output 03/04/23 03/05/23 03/06/23 03/07/23 23:59 23:59 23:59 23:59 Intake Total 2620 1730 840 770 Output Total 3150 2775 2650 1250 Balance -530 -1045 -1810 -480 Meds/Results Medications: Active Medications Generic Name Dose Route Start Last Admin Trade Name Freq PRN Reason Stop Dose Admin Acetaminophen 325 mg 03/03/23 08:23 03/03/23 08:36 Acetaminophen 325 Mg Tablet PO 325 mg Q6H PRN Administration Mild Pain (1-3) or Fever Albuterol 2.5 mg 02/28/23 14:00 03/07/23 13:44 Albuterol Sulfate Neb 2.5 Mg/3 Ml Inh INHALATION 2.5 mg Q6HRT BUTCH Administration Albuterol 2.5 mg 02/28/23 11:10 Albuterol Sulfate Neb 2.5 Mg/3 Ml Inh INHALATION Q4HRT PRN Shortness Of Breath Or Wheezing Atorvastatin Calcium 5 mg 03/01/23 09:00 03/07/23 08:29 Atorvastatin 5 Mg Tablet PO 5 mg DAILY BUTCH Administration Dextrose 12.5 gm 02/28/23 13:54 Dextrose 50% 25 Gm/50 Ml Syringe IV PUSH PRN PRN Hypoglycemia Protocol Glucagon 1 mg 02/28/23 13:54 Glucagon For Inj 1 Mg Vial IM PRN PRN Hypoglycemia Protocol Glucose 15 gm 02/28/23 13:54 Glucose Oral Gel 15 Gm Of Glucse In 37.5 Gm Tube PO PRN PRN Hypoglycemia Protocol Dextrose 1,000 mls @ 100 mls/hr 02/28/23 13:54 Dextrose 5% 1,000 Ml IVPB PRN PRN Hypoglycemia Protocol Insulin Aspart 4 - 8 units 02/28/23 17:00 03/07/23 12:11 Insulin Aspart (*Bkc) 100 Units/Ml SUB-Q Not Given TIDWM [facility] Protocol Ipratropium Sullivan 0.5 mg 02/28/23 14:00 03/07/23 13:44 Ipratropium Br 0.02% Inh Soln 0.5 Mg/2.5 Ml Vial INHALATION 0.5 mg Q6HRT BUTCH Administration Levofloxacin 750 mg 03/05/23 16:00 03/06/23 17:11 Levofloxacin 750 Mg Tablet PO 03/10/23 23:59 750 mg DAILY@1600 BUTCH Administration Polyethylene Glycol 17 gm 03/07/23 09:40 Polyethylene Glycol 3350 17 Gm Powd.Pack PO QAM PRN Constipation Sodium Chloride 10 ml 02/28/23 09:22 Saline Lock Flush IV PUSH PRN PRN Flush Sodium Chloride 20 ml 02/28/23 09:22 Saline Lock Flush IV PUSH PRN PRN after blood draws Radiology Results: ITS Impressions Abdomen/Pelvis CT 02/27/23 19:40 IMPRESSION: Small right pleural effusion. Moderate esophagitis/gastritis. Nodular liver border as can be seen with cirrhosis. Gallbladder hydrops, without inflammatory change, cholelithiasis, or biliary du ct dilation. Findings suspicious for right pyelonephritis. Cystitis. Bilateral ureteral stents with stable left UVJ and right distal ureteral stones. Chest CTA 02/28/23 05:46 Impression: No evidence of pulmonary embolus, aortic dissection, or aortic aneurysm. Diffuse groundglass opacity at the left lung, with interlobular septal thickening bilaterally, left worse than right. Findings suggest asymmetric pulmonary edema. Correlate clinically for pneumonia. Minimal pleural effusions and minimal bibasilar atelectasis. Moderate to advanced underlying emphysema. Chest X-Ray 02/28/23 11:12 Impression: Diffuse groundglass and interstitial disease. Correlate for pulmonary edema and/or chronic interstitial disease. Infection not excluded. Probable small right pleural effusion. Labs Labs: Laboratory Results - last 24 hr 03/06/23 03/06/23 03/07/23 17:00 20:56 05:14 WBC 8.7 RBC 4.03 L Hgb 11.1 L Hct 35.6 L MCV 88.3 MCH 27.5 MCHC 31.2 L RDW 16.5 H Plt Count 409 H MPV 9.5 Sodium 140 Potassium 3.8 Chloride 109 H Carbon Dioxide 23 Anion Gap 8 BUN 13 Creatinine 0.60 L Estim Creat Clear Calc 58 Estimated GFR > 60 Glucose 139 H POC Capillary Glucose 94 152 H Calcium 9.0 03/07/23 03/07/23 08:18 11:55 WBC RBC Hgb Hct MCV MCH MCHC RDW Plt Count MPV Sodium Potassium Chloride Carbon Dioxide Anion Gap BUN Creatinine Estim Creat Clear Calc Estimated GFR Glucose POC Capillary Glucose 120 H 111 H Calcium Quality If No VTE Prophylaxis Answer both mechanical and pharmacologic: Reason no mechanical VTE proph: low risk/not indicated Reason no pharmacologic proph: low risk/not indicated
[2023-03-07 17:15] LABS: Glucose Point of Care 113 mg/dl (65-105)
[2023-03-07] MEDS: levoFLOXacin 750 MG TABLET PO (17:19)
[2023-03-07 21:28] LABS: Glucose Point of Care 125 mg/dl (65-105)
[2023-03-08] VITALS (17 sets, daily range): BP systolic 124–173; BP diastolic 60–93; PULSE 80–109; RESP 15–20; TEMP 36.1–37.2; O2SAT 92–100
--- NOTE | 2023-03-08 06:24 | P.HP_ITS ---
History of Present Illness History of Present Illness Consent: Risks, benefits, and alternatives have been discussed and questions answered. Patient agrees to proceed with procedure. Chief complaint: Pneumonia, Pyelonephritis, Ureterolithiasis Narrative: Margaret Funez is a 78 year old female [facility] Past Medical History Medical History Abnormal EKG Benign essential hypertension BMI 26.0-26.9,adult BMI 27.0-27.9,adult BMI 28.0-28.9,adult BMI 29.0-29.9,adult Borderline abnormal TFTs Breast cyst Colon cancer screening Diastolic dysfunction DM type 2 (diabetes mellitus, type 2) Ear itching Eczema Elevated LFTs Encounter for Medicare annual wellness exam Encounter for routine adult health examination with abnormal findings Encounter for routine adult health examination without abnormal findings Encounter for screening mammogram for malignant neoplasm of breast Follow up Hair loss Hearing loss Hepatitis B core antibody positive Hot flashes Hx of seborrheic dermatitis Hypercalcemia Hyperlipidemia Hypertension On intermediate drug therapy Unspecified ptosis of bilateral eyelids UTI (urinary tract infection) Vitamin D deficiency Surgical History Surgical History H/O eye surgery History of breast biopsy History of gynecologic surgery 01/15/2023 Robotic Laparoscopic Supracervical Hysterectomy with Bilateral Salpingo-oophorectomy History of tonsillectomy Family History Family History Father Family history of malignant neoplasm Hypertension Mother Family history of heart disease in male family member before age 55 Family history of cardiovascular disease Sibling Cerebral palsy Sibling Epilepsy Social History Social History Smoking packs per day: 1 Smoking cigarettes per day: 20.0 Years smoked: 40 Smoking pack-years: 40.00 Smoking status: Former smoker Tobacco type: cigarettes Second hand tobacco smoke exposure: No Alcohol intake: never Substance use: never Substance use type: does not use Do You Feel Safe in your Home?: Yes Lack of Transportation: No Lack of Food: Never True Current Housing: I Have Housing Concerned About Future Housing: No Difficulty Paying Gas/Electric Bills: No Difficulty Paying for Meds: No Currently Unemployed: No Education: High School Diploma/GED Difficulty w/ Childcare or Family Care: No Living arrangements: with family Additional living arrangements comments: Occupation/Education: retired Gender identity (if verbalized by the patient): Female Sexual Orientation (if Verbalized by the Patient): Straight or Heterosexual Spiritual care concerns: Yes Meds Home Medications and Allergies Home Medications Medication Instructions Recorded Confirmed Type Tri Ease Seasonal Soft Gels 1 caplet PO DAILY PRN allergies 09/26/20 02/28/23 History alendronate 70 mg tablet (Fosamax) 70 mg PO WEEKLY #4 tabs 01/09/23 02/28/23 Rx atorvastatin 10 mg tablet 5 mg PO DAILY 02/13/23 02/28/23 History empagliflozin 10 mg tablet 10 mg PO DAILY 02/13/23 02/28/23 History lisinopril 20 mg tablet 20 mg PO DAILY 02/13/23 02/28/23 History metformin 1,000 mg tablet 1,000 mg PO BID 02/13/23 02/28/23 History sitagliptin phosphate 100 mg 100 mg PO DAILY 02/13/23 02/28/23 History tablet (Januvia) metoclopramide HCl 10 mg tablet 10 mg PO Q6H PRN nausea and 02/16/23 02/28/23 Rx (Reglan) vomiting #30 tabs micafungin 100 mg intravenous 100 mg IV DAILY #11 ea 02/16/23 02/28/23 Rx solution (Mycamine) oxycodone-acetaminophen 5 mg-300 1 tablet PO Q8H PRN pain #14 tabs 02/16/23 02/28/23 Rx mg tablet Allergies Allergy/AdvReac Type Severity Reaction Status Date / Time pollen extracts Allergy Unknown Swelling Verified 02/13/23 08:56 of the Eye Vital Signs Vital Signs - 24 hr 03/07/23 09:06 03/07/23 08:30 03/07/23 13:15 Temperature 97.8 F Pulse Rate 94 99 Respiratory Rate 16 Blood Pressure 141/76 H Pulse Oximetry 98 Oxygen Delivery Room Air 03/07/23 13:47 03/07/23 20:21 03/07/23 20:34 Temperature Pulse Rate 92 96 96 Respiratory Rate Blood Pressure Pulse Oximetry Oxygen Delivery 03/07/23 21:11 03/07/23 20:00 03/08/23 05:42 Temperature 97.2 F L 97.2 F L Pulse Rate 103 H 86 Respiratory Rate 17 17 Blood Pressure 148/89 H 124/60 Pulse Oximetry 96 98 Oxygen Delivery Room Air
[2023-03-08 07:45] LABS: Glucose Point of Care 136 mg/dl (65-105)
[2023-03-08] MEDS: LACTATED RINGERS 1,000 ML 30 ML IV CONT (08:15)
--- NOTE | 2023-03-08 08:47 | P.PNAN_ITS ---
Anes - Initial Pre Proc Eval Procedure: Operation Date: 03/08/23 09:30 Proposed Procedures p Cystoscopy, Ureteroscopy, with Stone Extraction, Bilateral Stent Replacement, Possible Retrograde Pyelography, Possible Holmium Laser Lithotripsy - Filiberto Joshi MD Date/Time: 03/08/23 08:47 Surgeon: GAEL Arita Pre Op Diagnosis: Pneumonia, Pyelonephritis, Ureterolithiasis Patient Data Age: 78 Gender: F Height: 1.55 m Weight: 65 kg Last Vital Signs Temp 37.2 C 03/08/23 08:08 Pulse 92 03/08/23 08:08 Resp 16 03/08/23 08:08 BP 165/89 H 03/08/23 08:08 Pulse Ox 96 03/08/23 08:08 O2 Del Method Room Air 03/08/23 08:08 O2 Flow Rate 0.5 03/02/23 08:00 Allergies Allergy/AdvReac Type Severity Reaction Status Date / Time pollen extracts Allergy Unknown Swelling Verified 03/08/23 08:22 of the Eye Home Medications Medication Instructions Recorded Confirmed Type Tri Ease Seasonal Soft Gels 1 caplet PO DAILY PRN allergies 09/26/20 02/28/23 History alendronate 70 mg tablet (Fosamax) 70 mg PO WEEKLY #4 tabs 01/09/23 02/28/23 Rx atorvastatin 10 mg tablet 5 mg PO DAILY 02/13/23 02/28/23 History empagliflozin 10 mg tablet 10 mg PO DAILY 02/13/23 02/28/23 History lisinopril 20 mg tablet 20 mg PO DAILY 02/13/23 02/28/23 History metformin 1,000 mg tablet 1,000 mg PO BID 02/13/23 02/28/23 History sitagliptin phosphate 100 mg 100 mg PO DAILY 02/13/23 02/28/23 History tablet (Januvia) metoclopramide HCl 10 mg tablet 10 mg PO Q6H PRN nausea and 02/16/23 02/28/23 Rx (Reglan) vomiting #30 tabs micafungin 100 mg intravenous 100 mg IV DAILY #11 ea 02/16/23 02/28/23 Rx solution (Mycamine) oxycodone-acetaminophen 5 mg-300 1 tablet PO Q8H PRN pain #14 tabs 02/16/23 02/28/23 Rx mg tablet Laboratory Tests 03/07/23 03/07/23 03/07/23 11:55 16:49 21:08 POC Capillary Glucose 111 H mg/dl 113 H mg/dl 125 H mg/dl (65-105) (65-105) (65-105) 03/08/23 07:42 POC Capillary Glucose 136 H mg/dl (65-105) Patient hx anesthesia problems: none Family hx anesthesia problems: none Results Review: All pre-operative results and documents have been reviewed as part of the pre- operative evaluation. [facility] Past Medical History Medical History Abnormal EKG Benign essential hypertension BMI 26.0-26.9,adult BMI 27.0-27.9,adult BMI 28.0-28.9,adult BMI 29.0-29.9,adult Borderline abnormal TFTs Breast cyst Colon cancer screening Diastolic dysfunction DM type 2 (diabetes mellitus, type 2) Ear itching Eczema Elevated LFTs Encounter for Medicare annual wellness exam Encounter for routine adult health examination with abnormal findings Encounter for routine adult health examination without abnormal findings Encounter for screening mammogram for malignant neoplasm of breast Follow up Hair loss Hearing loss Hepatitis B core antibody positive Hot flashes Hx of seborrheic dermatitis Hypercalcemia Hyperlipidemia Hypertension On correction drug therapy Unspecified ptosis of bilateral eyelids UTI (urinary tract infection) Vitamin D deficiency Surgical History Surgical History H/O eye surgery History of breast biopsy History of gynecologic surgery 01/15/2023 Robotic Laparoscopic Supracervical Hysterectomy with Bilateral Salpingo-oophorectomy History of tonsillectomy Family History Family History Father Family history of malignant neoplasm Hypertension Mother Family history of heart disease in male family member before age 55 Family history of cardiovascular disease Sibling Cerebral palsy Sibling Epilepsy Social History Social History Smoking packs per day: 1 Smoking cigarettes per day: 20.0 Years smoked: 40 Smoking pack-years: 40.00 Smoking status: Former smoker Tobacco type: cigarettes Second hand tobacco smoke exposure: No Alcohol intake: never Substance use: never Substance use type: does not use Do You Feel Safe in your Home?: Yes Lack of Transportation: No Lack of Food: Never True Current Housing: I Have Housing Concerned About Future Housing: No Difficulty Paying Gas/Electric Bills: No Difficulty Paying for Meds: No Currently Unemployed: No Education: High School Diploma/GED Difficulty w/ Childcare or Family Care: No Living arrangements: with family Additional living arrangements comments: Occupation/Education: retired Gender identity (if verbalized by the patient): Female Sexual Orientation (if Verbalized by the Patient): Straight or Heterosexual Spiritual care concerns: Yes Anes - Eval Final PreProcedure Day of Procedure 03/08/23 08:47 Patient weight: overweight Heart: regular rate and rhythm Lungs: decreased breath sounds Airway: Mallampati scale class II Neurological: alert and oriented Last oral intake: >/= 8 hours ASA classification: III Emergent: no Anesthetic plan: proceed Anesthesia type and monitoring: general LMA and standard monitoring Results Review: All pre-operative results and documents have been reviewed as part of the pre- operative evaluation. Informed Consent: The patient's anesthetic plan and its attendant risks and benefits were discussed with the patient/family/POA. Questions were solicited and answers provided to the satisfaction of the patient/family/POA.
--- NOTE | 2023-03-08 10:09 | P.OP_ITS ---
Procedure Note - Detailed Date of Procedure 03/08/23 Pre-op Diagnosis Bilateral ureteral stones Post-op Diagnosis Same Procedure Performed 1. Cystoscopy with left ureteral stent removal, left ureteroscopy with stone extraction. 2. Cystoscopy, right ureteral stent removal, right ureteroscopy with laser lithotripsy, stone extraction and stent replacement Surgeon Filiberto Joshi MD Anesthesia General Description of Procedure Patient is brought to the operative suite where she was prepped and draped in r outine sterile fashion while in dorsal lithotomy position after the uneventful induction of a general LMA anesthetic. Cystoscopy was undertaken with a 21 F rigid cystoscope. Each indwelling ureteral stent is brought to the external urethral meatus. I 1st placed a 0.035 in glidewire into the left renal pelvis through the stent. Left ureteroscopy was undertaken with a short tapered semi- rigid ureteral scope. She has a small stone on the left in the distal ureter that is extracted with a 1.9 F disposable stone basket with ease. I opted not to replace the stent on the left. On the right placed a guidewire in a similar fashion. On the right side she had 2 sizable stones that required dusting with a 273 micron Xavier laser. All fragments were removed. Because the extent of this manipulation I did replace a 4.8 F stent on the right with a proximal coil in the renal pelvis and distal coil the bladder. Scopes and wires removed she was taken recovery room good condition. Urine Output 1,450 Drains Yes Packing No Pathology Yes Complications No immediate complications Condition Stable Disposition PACU
[2023-03-08 10:52] LABS: Glucose Point of Care 135 mg/dl (65-105)
[2023-03-08] MEDS: ATORVASTATIN 5 MG TABLET PO (12:17)
[2023-03-08 12:35] LABS: Glucose Point of Care 145 mg/dl (65-105)
[2023-03-08] MEDS: ALBUTEROL SULFATE NEB 2.5 MG/3 ML INH INHALATION (13:37)
[2023-03-08] MEDS: IPRATROPIUM BR 0.02% INH SOLN 0.5 MG/2.5 ML VIAL INHALATION (13:37)
--- NOTE | 2023-03-08 14:25 | P.PNIM_ITS ---
Progress Note: A&P Assessment and Plan (1) Severe sepsis: Code(s): A41.9 - Sepsis, unspecified organism; R65.20 - Severe sepsis without septic shock Status: Resolved Assessment and Plan: * Sepsis, Likely secondary to kidney stone, stent was placed bilaterally * Patient VS stable * UA shows pyuria hematuria, UA culture 02/28 negative * blood culture grows Enterobacter cloacae on 02/27, repeat on 02/28 negative for gr owth * Continue PO Levaquin * Resolved (2) Acute hypoxic respiratory failure: Code(s): J96.01 - Acute respiratory failure with hypoxia Status: Resolved Assessment and Plan: * CT shows moderate to advanced emphysema * Possible aspiration pneumonia * Continue PO Levaquin * Patient is off BiPAP, now on Room Air. * DuoNeb scheduled albuterol nebulizer as needed * Refer patient to pulmonology follow-up outpatient diagnosis * Acute resp failure and hypoxia are resolved. (3) Pyelonephritis: Code(s): N12 - Tubulo-interstitial nephritis, not specified as acute or chronic Status: Resolved Assessment and Plan: * urology following * PO Levaquin * repeat UA clear * bilateral stent in place from 02/13 * Pt to have bilateral ureteroscopy tomorrow with Urology, and possible stents. * Resolved (4) Ureterolithiasis: Code(s): N20.1 - Calculus of ureter Status: Acute Assessment and Plan: * urology following - confirmed plan for stone extraction 03/08 * Pt with bilateral cystoscopy today. Stone removed from left side and two larger stones on right side were broken up with laser and then extracted with a stent placed to be removed per Urology discretion. (5) DM type 2 (diabetes mellitus, type 2): Qualifiers: Diabetes mellitus long-term insulin use: without director long term care use Diabetes mellitus complication status: without complication Qualified Code(s): E11.9 - Type 2 diabetes mellitus without complications Code(s): E11.9 - Type 2 diabetes mellitus without complications Status: Chronic Assessment and Plan: * Hold metformin * insulin sliding scale, a.c. q.h.s, hypoglycemic protocol (6) Benign essential hypertension: Code(s): I10 - Essential (primary) hypertension Status: Chronic Assessment and Plan: * continue home meds Time Spent With Patient Time with patient: 15 - 25 minutes Subjective Date/time seen: 03/08/23 1400 Interval history: This pt was seen at the bedside in interval assessment after her bilateral cystoscopy procedure. She had a small stone removed from the left side and two sizeable stones removed from the right side with stent placement. She tolerated well and is now without complaint with expected discharge for tomorrow. Review of Systems Review of Systems: All systems reviewed & are unremarkable except as noted in HPI and below Exam Narrative: GENERAL: well-appearing, no acute distress. Well-nourished. - EYES: EOMI. PERRLA. - HENT: Moist mucous membranes. - LUNGS: Clear to auscultation bilateral ly, no wheezing. - CARDIOVASCULAR: RRR. No murmur. No JVD . - ABDOMEN: Soft, non-tender and non-dist ended. No palpable masses. BS present and active. - EXTREMITIES: No edema. Pedal pulses. - NEUROLOGIC: A&O x 3. No focal neurolog ical deficits. CN II-XII grossly intact. - PSYCHIATRIC: Appropriate mood and affe ct. - SKIN: No rashes or lesions. Warm. Objective Data Vital Signs Vital Signs: Vital Signs - 24 hr 03/07/23 20:21 03/07/23 20:34 03/07/23 21:11 Temperature 97.2 F L Pulse Rate 96 96 103 H Respiratory Rate 17 Blood Pressure 148/89 H Pulse Oximetry 96 Oxygen Delivery Oxygen Flow Rate 03/07/23 20:00 03/08/23 05:42 03/08/23 08:08 Temperature 97.2 F L 99.0 F Pulse Rate 86 92 Respiratory Rate 17 16 Blood Pressure 124/60 165/89 H Pulse Oximetry 98 96 Oxygen Delivery Room Air Room Air Oxygen Flow Rate 03/08/23 10:15 03/08/23 10:30 03/08/23 10:45 Temperature 97.3 F L Pulse Rate 93 86 86 Respiratory Rate 15 18 20 Blood Pressure 156/93 H 149/84 H 150/85 H Pulse Oximetry 100 100 94 Oxygen Delivery Simple Face Mask Simple Face Mask Room Air Oxygen Flow Rate 8 8 03/08/23 11:00 03/08/23 11:15 03/08/23 11:30 Temperature Pulse Rate 80 85 86 Respiratory Rate 18 20 18 Blood Pressure 149/84 H 143/83 H 144/86 H Pulse Oximetry 92 93 96 Oxygen Delivery Room Air Room Air Room Air Oxygen Flow Rate 03/08/23 11:45 03/08/23 13:08 03/08/23 13:37 Temperature 97.3 F L Pulse Rate 90 94 96 Respiratory Rate 20 17 18 Blood Pressure 145/89 H 159/87 H Pulse Oximetry 95 98 Oxygen Delivery Room Air Oxygen Flow Rate 03/08/23 13:40 03/08/23 13:25 03/08/23 13:54 Temperature 97.0 F L Pulse Rate 93 102 H Respiratory Rate 17 18 Blood Pressure 150/85 H Pulse Oximetry 95 98 Oxygen Delivery Room Air Oxygen Flow Rate 03/08/23 13:59 Temperature 98.0 F Pulse Rate 104 H Respiratory Rate 17 Blood Pressure 149/80 H Pulse Oximetry 94 Oxygen Delivery Oxygen Flow Rate Intake/Output Intake/Output: Intake & Output 03/05/23 03/06/23 03/07/23 03/08/23 23:59 23:59 23:59 23:59 Intake Total 9080 485 3925 340 Output Total 2775 2650 1250 3250 Balance -1045 -1810 560 -2910 Meds/Results Medications: Active Medications Generic Name Dose Route Start Last Admin Trade Name Freq PRN Reason Stop Dose Admin Acetaminophen 325 mg 03/03/23 08:23 03/03/23 08:36 Acetaminophen 325 Mg Tablet PO 325 mg Q6H PRN Administration Mild Pain (1-3) or Fever Albuterol 2.5 mg 02/28/23 14:00 03/08/23 13:37 Albuterol Sulfate Neb 2.5 Mg/3 Ml Inh INHALATION 2.5 mg Q6HRT BUTCH Administration Albuterol 2.5 mg 02/28/23 11:10 Albuterol Sulfate Neb 2.5 Mg/3 Ml Inh INHALATION Q4HRT PRN Shortness Of Breath Or Wheezing Atorvastatin Calcium 5 mg 03/01/23 09:00 03/08/23 12:17 Atorvastatin 5 Mg Tablet PO 5 mg DAILY BUTCH Administration Dextrose 12.5 gm 02/28/23 13:54 Dextrose 50% 25 Gm/50 Ml Syringe IV PUSH PRN PRN Hypoglycemia Protocol Glucagon 1 mg 02/28/23 13:54 Glucagon For Inj 1 Mg Vial IM PRN PRN Hypoglycemia Protocol Glucose 15 gm 02/28/23 13:54 Glucose Oral Gel 15 Gm Of Glucse In 37.5 Gm Tube PO PRN PRN Hypoglycemia Protocol Dextrose 1,000 mls @ 100 mls/hr 02/28/23 13:54 Dextrose 5% 1,000 Ml IVPB PRN PRN Hypoglycemia Protocol Insulin Aspart 4 - 8 units 02/28/23 17:00 03/08/23 12:37 Insulin Aspart (*Bkc) 100 Units/Ml SUB-Q Not Given TIDWM [facility] Protocol Ipratropium [place] 0.5 mg 02/28/23 14:00 03/08/23 13:37 Ipratropium Br 0.02% Inh Soln 0.5 Mg/2.5 Ml Vial INHALATION 0.5 mg Q6HRT [facility] Administration Levofloxacin 750 mg 03/05/23 16:00 03/07/23 17:19 Levofloxacin 750 Mg Tablet PO 03/10/23 23:59 750 mg DAILY@1600 [facility] Administration Polyethylene Glycol 17 gm 03/07/23 09:40 Polyethylene Glycol 3350 17 Gm Powd.Pack PO QAM PRN Constipation Sodium Chloride 10 ml 02/28/23 09:22 Saline Lock Flush IV PUSH PRN PRN Flush Sodium Chloride 20 ml 02/28/23 09:22 Saline Lock Flush IV PUSH PRN PRN after blood draws Radiology Results: ITS Impressions Abdomen/Pelvis CT 02/27/23 19:40 IMPRESSION: Small right pleural effusion. Moderate esophagitis/gastritis. Nodular liver border as can be seen with cirrhosis. Gallbladder hydrops, without inflammatory change, cholelithiasis, or biliary duct dilation. Findings suspicious for right pyelonephritis. Cystitis. Bilateral ureteral stents with stable left UVJ and right distal ureteral stones. Chest CTA 02/28/23 05:46 Impression: No evidence of pulmonary embolus, aortic dissection, or aortic aneurysm. Diffuse groundglass opacity at the left lung, with interlobular septal thickening bilaterally, left worse than right. Findings suggest asymmetric pulm onary edema. Correlate clinically for pneumonia. Minimal pleural effusions and minimal bibasilar atelectasis. Moderate to advanced underlying emphysema. Chest X-Ray 02/28/23 11:12 Impression: Diffuse groundglass and interstitial disease. Correlate for pulmonary edema a nd/or chronic interstitial disease. Infection not excluded. Probable small right pleural effusion. Ureter Stent X-Ray 03/08/23 11:54 IMPRESSION: 1. Right internal ureteral stent in expected position. Labs Labs: Laboratory Results - last 24 hr 03/07/23 03/07/23 03/08/23 16:49 21:08 07:42 POC Capillary Glucose 113 H 125 H 136 H 03/08/23 03/08/23 10:50 12:22 POC Capillary Glucose 135 H 145 H Quality VTE Prophylaxis VTE prophylaxis: mechanical ordered
[2023-03-08] MEDS: levoFLOXacin 750 MG TABLET PO (16:37)
[2023-03-08 17:06] LABS: Glucose Point of Care 177 mg/dl (65-105)
[2023-03-08 21:18] LABS: Glucose Point of Care 221 mg/dl (65-105)
[2023-03-09 04:58] VITALS: BP 128/81; PULSE 87; RESP 18; TEMP 36.2; O2SAT 98
[2023-03-09 06:20] LABS: Basophils Percent Auto 0.2 % (0.2-1.2); Eosinophils Absolute Auto 0.1 K/mm3 (0-0.3); Eosinophils Percent Auto 0.5 % (0-4.4); Hematocrit 37.6 % (37.0-47.0); Hemoglobin 11.7 g/dL (12.0-15.0); Immature Granulocyte Absolute 0.04 K/mm3 (0.00-0.031); Immature Granulocyte Percent A 0.3 % (0-0.5); Lymphocytes Absolute Auto 5.99 K/mm3 (0.9-3.2); Lymphocytes Percent Auto 47.8 % (18.3-44.2); Mean Corpuscular HGB Conc 31.1 g/dl (32-36); Mean Corpuscular Hemoglobin 27.8 pg (26-34); Mean Corpuscular Volume 89.3 fl (80-100); Mean Platelet Volume 9.9 fl (7.4-10.4); Monocytes Absolute Auto 0.9 K/mm3 (0.1-0.6); Neutrophils Absolute Auto 5.5 K/mm3 (1.3-6.7); Neutrophils Percent Auto 44.2 % (45.5-73.1); Platelet Count Result 457 k/mm3 (150-375); Red Blood Count 4.21 M/mm3 (4.2-5.4); Red Cell Distribution Width 16.5 % (11.5-14.5); White Blood Count 12.5 K/mm3 (4.5-10.0)
[2023-03-09 06:26] LABS: Alanine Aminotransferase 22 U/L (6-35); Alkaline Phosphatase 87 U/L (38-126); Anion Gap 8 mmol/L (8-16); Aspartate Amino Transferase 37 U/L (14-36); Bilirubin,Total 0.6 mg/dL (0.2-1.3); Blood Urea Nitrogen 18 mg/dL (7-17); Calcium 9.5 mg/dL (8.4-10.2); Carbon Dioxide 24 mmol/L (22-30); Chloride 106 mmol/L (98-107); Estimated CRCL calculation 50 ml/min; Estimated Glomerular Filt Rate > 60; Glucose 140 mg/dL (65-110); Magnesium 1.8 mg/dL (1.6-2.3); Sodium 138 mmol/L (137-145)
[2023-03-09 08:04] LABS: Glucose Point of Care 126 mg/dl (65-105)
--- NOTE | 2023-03-09 08:09 | P.DS_ITS ---
DS: Admitting Diagnosis Discharge Date 03/09/2023 Admitting Diagnosis Sepsis Elevated troponin Pyelonephritis Ureterolithiasis Acute Hypoxic respiratory failure DM HTN DS: Discharge Diagnosis Discharge Diagnosis (1) Severe sepsis: Code(s): A41.9 - Sepsis, unspecified organism; R65.20 - Severe sepsis without septic shock Status: Resolved Assessment and Plan: * Sepsis, Likely secondary to kidney stone, stent was placed bilaterally * Patient VS stable * UA shows pyuria hematuria, UA culture 02/28 negative * blood culture grows Enterobacter cloacae on 02/27, repeat on 02/28 negative for growth * Continue PO Levaquin until 03/10/23 * Resolved * 03/09/23, Date of discharge: Pt will be discharged with additional 2 days of Levaquin therapy for home. (2) Acute hypoxic respiratory failure: Code(s): J96.01 - Acute respiratory failure with hypoxia Status: Resolved Assessment and Plan: * CT shows moderate to advanced emphysema * Possible aspiration pneumonia * Continue PO Levaquin * Patient is off BiPAP, now on Room Air. * DuoNeb scheduled albuterol nebulizer as needed * Refer patient to pulmonology follow-up outpatient diagnosis * Acute resp failure and hypoxia are resolved. (3) Pyelonephritis: Code(s): N12 - Tubulo-interstitial nephritis, not specified as acute or chronic Status: Resolved Assessment and Plan: * urology following * PO Levaquin * repeat UA clear * bilateral stent in place from 02/13 * Pt to have bilateral ureteroscopy tomorrow with Urology, and possible stents. * Resolved (4) Ureterolithiasis: Code(s): N20.1 - Calculus of ureter Status: Acute Assessment and Plan: * urology following - confirmed plan for stone extraction 03/08 * Pt with bilateral cystoscopy today. Stone removed from left side and two larger stones on right side were broken up with laser and then extracted with a stent placed to be removed per Urology discretion. * 03/09/23, Date of discharge: Pt had bilateral ureteroscopy yesterday with removal of stone and no stenting to the left ureter, and to the right ureter had laser lithotripsy and removal of stones with stent placement. Pt. has had a favorable course after the procedure and has remained fever free and pain free. She will follow up with Dr. Joshi as ordered in the clinic and she will need to call for that appointment time. (5) DM type 2 (diabetes mellitus, type 2): Qualifiers: Diabetes mellitus complication status: without complication Diabetes mellitus intermediate insulin use: without intermediate use Qualified Code(s): E11.9 - Type 2 diabetes mellitus without complications Code(s): E11.9 - Type 2 diabetes mellitus without complications Status: Chronic Assessment and Plan: * Hold metformin * insulin sliding scale, a.c. q.h.s, hypoglycemic protocol * 03/09/23, Date of discharge: Continue home medication regimen at home upon discharge. (6) Benign essential hypertension: Code(s): I10 - Essential (primary) hypertension Status: Chronic Assessment and Plan: * continue home meds * 03/09/23, Date of discharge: Continue home medications and follow up with PCP. Plan Discharge to home. 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 She had recently been admitted to the hospital for sepsis and was found to have candidemia. a stent was placed then by Urology and discharged home with micafungin. At home, the pt started ot have chills, fever and N/V. ED evaluation was significant for Pyuria and hematuria. CT scan suggested right Pyelonephritis with bilateral kidney stones. She was admitted to the hospital and once on arrival to IMU, the pt. developed respiratory distress and required 15L of supplemental oxygen. CXR showed pulmonary congestion, she was again septic with tachypnea and tachycardia. ABG showed acute hypoxix respiratory failure and she was negative for RSV, COVID or Influenza. She was placed on BiPap and given Lasix IVP correcting her dyspnea. Trops were elevated x3 prompting Cardiology evaluation who felt the troponin elevation was not due to ACS, but rather to demand ischemia from the underlying septic process. No additional cardiac workup was performed. Pt received IV abx for Blood cultures that grew out Enterobacter Cloacae complex and was transitioned to Levaquin once the sensitivity was available. She was appropriately started on Levaquin and will have two additional doses for discharge to take today at 4PM and tomorrow at 4 PM. Sputum and urine cultures were negative for any growth. She was consulted on by Urology and was taken to the OR yesterday by Dr. Joshi and underwent bilateral ureteroscopy in which a stone on the left side was removed without stent placement and she had lithotripsy on the right side for two large stones and she had removal with stent placement. She has been cleared by Urology for discharge and will call their office for the follow up appointment. From a medicine standpoint, she is without any systemic symptoms and is stable for discharge at this time. She will need close follow up with PCP and will call for appointment with Urology for follow up. Pt verbalized understanding of this POC and is in agreement. All questions were answered to her satisfaction prior to discharge. Status at Discharge Cognitive/behavioral status at discharge: At baseline Functional status at discharge: independent ambulation Overall status at discharge: patient is back to baseline Time Spent with Patient Time attestation: Total time spent providing and/or coordinating discharge services: Time spent: Greater than 30 minutes Specific discharge activities: Discharge instructions and follow up. Exam Narrative: GENERAL: well-appearing, no acute distress. Well-nourished. - EYES: EOMI. PERRLA. - HENT: Moist mucous membranes. - LUNGS: Clear to auscultation bilateral ly, no wheezing. - CARDIOVASCULAR: RRR. No murmur. No JVD . - ABDOMEN: Soft, non-tender and non-dist ended. No palpable masses. BS present and active. - EXTREMITIES: No edema. Pedal pulses. - NEUROLOGIC: A&O x 3. No focal neurolog ical deficits. CN II-XII grossly intact. - PSYCHIATRIC: Appropriate mood and affe ct. - SKIN: No rashes or lesions. Warm. DS: Data Data Completed and Pending Completed studies during hospitalization: ITS Impressions Chest X-Ray 02/27/23 17:56 IMPRESSION: Mild infiltrate and/or atelectasis at the right lower lung, particularly right lung base Small right pleural effusion Abdomen/Pelvis CT 02/27/23 19:40 IMPRESSION: Small right pleural effusion. Moderate esophagitis/gastritis. Nodular liver border as can be seen with cirrhosis. Gallbladder hydrops, without inflammatory change, cholelithiasis, or biliary duct dilation. Findings suspicious for right pyelonephritis. Cystitis. Bilateral ureteral stents with stable left UVJ and right distal ureteral stones. Chest CTA 02/28/23 05:46 Impression: No evidence of pulmonary embolus, aortic dissection, or aortic aneurysm. Diffuse groundglass opacity at the left lung, with interlobular septal thickening bilaterally, left worse than right. Findings suggest asymmetric pulmonary edema. Correlate clinically for pneumonia. Minimal pleural effusions and minimal bibasilar atelectasis. Moderate to advanced underlying emphysema. Chest X-Ray 02/28/23 11:12 Impression: Diffuse groundglass and interstitial disease. Correlate for pulmonary edema and/or chronic interstitial disease. Infection not excluded. Probable small right pleural effusion. Ureter Stent X-Ray 03/08/23 11:54 IMPRESSION: 1. Right internal ureteral stent in expected position. Pending studies at discharge: Pending at discharge 03/08/23 10:06 Surgical [PTH] Routine Labs on day of discharge: Labs from last 24 hours 03/09/23 03/09/23 03/08/23 07:54 05:13 20:09 WBC 12.5 H RBC 4.21 Hgb 11.7 L Hct 37.6 MCV 89.3 MCH 27.8 MCHC 31.1 L RDW 16.5 H Plt Count 457 H MPV 9.9 Immature Gran % (Auto) 0.3 Neut % (Auto) 44.2 L Lymph % (Auto) 47.8 H Dawson % (Auto) 7.0 Eos % (Auto) 0.5 Baso % (Auto) 0.2 Lymph # (Auto) 5.99 H Dawson # (Auto) 0.9 H Eos # (Auto) 0.1 Baso # (Auto) 0.0 Abs Immat Gran (auto) 0.04 H Absolute Neuts (auto) 5.5 Absolute Nucleated RBC 0.0 Nucleated RBC % 0.0 Sodium 138 Potassium 4.0 Chloride 106 Carbon Dioxide 24 Anion Gap 8 BUN 18 H Creatinine 0.70 Estim Creat Clear Calc 50 Estimated GFR > 60 Glucose 140 H POC Capillary Glucose 126 H 221 H Calcium 9.5 Magnesium 1.8 Total Bilirubin 0.6 AST 37 H ALT 22 Alkaline Phosphatase 87 Total Protein 8.0 Albumin 4.0 03/08/23 03/08/23 03/08/23 16:59 12:22 10:50 WBC RBC Hgb Hct MCV MCH MCHC RDW Plt Count MPV Immature Gran % (Auto) Neut % (Auto) Lymph % (Auto) Dawson % (Auto) Eos % (Auto) Baso % (Auto) Lymph # (Auto) Dawson # (Auto) Eos # (Auto) Baso # (Auto) Abs Immat Gran (auto) Absolute Neuts (auto) Absolute Nucleated RBC Nucleated RBC % Sodium Potassium Chloride Carbon Dioxide Anion Gap BUN Creatinine Estim Creat Clear Calc Estimated GFR Glucose POC Capillary Glucose 177 H 145 H 135 H Calcium Magnesium Total Bilirubin AST ALT Alkaline Phosphatase Total Protein Albumin Discharge Plan Discharge Attending physician on discharge: Maggie Espana Consulting providers: Jory Mckoy; Virgilio Boudreaux Discharging Clinician: Maggie Espana Anticipated Discharge Date/Time: 03/09/23 08:26 Patient Disposition: Home, Self-Care Activity: as tolerated Diet: heart healthy and diabetic Discharge Instructions: Please take all medications as ordered. Call for the first follow up appointment with Dr. Joshi. Increase fluids. If any acute change in condition, please return to the ER. Patient Instructions: Antibiotic Form Stand Alone Forms: General Discharge Information Follow-up/Referrals: Jory Mckoy MD [Physician] - Call for Appointment Chuy High MD [Primary Care Provider] - Call for Appointment Discharge Medications: New levofloxacin 750 mg tablet 750 mg PO DAILY Qty: 2 0RF Continued Tri Ease Seasonal Soft Gels 1 caplet PO DAILY PRN (Reason: allergies) atorvastatin 10 mg Tablet 5 mg PO DAILY lisinopril 20 mg Tablet 20 mg PO DAILY metformin 1,000 mg Tablet 1,000 mg PO BID Januvia 100 mg Tablet 100 mg PO DAILY empagliflozin 10 mg Tablet 10 mg PO DAILY metoclopramide HCl [Reglan] 10 mg tablet 10 mg PO Q6H PRN (Reason: nausea and vomiting) Qty: 30 0RF oxycodone-acetaminophen 5-300 mg tablet 1 tablet PO Q8H PRN (Reason: pain) Qty: 14 0RF alendronate [Fosamax] 70 mg tablet 70 mg PO WEEKLY Qty: 4 2RF Patient Comments: TAKES ON MONDAYS Discontinued micafungin [Mycamine] 100 mg Recon Soln 100 mg IV DAILY Qty: 11 0RF Patient Comments: Last dose was scheduled for today, 02/28/22 - Pt did not receive Date of admission: 02/27/23 12:58 Primary Care Provider: Chuy High Admitting Provider: Fran Rebolledo Attending physician on admission: Maggie Espana Condition: Serious Quality VTE Prophylaxis VTE prophylaxis: mechanical ordered [facility] Discharge Hospital Discharge: 89106 Hosp D/C >30 Min
[2023-03-09] MEDS: ATORVASTATIN 5 MG TABLET PO (08:37)
[2023-03-09] MEDS: IPRATROPIUM BR 0.02% INH SOLN 0.5 MG/2.5 ML VIAL INHALATION (08:51)
[2023-03-09 08:52] VITALS: PULSE 96; RESP 18
[2023-03-09] MEDS: ALBUTEROL SULFATE NEB 2.5 MG/3 ML INH INHALATION (08:52)
[2023-03-09 08:54] VITALS: PULSE 96; RESP 18; O2SAT 95
[2023-03-09 09:04] VITALS: PULSE 95; RESP 18
--- NOTE | 2023-03-09 09:29 | WPDUROPN2 ---
Progress Note: A&P Assessment and Plan (1) Ureterolithiasis: Code(s): N20.1 - Calculus of ureter Status: Acute Assessment and Plan: Tolerated ureteroscopy with stone extraction well Discharged any time from our standpoint Follow-up in 1-2 weeks for right stent removal Subjective Subjective Date/Time Seen: 03/09/23 09:29 Interval history: Feeling great, no complaints Review of Systems Cardiovascular: Cardiovascular: Denies chest pain, Denies lightheadedness, Denies palpitations and Denies dyspnea Respiratory: Respiratory: Denies dyspnea Gastrointestinal: Gastrointestinal: Denies diarrhea, Denies nausea and Denies vomiting Genitourinary: Genitourinary: Denies hematuria and Denies dysuria Endocrine: Endocrine: Denies palpitations Exam Const: General: no acute distress Resp: Effort & Inspection: normal respiratory effort GI: Inspection: non-distended GI Palp: No abdominal tenderness and No Guarding due to palpation present (GI) Auscultation: normal bowel sounds Objective Data Vital Signs Vital Signs: Vital Signs - 24 hr 03/08/23 10:15 03/08/23 10:30 03/08/23 10:45 Temperature 97.3 F L Pulse Rate 93 86 86 Respiratory Rate 15 18 20 Blood Pressure 156/93 H 149/84 H 150/85 H Pulse Oximetry 100 100 94 Oxygen Delivery Simple Face Mask Simple Face Mask Room Air Oxygen Flow Rate 8 8 03/08/23 11:00 03/08/23 11:15 03/08/23 11:30 Temperature Pulse Rate 80 85 86 Respiratory Rate 18 20 18 Blood Pressure 149/84 H 143/83 H 144/86 H Pulse Oximetry 92 93 96 Oxygen Delivery Room Air Room Air Room Air Oxygen Flow Rate 03/08/23 11:45 03/08/23 13:08 03/08/23 13:37 Temperature 97.3 F L Pulse Rate 90 94 96 Respiratory Rate 20 17 18 Blood Pressure 145/89 H 159/87 H Pulse Oximetry 95 98 Oxygen Delivery Room Air Oxygen Flow Rate 03/08/23 13:40 03/08/23 13:25 03/08/23 13:54 Temperature 97.0 F L Pulse Rate 93 102 H Respiratory Rate 17 18 Blood Pressure 150/85 H Pulse Oximetry 95 98 Oxygen Delivery Room Air Oxygen Flow Rate 03/08/23 13:59 03/08/23 15:30 03/08/23 20:48 Temperature 98.0 F 97.9 F 97.7 F Pulse Rate 104 H 95 109 H Respiratory Rate 17 17 20 Blood Pressure 149/80 H 125/61 173/91 H Pulse Oximetry 94 94 96 Oxygen Delivery Oxygen Flow Rate 03/08/23 20:00 03/09/23 04:58 03/09/23 08:52 Temperature 97.2 F L Pulse Rate 87 96 Respiratory Rate 18 18 Blood Pressure 128/81 Pulse Oximetry 98 Oxygen Delivery Room Air Oxygen Flow Rate 03/09/23 08:54 03/09/23 09:04 03/09/23 08:50 Temperature Pulse Rate 96 95 Respiratory Rate 18 18 Blood Pressure Pulse Oximetry 95 Oxygen Delivery Room Air Room Air Oxygen Flow Rate Intake/Output Intake/Output: Intake & Output 03/06/23 03/07/23 03/08/23 03/09/23 23:59 23:59 23:59 23:59 Intake Total 840 1810 930 630 Output Total 2650 1250 4150 Balance -1810 560 -3220 630 Meds/Results Medications: Active Medications Generic Name Dose Route Start Last Admin Trade Name Freq PRN Reason Stop Dose Admin Acetaminophen 325 mg 03/03/23 08:23 03/03/23 08:36 Acetaminophen 325 Mg Tablet PO 325 mg Q6H PRN Administration Mild Pain (1-3) or Fever Albuterol 2.5 mg 02/28/23 14:00 03/09/23 08:52 Albuterol Sulfate Neb 2.5 Mg/3 Ml Inh INHALATION 2.5 mg Q6HRT BUTCH Administration Albuterol 2.5 mg 02/28/23 11:10 Albuterol Sulfate Neb 2.5 Mg/3 Ml Inh INHALATION Q4HRT PRN Shortness Of Breath Or Wheezing Atorvastatin Calcium 5 mg 03/01/23 09:00 03/09/23 08:37 Atorvastatin 5 Mg Tablet PO 5 mg DAILY BUTCH Administration Dextrose 12.5 gm 02/28/23 13:54 Dextrose 50% 25 Gm/50 Ml Syringe IV PUSH PRN PRN Hypoglycemia Protocol Glucagon 1 mg 02/28/23 13:54 Glucagon For Inj 1 Mg Vial IM PRN PRN Hypoglycemia Protocol Glucose 15 gm 02/28/23 13:54 Glucose Oral Gel 15 Gm Of Glucse In 37.5 Gm Tube PO PRN PRN Hypoglycemia Protocol Dextrose 1,000 mls @ 100 mls/hr 02/28/23 13:54 Dextrose 5% 1,000 Ml IVPB PRN PRN Hypoglycemia Protocol Insulin Aspart 4 - 8 units 02/28/23 17:00 03/09/23 08:31 Insulin Aspart (*Bkc) 100 Units/Ml SUB-Q Not Given TIDWM [facility] Protocol Ipratropium [place] 0.5 mg 02/28/23 14:00 03/09/23 08:51 Ipratropium Br 0.02% Inh Soln 0.5 Mg/2.5 Ml Vial INHALATION 0.5 mg Q6HRT [facility] Administration Levofloxacin 750 mg 03/05/23 16:00 03/08/23 16:37 Levofloxacin 750 Mg Tablet PO 03/10/23 23:59 750 mg DAILY@1600 [facility] Administration Polyethylene Glycol 17 gm 03/07/23 09:40 Polyethylene Glycol 3350 17 Gm Powd.Pack PO QAM PRN Constipation Sodium Chloride 10 ml 02/28/23 09:22 Saline Lock Flush IV PUSH PRN PRN Flush Sodium Chloride 20 ml 02/28/23 09:22 Saline Lock Flush IV PUSH PRN PRN after blood draws Radiology Results: ITS Impressions Abdomen/Pelvis CT 02/27/23 19:40 IMPRESSION: Small right pleural effusion. Moderate esophagitis/gastritis. Nodular liver border as can be seen with cirrhosis. Gallbladder hydrops, without inflammatory change, cholelithiasis, or biliary duct dilation. Findings suspicious for right pyelonephritis. Cystitis. Bilateral ureteral stents with stable left UVJ and right distal ureteral stones. Chest CTA 02/28/23 05:46 Impression: No evidence of pulmonary embolus, aortic dissection, or aortic aneurysm. Diffuse groundglass opacity at the left lung, with interlobular septal thickening bilaterally, left worse than right. Findings suggest asymmetric pulmonary edema. Correlate clinically for pneumonia. Minimal pleural effusions and minimal bibasilar atelectasis. Moderate to advanced underlying emphysema. Chest X-Ray 02/28/23 11:12 Impression: Diffuse groundglass and interstitial disease. Correlate for pulmonary edema and/or chronic interstitial disease. Infection not excluded. Probable small right pleural effusion. Ureter Stent X-Ray 03/08/23 11:54 IMPRESSION: 1. Right internal ureteral stent in expected position. Labs Labs: Laboratory Results - last 24 hr 03/08/23 03/08/23 03/08/23 10:50 12:22 16:59 WBC RBC Hgb Hct MCV MCH MCHC RDW Plt Count MPV Immature Gran % (Auto) Neut % (Auto) Lymph % (Auto) [place] % (Auto) Eos % (Auto) Baso % (Auto) Lymph # (Auto) [place] # (Auto) Eos # (Auto) Baso # (Auto) Abs Immat Gran (auto) Absolute Neuts (auto) Absolute Nucleated RBC Nucleated RBC % Sodium Potassium Chloride Carbon Dioxide Anion Gap BUN Creatinine Estim Creat Clear Calc Estimated GFR Glucose POC Capillary Glucose 135 H 145 H 177 H Calcium Magnesium Total Bilirubin AST ALT Alkaline Phosphatase Total Protein Albumin 03/08/23 03/09/23 03/09/23 20:09 05:13 07:54 WBC 12.5 H RBC 4.21 Hgb 11.7 L Hct 37.6 MCV 89.3 MCH 27.8 MCHC 31.1 L RDW 16.5 H Plt Count 457 H MPV 9.9 Immature Gran % (Auto) 0.3 Neut % (Auto) 44.2 L Lymph % (Auto) 47.8 H [place] % (Auto) 7.0 Eos % (Auto) 0.5 Baso % (Auto) 0.2 Lymph # (Auto) 5.99 H [place] # (Auto) 0.9 H Eos # (Auto) 0.1 Baso # (Auto) 0.0 Abs Immat Gran (auto) 0.04 H Absolute Neuts (auto) 5.5 Absolute Nucleated RBC 0.0 Nucleated RBC % 0.0 Sodium 138 Potassium 4.0 Chloride 106 Carbon Dioxide 24 Anion Gap 8 BUN 18 H Creatinine 0.70 Estim Creat Clear Calc 50 Estimated GFR > 60 Glucose 140 H POC Capillary Glucose 221 H 126 H Calcium 9.5 Magnesium 1.8 Total Bilirubin 0.6 AST 37 H ALT 22 Alkaline Phosphatase 87 Total Protein 8.0 Albumin 4.0
== END 2023-03-09 10:35 | disposition home or self-care (01) | DRG 659 ==
LOC: ANHED 21:46 → ANH3MEDSUR 23:35 → ANHIMU 02-28 08:05 → ANH2MED 03-01 22:31
PROVIDERS: Emergency Medicine; Hospitalist; Nurse Practitioner; Physician Assistant; Urology; Admitting Provider Family Medicine; Emergency Provider Student in an Organized Health Care Education/Training Program; PCP Internal Medicine; Visit Provider Nurse Practitioner Adult Health
PROC: 0T768DZ Dilation of Right Ureter with Intraluminal Device, Via Natural or Artificial Opening Endoscopic (ICD-10-PCS; CPT 52352; principal; 2023-03-08 09:30)
DX: N10 Acute pyelonephritis (principal); J18.9 Pneumonia, unspecified organism; J96.01 Acute respiratory failure with hypoxia; N20.1 Calculus of ureter; I24.89 Other forms of acute ischemic heart disease; Z20.822 Contact with and (suspected) exposure to COVID-19; R82.81 Pyuria; R31.9 Hematuria, unspecified; J43.9 Emphysema, unspecified; E11.9 Type 2 diabetes mellitus without complications; Z79.84 Long term (current) use of oral hypoglycemic drugs; E78.5 Hyperlipidemia, unspecified; E55.9 Vitamin D deficiency, unspecified; Z90.710 Acquired absence of both cervix and uterus; Z96.0 Presence of urogenital implants; Z87.891 Personal history of nicotine dependence; I11.9 Hypertensive heart disease without heart failure
CPT/HCPCS: 36415; 36600; 71045; 71046; 71275; 74177; 80048; 80053; 80069; 81001; 82365; 82805; 82948; 83605; 83690; 83735; 83880; 84484; 85025; 85027; 85610; 85730; 86140; 87040; 87070; 87077; 87086; 87088; 87186; 87205; 87637; 88300; 92610; 93005; 94640; 96361; 96374; 97161; 97165; 99285; A9270; C1769; C2617; J0456; J0692; J1100; J1940; J2248; J2405; J2543; J2704; J3010; J3475; J7030; J7120; Q9966; Q9967

== ENCOUNTER 2023-10-23 07:59 | Outpatient (CLI) | payer MEDICARE, SELFPAY ==
--- NOTE | ~2023-10-23 | US_ITS ---
US right upper quadrant INDICATION: Elevated liver function tests. PROCEDURE: Realtime right upper abdominal ultrasound. COMPARISON: No prior studies for comparison. FINDINGS: The pancreas is normal without focal mass or pancreatic ductal dilation. Liver echotexture is normal without focal mass or intrahepatic biliary dilatation. There is normal directional flow i n the portal vein. The gallbladder is normal without stones, gallbladder wall thickening or pericholecystic fluid. Comm on bile duct measures 6 mm. No sonographic Salguero's sign. Right renal echotexture is unremarkable. IMPRESSION: 1: Normal limited abdominal ultrasound. Reviewed, dictated and finalized at location B.
== END 2023-10-23 08:00 ==
LOC: MICIMG 08:00
PROVIDERS: PCP Internal Medicine; Visit Provider Internal Medicine Gastroenterology
DX: R79.89 Other specified abnormal findings of blood chemistry (principal); R93.2 Abnormal findings on diagnostic imaging of liver and biliary tract
CPT/HCPCS: 76705

== ENCOUNTER 2023-11-13 12:31 | Outpatient (CLI) | payer MEDICARE, SELFPAY ==
--- NOTE | ~2023-11-13 | XR_ITS ---
XR abdomen/kub 1V Ordering provider: Irena Brice, COMMERCIAL SALES CONSULTANT History: . B/L KIDNEY STONE . Comparison: November 22, 2017 FINDINGS: BOWEL: Nonobstructive bowel gas pattern. ORGANOMEGALY: None. SIGNIFICANT PATHOLOGIC CALCIFICATIONS: None. OTHER: No free air is seen under the diaphragm. Degenerative the spine. Mild osteoarthritic changes of both hips. IMPRESSION: NO ACUTE ABDOMINAL FINDINGS. Reviewed, dictated and finalized at location A.
== END 2023-11-13 12:32 | disposition home or self-care (01) ==
PROVIDERS: PCP Internal Medicine; Visit Provider Nurse Practitioner Family
DX: N20.0 Calculus of kidney (principal)
CPT/HCPCS: 74018

== ENCOUNTER 2023-12-26 10:01 | Outpatient (CLI) | payer MEDICARE, SELFPAY ==
--- NOTE | ~2023-12-26 | MM_ITS ---
EXAMINATION: MM screening [facility] BI w thomas HISTORY: Screening mammogram TECHNIQUE: Craniocaudal and mediolateral oblique 3-D tomosynthesis images were obtained and synthetic 2-D images were generated. CAD analysis was submitted and interpreted. COMPARISON: 10/13/2022, 05/24/2021, 05/06/2020, 04/29/2019 BREAST PARENCHYMAL COMPOSITION:Dense: The breasts are heterogeneously dense, which may obscure small masses. FINDINGS: Bilateral benign calcifications are present. No suspicious mass, calcification, or architec tural distortion are identified in either breast to suggest malignancy. There has been no suspicious interval change. IMPRESSION: No mammographic evidence of malignancy. Recommend routine screening mammography in one year. BI-RADS Category 2: Benign finding(s). Reviewed, dictated and finalized at [facility].
== END 2023-12-26 10:02 | disposition home or self-care (01) ==
LOC: ANHIMG 10:03
PROVIDERS: PCP Internal Medicine; Visit Provider Internal Medicine
DX: Z12.31 Encounter for screening mammogram for malignant neoplasm of breast (principal)
CPT/HCPCS: 77063; 77067

== ENCOUNTER 2024-01-29 00:50 | Day surgery (SDC) | payer MEDICARE, SELFPAY ==
[2024-01-09 15:17] VITALS: BMI 27.3
[2024-01-29 11:08] VITALS: BP 141/74; PULSE 92; RESP 18; TEMP 36.9; O2SAT 98; BMI 26.7
[2024-01-29] MEDS: LACTATED RINGERS 1,000 ML 150 ML IV CONT (11:19)
[2024-01-29 12:07] LABS: Glucose Point of Care 125 mg/dl (65-105)
--- NOTE | 2024-01-29 12:07 | P.HP_ITS ---
History of Present Illness History of Present Illness Consent: Risks, benefits, and alternatives have been discussed and questions answered. Patient agrees to proceed with procedure. Chief complaint: hx colon polyps Narrative: Margaret Funez is a 78 year old female with colon polyp in 2017 Review of Systems Review of Systems: All systems reviewed & are unremarkable except as noted in HPI and below PMFSH Past Medical History Medical History Abnormal EKG Abnormal liver CT Acute kidney injury Benign essential hypertension BMI 25.0-25.9,adult BMI 26.0-26.9,adult BMI 27.0-27.9,adult BMI 28.0-28.9,adult BMI 29.0-29.9,adult Borderline abnormal TFTs Breast cyst Colon cancer screening Colon polyp Diastolic dysfunction DM type 2 (diabetes mellitus, type 2) Ear itching Eczema Elevated LFTs Encounter for Medicare annual wellness exam Encounter for routine adult health examination with abnormal findings Encounter for routine adult health examination without abnormal findings Encounter for screening mammogram for malignant neoplasm of breast Follow up Hair loss Hearing loss Hepatitis B core antibody positive Hot flashes Hx of seborrheic dermatitis Hypercalcemia Hyperlipidemia Hypertension 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 Septic shock Uncontrolled type 2 diabetes mellitus Unspecified ptosis of bilateral eyelids UTI (urinary tract infection) Vitamin D deficiency Surgical History Surgical History H/O eye surgery History of breast biopsy History of gynecologic surgery 01/15/2023 Robotic Laparoscopic Supracervical Hysterectomy with Bilateral Salpingo-oophorectomy History of tonsillectomy Family History Family History Father Family history of malignant neoplasm Hypertension Mother Family history of heart disease in male family member before age 55 Family history of cardiovascular disease Sibling Cerebral palsy Sibling Epilepsy Social History Social History Smoking packs per day: 2 Smoking cigarettes per day: 40.0 Years smoked: 40 Smoking pack-years: 80.00 Smoking status: Former smoker Tobacco type: cigarettes Second hand tobacco smoke exposure: No Alcohol intake: never Substance use: never Substance use type: does not use Do You Feel Safe in your Home?: Yes Lack of Transportation: No Lack of Food: Never True Current Housing: I Have Housing Concerned About Future Housing: No Difficulty Paying Gas/Electric Bills: No Difficulty Paying for Meds: No Currently Unemployed: No Education: High School Diploma/GED Difficulty w/ Childcare or Family Care: No Living arrangements: with family Additional living arrangements comments: Occupation/Education: retired Gender identity (if verbalized by the patient): Female Sexual Orientation (if Verbalized by the Patient): Straight or Heterosexual Spiritual care concerns: No Meds Home Medications and Allergies Home Medications Medication Instructions Recorded Confirmed Type Tri Ease Seasonal Soft Gels 1 caplet PO DAILY PRN allergies 09/26/20 01/29/24 History Collagen/ Vitamin C/ Biotin 1 tab-cap BYMOUTH DAILY 04/24/23 01/29/24 History Fiber 5 mg BYMOUTH BID 04/24/23 01/29/24 History Fish oil 1,000 units BYMOUTH BID 04/24/23 01/29/24 History biotin 2,500 mcg capsule 5,000 mcg PO DAILY 04/24/23 01/29/24 History vitamin c 60 mg BYMOUTH DAILY #90 caps 04/24/23 01/29/24 Rx atorvastatin 10 mg tablet See Rx Instructions .Route 06/04/23 01/29/24 Rx .COMPLEX #45 tabs metformin 1,000 mg tablet See Rx Instructions .Route 06/04/23 01/29/24 Rx .COMPLEX #180 tabs empagliflozin 10 mg tablet 10 mg PO DAILY #90 tabs 08/15/23 01/29/24 Rx (Jardiance) sitagliptin phosphate 100 mg See Rx Instructions .Route 08/15/23 01/29/24 Rx tablet (Januvia) .COMPLEX #90 tabs lisinopril 20 mg tablet See Rx Instructions .Route 09/11/23 01/29/24 Rx .COMPLEX #90 tabs alendronate 70 mg tablet See Rx Instructions .Route 12/21/23 01/29/24 Rx .COMPLEX #12 tabs calcium carb-vitamin D3 ER 600 mg 2 tablet PO DAILY 01/09/24 01/29/24 History (1,500 mg)-500 unit tablet,ER 24 hr vibegron 75 mg tablet (Gemtesa) 75 mg PO DAILY 01/09/24 01/29/24 History Allergies Allergy/AdvReac Type Severity Reaction Status Date / Time pollen extracts Allergy Unknown Swelling Verified 01/29/24 11:06 of the Eye Vital Signs Vital Signs - 24 hr 01/29/24 11:08 Temperature 98.4 F Pulse Rate 92 Respiratory Rate 18 Blood Pressure 141/74 H Pulse Oximetry 98 Oxygen Delivery Room Air Exam Const: General: comfortable and no acute distress HENMT: Face/Nose/Sinus: Normal nares present Eyes: General: appearance normal, both eyes and all related structures Neck: Neck: no JVD Resp: Auscultation: clear to auscultation bilaterally Cardio: Rate: regular rate Rhythm: regular rhythm GI: Inspection: non-distended GI Palp: Yes Soft to palpation Skin: General skin exam: normal color Neuro: General: gait normal Speech: normal speech Extrem: General: normal to inspection Psych: Mental Status: mental status grossly normal Assessment and Plan Assessment and plan (1) Colon polyp: Code(s): K63.5 - Polyp of colon Status: Acute Assessment and Plan: colonoscopy
--- NOTE | 2024-01-29 12:09 | P.PNAN_ITS ---
Anes - Initial Pre Proc Eval Procedure: Operation Date: 01/29/24 12:30 Proposed Procedures p Colonoscopy - Gurmeet Nettles MD Date/Time: 01/29/24 12:09 Surgeon: Gurmeet Nettles MD Pre Op Diagnosis: hx colon polyps Patient Data Age: 78 Gender: F Height: 1.55 m Weight: 64.2 kg Last Vital Signs Temp 36.9 C 01/29/24 11:08 Pulse 92 01/29/24 11:08 Resp 18 01/29/24 11:08 BP 141/74 H 01/29/24 11:08 Pulse Ox 98 01/29/24 11:08 O2 Del Method Room Air 01/29/24 11:08 Allergies Allergy/AdvReac Type Severity Reaction Status Date / Time pollen extracts Allergy Unknown Swelling Verified 01/29/24 11:06 of the Eye Home Medications Medication Instructions Recorded Confirmed Type Tri Ease Seasonal Soft Gels 1 caplet PO DAILY PRN allergies 09/26/20 01/29/24 History Collagen/ Vitamin C/ Biotin 1 tab-cap BYMOUTH DAILY 04/24/23 01/29/24 History Fiber 5 mg BYMOUTH BID 04/24/23 01/29/24 History Fish oil 1,000 units BYMOUTH BID 04/24/23 01/29/24 History biotin 2,500 mcg capsule 5,000 mcg PO DAILY 04/24/23 01/29/24 History vitamin c 60 mg BYMOUTH DAILY #90 caps 04/24/23 01/29/24 Rx atorvastatin 10 mg tablet See Rx Instructions .Route 06/04/23 01/29/24 Rx .COMPLEX #45 tabs metformin 1,000 mg tablet See Rx Instructions .Route 06/04/23 01/29/24 Rx .COMPLEX #180 tabs empagliflozin 10 mg tablet 10 mg PO DAILY #90 tabs 08/15/23 01/29/24 Rx (Jardiance) sitagliptin phosphate 100 mg See Rx Instructions .Route 08/15/23 01/29/24 Rx tablet (Januvia) .COMPLEX #90 tabs lisinopril 20 mg tablet See Rx Instructions .Route 09/11/23 01/29/24 Rx .COMPLEX #90 tabs alendronate 70 mg tablet See Rx Instructions .Route 12/21/23 01/29/24 Rx .COMPLEX #12 tabs calcium carb-vitamin D3 ER 600 mg 2 tablet PO DAILY 01/09/24 01/29/24 History (1,500 mg)-500 unit tablet,ER 24 hr vibegron 75 mg tablet (Gemtesa) 75 mg PO DAILY 01/09/24 01/29/24 History Laboratory Tests 01/29/24 12:05 POC Capillary Glucose 125 H mg/dl (65-105) Patient hx anesthesia problems: none Family hx anesthesia problems: none Results Review: All pre-operative results and documents have been reviewed as part of the pre- operative evaluation. [facility] Past Medical History Medical History Abnormal EKG Abnormal liver CT Acute kidney injury Benign essential hypertension BMI 25.0-25.9,adult BMI 26.0-26.9,adult BMI 27.0-27.9,adult BMI 28.0-28.9,adult BMI 29.0-29.9,adult Borderline abnormal TFTs Breast cyst Colon cancer screening Colon polyp Diastolic dysfunction DM type 2 (diabetes mellitus, type 2) Ear itching Eczema Elevated LFTs Encounter for Medicare annual wellness exam Encounter for routine adult health examination with abnormal findings Encounter for routine adult health examination without abnormal findings Encounter for screening mammogram for malignant neoplasm of breast Follow up Hair loss Hearing loss Hepatitis B core antibody positive Hot flashes Hx of seborrheic dermatitis Hypercalcemia Hyperlipidemia Hypertension 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 Septic shock Uncontrolled type 2 diabetes mellitus Unspecified ptosis of bilateral eyelids UTI (urinary tract infection) Vitamin D deficiency Surgical History Surgical History H/O eye surgery History of breast biopsy History of gynecologic surgery 01/15/2023 Robotic Laparoscopic Supracervical Hysterectomy with Bilateral Salpingo-oophorectomy History of tonsillectomy Family History Family History Father Family history of malignant neoplasm Hypertension Mother Family history of heart disease in male family member before age 55 Family history of cardiovascular disease Sibling Cerebral palsy Sibling Epilepsy Social History Social History Smoking packs per day: 2 Smoking cigarettes per day: 40.0 Years smoked: 40 Smoking pack-years: 80.00 Smoking status: Former smoker Tobacco type: cigarettes Second hand tobacco smoke exposure: No Alcohol intake: never Substance use: never Substance use type: does not use Do You Feel Safe in your Home?: Yes Lack of Transportation: No Lack of Food: Never True Current Housing: I Have Housing Concerned About Future Housing: No Difficulty Paying Gas/Electric Bills: No Difficulty Paying for Meds: No Currently Unemployed: No Education: High School Diploma/GED Difficulty w/ Childcare or Family Care: No Living arrangements: with family Additional living arrangements comments: Occupation/Education: retired Gender identity (if verbalized by the patient): Female Sexual Orientation (if Verbalized by the Patient): Straight or Heterosexual Spiritual care concerns: No Anes - Eval Final PreProcedure Day of Procedure 01/29/24 12:09 Patient weight: overweight Heart: regular rate and rhythm Lungs: decreased breath sounds Airway: Mallampati scale class II Neurological: alert and oriented Last oral intake: >/= 8 hours ASA classification: III Emergent: no Anesthetic plan: proceed Anesthesia type and monitoring: general GIVS and standard monitoring Results Review: All pre-operative results and documents have been reviewed as part of the pre- operative evaluation. Informed Consent: The patient's anesthetic plan and its attendant risks and benefits were disc ussed with the patient/family/POA. Questions were solicited and answers provided to the satisfaction of the patient/family/POA.
[2024-01-29 12:24] VITALS: BP 98/51; PULSE 82; RESP 16; O2SAT 96
[2024-01-29 12:34] VITALS: BP 103/52; PULSE 84; RESP 14; O2SAT 97
[2024-01-29 12:44] VITALS: BP 124/66; PULSE 86; RESP 20; O2SAT 97
== END 2024-01-29 12:53 | disposition home or self-care (01) ==
PROVIDERS: PCP Internal Medicine; Visit Provider Internal Medicine Gastroenterology
PROC: 0DJD8ZZ Inspection of Lower Intestinal Tract, Via Natural or Artificial Opening Endoscopic (ICD-10-PCS; CPT 45378; principal; 2024-01-29 12:30)
DX: Z12.11 Encounter for screening for malignant neoplasm of colon (principal); D12.2 Benign neoplasm of ascending colon; D12.0 Benign neoplasm of cecum; K64.8 Other hemorrhoids; K57.30 Diverticulosis of large intestine without perforation or abscess without bleeding; E11.9 Type 2 diabetes mellitus without complications; E83.52 Hypercalcemia; E78.5 Hyperlipidemia, unspecified; I11.0 Hypertensive heart disease with heart failure; I50.30 Unspecified diastolic (congestive) heart failure; Z79.84 Long term (current) use of oral hypoglycemic drugs; Z79.83 Long term (current) use of bisphosphonates; Z79.899 Other long term (current) drug therapy; Z98.890 Other specified postprocedural states; Z87.891 Personal history of nicotine dependence; Z80.9 Family history of malignant neoplasm, unspecified; Z82.49 Family history of ischemic heart disease and other diseases of the circulatory system
CPT/HCPCS: 45385; 82948; 88305; J2704; J7120

== ENCOUNTER 2024-12-29 09:34 | Outpatient (CLI) | payer MEDICARE, SELFPAY ==
--- NOTE | ~2024-12-29 | MM_ITS ---
EXAMINATION: MM screening [facility] BI w thomas INDICATION: Asymptomatic, referred for screening mammogram COMPARISON: 12/26/2023 through 04/29/2019 TECHNIQUE: Digital Breast Tomosynthesis CC, MLO views of Both breasts were obtained with computer-aided detection to assist in interpretation of the study. FINDINGS: The breasts are heterogeneously dense, which may obscure small masses. There is increasing grouped microcalcifications in the Medial right breast at posterior depth. A group of calcifications seen in the superior lateral, posterior depth within the left breast appears to have increased. Elsewhere, there are no mammographic features of malignancy. IMPRESSION: Bilateral breast Incompletely characterized group of calcifications. RECOMMENDATION: Bilateral breast Diagnostic mammogram with true lateral, and appropriate magnification views. BI-RADS Category 0: Incomplete: Needs additional imaging evaluation. Reviewed, dictated and finalized at location B. OYMENT APPEALS EXAMINER IMPRESSION: Bilateral breast Incompletely characterized group of calcifications. RECOMMENDATION: Bilateral breast Diagnostic mammogram with true lateral, and appropriate magnif ication views. BI-RADS Category 0: Incomplete: Needs additional imaging evaluation.
--- OUTSIDE RECORDS SUMMARY | 2024-12-29 10:17 | XMS_ITS | Clinical Summary ---
Author Organization [facility] Address [address] [place] [address] Care Team Providers Care Special Event Assistant Name Role Phone Chuy High MD Primary Care Provider + Allergies No known active allergies Medications sitaGLIPtin (JANUVIA) 100 mg Tablet Take 100 mg by mouth daily with breakfast. 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 Active metFORMIN (GLUCOPHAGE) 1,000 mg tablet Take 1,000 mg by mouth 2 times daily with meals. Active lisinopril (PRINIVIL) 20 mg tablet Take 20 mg by mouth daily. Active Active Problems Problem Noted Date Diagnosed Date Fibrocystic changes of left breast 05/28/2018 Lump of left breast 04/30/2018 Resolved Problems Problem Noted Date Diagnosed Date Resolved Date Abnormal mammogram of left breast 04/30/2018 05/28/2018 Sign and symptom in breast 04/30/2018 0 05/28/2018 Family History Medical History Relation Name Comments Other Father Ovarian Cancer Maternal Grandmother Relation Name Status Comments Brother Alive Father Maternal Grandmother Mother Social History Tobacco Use Types Packs/Day Years Used Date Smoking Tobacco: Former Cigarettes Q uit: 2009 Smokeless Tobacco: Never Comments No Sex and Gender Information Value Date Recorded Sex Assigned at Not on file 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 Gender Identity Not on file Sexual Orientation Not on file Last Filed Vital Signs Vital Sign Reading Time Taken Comments Blood Pressure 107/68 05/28/2018 3:20 PM CDT Pulse 114 05/28/2018 3:20 PM CDT Temperature 36.6 C (97.8 F) 05/28/2018 3:20 PM CDT Respiratory Rate - - Oxygen Saturation 96% 05/28/2018 3:20 PM CDT Inhaled Oxygen Concentration - - Weight 70.3 kg (155 lb) 05/28/2018 3:20 PM CDT Height 157.5 cm (5' 2) 05/28/2018 3:20 PM CDT Body Mass Index 28.35 05/28/2018 3:20 PM CDT Plan of Treatment Health Maintenance Due Date Last Done Comments DTAP/TDAP/TD VACCINES (1 - Tdap) 1965 PNEUMOCOCCAL VACCINE 50+ YEARS (1 of 1 - PCV) 02/14/19 96 ZOSTER VACCINE (1 of 2) 02/15/1996 OSTEOPOROSIS SCREENING 2011 RSV VACCINE (60+ or ) (1 - 1-dose 75+ series) 2021 INFLUENZA VACCINE (#1) 2024 Insurance MCR Care Teams Special Event Assistant Relationship Specialty Start Date End Date Chuy High MD [address] [place] [address] PCP - General Internal Medicine 04/10/18
== END 2024-12-29 09:35 | disposition home or self-care (01) ==
LOC: ANHFOHIMG 09:36
PROVIDERS: Visit Provider Obstetrics & Gynecology
DX: Z12.31 Encounter for screening mammogram for malignant neoplasm of breast (principal); R92.8 Other abnormal and inconclusive findings on diagnostic imaging of breast
CPT/HCPCS: 77063; 77067

== ENCOUNTER 2025-01-01 10:47 | Outpatient (CLI) | payer MEDICARE, SELFPAY ==
--- NOTE | ~2025-01-01 | DEXA_ITS ---
Bone Density Report Name: VIC GRACE Age: 79 Sex: Female Ethnicity: White Date of : 1945 Indication: osteopenia; monitoring treatment; Referring Provider: ZINA PATEL Study: Bone densitometry was performed. Exam Date: January 01, 2025 Accession number: [id number] Bone Density: Region BMD T-score Z-score Classification AP Spine(L1-L4) 0.901 -1.3 1.3 Osteopenia Femoral Neck (Left) 0.612 -2.1 0.1 Osteopenia Total Hip (Left) 0.830 -0.9 1.1 Normal Femoral Neck (Right) 0.647 -1.8 0.4 Osteopenia Total Hip (Right) 0.782 -1.3 0.7 Osteopenia Total Hip Mean 0.806 -1.1 0.9 Osteopenia World Health Organization criteria for BMD impression classify patients as: Normal (T-score at or above -1.0), Osteopenia (T-score between -1.0 and -2.5), or Osteoporosis (T-score at or below -2.5). 10-year Fracture Risk: FRAX not reported because: Treated for osteoporosis Previous Exams: -- Region Exam Age BMD T-score BMD Change BMD Change Date g/cm2 vs Baseline vs Previous -- AP Spine (L1-L4) 01/01/2025 79 0.901 -1.3 4.6%* 4.6%* 10/13/2022 77 0.861 -1.7 Total Hip(Left) 01/01/2025 79 0.830 -0.9 1.3% 1.3% 10/13/2022 77 0.819 -1.0 Total Hip(Right) 01/01/2025 79 0.782 -1.3 4.1%* 4.1%* 10/13/2022 77 0.751 -1.6 -- *Denotes significance at 95% confidence level, LSC for AP Spine = 0.022 g/cm2, LSC for Total Hip = 0.027 g/cm2 Clinical Information Provided by Patient: Is being treated for osteoporosis Has used the following medications: Fosamax (i.e. alendronate), Vitamin D, Calcium Patient maximum height was 62 Menopause Age: 56 No regular weight bearing exercise Drinks caffeinated beverages Onset of menses at age 11 Number of children 2 Impression: The patient has low bone mass, based on the Left Femoral Neck T-score. No significant bone loss was observed. Discussion: PATIENT UNDER TREATMENT WITH NO SIGNIFICANT BMD LOSS SINCE LAST EXAM. In an untreated patient, BMD typically declines with age. A lack of decline or gain is usually a sign that treatment is efficacious and fracture risk is reduced. It is important to ask patients whether they are taking their medications and to encourage continued and appropriate compliance with their osteoporosis therapies to reduce fracture risk. It is also important to review their risk factors and encourage appropriate calcium and vitamin D intakes, exercise, fall prevention and other lifestyle measures. Follow-Up: Consider a repeat BMD and Vertebral Fracture Assessment (VFA) exam in 2 years or sooner if medically necessary, to reassess this patient's status. Reported by: REBECCA on 01/01/2025 11:11:00 AM. Reviewed, dictated and finalized at location A.
== END 2025-01-01 10:48 | disposition home or self-care (01) ==
LOC: MICIMG 10:49
PROVIDERS: PCP Internal Medicine; Visit Provider Internal Medicine
DX: M85.89 Other specified disorders of bone density and structure, multiple sites (principal); Z78.0 Asymptomatic menopausal state
CPT/HCPCS: 77080

== ENCOUNTER 2025-02-13 12:30 | Outpatient (CLI) | payer MEDICARE, SELFPAY ==
--- NOTE | ~2025-02-13 | MM_ITS ---
EXAMINATION: MM diagnostic yung BI w thomas INDICATION: 79-year old female; BI-RADS 0, callback from screening to evaluate calcifications in both breasts. COMPARISON: 12/29/2024 TECHNIQUE: Digital breast magnification CC and ML views of BILATERAL breast were obtained. FINDINGS: The breasts are heterogeneously dense, which may obscure small masses. A group of heterogeneous microcalcifications that spans 1.4 cm seen in inferior medial RIGHT breast at posterior depth that persists correlates to the area of concern. A group of pleomorphic calcifications in the superior lateral at middle depth that persists in the left breast correlates to the area of concern. IMPRESSION: Suspicious BILATERAL breast group s of microcalcifications. Biopsy is recommended. RECOMMENDATION: Stereotactic biopsy of inferior medial RIGHT breast calcifications. Stereotactic biopsy of superior lateral LEFT breast calcifications BI-RADS 4, SUSPICIOUS Reviewed, dictated and finalized at location A. MER SPECIALIST
--- OUTSIDE RECORDS SUMMARY | 2025-02-13 12:33 | XMS_ITS | Clinical Summary ---
Author Organization [facility] Address [address] [place] [address] Care Team Providers Care Plate Finisher Name Role Phone Chuy High MD Primary Care Provider + Allergies No known active allergies Medications sitaGLIPtin (JANUVIA) 100 mg Tablet Take 100 mg by mouth daily with breakfast. 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
== END 2025-02-13 12:31 | disposition home or self-care (01) ==
LOC: ANHFOHIMG 12:31
PROVIDERS: PCP Internal Medicine; Visit Provider Obstetrics & Gynecology
DX: R92.1 Mammographic calcification found on diagnostic imaging of breast (principal)
CPT/HCPCS: 77062; 77066; G0279